=== PATIENT | female | born 1975 | race Caucasian/White ===

== ENCOUNTER 2017-12-31 12:17 | Inpatient (IN) | payer BC, OTHER ==
[~2017-12-31] VITALS: Ht 170.2 cm; Wt 71.7 kg
[2017-12-31] VITALS (29 sets, daily range): BP systolic 84–134; BP diastolic 50–88
[~2017-12-31 12:17] MED LIST: ALPR.5T PO; FRS325T PO; HYDR-1231 PO; HYDR1TAB PO; LEVO150T54 PO; LEVO175T2 PO; PREN1TAB39 PO; SERT50TA PO; [UNRECOGNIZED DRUG - OTHER]
--- OUTSIDE RECORDS SUMMARY | 2017-12-31 12:23 | XMS REPORT ---
Author Author RADHA BELL Organization e[employer] Address Unknown Phone Unavailable Care Team Providers Care Gallery Or Museum Attendant Name Role Phone RADHA BELL CP Unavailable Allergies, Adverse Reactions, Alerts Substance Reaction Event Type N.K.D.A. Info Not Available Non Drug Allergy Problems Problem Type Condition Code Onset Dates Condition Status Problem History of depression Z86.59 Active Problem History of gastric ulcer Z87.19 Active Problem History of anxiety Z86.59 Active Problem Substance abuse F19.10 Active Problem Depressive disorder F32.9 Active Problem Hypothyroidism E03.9 Active Problem Desire for Z31.9 Active Problem Tobacco use Z72.0 Active Problem Graves disease E05.00 Active Problem Diarrhea R19.7 Active Problem Stress incontinence N39.3 Active Problem History of irregular menstrual bleeding Z87.42 Active Problem Heat intolerance R68.89 Active Assessment Allergic rhinitis J30.9 Active Problem Cold intolerance R68.89 Active Medications Medication Code System Code Instructions Start Date End Date Status Dosage Levothyroxine Sodium [facility] [address]-87 50 MCG Orally Once a day Apr 07, 2015 1 tablet Alprazolam [facility] [address]-15 1 MG Orally Twice a day 1 tablet Omeprazole [facility] [address]-00 20 MG Orally Once a day 2 capsules Cetirizine HCl [facility] [address]-40 10 MG Orally Once a day July 14, 2015 1 tablet as needed Procedures Procedure Coding System Code Date DEPO MEDROL 40 MG/ML CPT-4 J1030 July 24, 2015 THER/PROPH/DIAG INJ, SC/IM CPT-4 13212 July 24, 2015 Office Visit, Est Pt., Level 3 CPT-4 83548 July 24, 2015 Vital Signs Date/Time: July 24, 2015 Temperature 97.1 F Weight 162.2 lbs Height 67 in BMI 25.40 Index Blood Pressure Diastolic 69 mmHg Blood Pressure Systolic 121 mmHg Results No Known Results Summary Purpose eClinicalWorks Submission
--- OUTSIDE RECORDS SUMMARY | 2017-12-31 12:23 | XMS REPORT ---
Author Author MISA PANCHAL Organization [facility] Address [address] [place] [address] Care Team Providers Care Goat Farmer Name Role Phone MISA PANCHAL Unavailable PROBLEMS Type Condition ICD9-CM Code [id number] Code Onset Dates Condition Status SNOMED Code Problem History of depression Z86.59 Active 907474735 Problem Desire for Z31.9 Active Problem Graves disease E05.00 Active 901490756 Problem Substance abuse F19.10 Active 18134109 Problem Hypothyroidism E03.9 Active 44422427 Problem Tobacco use Z72.0 Active 543873515 Problem History of irregular menstrual bleeding Z87.42 Active 211484636 Problem Diarrhea R19.7 Active 77680044 Problem Depressive disorder F32.9 Active 78500298 Problem History of anxiety Z86.59 Active 446263879 Problem Heat intolerance R68.89 Active 14857837 Problem Stress incontinence N39.3 Active 46854339 Problem History of gastric ulcer Z87.19 Active 935379540 Problem Cold intolerance R68.89 Active 96774152 ALLERGIES No Known Allergies SOCIAL HISTORY Never Assessed PLAN OF CARE Activity Details Follow Up prn Reason: VITAL SIGNS Height 67 in 2016-09-05 Weight 153.0 lbs 2016-09-05 Temperature 97.3 degrees Fahrenheit 2016-09-05 Heart Rate 82 bpm 2016-09-05 Respiratory Rate 18 2016-09-05 BMI 23.96 kg/m2 2016-09-05 Blood pressure systolic 122 mmHg 2016-09-05 Blood pressure diastolic 80 mmHg 2016-09-05 MEDICATIONS Medication Instructions Dosage Frequency Start Date End Date Duration Status Alprazolam 1 MG Orally Twice a day 1 tablet 12h Active Omeprazole 20 MG Orally Once a day 2 capsules 24h Active Levothyroxine Sodium 50 MCG Orally Once a day 1 tablet 24h Mar, Active Promethazine-Codeine 6.25-10 MG/5ML Orally every 6 hrs 5 ml as needed 6h August, Active Azithromycin 250 MG Orally Once a day 2 tablets on the first day, then 1 tablet daily for 4 days 24h August, August, 5 day(s) Active RESULTS No Results PROCEDURES No Known procedures IMMUNIZATIONS No Known Immunizations MEDICAL (GENERAL) HISTORY Type Description Date Medical History thyroid disorder -hypothyroid Medical History psychiatric disorder -depression Surgical History appendectomy
--- OUTSIDE RECORDS SUMMARY | 2017-12-31 12:23 | XMS REPORT ---
Author Author RADHA BELL Organization [employer] Address Unknown Phone Unavailable Care Team Providers Care Laborer Construction Or Leak Gang Name Role Phone RADHA BELL CP Unavailable [...] disease E05.00 Active Problem Diarrhea R19.7 Active Assessment Substance abuse F19.10 Active Assessment Hypothyroidism E03.9 Active Problem Stress incontinence N39.3 Active Problem History of irregular menstrual bleeding Z87.42 Active Assessment Tobacco use Z72.0 Active Problem Heat intolerance R68.89 Active Assessment Graves disease E05.00 Active Problem Cold intolerance R68.89 Active Medications Medication Code System Code Instructions Start Date End Date Status Dosage Alprazolam [facility] [address]-73 2 MG Orally 2 1 tablet Omeprazole [facility] [address]-63 20 MG Orally Once a day 2 capsules Levothyroxine Sodium [facility] [address]-51 25 MCG Orally Once a day Apr 07, 2015 1 tablet Procedures Procedure Coding System Code Date Office Visit, Est Pt., Level 3 CPT-4 36806 Apr 07, 2015 Vital Signs Date/Time: Apr 07, 2015 Temperature 98.0 F Weight 158.5 lbs Height 67 in BMI 24.82 Index Blood Pressure Diastolic 66 mmHg Blood Pressure Systolic 114 mmHg Cardiac Monitoring Heart Rate 84 bpm Results No Known Results Summary Purpose eClinicalWorks Submission
--- OUTSIDE RECORDS SUMMARY | 2017-12-31 12:23 | XMS REPORT ---
Author Author BRITTANY MORALES [facility] Address [address] [place] [address] Care Team Providers Care Tax Staff Accountant Name Role Phone BRITTANY MORALES Unavailable PROBLEMS Type Condition ICD9-CM Code EUL45-VI Code Onset Dates Condition Status SNOMED Code Problem History of depression Z86.59 Active 462600070 Problem Desire for Z31.9 Active Problem Graves disease E05.00 Active 370087386 Problem Substance abuse F19.10 Active 27838393 Problem Hypothyroidism E03.9 Active 53904821 Problem Tobacco use Z72.0 Active 445209528 Problem History of irregular menstrual bleeding Z87.42 Active 794926370 Problem Diarrhea R19.7 Active 12006189 Problem Depressive disorder F32.9 Active 51404918 Problem History of anxiety Z86.59 Active 790198821 Problem Heat intolerance R68.89 Active 91576236 Problem Stress incontinence N39.3 Active 11967712 Problem History of gastric ulcer Z87.19 Active 111670399 Problem Cold intolerance R68.89 Active 69455278 ALLERGIES No Known Allergies SOCIAL HISTORY Never Assessed PLAN OF CARE VITAL SIGNS Height 67 in 2016-08-25 Weight 155.4 lbs 2016-08-25 Temperature 98.0 degrees Fahrenheit 2016-08-25 Heart Rate 92 bpm 2016-08-25 Respiratory Rate 18 2016-08-25 BMI 24.34 kg/m2 2016-08-25 Blood pressure systolic 108 mmHg 2016-08-25 Blood pressure diastolic 84 mmHg 2016-08-25 MEDICATIONS Medication Instructions Dosage Frequency Start Date End Date Duration Status PredniSONE 20 mg Orally Once a day 2 tablets 24h August, August, 05 days Active Omeprazole 20 MG Orally Once a day 2 capsules 24h Active Promethazine-Codeine 6.25-10 MG/5ML Orally every 6 hrs 5 ml as needed 6h August, Active Doxycycline Hyclate 100 mg Orally every 12 hrs 1 capsule 12h August, August, 10 days Active Levothyroxine Sodium 50 MCG Orally Once a day 1 tablet 24h 22 Mar, 2015 Active Alprazolam 1 MG Orally Twice a day 1 tablet 12h Active RESULTS No Results PROCEDURES No Known procedures IMMUNIZATIONS No Known Immunizations MEDICAL (GENERAL) HISTORY Type Description Date Medical History thyroid disorder -hypothyroid Medical History psychiatric disorder -depression Surgical History appendectomy
--- OUTSIDE RECORDS SUMMARY | 2017-12-31 12:23 | XMS REPORT ---
Author Author JELANI SEYMOUR [employer] Address Unknown Phone Unavailable Care Team Providers Care Residential Installer Name Role Phone JELANI SEYMOUR Unavailable Allergies, Adverse Reactions, Alerts Substance Reaction Event Type N.K.D.A. Info Not Available Non Drug Allergy Problems Problem Type Condition Code Onset Dates Condition Status Assessment Stress incontinence N39.3 Active Assessment History of irregular menstrual bleeding Z87.42 Active Assessment Heat intolerance R68.89 Active Problem Stress incontinence N39.3 Active Assessment Cold intolerance R68.89 Active Problem History of irregular menstrual bleeding Z87.42 Active Assessment Tearfulness R45.89 Active Problem Heat intolerance R68.89 Active Problem History of depression Z86.59 Active Problem Cold intolerance R68.89 Active Problem Graves disease E05.00 Active Problem Diarrhea R19.7 Active Assessment History of gastric ulcer Z87.19 Active Assessment History of anxiety Z86.59 Active Problem Depressive disorder F32.9 Active Assessment History of depression Z86.59 Active Problem History of gastric ulcer Z87.19 Active Problem History of anxiety Z86.59 Active Problem Desire for Z31.9 Active Problem Tobacco use Z72.0 Active Assessment Abdominal pain R10.9 Active Assessment Diarrhea R19.7 Active Assessment Tobacco use Z72.0 Active Assessment Desire for Z31.9 Active Assessment Encounter for screening for malignant neoplasm of cervix Z12.4 Active Assessment Encounter for IUD removal Z30.432 Active Assessment Graves disease E05.00 Active Assessment Well woman exam Z01.419 Active Medications Medication Code System Code Instructions Start Date End Date Status Dosage Levothyroxine Sodium [facility] [address]-09 75 MCG Orally Once a day 1 tablet Alprazolam [facility] [address]-78 2 MG Orally 2 1 tablet Omeprazole [facility] [address]-61 20 MG Orally Once a day 2 capsules Procedures Procedure Coding System Code Date URINE TEST CPT-4 31831 Apr 02, 2015 SPECIMEN HANDLING CPT-4 41461 Apr 02, 2015 REMOVE INTRAUTERINE DEVICE CPT-4 46988 Apr 02, 2015 Preventive Care Est Pt. Age 18-39 CPT-4 18273 Apr 02, 2015 VENIPUNCT, ROUTINE* CPT-4 05956 Apr 02, 2015 Separate E/M CPT-4 25 Apr 02, 2015 COMPLETE CBC W/AUTO DIFF WBC CPT-4 57900 Apr 02, 2015 ASSAY THYROID STIM HORMONE CPT-4 91292 Apr 02, 2015 GLYCATED HEMOGLOBIN TEST CPT-4 49081 Apr 02, 2015 COMPREHEN METABOLIC PANEL CPT-4 72213 Apr 02, 2015 Vital Signs Date/Time: Apr 02, 2015 Temperature 97.0 F Weight 154.6 lbs Height 67 in BMI 24.21 Index Blood Pressure Diastolic 76 mmHg Blood Pressure Systolic 120 mmHg Results Name Result Date Reference Range Unit Abnormality Flag IUD REMOVAL ROUTINE VENIPUNCTURE TEST, URINE (IN HOUSE) ----Lot # [id number] ----Control [id number] ----RESULTS negative [id number] Summary Purpose eClinicalWorks Submission
--- OUTSIDE RECORDS SUMMARY | 2017-12-31 12:23 | XMS REPORT | Continuity of Care Document ---
Author Author [facility] Address Unknown Phone Unavailable Allergies Active Description Code Type Severity Reaction Onset Reported/Identified Relationship to Patient Clinical Status Yes No Known Drug Allergies [id number] Drug Allergy Mild N/A 06/30/2009 Medications There is no data. Problems Date Dx Coded Attending Type Code Diagnosis Diagnosed By 11/30/2007 UMM LONG DO 244.9 HYPOTHYROIDISM 11/30/2007 UMM LONG DO V72.31 RESOURCE MANAGER FORESTER EXAM, ROUTINE 11/30/2007 244.9 HYPOTHYROIDISM 11/30/2007 V72.31 RESOURCE MANAGER FORESTER EXAM, ROUTINE 11/30/2007 RAJIHSANE JEFF, RAKAN A 244.9 HYPOTHYROIDISM 11/30/2007 RAJIHSANE JEFF, RAKAN A V72.31 RESOURCE MANAGER FORESTER EXAM, ROUTINE 11/30/2007 PRATEEK DOG HANDLER, JAIME A 244.9 HYPOTHYROIDISM 11/30/2007 PRATEEK DOG HANDLER, JAIME A V72.31 RESOURCE MANAGER FORESTER EXAM, ROUTINE 04/15/2008 UMM LONG DO 461.9 SINUSITIS ACUTE 04/15/2008 UMM LONG DO 784.0 HEADACHE 04/15/2008 461.9 SINUSITIS ACUTE 04/15/2008 784.0 HEADACHE 04/15/2008 RAJIHSANE DOG HANDLER, RAKAN A 461.9 SINUSITIS ACUTE 04/15/2008 RAJOTTE DOG HANDLER, RAKAN A 784.0 HEADACHE 04/15/2008 PRATEEK DOG HANDLER, JAIME A 461.9 SINUSITIS ACUTE 04/15/2008 PRATEEK DOG HANDLER, JAIME A 784.0 HEADACHE 08/08/2008 UMM LONG DO 959.7 OTHER AND UNSPECIFIED INJURY TO KNEE LEG ANKLE AND FOOT 08/08/2008 UMM LONG DO V58.32 ENCOUNTER FOR REMOVAL OF SUTURES 08/08/2008 959.7 OTHER AND UNSPECIFIED INJURY TO KNEE LEG ANKLE AND FOOT 08/08/2008 V58.32 ENCOUNTER FOR REMOVAL OF SUTURES 08/08/2008 RAKAN CHARLTON APRN A 959.7 OTHER AND UNSPECIFIED INJURY TO KNEE LEG ANKLE AND FOOT 08/08/2008 RAKAN CHARLTON APRN A V58.32 ENCOUNTER FOR REMOVAL OF SUTURES 08/08/2008 JAIME CHANDRA APRN A 959.7 OTHER AND UNSPECIFIED INJURY TO KNEE LEG ANKLE AND FOOT 08/08/2008 JAIME CHANDRA APRN A V58.32 ENCOUNTER FOR REMOVAL OF SUTURES 09/12/2008 UMM LONG DO 599.0 URINARY TRACT INFECTION SITE NOT SPECIFIED 09/12/2008 599.0 URINARY TRACT INFECTION SITE NOT SPECIFIED 09/12/2008 RAKAN CHARLTON APRN A 599.0 URINARY TRACT INFECTION SITE NOT SPECIFIED 09/12/2008 JAIME CHANDRA APRN A 599.0 URINARY TRACT INFECTION SITE NOT SPECIFIED 01/29/2009 UMM LONG DO 626.4 irregular length of menstrual periods 01/29/2009 626.4 irregular length of menstrual periods 01/29/2009 RAKAN CHARLTON APRN A 626.4 irregular length of menstrual periods 01/29/2009 JAIME CHANDRA APRN A 626.4 irregular length of menstrual periods 02/23/2009 UMM LONG DO K 461.8 RHINOSINUSITIS 02/23/2009 UMM LONG DO K 466.0 ACUTE BRONCHITIS 02/23/2009 UMM LONG DO K V15.82 smoking cigarettes 02/23/2009 461.8 RHINOSINUSITIS 02/23/2009 466.0 ACUTE BRONCHITIS 02/23/2009 V15.82 smoking cigarettes 02/23/2009 RAKAN CHARLTON APRN A 461.8 RHINOSINUSITIS 02/23/2009 TRENTON CHARLTON APRNYL A 466.0 ACUTE BRONCHITIS 02/23/2009 TRENTON CHARLTON APRNYL A V15.82 smoking cigarettes 02/23/2009 JAIME CHANDRA APRN A 461.8 RHINOSINUSITIS 02/23/2009 JAIME CHANDRA APRN A 466.0 ACUTE BRONCHITIS 02/23/2009 POLLY CHANDRA APRNIDI A V15.82 smoking cigarettes 04/01/2009 UMM LONG DO K 465.9 UPPER RESPIRATORY INFECTION 04/01/2009 465.9 UPPER RESPIRATORY INFECTION 04/01/2009 ZOLTAN AGUILAR RAKAN A 465.9 UPPER RESPIRATORY INFECTION 04/01/2009 PRATEEK AGUILAR JAIME A 465.9 UPPER RESPIRATORY INFECTION 05/29/2009 UMM LONG DO 305.1 NONDEPENDENT ABUSE OF DRUGS, TOBACCO USE DISORDER 05/29/2009 UMM LONG DO 477.9 RHINITIS 05/29/2009 305.1 NONDEPENDENT ABUSE OF DRUGS, TOBACCO USE DISORDER 05/29/2009 477.9 RHINITIS 05/29/2009 ZOLTAN AGUILAR RAKAN A 305.1 NONDEPENDENT ABUSE OF DRUGS, TOBACCO USE DISORDER 05/29/2009 ZOLTAN AGUILAR, RAKAN A 477.9 RHINITIS 05/29/2009 PRATEEK GARCIAN JAIME A 305.1 NONDEPENDENT ABUSE OF DRUGS, TOBACCO USE DISORDER 05/29/2009 PRATEEK GARCIANPOLLYJAIME A 477.9 RHINITIS 06/08/2009 UMM LONG DO 616.10 Bacterial Vaginosis 06/08/2009 616.10 Bacterial Vaginosis 06/08/2009 ZOLTAN AGUILAR RAKAN A 616.10 Bacterial Vaginosis 06/08/2009 PRATEEK AGUILAR JAIME A 616.10 Bacterial Vaginosis 06/30/2009 Ot 623.8 06/30/2009 Ot 640.03 10/07/2009 UMM LONG DO 640.00 THREATENED 10/07/2009 UMM LONG DO 788.41 URINARY FREQUENCY 10/07/2009 640.00 THREATENED 10/07/2009 788.41 URINARY FREQUENCY 10/07/2009 ZOLTAN AGUILAR RAKAN A 640.00 THREATENED 10/07/2009 NINOE DOG HANDLER, RAKAN A 788.41 URINARY FREQUENCY 10/07/2009 PRATEEK AGUILAR, JAIME A 640.00 THREATENED 10/07/2009 PRATEEK GARCIAN, JAIME A 788.41 URINARY FREQUENCY 10/19/2009 Ot 646.83 10/19/2009 Ot 648.73 10/19/2009 Ot 724.2 10/19/2009 Ot 787.01 10/19/2009 Ot 788.41 10/19/2009 Ot 789.09 10/22/2009 UMM LONG DO V22.1 SUPERVISION OF OTHER NORMAL 10/22/2009 V22.1 SUPERVISION OF OTHER NORMAL 10/22/2009 RAKAN CHARLTON APRN A V22.1 SUPERVISION OF OTHER NORMAL 10/22/2009 JAIME CHANDRA APRN A V22.1 SUPERVISION OF OTHER NORMAL 11/05/2009 UMM LONG DO V74.5 STD SCREEN 11/05/2009 V74.5 STD SCREEN 11/05/2009 RAKAN CHARLTON APRN V74.5 STD SCREEN 11/05/2009 JAIME CHANDRA APRN A V74.5 STD SCREEN 02/06/2010 Ot 626.7 02/06/2010 Ot 646.83 02/15/2010 Ot 244.9 02/15/2010 Ot 311 02/15/2010 Ot 644.03 02/15/2010 Ot 648.13 02/15/2010 Ot 648.43 02/15/2010 Ot 649.03 02/15/2010 Ot 658.13 05/11/2010 UMM OLNG DO 788.1 DYSURIA 05/11/2010 UMM LONG DO V24.1 LACTATING MOTHER, CARE AND EXAM 05/11/2010 UMM LONG DO V25.49 SURVEILLANCE OF OTHER CONTRACEPTIVE METHOD 05/11/2010 788.1 DYSURIA 05/11/2010 V24.1 LACTATING MOTHER, CARE AND EXAM 05/11/2010 V25.49 SURVEILLANCE OF OTHER CONTRACEPTIVE METHOD 05/11/2010 RAKAN CHARLTON APRN A 788.1 DYSURIA 05/11/2010 TRENTON CHARLTON APRNYL A V24.1 LACTATING MOTHER, CARE AND EXAM 05/11/2010 TRENTON CHARLTON APRNYL A V25.49 SURVEILLANCE OF OTHER CONTRACEPTIVE METHOD 05/11/2010 POLLY CHANDRA APRNIDI A 788.1 DYSURIA 05/11/2010 JAIME CHANDRA APRN A V24.1 LACTATING MOTHER, CARE AND EXAM 05/11/2010 JAIME CHANDRA APRN A V25.49 SURVEILLANCE OF OTHER CONTRACEPTIVE METHOD 11/30/2010 UMM LONG DO 110.1 ONYCHOMYCOSIS 11/30/2010 UMM LONG DO 787.91 DIARRHEA 11/30/2010 UMM LONG DO 789.05 ABDOMINAL PAIN PERIUMBILIC 11/30/2010 UMM LONG DO V16.49 FAM HX CANCER (ANY SITE) 11/30/2010 110.1 ONYCHOMYCOSIS 11/30/2010 787.91 DIARRHEA 11/30/2010 789.05 ABDOMINAL PAIN PERIUMBILIC 11/30/2010 V16.49 FAM HX CANCER (ANY SITE) 11/30/2010 RAJOTTE DOG HANDLER, RAKAN A 110.1 ONYCHOMYCOSIS 11/30/2010 RAJOTTE DOG HANDLER, RAKAN A 787.91 DIARRHEA 11/30/2010 RAJOTTE DOG HANDLER, RAKAN A 789.05 ABDOMINAL PAIN PERIUMBILIC 11/30/2010 RAJOTTE DOG HANDLER, RAKAN A V16.49 FAM HX CANCER (ANY SITE) 11/30/2010 PRATEEK DOG HANDLER, JAIME A 110.1 ONYCHOMYCOSIS 11/30/2010 PRATEEK DOG HANDLER, JAIME A 787.91 DIARRHEA 11/30/2010 PRATEEK DOG HANDLER, JAIME A 789.05 ABDOMINAL PAIN PERIUMBILIC 11/30/2010 PRATEEK DOG HANDLER, JAIME A V16.49 FAM HX CANCER (ANY SITE) 12/09/2010 UMM LONG DO V76.41 SCREENING FOR MALIGNANT NEOPLASMS OF THE RECTUM 12/09/2010 V76.41 SCREENING FOR MALIGNANT NEOPLASMS OF THE RECTUM 12/09/2010 TRENTON CHARLTON APRNYL A V76.41 SCREENING FOR MALIGNANT NEOPLASMS OF THE RECTUM 12/09/2010 PRATEEK DOG HANDLER, JAIME A V76.41 SCREENING FOR MALIGNANT NEOPLASMS OF THE RECTUM 05/09/2012 UMM LONG DO 311 DEPRESSIVE DISORDER NOT ELSEWHERE CLASSIFIED 05/09/2012 UMM LONG DO V76.2 CERVICAL CANCER SCREENING (PAP SMEAR) 05/09/2012 311 DEPRESSIVE DISORDER NOT ELSEWHERE CLASSIFIED 05/09/2012 V76.2 CERVICAL CANCER SCREENING (PAP SMEAR) 05/09/2012 TRETNON CHARLTON APRNYL A 311 DEPRESSIVE DISORDER NOT ELSEWHERE CLASSIFIED 05/09/2012 NINOE DOG HANDLER, RAKAN A V76.2 CERVICAL CANCER SCREENING (PAP SMEAR) 05/09/2012 PRATEEK AGUILAR JAIME A 311 DEPRESSIVE DISORDER NOT ELSEWHERE CLASSIFIED 05/09/2012 PRATEEKFrances AGUILAR JAIME A V76.2 CERVICAL CANCER SCREENING (PAP SMEAR) 12/05/2012 623.5 LEUKORRHEA NOT SPECIFIED INFECTIVE 12/05/2012 V25.42 CONTRACEPTION SURVEILLANCE (IUD) 12/05/2012 RAKAN CHARLTON APRN 623.5 LEUKORRHEA NOT SPECIFIED INFECTIVE 12/05/2012 RAKAN CHARLTON APRN Ailyn V25.42 CONTRACEPTION SURVEILLANCE (IUD) 12/05/2012 JAIME CHANDRA APRN 623.5 LEUKORRHEA NOT SPECIFIED INFECTIVE 12/05/2012 JAIME CHANDRA APRN Ailyn V25.42 CONTRACEPTION SURVEILLANCE (IUD) 08/16/2014 ALEXANDRIA ATKINS, LIYA Robertson Ot 845.00 08/16/2014 ALEX[place]RI[place] ATKINS, LIYA Robertson Ot 959.7 08/16/2014 LIYA IBRAHIM MD Ot E000.8 08/16/2014 LIYA IBRAHIM MD A Ot E849.0 08/16/2014 LIYA IBRAHIM MD A Ot E880.9 08/16/2014 Ot 793.5 08/16/2014 Ot V22.1 Procedures Code [place] [address] ROUTINE VENIPUNCTURE 05/09/2012 44941 UA LONG DIP 05/09/2012 37651 CBC 05/09/2012 94210 TSH 05/10/2012 59107 CULTURE UROGENITAL 05/10/2012 44520 PAP SMEAR 05/10/2012 Q0091 PAP SMEAR OBTAIN SMEAR 05/10/2012 32506 URINE TEST (IN- HOUSE) 12/05/2012 84952 CULTURE UROGENITAL 12/08/2012 67783 INFLUENZA A & B (IN-HOUSE) 05/13/2013 78079 UA W/ CULTURE IF INDICATED 03/03/2014 10569 CULTURE URINE 03/04/2014 Results There is no data. Encounters ACCT No. Visit Date/Time Discharge Status Pt. Type Provider Facility Loc./Unit Complaint [id number] 03/03/2014 11:42:00 03/03/2014 23:59:59 CLS Outpatient JAIME CHANDRA APRN [id number] 05/13/2013 11:17:00 05/13/2013 23:59:59 CLS Outpatient TRENTON CHARLTON APRNTASHI Robertson [id number] 05/09/2012 14:55:00 05/09/2012 23:59:59 CLS Outpatient JEFFERY LONG DOA Jamie [id number] 12/05/2012 10:25:00 Document Registration [id number] 08/16/2014 08:53:00 08/16/2014 09:47:00 DIS Emergency ALEXANDRIA ATKINS, LIYA Robertson [facility] [id number] 08/16/2014 09:51:00 Document Registration [id number] 08/16/2014 09:51:00 Document Registration [id number] 08/16/2014 09:51:00 Document Registration [id number] 08/16/2014 09:51:00 Document Registration [id number] 02/15/2010 10:55:00 Document Registration [id number] 02/06/2010 01:53:00 Document Registration [id number] 08/16/2014 08:55:18 ACT Document Registration
--- OUTSIDE RECORDS SUMMARY | 2017-12-31 12:23 | XMS REPORT ---
Author Author RAKAN CHARLTON Organization [employer] Address Unknown Phone Unavailable Care Team Providers Care Assembler Flexible Leads Name Role Phone RAKAN CHARLTON CP Unavailable Allergies No Known Allergies Problems Problem Type Condition Code Onset Dates Condition Status Problem Heat intolerance R68.89 Active Problem History of depression Z86.59 Active Problem Cold intolerance R68.89 Active Problem Stress incontinence N39.3 Active Problem History of irregular menstrual bleeding Z87.42 Active Problem Graves disease E05.00 Active Problem Diarrhea R19.7 Active Problem Depressive disorder F32.9 Active Problem History of gastric ulcer Z87.19 Active Problem History of anxiety Z86.59 Active Problem Desire for Z31.9 Active Problem Tobacco use Z72.0 Active Medications No Known Medications Results No Known Results Summary Purpose eClinicalWorks Submission
[2017-12-31] MEDS ORDERED: NS IV 1000 ML 1,000 ML IV SCH (12:51)
[2017-12-31] MEDS ORDERED: LEVOTHYROXINE 100 MCG INJ (SYNTHROID) VIAL IV SCH (13:00)
[2017-12-31] MEDS ORDERED: HYDROCORTISONE 100 MG/2 ML (Solu-CORTEF) VIAL IV ONE (13:00)
[2017-12-31 13:15] LABS: BASOPHILS % (AUTO) 1 % (0-10); EOSINOPHILS # (AUTO) 0.1 10^3/uL (0.0-0.3); EOSINOPHILS % (AUTO) 1 % (0-10); HEMATOCRIT 40 % (35-52); HEMOGLOBIN 14.2 G/DL (11.5-16.0); LYMPHOCYTES # (AUTO) 2.3 X 10^3 (1.0-4.0); LYMPHOCYTES % (AUTO) 26 % (12-44); MEAN CORPUSCULAR HEMOGLOBIN 36 PG (25-34); MEAN CORPUSCULAR HGB CONC 36 G/DL (32-36); MEAN CORPUSCULAR VOLUME 101 FL (80-99); MEAN PLATELET VOLUME 9.3 FL (7.4-10.4); MONOCYTES # (AUTO) 0.3 X 10^3 (0.0-1.0); MONOCYTES % (AUTO) 4 % (0-12); NEUTROPHILS # (AUTO) 5.9 X 10^3 (1.8-7.8); NEUTROPHILS % (AUTO) 68 % (42-75); PLATELET COUNT 394 10^3/uL (130-400); RED BLOOD COUNT 3.95 10^6/uL (4.35-5.85); RED CELL DISTRIBUTION WIDTH 13.7 % (10.0-14.5); WHITE BLOOD COUNT 8.7 10^3/uL (4.3-11.0)
--- NOTE | 2017-12-31 13:20 | History & Physical-Hospitalist ---
History of Present Illness HPI/Chief Complaint CC: Acute and severe myxedema coma HPI: This is a 42-year-old white female clinic patient of Dr. Begum with a past medical history of Graves' disease at 19 years old status post ablation and thyroid replacement who presented to the ER with altered mental status by her . She reports that she's been doing well in her usual status until this morning when she could not be aroused from night time sleep and she was found to have a temperature of 85 at home per and he brought her to the ER. Patient is in florid myxedema coma and having hypotension prompting central line placement in aggressive IV fluid resuscitation and bear hugger for temperature of 88. She is not aware of when her last thyroid level was checked but unsure the reliability of those details because she does have altered mental status. I have contacted Dr. Negro who will be joining the case for consultation. She will be placed in the ICU placed on hydrocortisone stress dose steroids in addition to IV Synthroid and monitored very closely. Source: family, RN/MD Exam Limitations: no limitations Date Seen 12/31/17 Time Seen by Provider: 13:00 Attending Physician PCP Alex Begum MD Referring Physician Date of Admission Home Medications & Allergies Home Medications Reviewed patient Home Medication Reconciliation performed by pharmacy medication reconciliations customer service technician and/or nursing. Patients Allergies have been reviewed. 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 oz. 68.718585nq; BMI Method:Stated General Appearance: Anxious, Chronically ill, Moderate Distress, Other ( Confused, maravilla, pale, very acutely ill) HEENT: Pale Conjunctivae (L), Pale Conjunctivae (R), Other (Dry mucous membranes) Neck: Non Tender, Supple Respiratory: Chest Non Tender, Lungs Clear, Normal Breath Sounds, No Accessory Muscle Use, No Respiratory Distress Cardiovascular: No Edema, No Gallop, No JVD, No Murmur, Normal Peripheral Pulses, Bradycardia Gastrointestinal: Non Tender, Soft Back: Normal Inspection, No CVA Tenderness, No Vertebral Tenderness Extremity: Normal Capillary Refill, Normal Inspection, Normal Range of Motion, Non Tender, No Calf Tenderness, No Pedal Edema Neurologic/Psychiatric: Alert, Disoriented Skin: Normal Color, Warm/Dry Lymphatic: No Adenopathy Results Results/Procedures Labs Patient resulted labs reviewed. Assessment/Plan Admission Diagnosis Assessment: Acute and severe critical illness due to myxedema coma Bradycardia Hypothermia Severe dehydration Smoker Plan: IV fluid resuscitation Pressor therapy Central line placed by Dr. Magaly Negro in consultation IV hydrocortisone IV Synthroid Monitor closely patient is extremely critically ill Admission Status: Inpatient Order (span 2 midnights) Reason for Inpatient Admission: Severe critical illness due to myxedema coma will take at least 3 midnights to stabilize Critical Care Critically Ill Patient Critical Care Start Date: Dec 31, 2017 Critical Care Start Time: 13:00 Stop date: Dec 31, 2017 Stop Time: 14:00 Diagnosis/Problems Diagnosis/Problems (1) Myxedema coma Status: Acute Assessment & Plan: IV Hydrocortisone with IV Synthroid (2) Confused Status: Acute (3) Bradycardia Status: Acute (4) Hypotension Status: Acute Assessment & Plan: Aggressive fluids Qualifiers: Hypotension type: other hypotension type Qualified Codes: I95.89 - Other hypotension (5) Dehydration Status: Acute (6) Dry mucous membranes Status: Acute (7) Smoker Status: Chronic KHOI ATWOOD DO Dec 31, 2017 13:20
[2017-12-31 13:28] LABS: INR 1.1 (0.8-1.4); PROTHROMBIN TIME PATIENT 14.2 SEC (12.2-14.7)
[2017-12-31] MEDS ORDERED: MIDAZOLAM 5 MG/5 ML (VERSED) VIAL ONE (13:30)
[2017-12-31] MEDS ORDERED: SUCCINYLCHOLINE INJ 100 MG/5 ML SYR ONE (13:30)
[2017-12-31] MEDS ORDERED: fentaNYL INJECTION 100 MCG/2 ML AMP ONE (13:30)
[2017-12-31] MEDS ORDERED: ETOMIDATE IV SOLN 20 MG/10 ML VIAL ONE (13:30)
[2017-12-31] MEDS ORDERED: NS (IVPB) 250 ML ONE (13:34)
[2017-12-31] MEDS ORDERED: NOREPINEPHRINE 4 MG/4 ML (LEVOPHED) AMP IV ONE (13:34)
[2017-12-31 13:35] LABS: ALANINE AMINOTRANSFERASE 39 U/L (0-55); ALBUMIN 4.5 GM/DL (3.2-4.5); ALKALINE PHOSPHATASE 107 U/L (40-136); BILIRUBIN,TOTAL 0.8 MG/DL (0.1-1.0); BUN/CREATININE RATIO 14; CALCIUM 9.4 MG/DL (8.5-10.1); CARBON DIOXIDE 20 MMOL/L (21-32); CHLORIDE 102 MMOL/L (98-107); CREATININE SERUM 0.64 MG/DL (0.60-1.30); GFR ESTIMATED > 60; POTASSIUM 2.8 MMOL/L (3.6-5.0); SODIUM 139 MMOL/L (135-145); TOTAL PROTEIN 8.2 GM/DL (6.4-8.2)
[2017-12-31] MEDS ORDERED: DEXTROSE 50% 50 ML (IMS) SYR ONE ×2 (13:40→13:44)
[2017-12-31 13:42] LABS: GLUCOSE 25 MG/DL (70-105)
[2017-12-31] MEDS ORDERED: D5 1/2 NS 1000 ML IV SOLUTION 1,000 ML IV ONE (13:44)
[2017-12-31 13:47] LABS: ABG BASE EXCESS -5.7 MMOL/L (-2.5-2.5); ABG OXYGEN SATURATION 98 % (94-100); ABG PCO2 39 MMHG (35-45); ABG PO2 105 MMHG (79-93); ABG TCO2 21.9 MMOL/L (21.0-31.0)
[2017-12-31 13:48] LABS: ABG PH 7.31 (7.37-7.43)
[2017-12-31 13:49] LABS: ALLENS TEST YES-POS; INSPIRED O2 15 LITERS; PATIENT TEMP 32.1 C; VENTILATOR NO
[2017-12-31 13:57] LABS: FREE T4 (FREE THYROXINE) < 0.40 NG/DL (0.70-1.48)
[2017-12-31 14:04] LABS: MAGNESIUM 1.7 MG/DL (1.8-2.4); PHOSPHORUS 3.3 MG/DL (2.3-4.7)
[2017-12-31 14:07] LABS: BILIRUBIN,URINE NEGATIVE (NEGATIVE); CLARITY,URINE VERY CLOUDY; COLOR,URINE YELLOW; GLUCOSE, URINE (UA) NEGATIVE (NEGATIVE); KETONES,URINE 1+ (NEGATIVE); LEUKOCYTE ESTERASE ,URINE 1+ (NEGATIVE); NITRITE,URINE POSITIVE (NEGATIVE); PH,URINE 6 (5-9); PROTEIN,URINE 2+ (NEGATIVE); UROBILINOGEN,URINE NORMAL (NORMAL)
[2017-12-31] MEDS ORDERED: D5 1/2 NS 1000 ML IV SOLUTION 1,000 ML IV SCH ×2 (14:15→14:45)
[2017-12-31] MEDS ORDERED: DEXMEDETOMIDINE INJECTION 200 MCG in NS (IVPB) 50 ML IV SCH ×2 (14:15→14:45)
[2017-12-31] MEDS ORDERED: DEXTROSE 50% 50 ML (IMS) SYR IV ONE ×2 (14:15)
[2017-12-31] MEDS ORDERED: NOREPINEPHRINE 4 MG in NS (IVPB) 250 ML IV SCH ×2 (14:15→14:45)
--- OUTSIDE RECORDS SUMMARY | 2017-12-31 14:22 | XMS REPORT | Continuity of Care Document ---
Author Author [facility] Address Unknown Phone Unavailable Allergies Active Description Code Type Severity Reaction Onset Reported/Identified Relationship to Patient Clinical Status Yes No Known Drug Allergies [id number] Drug Allergy Mild N/A 06/30/2009 Medications There is no data. Problems Date Dx Coded Attending Type Code Diagnosis Diagnosed By 11/30/2007 UMM LONG DO 244.9 HYPOTHYROIDISM 11/30/2007 UMM LONG DO V72.31 MAINSPRING TORQUE TESTER EXAM, ROUTINE 11/30/2007 244.9 HYPOTHYROIDISM 11/30/2007 V72.31 MAINSPRING TORQUE TESTER EXAM, ROUTINE 11/30/2007 RAJIHSANE JEFF, RAKAN A 244.9 HYPOTHYROIDISM 11/30/2007 RAJIHSANE JEFF, RAKAN A V72.31 MAINSPRING TORQUE TESTER EXAM, ROUTINE 11/30/2007 PRATEEK WEATHER CLERK, JAIME A 244.9 HYPOTHYROIDISM 11/30/2007 PRATEEK WEATHER CLERK, JAIME A V72.31 MAINSPRING TORQUE TESTER EXAM, ROUTINE 04/15/2008 UMM LONG DO 461.9 SINUSITIS ACUTE 04/15/2008 UMM LONG DO 784.0 HEADACHE 04/15/2008 461.9 SINUSITIS ACUTE 04/15/2008 784.0 HEADACHE 04/15/2008 RAJIHSANE WEATHER CLERK, RAKAN A 461.9 SINUSITIS ACUTE 04/15/2008 RAJOTTE WEATHER CLERK, RAKAN A 784.0 HEADACHE 04/15/2008 PRATEEK WEATHER CLERK, JAIME A 461.9 SINUSITIS ACUTE 04/15/2008 PRATEEK WEATHER CLERK, JAIME A 784.0 HEADACHE 08/08/2008 UMM LONG [...] AGUILAR RAKAN A 640.00 THREATENED 10/07/2009 NINOE WEATHER CLERK, RAKAN A 788.41 URINARY FREQUENCY 10/07/2009 PRATEEK [...] Ot 649.03 02/15/2010 Ot 658.13 05/11/2010 UMM LONG DO 788.1 DYSURIA 05/11/2010 UMM LONG DO [...] FAM HX CANCER (ANY SITE) 11/30/2010 RAJOTTE WEATHER CLERK, RAKAN A 110.1 ONYCHOMYCOSIS 11/30/2010 RAJOTTE WEATHER CLERK, RAKAN A 787.91 DIARRHEA 11/30/2010 RAJOTTE WEATHER CLERK, RAKAN A 789.05 ABDOMINAL PAIN PERIUMBILIC 11/30/2010 RAJOTTE WEATHER CLERK, RAKAN A V16.49 FAM HX CANCER (ANY SITE) 11/30/2010 PRATEEK WEATHER CLERK, JAIME A 110.1 ONYCHOMYCOSIS 11/30/2010 PRATEEK WEATHER CLERK, JAIME A 787.91 DIARRHEA 11/30/2010 PRATEEK WEATHER CLERK, JAIME A 789.05 ABDOMINAL PAIN PERIUMBILIC 11/30/2010 PRATEEK WEATHER CLERK, JAIME A V16.49 FAM HX CANCER (ANY SITE) 12/09/2010 UMM LONG DO V76.41 SCREENING FOR MALIGNANT NEOPLASMS OF THE RECTUM 12/09/2010 V76.41 SCREENING FOR MALIGNANT NEOPLASMS OF THE RECTUM 12/09/2010 TRENTON CHARLTON APRNYL A V76.41 SCREENING FOR MALIGNANT NEOPLASMS OF THE RECTUM 12/09/2010 PRATEEK WEATHER CLERK, JAIME A V76.41 SCREENING FOR MALIGNANT NEOPLASMS OF THE RECTUM 05/09/2012 UMM LONG DO 311 DEPRESSIVE DISORDER NOT ELSEWHERE CLASSIFIED 05/09/2012 UMM LONG DO V76.2 CERVICAL CANCER SCREENING (PAP SMEAR) 05/09/2012 311 DEPRESSIVE DISORDER NOT ELSEWHERE CLASSIFIED 05/09/2012 V76.2 CERVICAL CANCER SCREENING (PAP SMEAR) 05/09/2012 TRENTON CHARLTON APRNYL A 311 DEPRESSIVE DISORDER NOT ELSEWHERE CLASSIFIED 05/09/2012 NINOE WEATHER CLERK, RAKAN A V76.2 CERVICAL CANCER SCREENING (PAP SMEAR) 05/09/2012 PRATEEK AGUILAR JAIME A 311 DEPRESSIVE DISORDER NOT ELSEWHERE CLASSIFIED 05/09/2012 PRATEEKFrances AGUILAR JAIME A V76.2 CERVICAL CANCER SCREENING (PAP SMEAR) 12/05/2012 623.5 LEUKORRHEA NOT SPECIFIED INFECTIVE 12/05/2012 V25.42 CONTRACEPTION SURVEILLANCE (IUD) 12/05/2012 RAKAN CHARLTON APRN 623.5 LEUKORRHEA NOT SPECIFIED INFECTIVE 12/05/2012 RAKAN CHARLTON APRN V25.42 CONTRACEPTION SURVEILLANCE (IUD) 12/05/2012 JAIME CHANDRA APRN 623.5 LEUKORRHEA NOT SPECIFIED INFECTIVE 12/05/2012 JAIME CHANDRA APRN V25.42 CONTRACEPTION SURVEILLANCE (IUD) 08/16/2014 ALEXANDRIA ATKINS, LIYA Robertson Ot 845.00 08/16/2014 ALEXANDRIA ATKINS, LIYA Robertson Ot 959.7 08/16/2014 LIYA IBRAHIM MD Ot E000.8 08/16/2014 LIYA IBRAHIM MD Ot E849.0 08/16/2014 LIYA IBRAHIM MD A Ot E880.9 08/16/2014 Ot 793.5 08/16/2014 Ot V22.1 Procedures Code Description [place] [address] ROUTINE VENIPUNCTURE 05/09/2012 09546 UA LONG DIP 05/09/2012 66242 CBC 05/09/2012 63749 TSH 05/10/2012 97369 CULTURE UROGENITAL 05/10/2012 96266 PAP SMEAR 05/10/2012 Q0091 PAP SMEAR OBTAIN SMEAR 05/10/2012 85679 URINE TEST (IN- HOUSE) 12/05/2012 21314 CULTURE UROGENITAL 12/08/2012 77693 INFLUENZA A & B (IN-HOUSE) 05/13/2013 09418 UA W/ CULTURE IF INDICATED 03/03/2014 10896 CULTURE URINE 03/04/2014 Results Test Result Range PT panel in platelet poor plasma by coagulation assay - 12/31/17 12:49 Prothrombin time (PT) in platelet poor plasma by coagulation assay 14.2 s 12.2-14.7 INR in platelet poor plasma or blood by coagulation assay 1.1 0.8-1.4 Activated partial thromboplastin time (aPTT) in platelet poor plasma bycoagulation assay - 12/31/17 12:49 Activated partial thromboplastin time (aPTT) in platelet poor plasma bycoagulation assay 38 s 24-35 Blood lactic acid measurement (moles/volume) - 12/31/17 12:49 Blood lactic acid measurement (moles/volume) 2.31 mmol/L 0.50-2.00 Complete blood count (CBC) with automated white blood cell (WBC) differential - 12/31/17 12:49 Blood leukocytes automated count (number/volume) 8.7 10*3/uL 4.3-11.0 Blood erythrocytes automated count (number/volume) 3.95 10*6/uL 4.35-5.85 Venous blood hemoglobin measurement (mass/volume) 14.2 g/dL 11.5-16.0 Blood hematocrit (volume fraction) 40 % 35-52 Automated erythrocyte mean corpuscular volume 101 [foz_us] 80-99 Automated erythrocyte mean corpuscular hemoglobin (mass per erythrocyte) 36 pg 25-34 Automated erythrocyte mean corpuscular hemoglobin concentration measurement ( mass/volume) 36 g/dL 32-36 Automated erythrocyte distribution width ratio 13.7 % 10.0-14.5 Automated blood platelet count (count/volume) 394 10*3/uL 130-400 Automated blood platelet mean volume measurement 9.3 [foz_us] 7.4-10.4 Automated blood neutrophils/100 leukocytes 68 % 42-75 Automated blood lymphocytes/100 leukocytes 26 % 12-44 Blood monocytes/100 leukocytes 4 % 0-12 Automated blood eosinophils/100 leukocytes 1 % 0-10 Automated blood basophils/100 leukocytes 1 % 0-10 Blood neutrophils automated count (number/volume) 5.9 10*3 1.8-7.8 Blood lymphocytes automated count (number/volume) 2.3 10*3 1.0-4.0 Blood monocytes automated count (number/volume) 0.3 10*3 0.0-1.0 Automated eosinophil count 0.1 10*3/uL 0.0-0.3 Automated blood basophil count (count/volume) 0.0 10*3/uL 0.0-0.1 Comprehensive metabolic panel - 12/31/17 12:49 Serum or plasma sodium measurement (moles/volume) 139 mmol/L 135-145 Serum or plasma potassium measurement (moles/volume) 2.8 mmol/L 3.6-5.0 Serum or plasma chloride measurement (moles/volume) 102 mmol/L 98-107 Carbon dioxide 20 mmol/L 21-32 Serum or plasma anion gap determination (moles/volume) 17 mmol/L 5-14 Serum or plasma urea nitrogen measurement (mass/volume) 9 mg/dL 7-18 Serum or plasma creatinine measurement (mass/volume) 0.64 mg/dL 0.60-1.30 Serum or plasma urea nitrogen/creatinine mass ratio 14 NRG Serum or plasma creatinine measurement with calculation of estimated glomerular filtration rate > NRG Serum or plasma glucose measurement (mass/volume) 25 mg/dL 70-105 Serum or plasma calcium measurement (mass/volume) 9.4 mg/dL 8.5-10.1 Serum or plasma total bilirubin measurement (mass/volume) 0.8 mg/dL 0.1-1.0 Serum or plasma alkaline phosphatase measurement (enzymatic activity/volume) 107 U/L 40-136 Serum or plasma aspartate aminotransferase measurement (enzymatic activity/ volume) 69 U/L 5-34 Serum or plasma alanine aminotransferase measurement (enzymatic activity/volume ) 39 U/L 0-55 Serum or plasma protein measurement (mass/volume) 8.2 g/dL 6.4-8.2 Serum or plasma albumin measurement (mass/volume) 4.5 g/dL 3.2-4.5 CALCIUM CORRECTED 9.0 mg/dL 8.5-10.1 THYROID STIMULATING HORMONE - 12/31/17 12:49 THYROID STIMULATING HORMONE 53.01 u[iU]/mL 0.35-4.94 Serum or plasma thyroxine (T4) free measurement (mass/volume) - 12/31/17 12:49 Serum or plasma thyroxine (T4) free measurement (mass/volume) < ng/ dL 0.70-1.48 Serum or plasma phosphate measurement (mass/volume) - 12/31/17 12:49 Serum or plasma phosphate measurement (mass/volume) 3.3 mg/dL 2.3-4.7 Magnesium - 12/31/17 12:49 Magnesium 1.7 mg/dL 1.8-2.4 Arterial blood gas measurement - 12/31/17 13:40 Blood pCO2 39 mm[Hg] 35-45 Blood pO2 105 mm[Hg] 79-93 Arterial blood bicarbonate measurement (moles/volume) 20 mmol/L 23-27 Arterial blood base excess by calculation -5.7 mmol/L - 2.5-2.5 Arterial blood oxygen saturation measurement 98 % 94-100 * Inhaled oxygen flow rate 15 LITERS NRG Arterial blood pH measurement with patient temperature correction 7.31 7.37-7.43 Arterial blood carbon dioxide, total measurement (moles/volume) 21.9 mmol/L 21.0-31.0 Body site R.RADIAL NRG Assessment of wrist artery patency prior to arterial puncture YES- POS NRG Setting of ventilation mode NO NRG Measurement of body temperature 32.1 C NRG Capillary blood glucose measurement by glucometer (mass/volume) - 12/31/17 13: 58 Capillary blood glucose measurement by glucometer (mass/volume) 373 mg/dL 70-110 Encounters ACCT No. Visit Date/Time Discharge Status Pt. Type Provider Facility Loc./Unit Complaint [id number] 03/03/2014 11:42:00 03/03/2014 23:59:59 CLS Outpatient JAIME CHANDRA APRN [id number] 05/13/2013 11:17:00 05/13/2013 23:59:59 CLS Outpatient RAKAN CHARLTON APRN [id number] 05/09/2012 14:55:00 05/09/2012 23:59:59 CLS Outpatient ETHAN MONTEZ UMM Jamie [id number] 12/05/2012 10:25:00 Document Registration [id number] 08/16/2014 08:53:00 08/16/2014 09:47:00 DIS Emergency ALEXANDRIA ATKINS, LIYA Robertson [facility] [id number] 12/31/2017 13:29:00 Document Registration [id number] 08/16/2014 09:51:00 Document Registration [id number] 08/16/2014 09:51:00 Document Registration [id number] 08/16/2014 09:51:00 Document Registration [id number] 08/16/2014 09:51:00 Document Registration [id number] 02/15/2010 10:55:00 Document Registration [id number] 02/06/2010 01:53:00 Document Registration [id number] 08/16/2014 08:55:18 ACT Document Registration
[2017-12-31 14:23] LABS: AMORPHOUS SEDIMENT,UR MOD AMOR URATES /LPF; BACTERIA,URINE LARGE /HPF; RBC,URINE 0-2 /HPF; SQUAMOUS EPITHELIAL CELL,UR 0-2 /HPF
--- NOTE | 2017-12-31 14:24 | ED General ---
General Stated Complaint: BODY TEMP 85 Source of Information: Patient, Family Exam Limitations: Physical Impairments History of Present Illness Date Seen by Provider: Dec 31, 2017 Time Seen by Provider: 12:40 Initial Comments Here with report of temp of 85 at home. Arrives lethargic and confused with temperature of 89F. Patient does report that she is on thyroid replacement after having Graves' disease as a teenager. Admits that she has not been taking her thyroid medicine well. Also on benzodiazepine for anxiety and drinks daily her nearly daily a few drinks. Denies recent infection but states that she gets urinary tract infections all the time. Denies nausea or vomiting. Patient is confused and a poor historian. Timing/Duration: 1-2 Days, Getting Worse Severity: Moderate, Severe Associated Systoms: Fever/Chills; No Nausea/Vomiting; Weakness Allergies and Home Medications Allergies Coded Allergies: No Known Drug Allergies (Verified , 06/30/09) Home Medications Alprazolam 0.5 Mg Tablet, 1 TAB PO BID, (Reported) Hydrocodone Bit/Acetaminophen 1 Tab Tablet, 1-2 TAB PO Q6H PRN for PAIN Prescribed by: LIYA IBRAHIM on 08/16/14 0922 Levothyroxine Sodium 175 Mcg Tablet, 1 EACH PO DAILY, (Reported) Vits W-Ca,Fe,Fa(<1MG) 1 Each Tablet, 1 EACH PO DAILY, (Reported) Patient Home Medication List Home Medication List Reviewed: Yes Review of Systems Review of Systems Constitutional: see HPI, chills; No fever; weakness EENTM: no symptoms reported Respiratory: short of breath; No wheezing Cardiovascular: No chest pain Gastrointestinal: No nausea, No vomiting Unable to complete review of systems due to altered mental status Past Qlrbcdk-Fybiyr-Gmwqaz Hx Past Med/Social Hx: Reviewed Nursing Past Med/Soc Hx, Reviewed and Corrections made Patient Social History Alcohol Use: Regular Use Smoking Status: Current Everyday Smoker Recent Foreign Travel: No Contact w/Someone Who Travel: No Past Medical History Surgeries: Yes Appendectomy Respiratory: No Neurological: No Reproductive Disorders: No Endocrine: Yes Hypothyroidsim Psychosocial: Yes Anxiety Family Medical History Reviewed Nursing Family Hx No Pertinent Family Hx Physical Exam-Suspected Sepsis Physical Exam Vital Signs Capillary Refill : Height, Weight, BMI Height: 5'7" Weight: 150lbs. oz. 68.003013yq; BMI Method:Stated General Appearance: WD/WN, Mild Distress HEENT: PERRL/EOMI, Pharynx Normal Neck: Non Tender, Supple Respiratory: Lungs Clear, Normal Breath Sounds Cardiovascular: No Murmur, Bradycardia Gastrointestinal: Non Tender, Soft Back: Normal Inspection, No CVA Tenderness, No Vertebral Tenderness Extremity: Normal Inspection, Normal Range of Motion, Non Tender Neurologic/Psychiatric: Alert, Disoriented, Motor Weakness (clinical) Skin: cool, pallor Focused Exam Lactate Level 12/31/17 12:49: Lactic Acid Level 2.31*H Lactic Acid Level Laboratory Tests Test 12/31/17 12:49 Lactic Acid Level 2.31 MMOL/L (0.50-2.00) *H Procedures/Interventions Lumen: triple Central Line Procedure: betadine prep, sterile drapes applied, sterile dressing applied Position: internal jugular (R) Anesthesia: Lidocaine Volume Anesthetic (ccs): 3 Complications: none Post Position: sutured, good blood return, position confirmed w/ CXR Date of ETT Placement: Dec 31, 2017 Time of ETT Placement: 13:58 Intubation Method: orotracheal Medications: Etomidate, Succinylcholine Positive End Tide CO2: Yes Breath Sounds after Intubation: bilateral-equal Intubation Complications: no complications Post Intubation Xray: Yes good position but advanced 2 cm Progress/Results/Core Measures Suspected Sepsis SIRS Temperature: Pulse: Respiratory Rate: Laboratory Tests 12/31/17 12:49: White Blood Count 8.7 Blood Pressure / Mean: 12/31/17 12:49: Lactic Acid Level 2.31*H Laboratory Tests 12/31/17 12:49: Creatinine 0.64, INR Comment 1.1, Platelet Count 394, Total Bilirubin 0.8 Results/Orders Lab Results Laboratory Tests Test 12/31/17 12:49 12/31/17 13:40 12/31/17 13:58 Range/Units White Blood Count 8.7 4.3-11.0 10^3/uL Red Blood Count 3.95 L 4.35-5.85 10^6/uL Hemoglobin 14.2 11.5-16.0 G/DL Hematocrit 40 35-52 % Mean Corpuscular Volume 101 H 80-99 FL Mean Corpuscular Hemoglobin 36 H 25-34 PG Mean Corpuscular Hemoglobin Concent 36 32-36 G/DL Red Cell Distribution Width 13.7 10.0-14.5 % Platelet Count 394 130-400 10^3/uL Mean Platelet Volume 9.3 7.4-10.4 FL Neutrophils (%) (Auto) 68 42-75 % Lymphocytes (%) (Auto) 26 12-44 % Monocytes (%) (Auto) 4 0-12 % Eosinophils (%) (Auto) 1 0-10 % Basophils (%) (Auto) 1 0-10 % Neutrophils # (Auto) 5.9 1.8-7.8 X 10^3 Lymphocytes # (Auto) 2.3 1.0-4.0 X 10^3 Monocytes # (Auto) 0.3 0.0-1.0 X 10^3 Eosinophils # (Auto) 0.1 0.0-0.3 10^3/uL Basophils # (Auto) 0.0 0.0-0.1 10^3/uL Prothrombin Time 14.2 12.2-14.7 SEC INR Comment 1.1 0.8-1.4 Activated Partial Thromboplast Time 38 H 24-35 SEC Sodium Level 139 135-145 MMOL/L Potassium Level 2.8 L 3.6-5.0 MMOL/L Chloride Level 102 98-107 MMOL/L Carbon Dioxide Level 20 L 21-32 MMOL/L Anion Gap 17 H 5-14 MMOL/L Blood Urea Nitrogen 9 7-18 MG/DL Creatinine 0.64 0.60-1.30 MG/DL Estimat Glomerular Filtration Rate > 60 BUN/Creatinine Ratio 14 Glucose Level 25 *L 70-105 MG/DL Lactic Acid Level 2.31 *H 0.50-2.00 MMOL/L Calcium Level 9.4 8.5-10.1 MG/DL Corrected Calcium 9.0 8.5-10.1 MG/DL Phosphorus Level 3.3 2.3-4.7 MG/DL Magnesium Level 1.7 L 1.8-2.4 MG/DL Total Bilirubin 0.8 0.1-1.0 MG/DL Aspartate Amino Transf (AST/SGOT) 69 H 5-34 U/L Alanine Aminotransferase (ALT/SGPT) 39 0-55 U/L Alkaline Phosphatase 107 40-136 U/L Total Protein 8.2 6.4-8.2 GM/DL Albumin 4.5 3.2-4.5 GM/DL Thyroid Stimulating Hormone (TSH) 53.01 H 0.35-4.94 UIU/ML Free Thyroxine < 0.40 L 0.70-1.48 NG/DL Blood Gas Puncture Site R.RADIAL Blood Gas Patient Temperature 32.1 C Arterial Blood pH 7.31 *L 7.37-7.43 Arterial Blood Partial Pressure CO2 39 35-45 MMHG Arterial Blood Partial Pressure O2 105 H 79-93 MMHG Arterial Blood HCO3 20 L 23-27 MMOL/L Arterial Blood Total CO2 21.9 21.0-31.0 MMOL/L Arterial Blood Oxygen Saturation 98 94-100 % Arterial Blood Base Excess -5.7 L -2.5-2.5 MMOL/L Mason Test YES-POS Blood Gas Ventilator Setting NO Blood Gas Inspired Oxygen 15 LITERS Glucometer 373 H 70-110 MG/DL My Orders Orders - DUGLAS MEDELLIN MD Cbc With Automated Diff (12/31/17 12:51) Comprehensive Metabolic Panel (12/31/17 12:51) Blood Culture (12/31/17 12:51) Sputum Culture (12/31/17 12:51) Urinalysis (12/31/17 12:51) Urine Culture (12/31/17 12:51) Protime With Inr (12/31/17 12:51) Partial Thromboplastin Time (12/31/17 12:51) Chest 1 View, Ap/Pa Only (12/31/17 12:51) Saline Lock/Iv-Start (12/31/17 12:51) Saline Lock/Iv-Start (12/31/17 12:51) Vital Signs Adult Sepsis Patie Q15M (12/31/17 12:51) O2 (12/31/17 12:51) Remove Rings In Anticipation O (12/31/17 12:51) Lactic Acid Analyzer (12/31/17 12:51) Ns Iv 1000 Ml (Sodium Chloride 0.9%) (12/31/17 12:51) Free T4 (Free Thyroxine) (12/31/17 12:51) Thyroid Stimulating Hormone (12/31/17 12:51) Arterial Blood Gas (12/31/17 12:52) Hydrocortisone Injection (Solu-Cortef In (12/31/17 13:00) Levothyroxine Injection (Synthroid Injec (12/31/17 13:00) Ns (Ivpb) (Sodium Chloride 0.9%) (12/31/17 13:34) Norepinephrine (Levophed) (12/31/17 13:34) D50w (Emergency) Syringe (Dextrose 50% 5 (12/31/17 13:40) Magnesium (12/31/17 13:46) Phosphorus (12/31/17 13:46) D5 1/2 Ns 1000 Ml Iv Solution (Dextrose (12/31/17 13:44) D50w (Emergency) Syringe (Dextrose 50% 5 (12/31/17 13:44) Norepinephrine (Levophed) (12/31/17 14:15) D50w (Emergency) Syringe (Dextrose 50% 5 (12/31/17 14:15) D50w (Emergency) Syringe (Dextrose 50% 5 (12/31/17 14:15) D5 1/2 Ns 1000 Ml (12/31/17 14:15) Precedex Drip 200mcg/50ml (12/31/17 14:15) Chest 1 View, Ap/Pa Only (12/31/17 14:07) Catheter(Urinary) Insert & Ass 03,15 (12/31/17 14:07) Ng Tube Insert & Assessment (12/31/17 14:07) Vital Signs/I&O Capillary Refill : Progress Note : Progress Note Seen and evaluated. Assessment completed with concerns about myxedema coma. IV 2 initiated and active warming measures initiated. Normal saline 2 L bolus ordered as patient is hypotensive. Septic workup initiated. I did discuss the case with Dr. Henao at 1257 and she'll see the patient in the ER. Hydrocortisone 100 mg IV ordered and levothyroxin ordered at 4 mcg/kg bolus 1 which is 250 g IV ordered. 1330 levothyroxin infusion initiated and central line placed due to persistent hypotension and the need for pressors and frequent access. Patient and family member informed of risk and benefits and consent signed and on chart with signature. 1346: Levophed has been initiated due to persistent hypotension. I did discuss the case with Dr. Negro at 1342. Patient has periods of apnea and increasing intermittent bradycardia. We will go ahead and secure airway due to increasing altered mental status. This was discussed with the who agrees. 1358: Patient intubated with 7.5 ET tube at 21 cm at the teeth. Good bilateral breath sounds and color change noted. Post chest x-ray after placement of OG tube done. This does show both tubes could be placed a little deeper and ET tube was ordered to be advanced 2 cm and OG tube advanced 10 cm. All questions, findings and concerns discussed with the patient's who verbalize understanding. Admit to the ICU in critical condition. Levophed has been titrated up to 15 g per but decreased to 10 after response in blood pressure. Patient did get 5 mg of Versed and 75 g of fentanyl post intubation for sedation and Precedex was started. I did discuss the case with Dr. Henao and Dr. Negro as well as the patient's family at length. ECG Initial ECG Impression Date: Dec 31, 2017 Initial ECG Impression Time: 12:43 Initial ECG Rate: 63 Initial ECG Rhythm: Normal Sinus Comment Sinus rhythm with normal axis. Flat T waves throughout. QTc interval prolonged. No evidence of ST elevation DC. Interpreted by me. Critical Care Note Critical Care Start Time: 12:40 Stop Time: 14:15 Total Time (minutes) 60 Departure Communication (Admissions) Time/Spoke to Admitting Phy: 12:57 Time/Spoke to Consulting Phy: 13:42 Impression Primary Impression: Myxedema coma Additional Impressions: Hypoglycemia Respiratory failure Qualified Codes: J96.01 - Acute respiratory failure with hypoxia Hypokalemia Disposition: ADMITTED INPATIENT Condition: Critical Admissions Decision to Admit Reason: Admit from ER (General) Decision to Admit/Date: Dec 31, 2017 Time/Decision to Admit Time: 13:42 Departure-Patient Inst. Referrals: GABRIELLA NUÑEZ MD (PCP) Primary Care Physician DUGLAS MEDELLIN MD Dec 31, 2017 14:24
--- NOTE | 2017-12-31 14:25 | Diagnostic Imaging Report ---
INDICATION: Intubation. COMPARISON: Earlier same day at 1:39 p.m. FINDINGS: The ET tube has tip 5.6 cm above the jazzmine. Enteric tube has tip at the level of GE junction. The side hole is in the distal esophagus. Right IJ central venous catheter is in stable position. Stable nodule in the right lung base. Left basilar heterogeneous consolidations are stable. IMPRESSION: 1. ET tube has tip 5.6 cm above the jazzmine. 2. Enteric tube has tip in the distal esophagus. Recommend approximately 10 cm of advancement, so the side hole would be within the stomach. Dictated by: Dictated on workstation # [id number]
--- NOTE | 2017-12-31 14:33 | Diagnostic Imaging Report ---
INDICATION: Central line placement. COMPARISON: None available. FINDINGS: Right IJ central venous catheter has tip in the lower SVC. No pneumothorax or pleural effusion. There is a right mid lung dense nodule which may be calcified. Heterogeneous consolidations are present in the left lower lobe. Heart is borderline enlarged. IMPRESSION: 1. Well-positioned right IJ central venous catheter. No pneumothorax. 2. Left lower lobe heterogeneous consolidations may represent pneumonia. 3. Dense pulmonary nodule in the right mid lung zone could be calcified but is indeterminate in nature. Dictated by: Dictated on workstation # [id number]
[2017-12-31] MEDS ORDERED: NS IV 1000 ML 1,000 ML ONE ×2 (14:43→15:11)
[2017-12-31] MEDS ORDERED: cefTRIAXone 1 GM/10 ML for IV (ROCEPHIN) ONE (14:44)
[2017-12-31] MEDS ORDERED: cefTRIAXone FOR IV USE 1,000 MG in NS (IVPB) 50 ML IV ONE (14:45)
[2017-12-31] MEDS ORDERED: POTASSIUM CL 10 MEQ/50 ML IVPB (PRE-MIX) IV SCH (14:45)
[2017-12-31] MEDS ORDERED: NS (IVPB) 50 ML ONE (14:46)
[2017-12-31] MEDS: cefTRIAXone FOR IV USE 1,000 MG in NS (IVPB) 50 ML IV SCH (15:00)
[2017-12-31 15:33] LABS: BASOPHILS % (AUTO) 0 % (0-10); EOSINOPHILS % (AUTO) 0 % (0-10); HEMATOCRIT 32 % (35-52); HEMOGLOBIN 11.4 G/DL (11.5-16.0); LYMPHOCYTES # (AUTO) 0.8 X 10^3 (1.0-4.0); LYMPHOCYTES % (AUTO) 8 % (12-44); MEAN CORPUSCULAR HEMOGLOBIN 36 PG (25-34); MEAN CORPUSCULAR HGB CONC 35 G/DL (32-36); MEAN CORPUSCULAR VOLUME 102 FL (80-99); MONOCYTES # (AUTO) 0.2 X 10^3 (0.0-1.0); MONOCYTES % (AUTO) 2 % (0-12); NEUTROPHILS # (AUTO) 8.7 X 10^3 (1.8-7.8); NEUTROPHILS % (AUTO) 89 % (42-75); PLATELET COUNT 342 10^3/uL (130-400); RED BLOOD COUNT 3.17 10^6/uL (4.35-5.85); RED CELL DISTRIBUTION WIDTH 13.6 % (10.0-14.5); WHITE BLOOD COUNT 9.7 10^3/uL (4.3-11.0)
[2017-12-31 15:46] LABS: BUN/CREATININE RATIO 12; CALCIUM 7.5 MG/DL (8.5-10.1); CARBON DIOXIDE 16 MMOL/L (21-32); CHLORIDE 106 MMOL/L (98-107); CREATININE SERUM 0.65 MG/DL (0.60-1.30); GFR ESTIMATED > 60; GLUCOSE 300 MG/DL (70-105); POTASSIUM 2.7 MMOL/L (3.6-5.0); SODIUM 137 MMOL/L (135-145)
--- NOTE | 2017-12-31 15:53 | Anesthesia-Procedure Note ---
Procedures/Interventions Procedure Start/Stop/Diagnosis Date of Procedure: Dec 31, 2017 Start Time: 15:30 Referring Physician: Earlene Preprocedural Diagnosis: Myxedema Coma, Resp Failure Brief History Called by warehouse and receiving supervisor to start A Line on new ICU admission to 12 for Myxedema Coma and Resp Failure. Pt was lightly sedated on vent on assessment. During prep of wrist pt became agitated and would not hold still for procedure. RN bolused with propofol. 20g Rt Radial A Line started x1 attempt. Good wave form and blood return. Sterile technique maintained. Catheter secured with op site and tape. ASA 4 Stop Time: 15:40 Postprocedural Diagnosis: Myxedema Coma, Resp Failure Arterial Line Arterial Line Catheter: 20G Type: Radial Location: Right Procedure: prepped, draped in sterile fashion, good wave-form was obtained, patient tolerated procedure well, no immediate complications, post procedure area cleaned, post procedure dressing applied DINO SANCHEZ CRNA Dec 31, 2017 15:53
[2017-12-31 16:10] LABS: ABG BASE EXCESS -8.3 MMOL/L (-2.5-2.5); ABG OXYGEN SATURATION 98 % (94-100); ABG PCO2 33 MMHG (35-45); ABG PO2 97 MMHG (79-93); ABG TCO2 18.5 MMOL/L (21.0-31.0)
[2017-12-31] MEDS ORDERED: PROPOFOL DRIP (ICU) 100 ML IV ONE (16:11)
[2017-12-31 16:13] LABS: ABG PH 7.32 (7.37-7.43); ALLENS TEST YES-POS
[2017-12-31 16:14] LABS: INSPIRED O2 75%; PATIENT TEMP 91.9; VENTILATOR YES
[2017-12-31] MEDS ORDERED: SODIUM BICARB 8.4% 50 MEQ/50 ML (ABBOTT) SYR ONE (16:15)
[2017-12-31] MEDS ORDERED: D5 1/2 NS W/KCL 20 MEQ/L 1,000 ML IV ONE (16:21)
[2017-12-31] MEDS ORDERED: LACTATED RINGERS 1,000 ML IV ONE (16:22)
[2017-12-31] MEDS ORDERED: MAGNESIUM 1 GM/100 ML IVPB 200 ML IV ONE (16:22)
[2017-12-31] MEDS ORDERED: D5 1/2 NS W/KCL 20 MEQ/L 1,000 ML IV SCH (16:30)
[2017-12-31] MEDS ORDERED: SODIUM BICARB 8.4% 50 MEQ/50 ML (ABBOTT) SYR IV NR (16:30)
[2017-12-31] MEDS ORDERED: LACTATED RINGERS 1,000 ML IV SCH (16:30)
[2017-12-31] MEDS: POTASSIUM CL 10MEQ/50ML IVPB 50 ML IV SCH ×6 (16:31→18:04)
[2017-12-31] MEDS: MAGNESIUM 1 GM/100 ML IVPB 100 ML IV SCH ×2 (16:32→17:13)
[2017-12-31] MEDS ORDERED: DEXMEDETOMIDINE INJECTION 1,000 MCG in NS (IVPB) 250 ML IV SCH (16:45)
[2017-12-31] MEDS ORDERED: PROPOFOL DRIP (ICU) 100 ML IV SCH (16:45)
[2017-12-31] MEDS: PROPOFOL DRIP (ICU) 100 ML IV SCH ×2 (17:17→20:15)
[2017-12-31] MEDS ORDERED: fentaNYL (OMNICELL DRIP KIT ONLY) 250 MCG/5 ML AMP ONE (18:42)
[2017-12-31] MEDS ORDERED: NS (IVPB) 100 ML ONE (18:42)
[2017-12-31 19:19] LABS: AMPHETAMINE SCREEN, URINE NEGATIVE (NEGATIVE); BARBITURATE SCREEN URINE NEGATIVE (NEGATIVE); BENZODIAZEPINES SCREEN URINE POSITIVE (NEGATIVE); CANNABINOID SCREEN, URINE POSITIVE (NEGATIVE); COCAINE SCREEN URINE NEGATIVE (NEGATIVE); METHADONE STAT NEGATIVE (NEGATIVE); METHAMPHETAMINE SCREEN URINE S NEGATIVE (NEGATIVE); OPIATE SCREEN URINE NEGATIVE (NEGATIVE); OXYCODONE STAT NEGATIVE (NEGATIVE); PROPOXYPHENE STAT NEGATIVE (NEGATIVE); TRICYCLIC ANTIDEPRESSANTS SCRE NEGATIVE (NEGATIVE)
[2017-12-31] MEDS: fentaNYL 1,250 MCG/NS 250 ML DRIP IV SCH ×2 (20:32)
[2017-12-31 21:04] LABS: BASOPHILS % (AUTO) 0 % (0-10); EOSINOPHILS % (AUTO) 0 % (0-10); HEMATOCRIT 31 % (35-52); HEMOGLOBIN 11.4 G/DL (11.5-16.0); LYMPHOCYTES # (AUTO) 0.6 X 10^3 (1.0-4.0); LYMPHOCYTES % (AUTO) 5 % (12-44); MEAN CORPUSCULAR HEMOGLOBIN 36 PG (25-34); MEAN CORPUSCULAR HGB CONC 37 G/DL (32-36); MEAN CORPUSCULAR VOLUME 98 FL (80-99); MONOCYTES # (AUTO) 0.3 X 10^3 (0.0-1.0); MONOCYTES % (AUTO) 2 % (0-12); NEUTROPHILS # (AUTO) 12.6 X 10^3 (1.8-7.8); NEUTROPHILS % (AUTO) 93 % (42-75); PLATELET COUNT 281 10^3/uL (130-400); RED BLOOD COUNT 3.17 10^6/uL (4.35-5.85); RED CELL DISTRIBUTION WIDTH 13.5 % (10.0-14.5); WHITE BLOOD COUNT 13.5 10^3/uL (4.3-11.0)
[2017-12-31] MEDS: HYDROCORTISONE 100 MG/2 ML (Solu-CORTEF) VIAL IV SCH (21:16)
[2017-12-31 21:22] LABS: BUN/CREATININE RATIO 11; CALCIUM 7.9 MG/DL (8.5-10.1); CARBON DIOXIDE 21 MMOL/L (21-32); CHLORIDE 105 MMOL/L (98-107); CREATININE SERUM 0.66 MG/DL (0.60-1.30); GFR ESTIMATED > 60; GLUCOSE 261 MG/DL (70-105); MAGNESIUM 1.9 MG/DL (1.8-2.4); PHOSPHORUS 2.2 MG/DL (2.3-4.7); SODIUM 136 MMOL/L (135-145)
[2017-12-31 21:30] LABS: BAND NEUTROPHILS 9 %; BASOPHILS % (MANUAL) 0 %; EOSINOPHILS % (MANUAL) 0 %; LYMPHOCYTES % (MANUAL) 6 %; MONOCYTES % (MANUAL) 2 %; NEUTROPHILS % (MANUAL) 83 %; RBC MORPH NORMAL
[2017-12-31] MEDS ORDERED: 1/2 NS W/KCL 20 MEQ/L 1,000 ML IV ONE (22:02)
[2017-12-31] MEDS ORDERED: 1/2 NS W/KCL 20 MEQ/L 1,000 ML IV SCH (22:15)
[2018-01-01] VITALS (29 sets, daily range): BP systolic 105–138; BP diastolic 69–86
[2018-01-01] MEDS: PROPOFOL DRIP (ICU) 100 ML IV SCH ×2 (01:48→06:47)
[2018-01-01 03:49] LABS: ABG BASE EXCESS -1.1 MMOL/L (-2.5-2.5); ABG OXYGEN SATURATION 99 % (94-100); ABG PCO2 35 MMHG (35-45); ABG PH 7.43 (7.37-7.43); ABG PO2 135 MMHG (79-93); ABG TCO2 23.6 MMOL/L (21.0-31.0)
[2018-01-01 03:50] LABS: ALLENS TEST YES-POS; INSPIRED O2 75%; PATIENT TEMP 99; VENTILATOR YES
[2018-01-01 03:52] LABS: BASOPHILS % (AUTO) 0 % (0-10); EOSINOPHILS % (AUTO) 0 % (0-10); HEMATOCRIT 35 % (35-52); HEMOGLOBIN 12.1 G/DL (11.5-16.0); LYMPHOCYTES # (AUTO) 0.7 X 10^3 (1.0-4.0); LYMPHOCYTES % (AUTO) 5 % (12-44); MEAN CORPUSCULAR HEMOGLOBIN 35 PG (25-34); MEAN CORPUSCULAR HGB CONC 35 G/DL (32-36); MEAN CORPUSCULAR VOLUME 101 FL (80-99); MEAN PLATELET VOLUME 9.1 FL (7.4-10.4); MONOCYTES # (AUTO) 0.3 X 10^3 (0.0-1.0); MONOCYTES % (AUTO) 2 % (0-12); NEUTROPHILS % (AUTO) 93 % (42-75); PLATELET COUNT 315 10^3/uL (130-400); RED BLOOD COUNT 3.44 10^6/uL (4.35-5.85); RED CELL DISTRIBUTION WIDTH 13.7 % (10.0-14.5)
[2018-01-01 04:19] LABS: ALANINE AMINOTRANSFERASE 25 U/L (0-55); ALBUMIN 3.5 GM/DL (3.2-4.5); ALKALINE PHOSPHATASE 88 U/L (40-136); BILIRUBIN,TOTAL 0.8 MG/DL (0.1-1.0); BUN/CREATININE RATIO 10; CARBON DIOXIDE 21 MMOL/L (21-32); CHLORIDE 105 MMOL/L (98-107); CREATININE SERUM 0.63 MG/DL (0.60-1.30); GFR ESTIMATED > 60; GLUCOSE 121 MG/DL (70-105); MAGNESIUM 1.7 MG/DL (1.8-2.4); PHOSPHORUS 2.4 MG/DL (2.3-4.7); POTASSIUM 4.1 MMOL/L (3.6-5.0); SODIUM 136 MMOL/L (135-145); TOTAL PROTEIN 6.1 GM/DL (6.4-8.2)
[2018-01-01] MEDS: POTASSIUM CL 10MEQ/50ML IVPB 50 ML IV SCH (04:22)
[2018-01-01] MEDS: KCL 20 MEQ TAB (K-DUR) PO SCH (04:22)
[2018-01-01] MEDS ORDERED: NS IV 1000 ML 1,000 ML ONE (05:12)
[2018-01-01] MEDS: NS IV 1000 ML 1,000 ML IV SCH ×3 (05:22→21:49)
[2018-01-01] MEDS: MAGNESIUM 1 GM/100 ML IVPB 100 ML IV SCH ×3 (05:25→07:12)
--- NOTE | 2018-01-01 05:26 | Pulmonary Consultation ---
History of Present Illness History of Present Illness Date of Consultation 01/01/18 05:21 Time Seen by Provider: 05:21 Date of Admission History of Present Illness 42yo with hx of hypothyroid presented to ED and found to be lethargic, confuesed , and hypothermic( temp 89). While in the ED patient became hypotensive and bradycardic. She was also found to have a UTI, and severe electrolyte disturbance. Elective intubation was done secondary to patients severe declining condition. Currently patient is sedated on vent. Unable to obtain ROS. Allergies and Home Medications Allergies Coded Allergies: No Known Drug Allergies (Verified , 06/30/09) Home Medications Alprazolam 0.5 Mg Tablet, 1 TAB PO BID, (Reported) Hydrocodone Bit/Acetaminophen 1 Tab Tablet, 1-2 TAB PO Q6H PRN for PAIN Prescribed by: LIYA IBRAHIM on 08/16/14 0922 Levothyroxine Sodium 175 Mcg Tablet, 1 EACH PO DAILY, (Reported) Vits W-Ca,Fe,Fa(<1MG) 1 Each Tablet, 1 EACH PO DAILY, (Reported) Past Oyngqmp-Zqrrxh-Oosiua Hx Past Med/Social Hx: Reviewed Nursing Past Med/Soc Hx, Reviewed and Corrections made Patient Social History Alcohol Use: Regular Use Number of Drinks Today: 0 Alcohol Beverage of Choice: Vodka Recreational Drug Use: No Drug of Choice: POT Smoking Status: Current Everyday Smoker Type Used: Cigarettes Recent Foreign Travel: No Contact w/Someone Who Travel: No Recent Infectious Disease Expo: No Recent Hopitalizations: No Physical Abuse: No Sexual Abuse: No Seasonal Allergies Seasonal Allergies: Yes Past Medical History Surgeries: Yes Appendectomy Respiratory: No Chronic Bronchitis Currently Using CPAP: No Currently Using BIPAP: No Cardiac: No Neurological: No Reproductive Disorders: No Sexually Transmitted Disease: No HIV/AIDS: No UTI-Chronic Gastrointestinal: No Liver Disease/Jaundice Musculoskeletal: No Endocrine: Yes Hypothyroidsim Are Your Blood Sugars Over 250: No HEENT: No Cancer: No Psychosocial: Yes Anxiety Integumentary: No Blood Disorders: No Adverse Reaction/Blood Tranf: No Family Medical History Reviewed Nursing Family Hx No Pertinent Family Hx Review of Systems Time Seen by Provider: 05:50 Sepsis Event Evaluation Height, Weight, BMI Height: 5'7.00" Weight: 151lbs. 4.0oz. 68.544922po; 22.7 BMI Method:Stated Exam Exam Vital Signs Date Time Temp Pulse Resp B/P (MAP) Pulse Ox O2 Delivery O2 Flow Rate FiO2 01/01/18 04:00 96.4 50 11 116/72 (87) 99 Mechanical Ventilator 50.00 01/01/18 04:00 97 Mechanical Ventilator 50 01/01/18 03:59 52 12 99 75 01/01/18 03:00 97.0 59 14 119/75 (90) 95 Mechanical Ventilator 75.00 01/01/18 02:09 56 14 98 75 01/01/18 02:00 96.6 56 12 117/73 (88) 99 Mechanical Ventilator 75.00 01/01/18 01:48 116/72 01/01/18 01:35 96.8 01/01/18 01:00 62 01/01/18 01:00 96.6 62 13 115/71 (86) 93 Mechanical Ventilator 75.00 01/01/18 00:41 96.6 01/01/18 00:14 58 12 113/74 (87) 96 Mechanical Ventilator 75.00 01/01/18 00:00 99 Mechanical Ventilator 75 12/31/17 23:54 56 12 98 75 12/31/17 23:29 53 12 108/65 (79) 99 Mechanical Ventilator 75.00 12/31/17 22:10 58 12 99 75 12/31/17 22:00 69 34 84/50 (61) 99 Mechanical Ventilator 75.00 12/31/17 21:41 96.6 12/31/17 21:00 59 12 106/63 (77) 96 Mechanical Ventilator 75.00 12/31/17 20:15 107/63 12/31/17 20:05 63 12 100 75 12/31/17 20:00 99 Mechanical Ventilator 75 12/31/17 20:00 96.4 12/31/17 20:00 64 12 108/63 (78) 99 Mechanical Ventilator 75.00 12/31/17 19:57 64 12/31/17 19:00 66 12 108/63 (78) 97 Mechanical Ventilator 75.00 12/31/17 18:45 68 12 100/58 (72) 96 Mechanical Ventilator 75.00 12/31/17 18:33 70 13 96 75 12/31/17 18:30 80 14 98/61 (73) 97 Mechanical Ventilator 75.00 9/16/18 18:15 66 13 113/64 (80) 99 Mechanical Ventilator 75.00 12/31/17 18:00 65 11 113/65 (81) 99 Mechanical Ventilator 75.00 12/31/17 17:45 67 12 112/65 (81) 98 Mechanical Ventilator 75.00 12/31/17 17:30 66 12 111/64 (80) 98 Mechanical Ventilator 75.00 12/31/17 17:17 94.8 66 12 115/66 98 18 17:15 66 12 114/67 (83) 98 Mechanical Ventilator 75.00 12/31/17 17:00 66 11 107/62 (77) 97 Mechanical Ventilator 75.00 12/31/17 16:45 65 12 99/55 (70) 96 Mechanical Ventilator 75.00 12/31/17 16:30 65 11 99/55 (70) 97 Mechanical Ventilator 75.00 12/31/17 16:30 66 12 96 75 12/31/17 16:15 61 12 116/72 (87) 98 Mechanical Ventilator 75.00 12/31/17 16:10 92.3 48 11 119/73 (88) 98 Mechanical Ventilator 75.00 12/31/17 16:00 91.7 52 15 98 Mechanical Ventilator 75.00 12/31/17 15:50 91.9 52 12 134/82 (99) 98 Mechanical Ventilator 75.00 12/31/17 15:45 11 131/82 (98) 97 Mechanical Ventilator 75.00 12/31/17 15:30 52 12 109/88 (95) 97 Mechanical Ventilator 75.00 12/31/17 15:15 50 11 114/87 (96) 95 Mechanical Ventilator 75.00 12/31/17 15:00 51 12 96/71 (79) 98 Mechanical Ventilator 75.00 12/31/17 14:50 50 12/31/17 14:45 48 11 98/71 (80) 95 Mechanical Ventilator 75.00 12/31/17 14:40 48 12 94 100 12/31/17 14:30 49 13 120/87 (98) 95 Mechanical Ventilator 75.00 12/31/17 14:11 90.1 54 12 125/87 (57) 97 Mechanical Ventilator 4.00 12/31/17 14:00 98 Mechanical Ventilator 100 12/31/17 13:08 92 Nasal Cannula 4.00 88 12/31/17 12:40 89.9 65 12 83/44 (57) 96 Room Air I & O 01/01/18 07:00 Intake Total 1449 ml Output Total 535 ml Balance 914 ml Height & Weight Height: 5'7.00" Weight: 151lbs. 4.0oz. 68.542699ra; 22.7 BMI Method:Stated General Appearance: WD/WN, Mild Distress HEENT: PERRL/EOMI, Pharynx Normal Neck: Non Tender, Supple Respiratory: Lungs Clear, Normal Breath Sounds Cardiovascular: No Murmur, Bradycardia Capillary Refill: Less Than 3 Seconds Extremity: Normal Inspection, Normal Range of Motion, Non Tender Neurologic/Psychiatric: Alert, Disoriented, Motor Weakness (clinical) Skin: Normal Color, Warm/Dry Lymphatic: No Adenopathy Results Lab Laboratory Tests 12/31/17 12:49 12/31/17 15:24 12/31/17 20:55 01/01/18 03:35 Assessment/Plan Assessment/Plan Myxedema coma -Synthroid 100mcg IV Daily -Solucortef 100mg IV Q8 -Will recheck free T4, T3 tomorrow to ensure its improving -Will change IVF to NS Acute respiratory failure -Continue ventilator support -Currently on propofol, Precedex, and fentanyl gtt -Start TF Hypoglycemia -Continue accu checks -Start TF Dehydration -IVF UTI -[facility] culture pending Bradycardia, hypotension, hypothermia- secondary to hypothyroid -Levophed gtt Tobacco, Marijuana use -Education ETOH use -No hx of withdrawal -Monitor GI/DVT ppx JOSE R KULKARNI DO Jan 01, 2018 05:26
[2018-01-01] MEDS ORDERED: MAGNESIUM 1 GM/100 ML IVPB 200 ML IV ONE (05:29)
[2018-01-01] MEDS ORDERED: CALCIUM GLUCONATE 10% INJ 4.65 MEQ in NS (IVPB) 50 ML IV ONE (05:30)
[2018-01-01] MEDS ORDERED: CALCIUM GLUC. 10% 4.65 MEQ/10 ML VIAL ONE (05:36)
[2018-01-01] MEDS ORDERED: NS (IVPB) 50 ML ONE (05:39)
[2018-01-01] MEDS: HYDROCORTISONE 100 MG/2 ML (Solu-CORTEF) VIAL IV SCH ×3 (05:51→21:47)
[2018-01-01] MEDS: ENOXAPARIN 40 MG/0.4 ML (LOVENOX) SYR SC SCH (06:00)
[2018-01-01] MEDS: PANTOPRAZOLE 40 MG (PROTONIX) VIAL IV SCH (07:56)
[2018-01-01] MEDS ORDERED: LEVOTHYROXINE 100 MCG INJ (SYNTHROID) VIAL IV SCH (09:00)
[2018-01-01] MEDS ORDERED: ALPR2TAB6 PO (09:02)
[2018-01-01] MEDS ORDERED: OMEP20CA12 PO (09:02)
[2018-01-01] MEDS ORDERED: LEVO175T5 PO (09:02)
--- NOTE | 2018-01-01 09:04 | Diagnostic Imaging Report ---
INDICATION Ventilator support. TIME OF EXAM: 3:26 a.m. Correlation is made with prior study one day earlier. FINDINGS: The various support lines and catheters remain in place. NG tube has been advanced as the tip in the gastric body. Infiltrate/subsegmental atelectasis in both lung bases are noted. There is an external pacer overlying the right hemithorax. No effusion or pneumothorax is seen. IMPRESSION: Mild bibasilar subsegmental atelectasis or infiltrate. Dictated by: Dictated on workstation # [id number]
--- NOTE | 2018-01-01 09:24 | Physical Therapy Progress Note ---
Therapy Progress Note No treatment per RN. Patient is currently on mechanical ventilator and not appropriate for skilled PT at this time. Will continue to monitor status. BEREKET RODRIGUEZ PT Jan 01, 2018 09:24
--- NOTE | 2018-01-01 10:02 | Occ Therapy Progress Note ---
Therapy Progress Note OT order received. Chart reviewed. Pt. currently on ventilator. Will continue to monitor and evaluate pt. when off ventilator support. 1000 HUNTER LEBLANC OT Jan 01, 2018 10:02
[2018-01-01] MEDS: RT-ALBUTEROL/IPRATROPIUM 3 ML (DUONEB) VIAL INH SCH ×4 (10:30→21:55)
--- NOTE | 2018-01-01 11:55 | Progress Note-Hospitalist ---
TOÑA DORSEY MED STUDENT 01/01/18 1155: Subjective HPI/CC On Admission Date Seen by Provider: Jan 01, 2018 Time Seen by Provider: 09:00 CC: Acute and severe myxedema coma HPI: This is a 42-year-old white female clinic patient of Dr. Begum with a past medical history of Graves' disease at 19 years old status post ablation and thyroid replacement who presented to the ER with altered mental status by her . She reports that she's been doing well in her usual status until this morning when she could not be aroused from night time sleep and she was found to have a temperature of 85 at home per and he brought her to the ER. Patient is in florid myxedema coma and having hypotension prompting central line placement in aggressive IV fluid resuscitation and bear hugger for temperature of 88. She is not aware of when her last thyroid level was checked but unsure the reliability of those details because she does have altered mental status. I have contacted Dr. Negro who will be joining the case for consultation. She will be placed in the ICU placed on hydrocortisone stress dose steroids in addition to IV Synthroid and monitored very closely. Subjective/Events-last exam patient is intubated and seems to be resting comfortably this am at the bedside, he reports that patient arouses and gets agitated when nurses reposition her in bed some facial dry skin noted hypothermia has resolved, temperature increased up to 99.8 since arriving in the ICU lung sounds are clear bilaterally pulse still bradycardic plan for extubation tomorrow Focused Exam Lactate Level 12/31/17 12:49: Lactic Acid Level 2.31*H 12/31/17 15:09: Lactic Acid Level 2.32*H 12/31/17 20:55: Lactic Acid Level 0.73 Objective Exam Vital Signs Vital Signs Date Time Temp Pulse Resp B/P (MAP) Pulse Ox O2 Delivery O2 Flow Rate FiO2 01/01/18 10:32 61 12 96 40 01/01/18 10:00 98.2 138/76 (96) Mechanical Ventilator 40.00 Capillary Refill : Less Than 3 Seconds General Appearance: No Apparent Distress, Other (intubated) Respiratory: Lungs Clear, Normal Breath Sounds, No Accessory Muscle Use, No Respiratory Distress Cardiovascular: No Gallop, No Murmur, Bradycardia Skin: Normal Color Results/Procedures Lab Laboratory Tests 12/31/17 12:49 12/31/17 15:24 12/31/17 20:55 01/01/18 03:35 Patient resulted labs reviewed. Assessment/Plan Assessment and Plan Assess & Plan/Chief Complaint cc AMS, hypothyroid Assessment: patient is intubated vital signs are trending toward normal her color seems improved since yesterday Plan: continue T3 and T4 replacement continue to monitor closely extubate tomorrow Critical Care Critical Care: Critically Ill Patient Clinical Quality Measures DVT/VTE Risk/Contraindication: Risk Factor Score Per Nursin RFS Level Per Nursing on Admit: 2=Moderate KHOI ATWOOD DO 01/01/18 1206: Subjective HPI/CC On Admission Time Seen by Provider: 10:00 Subjective/Events-last exam Patient will likely be extubated today if ok with Dr Negro. Checked meds and labs Patient much improved from critical illness Updated Supervisory Addendum Participated in pt care: history Personally performed: exam E&M service: agree Results interpretation: agree Diagnosis/Problems Diagnosis/Problems (1) Myxedema coma Status: Acute Assessment & Plan: IV Hydrocortisone with IV Synthroid (2) Respiratory failure Status: Acute Qualifiers: Chronicity: acute Respiratory failure complication: hypoxia Qualified Codes: J96.01 - Acute respiratory failure with hypoxia (3) Hypoglycemia Status: Acute (4) Hypokalemia Status: Acute (5) Dry mucous membranes Status: Acute (6) Confused Status: Acute (7) Hypotension Status: Acute Assessment & Plan: Aggressive fluids Qualifiers: Hypotension type: other hypotension type Qualified Codes: I95.89 - Other hypotension (8) Bradycardia Status: Acute (9) Dehydration Status: Acute TOÑA DORSEY MED STUDENT Jan 01, 2018 11:55 KHOI ATWOOD DO Jan 01, 2018 12:06
[2018-01-01] MEDS: cefTRIAXone FOR IV USE 1,000 MG in NS (IVPB) 50 ML IV SCH (15:00)
[2018-01-01 16:54] LABS: BASOPHILS % (AUTO) 0 % (0-10); EOSINOPHILS % (AUTO) 0 % (0-10); HEMATOCRIT 35 % (35-52); HEMOGLOBIN 12.4 G/DL (11.5-16.0); LYMPHOCYTES # (AUTO) 0.6 X 10^3 (1.0-4.0); LYMPHOCYTES % (AUTO) 3 % (12-44); MEAN CORPUSCULAR HEMOGLOBIN 36 PG (25-34); MEAN CORPUSCULAR HGB CONC 35 G/DL (32-36); MEAN CORPUSCULAR VOLUME 101 FL (80-99); MEAN PLATELET VOLUME 9.9 FL (7.4-10.4); MONOCYTES # (AUTO) 0.7 X 10^3 (0.0-1.0); MONOCYTES % (AUTO) 4 % (0-12); NEUTROPHILS # (AUTO) 17.1 X 10^3 (1.8-7.8); NEUTROPHILS % (AUTO) 93 % (42-75); PLATELET COUNT 295 10^3/uL (130-400); RED BLOOD COUNT 3.49 10^6/uL (4.35-5.85); RED CELL DISTRIBUTION WIDTH 13.6 % (10.0-14.5); WHITE BLOOD COUNT 18.5 10^3/uL (4.3-11.0)
[2018-01-01 17:17] LABS: BUN/CREATININE RATIO 8; CALCIUM 8.2 MG/DL (8.5-10.1); CARBON DIOXIDE 22 MMOL/L (21-32); CHLORIDE 103 MMOL/L (98-107); CREATININE SERUM 0.66 MG/DL (0.60-1.30); GFR ESTIMATED > 60; GLUCOSE 158 MG/DL (70-105); POTASSIUM 3.2 MMOL/L (3.6-5.0); SODIUM 135 MMOL/L (135-145)
[2018-01-01] MEDS: fentaNYL 1,250 MCG/NS 250 ML DRIP IV SCH ×2 (20:37)
[2018-01-01] MEDS: ALPRAZolam 1 MG (XANAX) TAB PO PRN ×2 (21:47→23:19)
[2018-01-02] VITALS (13 sets, daily range): BP systolic 98–134; BP diastolic 63–113
[2018-01-02] MEDS: RT-ALBUTEROL/IPRATROPIUM 3 ML (DUONEB) VIAL INH SCH ×6 (01:18→21:53)
[2018-01-02] MEDS ORDERED: IBUPROFEN 600 MG (MOTRIN) TAB PO ONE ×2 (02:52→03:00)
[2018-01-02] MEDS: NS IV 1000 ML 1,000 ML IV SCH ×3 (03:00→21:30)
[2018-01-02 03:42] LABS: BASOPHILS % (AUTO) 0 % (0-10); EOSINOPHILS % (AUTO) 0 % (0-10); HEMATOCRIT 32 % (35-52); HEMOGLOBIN 11.7 G/DL (11.5-16.0); LYMPHOCYTES # (AUTO) 0.4 X 10^3 (1.0-4.0); LYMPHOCYTES % (AUTO) 2 % (12-44); MEAN CORPUSCULAR HEMOGLOBIN 36 PG (25-34); MEAN CORPUSCULAR HGB CONC 36 G/DL (32-36); MEAN CORPUSCULAR VOLUME 99 FL (80-99); MEAN PLATELET VOLUME 9.2 FL (7.4-10.4); MONOCYTES # (AUTO) 0.3 X 10^3 (0.0-1.0); MONOCYTES % (AUTO) 2 % (0-12); NEUTROPHILS # (AUTO) 15.7 X 10^3 (1.8-7.8); NEUTROPHILS % (AUTO) 96 % (42-75); PLATELET COUNT 258 10^3/uL (130-400); RED BLOOD COUNT 3.26 10^6/uL (4.35-5.85); RED CELL DISTRIBUTION WIDTH 13.4 % (10.0-14.5); WHITE BLOOD COUNT 16.4 10^3/uL (4.3-11.0)
[2018-01-02 03:57] LABS: BUN/CREATININE RATIO 6; CALCIUM 8.4 MG/DL (8.5-10.1); CARBON DIOXIDE 22 MMOL/L (21-32); CHLORIDE 103 MMOL/L (98-107); CREATININE SERUM 0.63 MG/DL (0.60-1.30); GFR ESTIMATED > 60; GLUCOSE 182 MG/DL (70-105); MAGNESIUM 1.8 MG/DL (1.8-2.4); PHOSPHORUS 1.7 MG/DL (2.3-4.7); SODIUM 136 MMOL/L (135-145)
[2018-01-02] MEDS: MAGNESIUM 1 GM/100 ML IVPB 100 ML IV SCH (05:51)
[2018-01-02] MEDS: KCL 20 MEQ TAB (K-DUR) PO SCH (05:51)
[2018-01-02] MEDS: POTASSIUM CL 10MEQ/50ML IVPB 50 ML IV SCH (05:52)
[2018-01-02] MEDS ORDERED: POTASSIUM PHOSPHATE INJ 30 MM in NS (IVPB) 250 ML IV ONE (06:15)
[2018-01-02] MEDS ORDERED: KCL 20 MEQ TAB (K-DUR) PO ONE (06:15)
--- NOTE | 2018-01-02 06:19 | Pulmonary Progress Note ---
Subjective Time Seen by Provider: 06:18 Subjective/Events-last exam PT appears to be doing better. No complications noted. Sepsis Event Evaluation Height, Weight, BMI Height: 5'7.00" Weight: 151lbs. 4.0oz. 68.103521km; 22.7 BMI Method:Stated Focused Exam Lactate Level 12/31/17 12:49: Lactic Acid Level 2.31*H 12/31/17 15:09: Lactic Acid Level 2.32*H 12/31/17 20:55: Lactic Acid Level 0.73 Exam Exam Vital Signs Date Time Temp Pulse Resp B/P (MAP) Pulse Ox O2 Delivery O2 Flow Rate FiO2 01/02/18 04:00 96 15 120/113 (115) 98 Room Air 01/02/18 04:00 99 Room Air 01/02/18 03:00 102 12 98/81 (87) 100 Room Air 01/02/18 02:00 111 13 106/81 (89) 100 Room Air 01/02/18 01:18 100 Room Air 01/02/18 01:00 94 01/02/18 01:00 94 17 98/69 (79) 100 Room Air 01/02/18 00:00 99 Room Air 01/02/18 00:00 98 12 98/63 (75) 100 Room Air 01/02/18 00:00 98.7 01/01/18 23:00 105 9 114/78 (90) 99 Room Air 01/01/18 22:00 99 8 112/79 (90) 100 Room Air 01/01/18 21:55 100 Room Air 01/01/18 21:00 98 21 121/81 (94) 100 Room Air 01/01/18 20:00 98 11 118/77 (91) 99 Room Air 01/01/18 20:00 99 Room Air 01/01/18 20:00 98.9 01/01/18 19:07 100 Room Air 01/01/18 19:00 80 15 115/82 (93) 100 Room Air 01/01/18 19:00 80 01/01/18 18:00 80 9 126/80 (95) 100 Room Air 01/01/18 17:00 78 10 107/77 (87) 100 Room Air 01/01/18 16:00 86 15 114/85 (95) 100 Room Air 01/01/18 16:00 96 Room Air 01/01/18 15:00 81 16 105/69 (81) 100 Room Air 01/01/18 14:23 100 Room Air 01/01/18 14:00 65 15 116/83 (94) 100 Room Air 01/01/18 13:00 74 01/01/18 13:00 71 19 129/79 (96) 100 Room Air 01/01/18 12:00 96 Mechanical Ventilator 3.00 01/01/18 12:00 72 8 121/71 (88) 94 OxyMask 3.00 01/01/18 11:00 75 12 129/83 (98) 90 Mechanical Ventilator 40.00 01/01/18 10:32 61 12 96 40 01/01/18 10:00 98.2 69 22 138/76 (96) 94 Mechanical Ventilator 40.00 01/01/18 09:00 98.8 49 11 120/75 (90) 94 Mechanical Ventilator 40.00 01/01/18 08:31 48 12 94 40 01/01/18 08:00 98.9 50 11 127/82 (97) 94 Mechanical Ventilator 40.00 01/01/18 08:00 94 Mechanical Ventilator 40 01/01/18 07:00 44 01/01/18 07:00 99.4 47 12 124/78 (93) 95 Mechanical Ventilator 40.00 01/01/18 06:47 Mechanical Ventilator 40.00 01/01/18 06:47 125/81 01/01/18 06:40 43 12 97 50 I & O 01/02/18 07:00 Intake Total 620 ml Output Total 1450 ml Balance -830 ml Height & Weight Height: 5'7.00" Weight: 151lbs. 4.0oz. 68.193444al; 22.7 BMI Method:Stated General Appearance: No Apparent Distress, Other (intubated) HEENT: PERRL/EOMI, Pharynx Normal Neck: Non Tender, Supple Respiratory: Lungs Clear, Normal Breath Sounds, No Accessory Muscle Use, No Respiratory Distress Cardiovascular: No Gallop, No Murmur, Bradycardia Capillary Refill: Less Than 3 Seconds Extremity: Normal Inspection, Normal Range of Motion, Non Tender Neurologic/Psychiatric: Alert, Disoriented, Motor Weakness (clinical) Skin: Normal Color Lymphatic: No Adenopathy Results Lab Laboratory Tests 12/31/17 12:49 12/31/17 15:24 12/31/17 20:55 01/01/18 03:35 01/01/18 16:05 01/02/18 03:34 Assessment/Plan Assessment/Plan Myxedema coma -Synthroid 100mcg IV Daily -- change to PO after today's dose -Solucortef 100mg IV Q8 will d/c tomorrow -Will recheck free T4, T3 today Acute respiratory failure - pt doing well off ventilator Dehydration- improved -IVF - decrease to 50cc/hr UTI -Rocephin -[place]ell culture pending -D/C ocasio Bradycardia, hypotension, hypothermia- secondary to hypothyroid -resolved Tobacco, Marijuana use -Education ETOH use -No hx of withdrawal -Monitor GI/DVT ppx JOSE R KULKARNI DO Jan 02, 2018 06:19
[2018-01-02] MEDS: ENOXAPARIN 40 MG/0.4 ML (LOVENOX) SYR SC SCH (06:36)
[2018-01-02] MEDS: HYDROCORTISONE 100 MG/2 ML (Solu-CORTEF) VIAL IV SCH ×3 (06:36→21:29)
[2018-01-02] MEDS ORDERED: LEVOTHYROXINE 100 MCG INJ (SYNTHROID) VIAL IV SCH (06:45)
[2018-01-02 06:54] LABS: OCCULT BLOOD,GASTRIC FLUID Positive
--- NOTE | 2018-01-02 08:10 | Diagnostic Imaging Report ---
PATIENT HISTORY: Followup, post extubation, myxedema, respiratory failure. TECHNIQUE: Single frontal view of the chest COMPARISON: 01/01/2018 FINDINGS: The endotracheal tube and enteric tube have been removed. The tip of the right jugular line projects over the mid SVC and appear in stable position. There is mild cardiomegaly which appears stable. There is left basilar airspace opacity which appears unchanged. There is a nodular density in the right lung base, which is well-defined and dense, thought to represent a calcified granuloma. IMPRESSION: 1. Interval extubation. No pneumothorax. 2. Left basilar airspace opacities appear unchanged, may represent atelectasis or infiltrate. 3. Mild cardiomegaly. 4. Dense nodule in the right lung base, likely a calcified granuloma, however consider nonemergent followup CT. Dictated by: Dictated on workstation # [id number]
[2018-01-02] MEDS: PANTOPRAZOLE 40 MG (PROTONIX) VIAL IV SCH (08:14)
--- NOTE | 2018-01-02 08:48 | Progress Note-Hospitalist ---
TOÑA DORSEY MED STUDENT 01/02/18 0848: Subjective HPI/CC On Admission Date Seen by Provider: Jan 02, 2018 Time Seen by Provider: 08:20 CC: Acute and severe myxedema coma HPI: This is a 42-year-old white female clinic patient of Dr. Begum with a past medical history of Graves' disease at 19 years old status post ablation and thyroid replacement who presented to the ER with altered mental status by her . She reports that she's been doing well in her usual status until this morning when she could not be aroused from night time sleep and she was found to have a temperature of 85 at home per and he brought her to the ER. Patient is in florid myxedema coma and having hypotension prompting central line placement in aggressive IV fluid resuscitation and bear hugger for temperature of 88. She is not aware of when her last thyroid level was checked but unsure the reliability of those details because she does have altered mental status. I have contacted Dr. Negro who will be joining the case for consultation. She will be placed in the ICU placed on hydrocortisone stress dose steroids in addition to IV Synthroid and monitored very closely. Subjective/Events-last exam Patient was awake and alert this morning she is somewhat confused, saying she keeps forgetting things and pointing to her list but not relaying any information from the list says she didn't sleep well overnight currently in pain: head and back both hurt patient reports catheter has been removed GI occult blood test positive plan: consider adding pain medication address positive occult blood test Focused Exam Lactate Level 12/31/17 12:49: Lactic Acid Level 2.31*H 12/31/17 15:09: Lactic Acid Level 2.32*H 12/31/17 20:55: Lactic Acid Level 0.73 Respiratory: Chest Non Tender, No Accessory Muscle Use Cardiovascular: Regular Rate, Rhythm Skin: normal color, warm/dry Objective Exam Vital Signs Vital Signs Date Time Temp Pulse Resp B/P (MAP) Pulse Ox O2 Delivery O2 Flow Rate FiO2 01/02/18 08:20 99 Room Air 01/02/18 08:00 99.1 101 14 120/85 (97) 01/01/18 12:00 3.00 01/01/18 10:32 40 Capillary Refill : Less Than 3 Seconds General Appearance: WD/WN, Anxious HEENT: Other (periorbital edema bilaterally) Neck: Normal Inspection Respiratory: Chest Non Tender, No Accessory Muscle Use Cardiovascular: Regular Rate, Rhythm Neurologic/Psychiatric: Alert, Oriented x3; No Normal Mood/Affect (anxious) Skin: Normal Color, Warm/Dry Results/Procedures Lab Laboratory Tests 01/01/18 16:05 01/02/18 03:34 Patient resulted labs reviewed. Assessment/Plan Assessment and Plan Assess & Plan/Chief Complaint cc AMS, hypothyroid Assessment: patient is intubated vital signs are trending toward normal her color seems improved since yesterday Plan: continue T3 and T4 replacement continue to monitor closely extubate tomorrow Critical Care Critical Care: Critically Ill Patient Clinical Quality Measures DVT/VTE Risk/Contraindication: Risk Factor Score Per Nursin RFS Level Per Nursing on Admit: 2=Moderate KHOI ATWOOD DO 01/02/18 1047: Subjective HPI/CC On Admission Time Seen by Provider: 10:00 Review of Systems General: Fatigue Neurological: Confusion Objective Exam General Appearance: No Apparent Distress, WD/WN, Chronically ill Respiratory: Chest Non Tender, Lungs Clear, Normal Breath Sounds, No Accessory Muscle Use, No Respiratory Distress Cardiovascular: Regular Rate, Rhythm, No Edema, No Gallop, No JVD, No Murmur, Normal Peripheral Pulses Neurologic/Psychiatric: Alert, No Motor/Sensory Deficits, Normal Mood/Affect, Disoriented (subtle but clearing rapidly) Skin: Normal Color, Warm/Dry Lymphatic: No Adenopathy Assessment/Plan Assessment and Plan Assess & Plan/Chief Complaint Patient doing well overall Ambulate Thyroid supplement Had not filled Rx for many months per pharmacy Supervisory Addendum Participated in pt care: history Personally performed: exam E&M service: agree Results interpretation: agree Notes: I personally have seen and evaluated the patient and performed the physical exam. I agree with the documented assessment and plan. Diagnosis/Problems Diagnosis/Problems (1) Myxedema coma Status: Resolved Assessment & Plan: IV Hydrocortisone with IV Synthroid (2) Hypokalemia Status: Acute (3) Confused Status: Acute TOÑA DORSEY MED STUDENT Jan 02, 2018 08:48 KHOI ATWOOD DO Jan 02, 2018 10:47
[2018-01-02] MEDS: ALPRAZolam 1 MG (XANAX) TAB PO PRN ×2 (08:58→18:29)
[2018-01-02] MEDS ORDERED: NON-FORMULARY MEDICATION 1 EA EA (Levothyroxine Sodium 175 MCG) PO SCH (09:00)
--- NOTE | 2018-01-02 10:03 | Physical Therapy Evaluation ---
PT Evaluation-General Medical Diagnosis Admission Date Dec 31, 2017 at 14:18 Medical Diagnosis: Myxedema Coma/resp. failure Onset Date: Dec 31, 2017 Therapy Diagnosis Therapy Diagnosis: debility Height/Weight Height (Feet): 5 Height (Inches): 7.00 Weight (Pounds): 164 Weight (Ounces): 0.0 Precautions Precautions/Isolations: Fall Prevention Weight Bear Status Right Lower Extremity: Right Weight Bearing/Tolerated Left Lower Extremity: Left Weight Bearing/Tolerated Referral Physician: Sruthi Reason for Referral: Evaluation/Treatment Medical History Pertinent Medical History: Hypothroidism, Smoking Additional Medical History Grave's, ETOH use, Cannabis use Current History ED with hypotension and hypothermia Reviewed History: Yes Social History Home: Single Level Current Living Status: Spouse Prior/Core FIM Prior Level of Function Functional [place] Measure 0=Not Assessed/NA 4=Minimal Assistance 1=Total Assistance 5=Supervision or Setup 2=Maximal Assistance 6=Modified [place] 3=Moderate Assistance 7=Complete [place] Bed Mobility: 7 Transfers (B,C,W/C) (FIM): 7 Gait: 7 Locomotion: 7 PT Evaluation-Current Subjective Patient agrees to PT. Pain Numeric Pain Scale: 0-No Pain Location: No Pain Reported Objective Patient Orientation: Normal For Age Problem Solving: Fair Attachments: IV ROM/Strength ROM Lower Extremities bilateral LE WNL Strength Lower Extremities 5/5 grossly bilaterally Integumentary/Posture Integumentary refer to nursing notes Bowel Incontinence: No Bladder Incontinence: No Posture WFL Neuromuscular (Tone, Coordination, Reflexes) grossly intact Sensory Vision: Functional Hearing: Functional Sensation Right Lower Extremit: Intact Sensation Left Lower Extremity: Intact Transfers Functional [place] Measure 0=Not Assessed/NA 4=Minimal Assistance 1=Total Assistance 5=Supervision or Setup 2=Maximal Assistance 6=Modified [place] 3=Moderate Assistance 7=Complete [place] Transfers (B, C, W/C) (FIM): 7 Scootin Rollin Supine to/from Sit: 7 Sit to/from Stand: 7 Gait Mode of Locomotion: Walk Anticipated Mode of Locomotion: Walk Gait (FIM): 7 Distance (FIM): 3=150 ft Distance: 300' Gait Level of Assist: 7 Gait Assistive Device: None Comments/Gait Description slow, steady, functional Balance Sitting Static: Normal Sitting Dynamic: Normal Standing Static: Normal Standing Dynamic: Normal Assessment/Needs 42 y.o. female, is currently at [facility] with all gross motor skills and does not require skilled therapy intervention. Rehab Potential: Fair PT Plan Treatment/Plan Treatment Plan: Discontinue PT, goals met Treatment Plan: Other Treatment Duration: Jan 02, 2018 Frequency: 1 time per week Estimated Hrs Per Day: .25 hour per day Patient and/or Family Agrees t: Yes Discharge Recommendations Therapy D/C Recommendations: Home w/ Family Support, Home Independently Time/GCodes Time In: 830 Time Out: 850 Total Billed Treatment Time: 20 Total Billed Treatment 1 visit EVModC 20 min G Codes Necessary: BEREKET Marquez PT Jan 02, 2018 10:03
--- NOTE | 2018-01-02 13:35 | Occupational Therapy Eval ---
OT Evaluation-General/PLF Medical Diagnosis Admission Date Dec 31, 2017 at 14:18 Medical Diagnosis: Myxedema Coma/resp. failure Onset Date: Dec 31, 2017 Therapy Diagnosis Therapy Diagnosis: Weakness, Decreased ADL skills Height/Weight Height (Feet): 5 Height (Inches): 7.00 Weight (Pounds): 164 Weight (Ounces): 0.0 Precautions Precautions/Isolations: Fall Prevention Safety Interventions: None Weight Bear Status Weight Bearing Restriction: Weight Bearing/Tolerated Referral Physician: Sruthi Referral Reason: Activity Tolerance, Self Care, Evaluation/Treatment, Strengthening/ROM Medical History Pertinent Medical History: Hypothroidism, Smoking Additional Medical History Bradycardia, dehydration, Graves disease, appendectomy Current History Pt. states that she went to sleep and then was unable to sufficiently wake up. Pt. states that she was very cold, and her took her temperature. Spouse brought her to ER. Pt's temperature in ER was 85. Reviewed History: Yes Social History Home: Single Level Current Living Status: Spouse (and 3 kids) Entry Into Home: Stairs With Railing Steps Into Home: 3 Steps Inside Home: 12 ADL-Prior Level of Function ADL PLOF Comments Pt. was independent with all tasks previous to this hospitalization. 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 Drive Self: Yes OT Current Status Subjective No pain reported. Appearance Pt. is sitting up in chair. Agrees to work with OT. Mental Status/Objective Patient Orientation: Person, Place Attachments: IV Current Upper Extremity ROM WFL ADL-Treatment Functional [place] Measure 0=Not Assessed/NA 4=Minimal Assistance 1=Total Assistance 5=Supervision or Setup 2=Maximal Assistance 6=Modified [place] 3=Moderate Assistance 7=Complete IndependenceIRFPAI Quality Coding Scale 6 Independent with activity with or without an assistive device 5 Patient requires set up or clean up by helper. Patient completes activity by themselves 4 Supervision or touching assist (CGA). [place] provide cues , steadying assist 3 The helper provides less than half the effort to complete the activity 2 The helper provides more than half the effort to complete the activity 1 Dependent. The helper does all the effort to complete an activity 7 Patient refused to complete or attempt activity 9 The patient did not perform the activity before the current illness or injury 88 Not attempted due to Medical conditions or safety concerns Eating (FIM): 7 (Pt. has eaten breakfast. States that her throat is a "a little sore," but that she was able to swallow fine.) Lower Body Dressing (FIM): 5 (Pt. able to doff/don socks with SBA.) Transfers (B, C, W/C) (FIM): 5 (Pt. able to stand out of chair with SBA.) Other Treatments Pt. verbalizes that she does not remember very much from what happened. States that she has short term memory loss anyways. Pt. verbalizes understanding of safety. Pt. is getting ready to move to fourth floor. Pt. has multiple lines. States that she is eager to have less tubing and lines when moving to fourth floor. OT educates pt. on OT goals. Verbalizes understanding of need for independence. Pt. does verbalize that her spouse will be with her at discharge , and will assist with anything that she is unable to do. Will continue to work toward increased independence for safe and functional return home. Education OT Patient Education: Correct positioning, Modified ADL techniques, Progress toward Goal/Update tx plan, Purpose of tx/functional activities, Reviewed precautions, Rehab process, Transfer techniques Teaching Recipient: Patient Teaching Methods: Demonstration, Discussion Response to Teaching: Verbalize Understanding, Return Demonstration OT Short Term Goals Short Term Goals 1=Demonstrate adherence to instructed precautions during ADL tasks. 2=Patient will verbalize/demonstrate understanding of assistive devices/ modifications for ADL. 3=Patient will improve strength/tolerance for activity to enable patient to perform ADL's. OT Stabilizing Machine Operator Goals Snf Goals Time Frame: Jan 09, 2018 Eating (FIM): 7 Grooming(FIM): 6 Bathing(FIM): 5 Upper Body Dressing(FIM): 6 Lower Body Dressing(FIM): 6 Toileting(FIM): 6 Transfers (B,C,W/C) (FIM): 6 Toilet/Commode Transfer(FIM): 6 Shower Transfer(FIM): 5 Additional Goals: 1-Demonstrate ADL Tasks, 2-Verbalize Understanding, 3- ImproveStrength/Gabriela 1=Demonstrate adherence to instructed precautions during ADL tasks. 2=Patient will verbalize/demonstrate understanding of assistive devices/ modifications for ADL. 3=Patient will improve strength/tolerance for activity to enable patient to perform ADL's. OT Education/Plan Problem List/Assessment Assessment: Decreased Activ Tolerance, Impaired I ADL's, Impaired Self-Care Skills Discharge Recommendations Plan/Recommendations: Continue POC Therapy D/C Recommendations: Home w/ Family Support, Occupational Therapy Home Care Target Placement Home with spouse and children. Recommend OT. Treatment Plan/Plan of Care Treatment,Training & Education: Yes Patient would benefit from OT for education, treatment and training to promote independence in ADL's, mobility, safety and/or upper extremity function for ADL' s. Plan of Care: ADL Retraining, Functional Mobility, UE Funct Exercise/Act Treatment Duration: Jan 09, 2018 Frequency: 5 times per week Estimated Hrs Per Day: .25 hour per day Agreement: Yes Rehab Potential: Fair Time/GCodes Start Time: 09:30 Stop Time: 10:00 Total Time Billed (hr/min): 30 Billed Treatment Time 1, EVM x 15minutes, ADL x 15minutes HUNTER LEBLANC OT Jan 02, 2018 13:35
[2018-01-02] MEDS: cefTRIAXone FOR IV USE 1,000 MG in NS (IVPB) 50 ML IV SCH (14:48)
[2018-01-03 00:10] VITALS: BP 104/70
[2018-01-03] MEDS: RT-ALBUTEROL/IPRATROPIUM 3 ML (DUONEB) VIAL INH SCH ×6 (02:41→22:47)
[2018-01-03] MEDS: ALPRAZolam 1 MG (XANAX) TAB PO PRN ×3 (02:51→21:13)
[2018-01-03 04:00] VITALS: BP 114/75
[2018-01-03 04:15] LABS: BASOPHILS % (AUTO) 0 % (0-10); EOSINOPHILS % (AUTO) 0 % (0-10); HEMATOCRIT 32 % (35-52); HEMOGLOBIN 11.2 G/DL (11.5-16.0); LYMPHOCYTES # (AUTO) 0.7 X 10^3 (1.0-4.0); LYMPHOCYTES % (AUTO) 4 % (12-44); MEAN CORPUSCULAR HEMOGLOBIN 35 PG (25-34); MEAN CORPUSCULAR HGB CONC 35 G/DL (32-36); MEAN CORPUSCULAR VOLUME 101 FL (80-99); MEAN PLATELET VOLUME 9.1 FL (7.4-10.4); MONOCYTES # (AUTO) 0.6 X 10^3 (0.0-1.0); MONOCYTES % (AUTO) 3 % (0-12); NEUTROPHILS # (AUTO) 16.5 X 10^3 (1.8-7.8); NEUTROPHILS % (AUTO) 93 % (42-75); PLATELET COUNT 242 10^3/uL (130-400); RED BLOOD COUNT 3.16 10^6/uL (4.35-5.85); RED CELL DISTRIBUTION WIDTH 13.8 % (10.0-14.5); WHITE BLOOD COUNT 17.7 10^3/uL (4.3-11.0)
[2018-01-03 04:35] LABS: BUN/CREATININE RATIO 7; CALCIUM 8.5 MG/DL (8.5-10.1); CARBON DIOXIDE 26 MMOL/L (21-32); CHLORIDE 104 MMOL/L (98-107); CREATININE SERUM 0.59 MG/DL (0.60-1.30); GFR ESTIMATED > 60; GLUCOSE 128 MG/DL (70-105); MAGNESIUM 1.5 MG/DL (1.8-2.4); PHOSPHORUS 2.9 MG/DL (2.3-4.7); POTASSIUM 2.9 MMOL/L (3.6-5.0); SODIUM 139 MMOL/L (135-145)
--- NOTE | 2018-01-03 06:20 | Pulmonary Progress Note ---
Sepsis Event Evaluation Height, Weight, BMI Height: 5'7.00" Weight: 156lbs. 0.0oz. 70.701558eh; 22.7 BMI Method:Stated Focused Exam Lactate Level 12/31/17 12:49: Lactic Acid Level 2.31*H 12/31/17 15:09: Lactic Acid Level 2.32*H 12/31/17 20:55: Lactic Acid Level 0.73 Exam Exam Vital Signs Date Time Temp Pulse Resp B/P (MAP) Pulse Ox O2 Delivery O2 Flow Rate FiO2 01/03/18 04:00 98.0 95 20 114/75 (88) 93 Room Air 01/03/18 02:42 Room Air 01/03/18 00:10 98.5 100 20 104/70 (81) 92 Room Air 01/03/18 00:00 Room Air 01/02/18 21:54 91 Room Air 01/02/18 20:00 Room Air 01/02/18 20:00 97.6 92 18 119/68 (85) 92 Room Air 01/02/18 16:37 97.8 106 16 122/78 (93) 93 Room Air 01/02/18 16:01 Room Air 01/02/18 13:57 97 Room Air 01/02/18 12:00 97.8 110 16 128/88 (101) 97 Room Air 01/02/18 10:19 99 Room Air 01/02/18 10:10 Room Air 01/02/18 09:00 104 14 134/92 (106) 100 Room Air 01/02/18 08:20 99 Room Air 01/02/18 08:00 99.1 101 14 120/85 (97) 99 Room Air 01/02/18 07:00 105 23 106/84 (91) 99 Room Air 01/02/18 07:00 104 I & O 01/03/18 07:00 Intake Total 1700 ml Balance 1700 ml Height & Weight Height: 5'7.00" Weight: 156lbs. 0.0oz. 70.505628ep; 22.7 BMI Method:Stated General Appearance: No Apparent Distress, WD/WN, Chronically ill HEENT: Other (periorbital edema bilaterally) Neck: Normal Inspection Respiratory: Chest Non Tender, Lungs Clear, Normal Breath Sounds, No Accessory Muscle Use, No Respiratory Distress Cardiovascular: Regular Rate, Rhythm, No Edema, No Gallop, No JVD, No Murmur, Normal Peripheral Pulses Capillary Refill: Less Than 3 Seconds Extremity: Normal Inspection, Normal Range of Motion, Non Tender Neurologic/Psychiatric: Alert, No Motor/Sensory Deficits, Normal Mood/Affect, Disoriented (subtle but clearing rapidly) Skin: Normal Color, Warm/Dry Lymphatic: No Adenopathy Results Lab Laboratory Tests 01/01/18 16:05 01/02/18 03:34 01/03/18 04:04 Assessment/Plan Assessment/Plan Myxedema coma -Synthroid -D/C solucortef Acute respiratory failure - pt doing well off ventilator Lung nodule per CXR -Will check CT of chest Dehydration- improved UTI -Rocephin Bradycardia, hypotension, hypothermia- secondary to hypothyroid -resolved Tobacco, Marijuana use -Education ETOH use -No hx of withdrawal -Monitor GI/DVT ppx JOSE R KULKARNI DO Jan 03, 2018 06:20
[2018-01-03] MEDS ORDERED: KCL 10 MEQ TAB (MICRO K) PO ONE (06:30)
[2018-01-03] MEDS: MAGNESIUM 1 GM/100 ML IVPB 100 ML IV SCH ×5 (06:51→11:24)
[2018-01-03] MEDS: POTASSIUM CL 10MEQ/50ML IVPB 50 ML IV SCH ×5 (06:51→11:24)
[2018-01-03] MEDS: KCL 20 MEQ TAB (K-DUR) PO SCH (06:51)
[2018-01-03] MEDS: LEVOTHYROXINE 50 MCG (LEVOTHROID) TAB PO SCH (06:53)
[2018-01-03] MEDS: LEVOTHYROXINE 125 MCG (LEVOTHROID) TABLET PO SCH (06:53)
[2018-01-03] MEDS: ENOXAPARIN 40 MG/0.4 ML (LOVENOX) SYR SC SCH (06:53)
[2018-01-03] MEDS: PANTOPRAZOLE 40 MG (PROTONIX) VIAL IV SCH (08:21)
[2018-01-03 08:27] VITALS: BP 125/80
--- NOTE | 2018-01-03 08:49 | Progress Note-Hospitalist ---
TOÑA DORSEY MED STUDENT 01/03/18 0849: Subjective HPI/CC On Admission Date Seen by Provider: Jan 03, 2018 Time Seen by Provider: 07:40 CC: Acute and severe myxedema coma HPI: This is a 42-year-old white female clinic patient of Dr. Begum with a past medical history of Graves' disease at 19 years old status post ablation and thyroid replacement who presented to the ER with altered mental status by her . She reports that she's been doing well in her usual status until this morning when she could not be aroused from night time sleep and she was found to have a temperature of 85 at home per and he brought her to the ER. Patient is in florid myxedema coma and having hypotension prompting central line placement in aggressive IV fluid resuscitation and bear hugger for temperature of 88. She is not aware of when her last thyroid level was checked but unsure the reliability of those details because she does have altered mental status. I have contacted Dr. Negro who will be joining the case for consultation. She will be placed in the ICU placed on hydrocortisone stress dose steroids in addition to IV Synthroid and monitored very closely. Subjective/Events-last exam patient reports that she slept comfortably last night having some mild back pain / soreness urinating frequently and without difficulty she reports no BM since being extubated patient was sitting up in bed with nasal canula today as O2 saturation has been 91-93 since moving to 4th floor yesterday afternoon will require home o2 evaluation prior to discharge K+ dropped to 2.[address] Negro administered K+ and hopes to recheck the lab value CTA ordered by Dr. Negro because of new onset SOB Focused Exam Lactate Level 12/31/17 12:49: Lactic Acid Level 2.31*H 12/31/17 15:09: Lactic Acid Level 2.32*H 12/31/17 20:55: Lactic Acid Level 0.73 Objective Exam Vital Signs Vital Signs Date Time Temp Pulse Resp B/P (MAP) Pulse Ox O2 Delivery O2 Flow Rate FiO2 01/03/18 08:27 99.2 103 20 125/80 (95) 96 Nasal Cannula 3.00 01/01/18 10:32 40 Capillary Refill : Less Than 3 Seconds General Appearance: No Apparent Distress, WD/WN HEENT: Other (mild periorbital edema, improved since yesterday) Neck: Full Range of Motion, Normal Inspection, Supple Respiratory: Chest Non Tender, Lungs Clear, Normal Breath Sounds, No Accessory Muscle Use, No Respiratory Distress, Other (now on nasal canula) Cardiovascular: Regular Rate, Rhythm, No Gallop, No JVD, No Murmur Extremity: Normal Inspection, Normal Range of Motion Neurologic/Psychiatric: Alert, Oriented x3, Normal Mood/Affect Skin: Normal Color, Warm/Dry Lymphatic: No Adenopathy Results/Procedures Lab Laboratory Tests 01/03/18 04:04 Patient resulted labs reviewed. Assessment/Plan Assessment and Plan Assess & Plan/Chief Complaint cc hypothyroid, requires oxygen via nasal canula Assessment: patient is awake, sitting up in bed o2 saturation decreased after moving to 4th floor Plan: continue to monitor closely home o2 eval prior to discharge Critical Care Critical Care: Critically Ill Patient Clinical Quality Measures DVT/VTE Risk/Contraindication: Risk Factor Score Per Nursin RFS Level Per Nursing on Admit: 2=Moderate KHOI ATWOOD DO 01/03/18 1014: Subjective Subjective/Events-last exam CT angiogram negative for PE Maintained on Lovenox for DVT Px Rocephin on board Nebs + Smokes May need home O2 Ambulating well Objective Exam General Appearance: No Apparent Distress, WD/WN Respiratory: Chest Non Tender, Lungs Clear, Normal Breath Sounds, No Accessory Muscle Use, No Respiratory Distress Cardiovascular: Regular Rate, Rhythm, No Edema, No Gallop, No JVD, No Murmur, Normal Peripheral Pulses Neurologic/Psychiatric: Alert, Oriented x3, No Motor/Sensory Deficits, Normal Mood/Affect Assessment/Plan Assessment and Plan Assess & Plan/Chief Complaint CT negative Monitor lungs Home O2 evaluation DC planned soon Ambulate Supervisory Addendum Participated in pt care: history E&M service: agree Results interpretation: agree Notes: I personally have seen and evaluated the patient and performed the physical exam. I agree with the documented assessment and plan. Diagnosis/Problems Diagnosis/Problems (1) Hypoxia Status: Acute (2) Myxedema coma Status: Resolved Assessment & Plan: IV Hydrocortisone with IV Synthroid (3) Hypokalemia Status: Acute (4) Respiratory failure Status: Acute Qualifiers: Chronicity: acute Respiratory failure complication: hypoxia Qualified Codes: J96.01 - Acute respiratory failure with hypoxia (5) Hypoglycemia Status: Acute (6) Hypokalemia Status: Acute (7) Dry mucous membranes Status: Acute (8) Confused Status: Acute (9) Hypotension Status: Acute Assessment & Plan: Aggressive fluids Qualifiers: Hypotension type: other hypotension type Qualified Codes: I95.89 - Other hypotension (10) Bradycardia Status: Acute (11) Dehydration Status: Acute TOÑA DORSEY MED STUDENT Jan 03, 2018 08:49 KHOI ATWOOD DO Jan 03, 2018 10:14
[2018-01-03] MEDS ORDERED: RECEIVED CONTRAST (Hold Metformin) IV SCH (09:15)
[2018-01-03] MEDS ORDERED: IOHEXOL 350 MG/ML 150 ML (OMNIPAQUE 350) VIAL IV ONE (09:15)
[2018-01-03] MEDS ORDERED: NS 250 ML (IVPB) BAG IV ONE (09:15)
--- NOTE | 2018-01-03 09:49 | Diagnostic Imaging Report ---
PROCEDURE: CT angiography of the chest with contrast. TECHNIQUE: Multiple contiguous axial images were obtained through the chest after uneventful bolus administration of intravenous contrast. 2D reconstructed CTA MIP acquisitions were also performed. INDICATION: Abnormal chest x-ray and questionable lung mass. COMPARISON: Correlation is made with chest radiograph from one day earlier. FINDINGS: Evaluation of the pulmonary arterial system is without evidence of thromboembolism. No filling defects are seen within the central, lobar or segmental branches. The thoracic aorta is normal caliber. No dissection is seen. Trace pericardial fluid is seen. There is also trace bilateral pleural fluid. No axillary lymphadenopathy is detected. No hilar or mediastinal lymphadenopathy is detected. Parenchymal evaluation does show some minimal patchy groundglass infiltrate in the right upper lobe. There is a densely calcified nodule in the superior segment right lower lobe consistent with a granuloma measuring 15 mm. This accounts for the density noted on recent chest x-ray. There is an area of parenchymal consolidation in the left lower lobe with some air bronchograms present most suggestive of pneumonia. There is some lesser patchy infiltrate in the lingula as well as the posterior right lower lobe. The upper abdomen is unremarkable. IMPRESSION: 1. No evidence of pulmonary embolism or thoracic aortic dissection. 2. Calcified granuloma right lower lobe accounting for the chest radiographic abnormality. 3. Trace pericardial and bilateral pleural effusions. 4. Lingular and bilateral lower lobe pulmonary infiltrates suggestive of pneumonia. Dictated by: Dictated on workstation # [id number]
[2018-01-03] MEDS: SENNA W/DOCUSATE (SENOKOT S) TABLET PO ONE ×2 (11:24→11:29)
[2018-01-03] MEDS: LACTULOSE SYRUP 10GM/15ML (ENULOSE) 30ML UDC PO ONE ×2 (11:24→11:28)
[2018-01-03] MEDS: POLYETHYLENE GLYCOL 17 GM (MIRALAX) PACK PO ONE ×2 (11:25→11:28)
[2018-01-03] MEDS: SENNA W/DOCUSATE (SENOKOT S) TABLET PO SCH ×2 (11:25→21:00)
[2018-01-03] MEDS: POLYETHYLENE GLYCOL 17 GM (MIRALAX) PACK PO SCH ×2 (11:26→21:00)
[2018-01-03] MEDS: LACTULOSE SYRUP 10GM/15ML (ENULOSE) 30ML UDC PO SCH ×2 (11:26→21:00)
[2018-01-03 12:00] VITALS: BP 132/82
--- NOTE | 2018-01-03 12:36 | Occupational Ther Daily Note ---
OT Current Status-Daily Note Subjective No pain reported. Appearance Pt. up on side of bed. Agrees to shower. Mental Status/Objective Patient Orientation: Person, Place Functional Shannon Measure 0=Not Assessed/NA 4=Minimal Assistance 1=Total Assistance 5=Supervision or Setup 2=Maximal Assistance 6=Modified Shannon 3=Moderate Assistance 7=Complete Shannon Attachments: IV, Oxygen ADL-Treatment Bathing (FIM): 6 (While sitting on shower chair.) Lower Body Dressing (FIM): 7 Toileting (FIM): 7 Transfers (B, C, W/C) (FIM): 7 Toilet/Commode Transfer (FIM): 7 Shower Transfer(FIM): 6 Other Treatment Pt. able to doff underwear, socks, and gown with independence. Completed bathing task with Mod I. Pt. able to ambulate without assistive device. Pt. requested to sit in shower to relax. States that shower feels good. Spouse in room and will assist pt. as needed. OT also let nurse tech know that pt. in shower and spouse to assist. Pt. does not have any other OT needs at this time. Education OT Patient Education: Correct positioning, Modified ADL techniques, Progress toward Goal/Update tx plan, Purpose of tx/functional activities, Reviewed precautions, Rehab process, Transfer techniques Teaching Recipient: Patient, Family Teaching Methods: Demonstration, Discussion Response to Teaching: Verbalize Understanding, Return Demonstration OT Short Term Goals Short Term Goals 1=Demonstrate adherence to instructed precautions during ADL tasks. 2=Patient will verbalize/demonstrate understanding of assistive devices/ modifications for ADL. 3=Patient will improve strength/tolerance for activity to enable patient to perform ADL's. OT Military Personnel Specialist Goals Longterm Goals Time Frame: Jan 09, 2018 Eating (FIM): 7 Grooming(FIM): 6 Bathing(FIM): 5 Upper Body Dressing(FIM): 6 Lower Body Dressing(FIM): 6 Toileting(FIM): 6 Transfers (B,C,W/C) (FIM): 6 Toilet/Commode Transfer(FIM): 6 Shower Transfer(FIM): 5 Additional Goals: 1-Demonstrate ADL Tasks, 2-Verbalize Understanding, 3- ImproveStrength/Gabriela 1=Demonstrate adherence to instructed precautions during ADL tasks. 2=Patient will verbalize/demonstrate understanding of assistive devices/ modifications for ADL. 3=Patient will improve strength/tolerance for activity to enable patient to perform ADL's. OT Education/Plan Problem List/Assessment Assessment: No Skilled OT Needs ID'd Discharge Recommendations Plan/Recommendations: Discharge/Goals Met Therapy D/C Recommendations: Home w/ Family Support Treatment Plan/Plan of Care Treatment,Training & Education: Yes Treatment Duration: Jan 03, 2018 Frequency: 5 times per week Estimated Hrs Per Day: .25 hour per day Agreement: Yes Rehab Potential: Good Time/GCodes Start Time: 11:35 Stop Time: 12:00 Total Time Billed (hr/min): 25 Billed Treatment Time 1, ADL x 25minutes HUNTER LEBLANC OT Jan 03, 2018 12:36
[2018-01-03] MEDS: cefTRIAXone FOR IV USE 1,000 MG in NS (IVPB) 50 ML IV SCH (14:43)
[2018-01-03 15:10] LABS: BUN/CREATININE RATIO 6; CALCIUM 8.6 MG/DL (8.5-10.1); CARBON DIOXIDE 28 MMOL/L (21-32); CHLORIDE 101 MMOL/L (98-107); CREATININE SERUM 0.65 MG/DL (0.60-1.30); GFR ESTIMATED > 60; GLUCOSE 67 MG/DL (70-105); POTASSIUM 3.3 MMOL/L (3.6-5.0); SODIUM 135 MMOL/L (135-145)
[2018-01-03 15:44] VITALS: BP 119/82
[2018-01-03] MEDS: NS IV 1000 ML 1,000 ML IV SCH (18:49)
[2018-01-03 20:25] VITALS: BP 131/97
[2018-01-04] VITALS: BP 115/78
[2018-01-04] MEDS: RT-ALBUTEROL/IPRATROPIUM 3 ML (DUONEB) VIAL INH SCH ×2 (03:06→07:18)
[2018-01-04 04:00] VITALS: BP 107/64
[2018-01-04 05:23] LABS: BASOPHILS % (AUTO) 0 % (0-10); EOSINOPHILS # (AUTO) 0.1 10^3/uL (0.0-0.3); EOSINOPHILS % (AUTO) 1 % (0-10); HEMATOCRIT 33 % (35-52); HEMOGLOBIN 11.7 G/DL (11.5-16.0); LYMPHOCYTES # (AUTO) 3.1 X 10^3 (1.0-4.0); LYMPHOCYTES % (AUTO) 27 % (12-44); MEAN CORPUSCULAR HEMOGLOBIN 36 PG (25-34); MEAN CORPUSCULAR HGB CONC 36 G/DL (32-36); MEAN CORPUSCULAR VOLUME 101 FL (80-99); MEAN PLATELET VOLUME 9.5 FL (7.4-10.4); MONOCYTES # (AUTO) 0.6 X 10^3 (0.0-1.0); MONOCYTES % (AUTO) 5 % (0-12); NEUTROPHILS # (AUTO) 7.7 X 10^3 (1.8-7.8); NEUTROPHILS % (AUTO) 66 % (42-75); PLATELET COUNT 211 10^3/uL (130-400); RED BLOOD COUNT 3.25 10^6/uL (4.35-5.85); RED CELL DISTRIBUTION WIDTH 13.8 % (10.0-14.5); WHITE BLOOD COUNT 11.6 10^3/uL (4.3-11.0)
[2018-01-04 06:04] LABS: BUN/CREATININE RATIO 5; CALCIUM 8.6 MG/DL (8.5-10.1); CARBON DIOXIDE 28 MMOL/L (21-32); CHLORIDE 102 MMOL/L (98-107); CREATININE SERUM 0.62 MG/DL (0.60-1.30); GFR ESTIMATED > 60; GLUCOSE 74 MG/DL (70-105); MAGNESIUM 1.8 MG/DL (1.8-2.4); PHOSPHORUS 1.5 MG/DL (2.3-4.7); SODIUM 138 MMOL/L (135-145)
[2018-01-04] MEDS: ALPRAZolam 1 MG (XANAX) TAB PO PRN (06:40)
[2018-01-04] MEDS: LEVOTHYROXINE 50 MCG (LEVOTHROID) TAB PO SCH (06:41)
[2018-01-04] MEDS: ENOXAPARIN 40 MG/0.4 ML (LOVENOX) SYR SC SCH (06:41)
[2018-01-04] MEDS: LEVOTHYROXINE 125 MCG (LEVOTHROID) TABLET PO SCH (06:41)
[2018-01-04] MEDS ORDERED: PANTOPRAZOLE 40 MG (PROTONIX) TAB PO SCH (07:00)
--- NOTE | 2018-01-04 07:22 | Pulmonary Progress Note ---
Subjective Time Seen by a Provider: 07:22 Sepsis Event Evaluation Height, Weight, BMI Height: 5'7.00" Weight: 158lbs. 0.0oz. 71.623763fn; 22.7 BMI Method:Stated Exam Exam Vital Signs Date Time Temp Pulse Resp B/P (MAP) Pulse Ox O2 Delivery O2 Flow Rate FiO2 01/04/18 04:00 98.0 92 20 107/64 (78) 93 Nasal Cannula 3.00 01/04/18 03:06 93 Room Air 01/04/18 00:00 97.3 92 20 115/78 (90) 91 Nasal Cannula 3.00 01/03/18 22:45 93 Room Air 01/03/18 20:25 98.4 80 20 131/97 (108) 95 Nasal Cannula 3.00 01/03/18 20:00 Room Air 01/03/18 15:44 98.3 88 20 119/82 (94) 94 Nasal Cannula 3.00 01/03/18 14:17 94 Nasal Cannula 3.00 01/03/18 12:00 98.9 90 20 132/82 (99) 94 Room Air 01/03/18 09:34 94 Nasal Cannula 3.00 01/03/18 08:27 99.2 103 20 125/80 (95) 96 Nasal Cannula 3.00 01/03/18 08:00 Nasal Cannula 3.00 01/03/18 07:56 0.00 I & O 01/04/18 07:00 Intake Total 4190 ml Output Total 3750 ml Balance 440 ml Height & Weight Height: 5'7.00" Weight: 158lbs. 0.0oz. 71.936635yz; 22.7 BMI Method:Stated General Appearance: No Apparent Distress, WD/WN HEENT: Other (mild periorbital edema, improved since yesterday) Neck: Full Range of Motion, Normal Inspection, Supple Respiratory: Chest Non Tender, Lungs Clear, Normal Breath Sounds, No Accessory Muscle Use, No Respiratory Distress Cardiovascular: Regular Rate, Rhythm, No Edema, No Gallop, No JVD, No Murmur, Normal Peripheral Pulses Capillary Refill: Less Than 3 Seconds Extremity: Normal Inspection, Normal Range of Motion Neurologic/Psychiatric: Alert, Oriented x3, No Motor/Sensory Deficits, Normal Mood/Affect Skin: Normal Color, Warm/Dry Lymphatic: No Adenopathy Results Lab Laboratory Tests 01/03/18 04:04 01/03/18 14:45 01/04/18 05:00 Assessment/Plan Assessment/Plan Myxedema coma - improved -Synthroid Lung nodule per CXR - CT of chest - reviewed and shows infiltration/pna and right calcified nodule -Pt will need repeat CT scan 8wks after discharge to ensure resolution of infiltration Pneumonia with Hypoxia- most likely present on admission -Pt appears to be improving on Rocephin -Pt needs home oxygen qualification testing -Repeat CT as out patient 8wks after discharge. Hypophos, hypokal -IV kPhos 30mmol Dehydration- improved UTI -Rocephin Tobacco, Marijuana use -Education ETOH use -No hx of withdrawal -Monitor GI/DVT ppx Will f/u with patient after discharge. JOSE R KULKARNI DO Jan 04, 2018 07:22
[2018-01-04] MEDS ORDERED: POTASSIUM PHOSPHATE INJ 30 MM in NS (IVPB) 250 ML IV NR (07:36)
[2018-01-04 08:42] VITALS: BP 130/85
[2018-01-04] MEDS: LACTULOSE SYRUP 10GM/15ML (ENULOSE) 30ML UDC PO SCH (08:49)
[2018-01-04] MEDS: SENNA W/DOCUSATE (SENOKOT S) TABLET PO SCH (08:49)
[2018-01-04] MEDS: POLYETHYLENE GLYCOL 17 GM (MIRALAX) PACK PO SCH (08:49)
[2018-01-04] MEDS ORDERED: CEPHALEXIN 250 MG (KEFLEX) CAP PO SCH (09:00)
--- NOTE | 2018-01-04 09:13 | Discharge Summary-Hospitalist ---
TOÑA DORSEY MED STUDENT 01/04/18 0912: Diagnosis/Chief Complaint Date of Admission Dec 31, 2017 at 14:18 Date of Discharge Admission Diagnosis Assessment: Acute and severe critical illness due to myxedema coma Bradycardia Hypothermia Severe dehydration Smoker Plan: IV fluid resuscitation Pressor therapy Central line placed by Dr. Magaly Negro in consultation IV hydrocortisone IV Synthroid Monitor closely patient is extremely critically ill Discharge Diagnosis (1) Hypoxia Status: Acute (2) Myxedema coma Status: Resolved Assessment & Plan: IV Hydrocortisone with IV Synthroid (3) Hypokalemia Status: Resolved (4) Respiratory failure Status: Acute (5) Hypoglycemia Status: Acute (6) Hypokalemia Status: Acute (7) Dry mucous membranes Status: Resolved (8) Confused Status: Resolved (9) Hypotension Status: Resolved Assessment & Plan: Aggressive fluids (10) Bradycardia Status: Resolved (11) Dehydration Status: Resolved Discharge Summary Discharge Physical Exam Allergies: Coded Allergies: No Known Drug Allergies (Verified , 06/30/09) Vitals & I&Os Vital Signs Date Time Temp Pulse Resp B/P (MAP) Pulse Ox O2 Delivery O2 Flow Rate FiO2 01/04/18 08:42 97.2 95 18 130/85 (100) 96 Room Air 01/04/18 04:00 3.00 01/01/18 10:32 40 General Appearance: No Apparent Distress, WD/WN HEENT: Normal ENT Inspection Respiratory: Chest Non Tender, Lungs Clear, Normal Breath Sounds, No Accessory Muscle Use, No Respiratory Distress Cardiovascular: Regular Rate, Rhythm, No Edema, No Gallop, No JVD, No Murmur, Normal Peripheral Pulses Gastrointestinal: Normal Bowel Sounds, Non Tender, Soft Extremity: Normal Capillary Refill, Normal Inspection, Normal Range of Motion, Non Tender, No Pedal Edema Skin: Normal Color, Warm/Dry Neurologic/Psychiatric: Alert, Oriented x3, No Motor/Sensory Deficits, Normal Mood/Affect Hospital Course This 42 year old female patient presented to ER on 12/31 with altered mental status, hypothermia, hypotension, and glucose of 25. A brief history was reviewed with patient and her . History was positive for thyroid ablation after Grave's disease diagnosis in her teenage years. She was subsequently diagnosed with myxedema coma and admitted to the ICU. Central line was placed and vasopressers were given along with fluids and dextrose and thyroid hormone. Patient was sedated and intubated. In the ICU her BP, temperature, and blood glucose were normalized and she was subsequently extubated. We monitored her closely and aside from some hypoxia and chest xray evident of bilateral lower lobe pneumonia, she has recovered well. We are sending her home on oxygen with antibiotic, thyroid hormone, and instructions for close follow up with PCP and Dr. Negro who will repeat chest imaging in approx 8 weeks to ensure resolution of the acute process. Labs (last 24 hrs) Laboratory Tests 01/03/18 14:45: Sodium Level 135, Potassium Level 3.3L, Chloride Level 101, Carbon Dioxide Level 28, Anion Gap 6, Blood Urea Nitrogen 4L, Creatinine 0.65, Estimat Glomerular Filtration Rate > 60, BUN/Creatinine Ratio 6, Glucose Level 67L, Calcium Level 8.6 01/03/18 15:50: Glucometer 88 01/04/18 05:00: Sodium Level 138, Potassium Level 3.0L, Chloride Level 102, Carbon Dioxide Level 28, Anion Gap 8, Blood Urea Nitrogen 3L, Creatinine 0.62, Estimat Glomerular Filtration Rate > 60, BUN/Creatinine Ratio 5, Glucose Level 74, Calcium Level 8.6, White Blood Count 11.6H, Red Blood Count 3.25L, Hemoglobin 11.7, Hematocrit 33L, Mean Corpuscular Volume 101H, Mean Corpuscular Hemoglobin 36H, Mean Corpuscular Hemoglobin Concent 36, Red Cell Distribution Width 13.8, Platelet Count 211, Mean Platelet Volume 9.5, Neutrophils (%) (Auto) 66, Lymphocytes (%) (Auto) 27, Monocytes (%) (Auto) 5, Eosinophils (%) (Auto) 1, Basophils (%) (Auto) 0, Neutrophils # (Auto) 7.7, Lymphocytes # (Auto) 3.1, Monocytes # (Auto) 0.6, Eosinophils # (Auto) 0.1, Basophils # (Auto) 0.0, Phosphorus Level 1.5L, Magnesium Level 1.8 01/04/18 05:34: Glucometer 80 Microbiology 12/31/17 Blood Culture - Preliminary, Resulted No growth 12/31/17 MRSA Screen - Final, Complete MRSA not isolated 12/31/17 Urine Culture - Final, Complete Escherichia coli Patient resulted labs reviewed. Pending Labs Laboratory Tests 01/04/18 05:00: White Blood Count 11.6, Red Blood Count 3.25, Hemoglobin 11.7, Hematocrit 33, Mean Corpuscular Volume 101, Mean Corpuscular Hemoglobin 36, Mean Corpuscular Hemoglobin Concent 36, Red Cell Distribution Width 13.8, Platelet Count 211, Mean Platelet Volume 9.5, Neutrophils (%) (Auto) 66, Lymphocytes (%) (Auto) 27, Monocytes (%) (Auto) 5, Eosinophils (%) (Auto) 1, Basophils (%) (Auto) 0, Neutrophils # (Auto) 7.7, Lymphocytes # (Auto) 3.1, Monocytes # (Auto) 0.6, Eosinophils # (Auto) 0.1, Basophils # (Auto) 0.0, Sodium Level 138, Potassium Level 3.0, Chloride Level 102, Carbon Dioxide Level 28, Anion Gap 8, Blood Urea Nitrogen 3, Creatinine 0.62, Estimat Glomerular Filtration Rate > 60, BUN/ Creatinine Ratio 5, Glucose Level 74, Calcium Level 8.6, Phosphorus Level 1.5, Magnesium Level 1.8 01/04/18 05:34: Glucometer 80 Discussion & Recommendations Discharge Planning: <30 minutes discharge planning Discharge Home Medications: Active Scripts Active Reported Alprazolam 2 Mg Tablet 2 Mg PO DAILY Omeprazole 20 Mg Capsule.dr 20 Mg PO DAILY Levothyroxine Sodium 175 Mcg Tablet 175 Mcg PO DAILY LAST FILLED #90 04-04-17 Instructions to patient/family Please see electronic discharge instructions given to patient. Clinical Quality Measures DVT/VTE Risk/Contraindication: Risk Factor Score Per Nursin RFS Level Per Nursing on Admit: 2=Moderate KHOI ATWOOD DO 01/05/18 1123: Diagnosis/Chief Complaint Discharge Diagnosis (1) Myxedema coma Status: Resolved Assessment & Plan: IV Hydrocortisone with IV Synthroid (2) RESPIRATORY FAILURE, UNSP, UNSP W HYPOXIA OR HYPERCAPNIA Status: Resolved (3) Smoker Status: Chronic (4) Requires continuous at home supplemental oxygen Status: Acute (5) Alcohol abuse Status: Chronic (6) Benzodiazepine misuse Status: Chronic (7) Hypoxia Status: Acute (8) Hypokalemia Status: Resolved (9) Dry mucous membranes Status: Resolved (10) Confused Status: Resolved (11) Hypotension Status: Resolved Assessment & Plan: Aggressive fluids (12) Bradycardia Status: Resolved (13) Dehydration Status: Resolved Discharge Summary Discharge Physical Exam Allergies: Coded Allergies: No Known Drug Allergies (Verified , 06/30/09) General Appearance: No Apparent Distress, WD/WN Respiratory: Chest Non Tender, Lungs Clear, Normal Breath Sounds, No Accessory Muscle Use, No Respiratory Distress Cardiovascular: Regular Rate, Rhythm, No Edema, No Gallop, No JVD, No Murmur, Normal Peripheral Pulses Neurologic/Psychiatric: Alert, Oriented x3, No Motor/Sensory Deficits, Normal Mood/Affect Hospital Course Patient had a very complex but successful hospital course after presenting in critical status requiring intubation and aggressive IVF for myxedema coma. Pt had not taken thyroid medicine for several months for still unknown reason. ETOH use along with tobacco abuse and benzo overuse played roles in critical illness along with non-compliance with medical treatment plan set forth by PCP Dr Begum. Pt recovered well and was able to be DC on O2 temporarily and was given rx for synthroid and counseled compliance. Discussion & Recommendations Discharge Planning: <30 minutes discharge planning Problem Qualifiers (1) Respiratory failure: Chronicity: acute Respiratory failure complication: hypoxia Qualified Codes : J96.01 - Acute respiratory failure with hypoxia (2) Hypotension: Hypotension type: other hypotension type Qualified Codes: I95.89 - Other hypotension TOÑA DORSEY MED STUDENT Jan 04, 2018 09:12 KHOI ATWOOD DO Jan 05, 2018 11:23
[2018-01-04] MEDS ORDERED: PHOS-NAK PACKET (NON-FORMULARY) PO NR (09:49)
[2018-01-04] MEDS ORDERED: LEVO175T5 PO (10:09)
[2018-01-04] MEDS ORDERED: CEPH250C PO (10:09)
[2018-01-04] MEDS ORDERED: POT PHOS/NA PHOS (K-PHOS NEUTRAL) PO NR (10:11)
[2018-01-04] MEDS ORDERED: NS IV 1000 ML 1,000 ML IV SCH ×2 (17:30)
== END 2018-01-04 11:25 | disposition home or self-care (01) | DRG 80 ==
LOC: EDUNIT# 12:17 → ER 12:18 → ICU 14:18 → 4TH 01-02 10:20
PROVIDERS: ADMIT Internal Medicine; ATTEND Internal Medicine
PROC: 5A1935Z Respiratory Ventilation, Less than 24 Consecutive Hours (ICD-10-PCS; principal; 2017-12-31)
DX: E03.5 Myxedema coma (principal); J96.01 Acute respiratory failure with hypoxia; N39.0 Urinary tract infection, site not specified; J18.9 Pneumonia, unspecified organism; E86.0 Dehydration; R00.1 Bradycardia, unspecified; E16.2 Hypoglycemia, unspecified; E87.6 Hypokalemia; I95.89 Other hypotension; R68.0 Hypothermia, not associated with low environmental temperature; F17.200 Nicotine dependence, unspecified, uncomplicated; F12.90 Cannabis use, unspecified, uncomplicated; R19.5 Other fecal abnormalities; E83.39 Other disorders of phosphorus metabolism
CPT/HCPCS: 36415; 71045; 71275; 80048; 80053; 80306; 80320; 81000; 82271; 82805; 82962; 83605; 83735; 84100; 84439; 84443; 84478; 85007; 85025; 85027; 85610; 85730; 87040; 87070; 87077; 87081; 87088; 87186; 87205; 93005; 94002; 94003; 94640; 94760; 94761; 94799; 99291

== ENCOUNTER → 2018-02-07 | Outpatient (CLI) | payer BC ==
[~2018-02-07] MED LIST changes: +ALPR2TAB6 PO; +CEPH250C PO; +LEVO175T5 PO; +OMEP20CA12 PO
--- NOTE | 2018-02-07 13:12 | Diagnostic Imaging Report ---
PROCEDURE: CT chest without contrast. TECHNIQUE: Multiple contiguous axial images were obtained through the chest without the use of intravenous contrast. INDICATION: Dyspnea. Comparison is made with prior CT chest from 01/02/2018. No axillary lymphadenopathy is seen. Mediastinum and emily are unremarkable. Calcified lymph nodes in the right hilum as well as calcified granuloma right lower lobe are again seen consistent with prior granulomatous exposure. Previously noted infiltrates in bilateral lower lobes have resolved. No new parenchymal opacity is seen. The central airways are patent. No pericardial or pleural fluid is identified. Upper abdomen shows probable tiny stone within the gallbladder. IMPRESSION: 1. Resolution of bilateral lower lobe pulmonary infiltrates when compared with prior study from one month earlier. 2. Cholelithiasis. Dictated by: Dictated on workstation # [id number]
== END ==
LOC: RAD 11:58
PROVIDERS: ATTEND Nurse Practitioner Family
DX: J18.9 Pneumonia, unspecified organism (principal); F17.200 Nicotine dependence, unspecified, uncomplicated; K80.20 Calculus of gallbladder without cholecystitis without obstruction
CPT/HCPCS: 71250

== ENCOUNTER 2019-09-14 05:20 | Inpatient (IN) | payer BC, OTHER ==
[~2019-09-14] VITALS: Ht 170.2 cm; Wt 74.1 kg
[~2019-09-14 05:20] MED LIST changes: -OMEP20CA12 PO; +OMEP20CA18 PO
[2019-09-14] MEDS ORDERED: NS IV 1000 ML 1,000 ML IV SCH (05:58)
[2019-09-14] MEDS ORDERED: PANTOPRAZOLE 40 MG (PROTONIX) VIAL IV ONE (06:00)
[2019-09-14 06:01] LABS: CLARITY,URINE CLEAR; GLUCOSE, URINE (UA) NEGATIVE (NEGATIVE); KETONES,URINE 1+ (NEGATIVE); LEUKOCYTE ESTERASE ,URINE NEGATIVE (NEGATIVE); NITRITE,URINE NEGATIVE (NEGATIVE); PROTEIN,URINE TRACE (NEGATIVE)
[2019-09-14 06:05] LABS: BASOPHILS % (AUTO) 0 % (0-10); EOSINOPHILS % (AUTO) 0 % (0-10); HEMATOCRIT 38 % (35-52); HEMOGLOBIN 12.9 G/DL (11.5-16.0); LYMPHOCYTES % (AUTO) 6 % (12-44); MEAN CORPUSCULAR HEMOGLOBIN 32 PG (25-34); MEAN CORPUSCULAR HGB CONC 34 G/DL (32-36); MEAN CORPUSCULAR VOLUME 95 FL (80-99); MEAN PLATELET VOLUME 9.2 FL (7.4-10.4); MONOCYTES % (AUTO) 7 % (0-12); NEUTROPHILS # (AUTO) 12.8 X 10^3 (1.8-7.8); NEUTROPHILS % (AUTO) 87 % (42-75); PLATELET COUNT 341 10^3/uL (130-400); RED CELL DISTRIBUTION WIDTH 14.2 % (10.0-14.5); WHITE BLOOD COUNT 14.8 10^3/uL (4.3-11.0)
[2019-09-14 06:12] LABS: BACTERIA,URINE TRACE /HPF; BILIRUBIN,URINE 1+ (NEGATIVE); COLOR,URINE AMBER; RBC,URINE RARE /HPF
[2019-09-14 06:15] LABS: ALBUMIN 3.9 GM/DL (3.2-4.5); CHLORIDE 97 MMOL/L (98-107); POTASSIUM 3.3 MMOL/L (3.6-5.0); SODIUM 134 MMOL/L (135-145)
[2019-09-14 06:18] LABS: GLUCOSE 136 MG/DL (70-105); TOTAL PROTEIN 7.4 GM/DL (6.4-8.2)
[2019-09-14 06:19] LABS: CARBON DIOXIDE 26 MMOL/L (21-32)
[2019-09-14 06:20] LABS: BILIRUBIN,TOTAL 1.1 MG/DL (0.1-1.0)
[2019-09-14 06:21] LABS: ALKALINE PHOSPHATASE 121 U/L (40-136)
[2019-09-14 06:22] LABS: CREATININE SERUM 0.62 MG/DL (0.60-1.30); GFR ESTIMATED > 60
[2019-09-14 06:23] LABS: BUN/CREATININE RATIO 11
[2019-09-14] MEDS ORDERED: fentaNYL INJECTION 100 MCG/2 ML AMP IVP STA (06:23)
[2019-09-14 06:24] LABS: ALANINE AMINOTRANSFERASE 56 U/L (0-55)
[2019-09-14 06:25] LABS: LIPASE < 4 U/L (8-78)
[2019-09-14 06:30] LABS: BAND NEUTROPHILS 4 %; LYMPHOCYTES % (MANUAL) 7 %; MONOCYTES % (MANUAL) 4 %; NEUTROPHILS % (MANUAL) 85 %
[2019-09-14 06:31] LABS: RBC MORPH NORMAL
--- NOTE | 2019-09-14 06:31 | ED Abdominal Pain ---
General Chief Complaint: Abdominal/GI Problems Stated Complaint: ABD PAIN Source of Information: Patient Exam Limitations: No Limitations History of Present Illness Date Seen by Provider: September 14, 2019 Time Seen by Provider: 06:00 Initial Comments Here with report of epigastric and right upper quadrant abdominal pain that has been going on for a few hours. She did have one episode of vomiting but states it was only a little saliva. Onset after drinking a few beers last night and eating nachos. Does have history of ulcerative disease. Has had previous appendectomy. 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 Reports that she takes her thyroid medicine mostly as she is supposed to but does miss a few doses and has missed a few doses recently. Does have slowed speech. Does have history of anxiety disorder but has not taken her Xanax for 2 days. Denies fevers but states that she feels cold. She is not hypothermic. Denies blood in her vomit or stool. Denies dysuria. Timing/Duration: 4-6 Hours Severity/Quality: Moderate, Severe, Aching, Burning Location: Epigastric Radiation: RUQ, Back Activities at Onset: None Modifying Factors: Worsens With Eating; Improves With Resting Associated Symptoms: Back Pain; No Chest Pain, No Fever/Chills; Heartburn, Nausea/Vomiting; No Shortness of Air, No Swelling/Mass in Abdomen, No Weakness Allergies and Home Medications Allergies Coded Allergies: No Known Drug Allergies (Verified , 06/30/09) Home Medications Alprazolam 2 Mg Tablet, 2 MG PO DAILY, (Reported) Levothyroxine Sodium 175 Mcg Tablet, 175 MCG PO DAILY LAST FILLED #90 04-04-17 Prescribed by: KHOI ATWOOD on 01/04/18 1009 Omeprazole 20 Mg Capsule.dr, 20 MG PO DAILY, (Reported) Patient Home Medication List Home Medication List Reviewed: Yes Review of Systems Review of Systems Constitutional: see HPI, chills; No fever EENTM: No Symptoms Reported Respiratory: No Symptoms Reported Cardiovascular: No Symptoms Reported Gastrointestinal: See HPI; Denies Constipated, Denies Diarrhea Genitourinary: No Symptoms Reported Musculoskeletal: see HPI, back pain; No muscle pain Skin: no symptoms reported Psychiatric/Neurological: No Symptoms Reported All Other Systems Reviewed Negative Unless Noted: Yes Past Gtyeixr-Zvthzk-Zkmleh Hx Past Med/Social Hx: Reviewed Nursing Past Med/Soc Hx Patient Social History Alcohol Use: Occasionally Uses Alcohol Beverage of Choice: Vodka Recreational Drug Use: Yes Drug of Choice: POT Smoking Status: Current Everyday Smoker Type Used: Cigarettes Recent Foreign Travel: No Contact w/Someone Who Travel: No Recent Hopitalizations: No Seasonal Allergies Seasonal Allergies: Yes Past Medical History Surgeries: Yes Appendectomy Respiratory: No Chronic Bronchitis Currently Using CPAP: No Currently Using BIPAP: No Cardiac: No Neurological: No Reproductive Disorders: No Sexually Transmitted Disease: No HIV/AIDS: No UTI-Chronic Gastrointestinal: No Liver Disease/Jaundice Musculoskeletal: No Endocrine: Yes Hypothyroidsim HEENT: No Cancer: No Psychosocial: Yes Anxiety Integumentary: No Blood Disorders: No Adverse Reaction/Blood Tranf: No Family Medical History Reviewed Nursing Family Hx No Pertinent Family Hx Physical Exam Vital Signs Vital Signs - First Documented 09/14/19 05:34 Temp 36.5 Pulse 77 Resp 16 B/P (MAP) 136/74 (94) O2 Delivery Room Air Capillary Refill : Height/Weight/BMI Height: 5'7.00" Weight: 158lbs. 0.0oz. 71.676358ns; 22.7 BMI Method:Stated General Appearance: WD/WN, no apparent distress Neck: full range of motion, supple Respiratory: lungs clear, normal breath sounds Cardiovascular: regular rate, rhythm, no murmur Peripheral Pulses: 2+ Dorsalis Pedis (R), 2+ Left Dors-Pedis (L), 2+ Radial Pulses (R), 2+ Radial Pulses (L) Gastrointestinal: soft; No guarding, No rebound; tenderness (right upper quadrant) Extremities: non-tender, normal inspection Back: normal inspection, no CVA tenderness, no vertebral tenderness Neurologic/Psychiatric: alert, oriented x 3 Skin: normal color, warm/dry Procedures/Interventions Date of ETT Placement: Dec 31, 2017 Time of ETT Placement: 1358 Progress/Results/Core Measures Results/Orders Lab Results Laboratory Tests Test 09/14/19 05:44 09/14/19 05:55 Range/Units Urine Color JULIANE H Urine Clarity CLEAR Urine pH 6.0 5-9 Urine Specific [place] 1.020 1.016-1.022 Urine Protein TRACE H NEGATIVE Urine Glucose (UA) NEGATIVE NEGATIVE Urine Ketones 1+ H NEGATIVE Urine Nitrite NEGATIVE NEGATIVE Urine Bilirubin 1+ H NEGATIVE Urine Urobilinogen 0.2 < = 1.0 MG/DL Urine Leukocyte Esterase NEGATIVE NEGATIVE Urine RBC (Auto) TRACE-I NEGATIVE Urine RBC RARE /HPF Urine WBC NONE /HPF Urine Squamous Epithelial Cells 2-5 /HPF Urine Crystals NONE /LPF Urine Bacteria TRACE /HPF Urine Casts NONE /LPF Urine Mucus SMALL H /LPF Urine Culture Indicated NO Urine Opiates Screen NEGATIVE NEGATIVE Urine Oxycodone Screen NEGATIVE NEGATIVE Urine Methadone Screen NEGATIVE NEGATIVE Urine Propoxyphene Screen NEGATIVE NEGATIVE Urine Barbiturates Screen NEGATIVE NEGATIVE Ur Tricyclic Antidepressants Screen POSITIVE H NEGATIVE Urine Phencyclidine Screen NEGATIVE NEGATIVE Urine Amphetamines Screen NEGATIVE NEGATIVE Urine Methamphetamines Screen NEGATIVE NEGATIVE Urine Benzodiazepines Screen POSITIVE H NEGATIVE Urine Cocaine Screen NEGATIVE NEGATIVE Urine Cannabinoids Screen POSITIVE H NEGATIVE White Blood Count 14.8 H 4.3-11.0 10^3/uL Red Blood Count 4.01 L 4.35-5.85 10^6/uL Hemoglobin 12.9 11.5-16.0 G/DL Hematocrit 38 35-52 % Mean Corpuscular Volume 95 80-99 FL Mean Corpuscular Hemoglobin 32 25-34 PG Mean Corpuscular Hemoglobin Concent 34 32-36 G/DL Red Cell Distribution Width 14.2 10.0-14.5 % Platelet Count 341 130-400 10^3/uL Mean Platelet Volume 9.2 7.4-10.4 FL Neutrophils (%) (Auto) 87 H 42-75 % Lymphocytes (%) (Auto) 6 L 12-44 % Monocytes (%) (Auto) 7 0-12 % Eosinophils (%) (Auto) 0 0-10 % Basophils (%) (Auto) 0 0-10 % Neutrophils # (Auto) 12.8 H 1.8-7.8 X 10^3 Lymphocytes # (Auto) 1.0 1.0-4.0 X 10^3 Monocytes # (Auto) 1.0 0.0-1.0 X 10^3 Eosinophils # (Auto) 0.0 0.0-0.3 10^3/uL Basophils # (Auto) 0.0 0.0-0.1 10^3/uL Neutrophils % (Manual) 85 % Lymphocytes % (Manual) 7 % Monocytes % (Manual) 4 % Band Neutrophils 4 % Blood Morphology Comment NORMAL Sodium Level 134 L 135-145 MMOL/L Potassium Level 3.3 L 3.6-5.0 MMOL/L Chloride Level 97 L 98-107 MMOL/L Carbon Dioxide Level 26 21-32 MMOL/L Anion Gap 11 5-14 MMOL/L Blood Urea Nitrogen 7 7-18 MG/DL Creatinine 0.62 0.60-1.30 MG/DL Estimat Glomerular Filtration Rate > 60 BUN/Creatinine Ratio 11 Glucose Level 136 H 70-105 MG/DL Calcium Level 9.0 8.5-10.1 MG/DL Corrected Calcium 9.1 8.5-10.1 MG/DL Total Bilirubin 1.1 H 0.1-1.0 MG/DL Aspartate Amino Transf (AST/SGOT) 49 H 5-34 U/L Alanine Aminotransferase (ALT/SGPT) 56 H 0-55 U/L Alkaline Phosphatase 121 40-136 U/L C-Reactive Protein High Sensitivity 2.44 H 0.00-0.50 MG/DL Total Protein 7.4 6.4-8.2 GM/DL Albumin 3.9 3.2-4.5 GM/DL Lipase < 4 L 8-78 U/L TSH [place] Testing 1.18 0.35-4.94 UIU/ML My Orders Orders - DUGLAS MEDELLIN MD Thyroid Analyzer (09/14/19 06:15) Fentanyl Injection (Sublimaze Injection (09/14/19 06:23) Ct Abdomen/Pelvis W (09/14/19 06:23) Drug Screen Stat (Urine) (09/14/19 06:50) Iohexol Injection (Omnipaque 350 Mg/Ml 1 (09/14/19 07:45) Ns (Ivpb) (Sodium Chloride 0.9% Ivpb Bag (09/14/19 07:45) Medications Given in ED Current Medications Medications Dose Ordered Sig/[place] Route Start Time Stop Time Status Last Admin Dose Admin Iohexol 100 ml ONCE ONCE IV 09/14/19 07:45 09/14/19 07:53 DC 09/14/19 07:34 100 ML Pantoprazole 40 mg ONCE ONCE IV 09/14/19 06:00 09/14/19 06:01 DC 09/14/19 06:06 40 MG Sodium Chloride 80 ml ONCE ONCE IV 09/14/19 07:45 09/14/19 07:53 DC 09/14/19 07:34 80 ML Vital Signs/I&O 09/14/19 05:34 Temp 36.5 Pulse 77 Resp 16 B/P (MAP) 136/74 (94) O2 Delivery Room Air Progress Progress Note : Progress Note Seen and evaluated. IV, labs, UA, dizziness, thyroid studies ordered. Protonix 40 mg IV. Fentanyl 50 mg IV. IV fluids ordered. CT abdomen and pelvis with contrast ordered. Monitor patient. 0815: I did discuss the case with Dr. Martin after CT findings and labs concerning for acute cholecystitis. We have added blood cultures and lactic acid and we'll initiate Rocephin 1 g IV and Flagyl 500 mg IV. Patient to be admitted and clear liquid diet and IV antibiotics with likely a lot of this weekend. Findings and concerns discussed with patient who agreed with plan. Admit, inpatient status. Pain is improved after fentanyl. Diagnostic Imaging Diagonstic Imaging: CT Plain Films/CT/US/NM/MRI: abdomen, pelvis Comments [facility] [place], [place] NAME: SUNSHINE CRUZ [facility] REC#: [id number] PT STATUS: REG ER : 1975 PHYSICIAN: DUGLAS MEDELLIN MD ADMIT DATE: 09/14/19/ER Draft Date of Exam:09/14/19 CT ABDOMEN/PELVIS W PROCEDURE: CT abdomen and pelvis with contrast. TECHNIQUE: Multiple contiguous axial images were obtained through the abdomen and pelvis after administration of intravenous contrast. Auto Exposure Controls were utilized during the CT exam to meet ALARA standards for radiation dose reduction. INDICATION: Abdominal pain COMPARISON: CT of the chest dated 02/07/2018 FINDINGS: Calcified granulomas within the right lung base. Mild bibasilar atelectasis. The gallbladder is abnormally distended measuring over 11 cm. Layering sludge and/or stones within the gallbladder. Gallbladder wall thickening is present with suggestion of minimal fat stranding about the gallbladder. No intra or extrahepatic biliary dilatation. The liver is unremarkable. The spleen is unremarkable. The adrenal glands are unremarkable. The pancreas is unremarkable. The kidneys are unremarkable. No aneurysmal dilatation of the abdominal aorta. The urinary bladder is unremarkable. The uterus and adnexal structures are unremarkable. Diffuse mural thickening of the distal transverse colon, descending colon, and sigmoid colon is noted, though these regions of colon are not well distended. No adjacent fat stranding about these regions of colon. No bowel obstruction or pneumatosis. No significant adenopathy, free air, or free fluid within the abdomen or pelvis. Chronic mild superior endplate deformities of L4 and L1 are identified. Scattered osseous degenerative changes without acute osseous abnormality. IMPRESSION: Abnormally dilated gallbladder with associated gallbladder wall thickening, minimal sludge and/or stones, and questionable pericholecystic fat stranding. Findings may relate to underlying acute cholecystitis. Recommend clinical correlation. If further evaluation is desired, then a right upper quadrant ultrasound would be recommended. Mural thickening of the mid to distal colon, related to poor distention versus colitis. No evidence of bowel obstruction. Evidence of chronic granulomatous disease. Dictated on workstation # [id number] Dict: 09/14/19 0745 Trans: 09/14/19 0754 [facility] [id number] Interpreted by: RAFA RAMOS MD Electronically signed by: Departure Communication (Admissions) Time/Spoke to Admitting Phy: 08:15 Impression Primary Impression: Acute cholecystitis Disposition: ADMITTED INPATIENT Condition: Stable Admissions Decision to Admit Reason: Admit from ER (General) Decision to Admit/Date: September 14, 2019 Time/Decision to Admit Time: 08:15 Departure-Patient Inst. Referrals: DIAZ HERZOG MD (PCP/Family) Primary Care Physician DUGLAS MEDELLIN MD September 14, 2019 06:31
[2019-09-14 07:21] LABS: AMPHETAMINE SCREEN, URINE NEGATIVE (NEGATIVE); BENZODIAZEPINES SCREEN URINE POSITIVE (NEGATIVE); CANNABINOID SCREEN, URINE POSITIVE (NEGATIVE); COCAINE SCREEN URINE NEGATIVE (NEGATIVE); METHAMPHETAMINE SCREEN URINE S NEGATIVE (NEGATIVE)
[2019-09-14 07:22] LABS: BARBITURATE SCREEN URINE NEGATIVE (NEGATIVE); METHADONE STAT NEGATIVE (NEGATIVE); OPIATE SCREEN URINE NEGATIVE (NEGATIVE); OXYCODONE STAT NEGATIVE (NEGATIVE); PROPOXYPHENE STAT NEGATIVE (NEGATIVE); TRICYCLIC ANTIDEPRESSANTS SCRE POSITIVE (NEGATIVE)
[2019-09-14] MEDS ORDERED: IOHEXOL 350 MG/ML 100 ML (OMNIPAQUE 350) VIAL IV ONE (07:45)
[2019-09-14] MEDS ORDERED: NS 100 ML (IVPB) BAG IV ONE (07:45)
--- NOTE | 2019-09-14 07:56 | Diagnostic Imaging Report ---
PROCEDURE: CT abdomen and pelvis with contrast. TECHNIQUE: Multiple contiguous axial images were obtained through the abdomen and pelvis after administration of intravenous contrast. Auto Exposure Controls were utilized during the CT exam to meet ALARA standards for radiation dose reduction. INDICATION: Abdominal pain COMPARISON: CT of the chest dated 02/07/2018 FINDINGS: Calcified granulomas within the right lung base. Mild bibasilar atelectasis. The gallbladder is abnormally distended measuring over 11 cm. Layering sludge and/or stones within the gallbladder. Gallbladder wall thickening is present with suggestion of minimal fat stranding about the gallbladder. No intra or extrahepatic biliary dilatation. The liver is unremarkable. The spleen is unremarkable. The adrenal glands are unremarkable. The pancreas is unremarkable. The kidneys are unremarkable. No aneurysmal dilatation of the abdominal aorta. The urinary bladder is unremarkable. The uterus and adnexal structures are unremarkable. Diffuse mural thickening of the distal transverse colon, descending colon, and sigmoid colon is noted, though these regions of colon are not well distended. No adjacent fat stranding about these regions of colon. No bowel obstruction or pneumatosis. No significant adenopathy, free air, or free fluid within the abdomen or pelvis. Chronic mild superior endplate deformities of L4 and L1 are identified. Scattered osseous degenerative changes without acute osseous abnormality. IMPRESSION: Abnormally dilated gallbladder with associated gallbladder wall thickening, minimal sludge and/or stones, and questionable pericholecystic fat stranding. Findings may relate to underlying acute cholecystitis. Recommend clinical correlation. If further evaluation is desired, then a right upper quadrant ultrasound would be recommended. Mural thickening of the mid to distal colon, related to poor distention versus colitis. No evidence of bowel obstruction. Evidence of chronic granulomatous disease. Dictated by: Dictated on workstation # [id number]
[2019-09-14] MEDS ORDERED: cefTRIAXone FOR IV USE 1,000 MG in WATER (STERILE) FOR INJECTION 10 ML IV STA (08:18)
[2019-09-14] MEDS ORDERED: metroNIDAZOLE 500MG/100ML IVPB 100 ML IV ONE (08:30)
--- OUTSIDE RECORDS SUMMARY | 2019-09-14 09:41 | XMS REPORT ---
Author Author Kyleigh Leyva Organization [facility] Address [address] [place] [address] Care Team Providers Care Temperature Control Inspector Name Role Phone JAIME Leyva Unavailable PROBLEMS Type Condition ICD9-CM Code THW26-NO Code Onset Dates Condition S tatus SNOMED Code Problem History of gastric ulcer Z87.19 Activ e 908013997 Problem Heat intolerance R68.89 Active 692 13241 Problem History of anxiety Z86.59 Active 1 05509297 Problem History of depression Z86.59 Active 711529001 Problem Graves disease E05.00 Active 89658 5004 Problem Desire for Z31.9 Active Problem Hypothyroidism E03.9 Active 65028 008 Problem Cold intolerance R68.89 Active 805 02358 Problem Substance abuse F19.10 Active 6621 4007 Problem Stress incontinence N39.3 Active 73719911 Problem History of irregular menstrual bleeding Z87.42 Active 144306468 Problem Tobacco use Z72.0 Active 42359669 0 Problem Depressive disorder F32.9 Active 84325906 Problem Diarrhea R19.7 Active 11370762 ALLERGIES No Information ENCOUNTERS Encounter Location Date Diagnosis [facility] [address] [place] [id number] Jul, [facility] [address] [place] [place] [id number] [address] [place] [phone] Apr, Contusion of trunk, initial encounter S20.20XA [facility] [address] [id number] [address] [place] [phone] Mar, 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 a nd Nasopharyngitis acute J00 [facility] [address] [place] [address] [id number] [address] [place] [phone] Mar, 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 a nd Viral upper respiratory tract infection J06.9 [facility] [address] [address] August, Acute upper respiratory infe ction, unspecified J06.9 [facility] [address] [address] August, Pharyngitis due to other org anism J02.8 [facility] [address] [address] 12 Jul, 2015 Dental examination Z01.[address] [address] 08 Jul, 2015 Allergic rhinitis J30.9 [facility] [address] [address] 04 Jul, 2015 Hypothyroidism E03.9 [facility] [address] [address] Jun, Dysuria R30.0 ; Hypothyroidi sm E03.9 ; Acute sinusitis J01.90 and Allergic rhinitis J30.9 [facility] [address] [address] Mar, Graves disease E05.00 ; Toba charge account clerk use Z72.0 ; Hypothyroidism E03.9 and Substance abuse F19.10 [facility] [address] [address] Mar, [place] [address] [address] 17 Mar, 2015 Encounter for IUD removal Z3 0.432 ; Encounter for screening for malignant neoplasm of cervix Z12.4 ; Well woman exam Z01.419 ; Graves disease E05.00 ; Diarrhea R19.7 ; Abdominal pain R10.9 ; Desire for Z31.9 ; Tobacco use Z72.0 ; History of gastric ulcer Z87.19 ; History of anxiety Z86.59 ; History of depression Z86.59 ; Tearfulness R45.89 ; Cold intolerance R68.89 ; Heat intolerance R68.89 ; History of irregular menstrual bleeding Z87.42 and Stress incontinence N39.3 [facility] [address] [id number] [address] [place] [id number] 14 Jul, 2014 [facility] [address] [id number] [address] [place] [address] Jul, [facility] [address] [id number] [address] [place] [phone] Feb, [facility] [address] [id number] [address] [place] [phone] Feb, [facility] [address] [id number] [address] [place] [phone] Feb, [facility] [address] [id number] [address] [place] [id number] Feb, [facility] [address] [id number] [address] [place] [id number] Feb, [facility] [address] [id number] [address] [place] [phone] Feb, [facility] [address] [id number] [address] [place] [phone] Feb, [facility] [address] [id number] [address] [place] [id number] Apr, [facility] [address] [id number] [address] [place] [phone] Apr, [facility] [address] [id number] [address] [place] [phone] Dec, [facility] [address] [id number] [address] [place] [phone] Nov, [facility] [address] [id number] [address] [place] [phone] Nov, [facility] [address] [id number] [address] [place] [phone] Nov, [facility] [address] [id number] [address] [place] [address], [place] [address] Nov, [facility] [address] [id number] [address] [place] [address], [place] [address] Apr, [facility] [address] [id number] [address] [place] [address], [place] [address] Apr, [facility] [address] [id number] [address] [place] [address], [place] [address] Apr, [facility] [address] [id number] [address] [place] [address], [place] [address] Apr, [facility] [address] [id number] [address] [place] [address], [place] [address] Apr, [facility] [address] [id number] [address] [place] [address], [place] [address] Mar, [facility] [address] [id number] [address] [place] [address], [place] [address] Nov, [facility] [address] [id number] [address] [place] [address], [place] [address] Mar, [facility] [address] [id number] [address] [place] [address], [place] [address] Mar, [facility] [address] [id number] [address] [place] [address], [place] [address] Mar, [facility] [address] [id number] [address] [place] [address], [place] [address] Mar, [facility] [address] [id number] [address] [place] [address], [place] [address] May, [facility] [address] [id number] [address] [place] [address], [place] [address] 16 Mar, 2009 [facility] [address] [id number] [address] [place] [address], [place] [address] 16 Mar, 2009 [facility] [address] [id number] [address] [place] [phone] Mar, [facility] [address] [facility] [id number] [address] [place] [phone] Feb, [facility] [address] [facility] [id number] [address] [place] [phone] Feb, [facility] [address] [facility] [id number] [address] [place] [phone] Jan, [facility] [address] [facility] [id number] [address] [place] [phone] Jan, [facility] [address] [facility] [id number] [address] [place] [phone] Jan, IMMUNIZATIONS No Known Immunizations SOCIAL HISTORY Never Assessed REASON FOR VISIT PLAN OF CARE VITAL SIGNS Height 67 in 2012-12-05 Weight 150 lbs 2012-12-05 Temperature 97 degrees Fahrenheit 2012-12-05 Heart Rate 72 bpm 2012-12-05 Respiratory Rate 16 2012-12-05 Blood pressure systolic 118 mmHg 2012-12-05 Blood pressure diastolic 68 mmHg 2012-12-05 MEDICATIONS Unknown Medications RESULTS No Results PROCEDURES Procedure Date Ordered Result Body Site CULTURE, BACTERIA, OTHER Dec 05, 2012 URINE TEST Dec 05, 2012 INSTRUCTIONS MEDICATIONS ADMINISTERED No Known Medications MEDICAL (GENERAL) HISTORY Type Description Date Medical History thyroid disorder -hypothyroid Medical History psychiatric disorder -depression Surgical History appendectomy
--- OUTSIDE RECORDS SUMMARY | 2019-09-14 09:41 | XMS REPORT ---
Author Author [facility] Alt[employer] [facility] Address [address] [address] Care Team Providers Care Taper Machine Name Role Phone RADHA BELL Unavailable Unavailable TRENTON CHARLTONYL Unavailable Unavailable JELANI SEYMOUR Unavailable Unavailable Jamie [facility] Unavailable BRITTANY MORALES Unavailable MISA PANCHAL Unavailable GABRIELLA NUÑEZ Unavailable Migration, Doctor Unavailable Unavailable Luke ATKINS, James Gonzalez Unavailable Unavailable Eugenio Glover DO Unavailable Unavailable Migration, Doctor Unavailable Unavailable JERRYMIRIAN MCLAUGHLIN Unavailable zzHEIMAN, JAIME Unavailable zzHEIMAN, JAIME Unavailable PCP, NONE Unavailable Unavailable zzZOLTAN RAKAN Unavailable zzHEIMAN, JAIME Unavailable MALINI ROMAN APRN Unavailable Unavailable TORI ATKINS, JOSEFA Flores Unavailable Unavailable Unavailable Unavailable Unavailable Unavailable Unavailable Unavailable Unavailable Unavailable Allergies Normalized Allergy Reported Date of Reaction(s) Care Provider Facility Allergy Type classification allergen Allergy Onset DA (4 Unclassified No Known 08-22-2018 - no information Moe Mirza sources.) Allergies Rovenstine , [facility] DO [facility] ([id number]) Medications Medication Ingredient Drug Dose Dates Status Sig Sig Care Class(es) (Normalized) (Original) Provid er no Acetaminoph no 07-01-19 Complete take 5-500 Acetaminop harjinder You information en/Hydrocod information 10 - d tablets by n/H ydrocodon W (1 source.) one Bitart 08-17-19 mouth every e Bitart Eppler (Vicodin 15 four hours (Vicodin (no 5-500 as needed, 5-500 phone) Tablet) 1 then take 1 Tablet) 1 Each tablet by Each Tablet, Tablet, 1 mouth as 1 Each Oral Each Oral needed Q4hr Prn 06/30/09 Discontinued cephalexin cephalexin Cephalospor 500 mg 01-05-20 Complete take 2 Cephalexin Khoi 250 mg oral in 18 d capsules by 250 Mg Ga rner capsule (1 Antibacteri mouth three Capsule 500 (no source.) al times daily Mg ORAL phone) Three Times A Day 15 Cap 01/04/18 no Lavoxyl , no 08-17-19 Complete no Lavoxyl , (no information Not information 15 d information Not phone) (1 source.) Applicable Applicable Discontinued no no 01-02-20 Complete no (no information Vits information 18 d information Vits phone) (1 source.) W-Ca,Fe,Fa( W-Ca,Fe,Fa( <1MG) Daily () Discontinued 1 Each Tablet, 1 Each Oral Problems Active Problems Problem Normalized Date Last Normalized Normalized Provider Fa cility Classification Problem(s) Recorded Problem Problem Sta tus Duration Respiratory Acute Episodic Active GABRIELLA SEGLIE Via Chri sti failure; respiratory [id number] [place] [address] insufficiency; failure with [place] arrest (16 hypoxia (77849) sources.) Alcohol-relate Alcohol abuse Chronic Active Eugenio Atc hiscoy d disorders (4 with Rovenstine , Hospital sources.) intoxication, DO Association uncomplicated (46818) Cardiac Bradycardia, Chronic Active GABRIELLA SEGLIE Via risti dysrhythmias unspecified [facility] Hospital (18 sources.) [place] ([address]) Biliary tract Calculus of 09-14-2019 - Episodic Active ALIZA NE [facility] Via disease (3 gallbladder ABEL , SUSTAINABILITY EXECUTIVE DIRECTOR [place] sources.) without Hospital - cholecystitis [place] without (47687) obstruction Unclassified Confusional Chronic Active GABRIELLA SEGLIE Via Aliza (2 sources.) state [address] [place] [address] ([address]) Superficial Contusion of Episodic Active RAKAN Communi ty injury; thorax, [facility] contusion (2 unspecified, [address] of [facility] sources.) initial [place] ([address]) encounter Translations: [ - Contusion of trunk, initial encounter S20.20XA] Fluid and Dehydration Episodic Active GABRIELLA SEGLIE Via Chr isti electrolyte Translations: [facility] Hospital disorders (20 [ HYPOKALEMIA, [place] sources.) DEHYDRATION] (20938) Viral Herpesviral Episodic Active RAKAN Community infection (4 vesicular [facility] sources.) dermatitis [address] [facility] Translations: [place] ([address]) [ - 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] Other Hypoglycemia Chronic Active GABRIELLA SEGLIE Via Ch risti endocrine [address] Hospital disorders (1 [place] source.) (00714) NEGATED Hypoglycemia, Chronic Active no name Not Avai lable no unspecified (71542) information (15 sources.) Other lower Hypoxia Episodic Active GABRIELLA SEGLIE Via Chri sti respiratory [address] Hospital disease (2 [place] sources.) (76245) Other injuries Knee, leg, Episodic Active no name no inf ormation and conditions ankle, and due to foot injury external causes (2 sources.) Other Low blood Episodic Active GABRIELLA SEGLIE Via Horacio ti circulatory pressure 78165 Hospital disease (2 [place] sources.) (61702) Other skin Mucous Episodic Active GABRIELLA SEGLIE Via Horacio ti disorders (1 membrane 93996 Hospital source.) dryness [place] (83695) NEGATED Myxedema coma Episodic Active no name Not Avai lable no (17574) information (15 sources.) Other Other Chronic Active no name no informatio n nutritional; disorders of endocrine; and phosphorus metabolic metabolism disorders (6 sources.) Other Other fecal Episodic Active no name no informa tion gastrointestin abnormalities al disorders (6 sources.) NEGATED Other Episodic Active no name Not Available no hypotension (54905) information (15 sources.) Pneumonia Pneumonia, 09-14-2019 - Episodic Active MALINI V [facility] Via (except that unspecified JEFF ROMAN caused by organism Hospital - tuberculosis [place] or sexually (76764) transmitted disease) (9 sources.) Respiratory Respiratory no information Active GABRIELLA SEGLIE Via Aliza failure; failure; [facility] Hospital insufficiency; insufficiency; [place] arrest (1 arrest (62200) source.) Residual Tobacco user Episodic Active RAKAN Community codes; Translations: [facility] unclassified [ Tobacco use] [address] [facility] (2 sources.) [place] ([address]9954) NEGATED Urinary tract Episodic Active no name Not Avai lable no infection, (19589) information site not (15 sources.) specified Past or Other Problems Problem Normalized Date Last Normalized Normalized Provider Fa cility Classification Problem(s) Recorded Problem Problem Sta tus Duration External Accidental no information no information no name n o information Injury - Fall fall on or (2 sources.) from other stairs or steps External Home accidents no information no information no name no information Injury - Place of occurrence (2 sources.) External Other external no information no information no name no information Injury - cause status Unspecified (2 sources.) Procedures Procedure Normalized Procedure Procedure Result Performer Facility Date 01-03-2018 CT angiography of no information JOSE R KULKARNI Vi a [facility] chest with contrast [place] ([address]) 12-05-2012 Cul bact xcpt urine no information no name [facility] blood/stool aerobic [facility] ([address]7932) 12-31-2017 Electrocardiographic no information KHOI RAI V ia [facility] procedure [place] (38545) 05-13-2013 Iaadiadoo influenza no information no name [facility] ([address]00) 01-02-2018 Plain chest X-ray no information JOSE R KULKARNI Vi a [facility] (42897) 01-01-2018 Plain chest X-ray no information JOSE R KULKARNI Vi a [facility] (36208) 12-31-2017 Plain chest X-ray no information DUGLAS MEDELLIN Via [facility] (73276) NEGATED RESPIRATORY no information no name Not Availab le (81558) VENTILATION, LESS THAN 24 CO 12-05-2012 Urine test no information no name [facility] visual color cmprsn [facility] ([address]704) Immunizations Normalized Immunization Date Notes Care Provider Facili ty Immunization vaccine no information GABRIELLA NUÑEZ [address] Via [facility] Translations: [ [place] ([address]) vaccine] Results Test Name Value Interpretation Reference Range Date Time Fa cility (Normalized) (Normalized) (Medline Reference) other on null Patient Lives (ADM.PRIVDT) (no code) Yuki With Date User:: Hospital 08/22/18 Association MSTEPHENSO~(ADM. (63991) PRTINS) Patient Portal API Instructions Offered?: N~(ADMPRIVSTMT) Has the Patient Received the Privacy Statement?: Y~(APS.SEPSCREEN ) Sepsis Screen: No Definite Risk~(GEN.AD) Advance Directives: N~(GEN.SMKST) Smoking Status: 1~(MS.EDM) Methods: 1~(MS.EDM) Methods: 3~(MS.EDM) Methods: 4~(MS.EDR) Recipient: 5~(MS.EDT) Education Topics: 1~(MS.EDT) Education Topics: 7~(MS.EDT) Education Topics: 18~(MS.OPINA) Is patient receiving Hospice/Comfort Care: N~(MS.OPIRISK) IV Opioid Risk Factors: 4~(MS.OPTOTAL) Opiod Risk Total: 1~(MS.RTT) Response to Teachin~(MS.TAB) Barriers: 1~(MS.TAP) Teaching Preference: 1~(MS.TAR) Readiness: 1~(SOC.LIVES) Patient Lives With: 2 Sepsis Recent ~(.EX.CANRA) (no code) [place] Fever Within 48 regular rate: Hospital Hours Y~(.EX.CARRH) Association regular rhythm: (60850) Y~(.EX.NILS) S1 normal: Y~(.EX.CASTN) S2 normal: Y~(.EX.COABH) average body habitus: Y~(.EX.COINA) intoxicated appearing: Y~(.EX.GINBS) normal bowel sounds: Y~(.EX.GINTI) normal to inspection: Y~(.EX.GISOF) soft: Y~(.EX.NUME) moves all extremities: Y~(.EX.NUNG) normal gait: Y~(.EX.NUPAW) patient awake: Y~(.EX.PUCAB) clear to auscultation bilaterally: Y~(.EX.PUINL) normal respiratory effort: Y~(.EX.PUSCS) able to speak in complete sentences: Y~(APS.FSMSC) Balderrama Fall Scale Score: 15~(APS.FSMSD) Balderrama Fall Scale Secondary Diagnosis: 1~(APS.SEPINF) Sepsis Infection Criteria Present: 3~(APS.SEPSCREEN ) Sepsis Screen: No Definite Risk~(DISCH.DISP ) Discharge Disposition: 12~(ED.HPI.EXL) Limitations: 7~(ED.HPI.MOA) Mode of arrival: 5~(ED.HPI.RAYMOND) Source: 1~(GEN.ERTC) Ebola Risk: Travel/Contact With Anyone From Affected Area/s: N~(GEN.SMKST) Smoking Status: 1~(GEN.SMKYS) Years smoked: 20~(IV.DLI) Date of IV Line Insertion: [id number]~(IV.SHERRI ETYP) IV Catheter Type: 1~(MS.EDM) Methods: 1~(MS.EDM) Methods: 3~(MS.EDM) Methods: 4~(MS.EDR) Recipient: 5~(MS.EDT) Education Topics: 1~(MS.EDT) Education Topics: 7~(MS.EDT) Education Topics: 18~(MS.OPINA) Is patient receiving Hospice/Comfort Care: N~(MS.OPIRISK) IV Opioid Risk Factors: 4~(MS.OPTOTAL) Opiod Risk Total: 1~(MS.RTT) Response to Teachin~(MS.TAB) Barriers: 1~(MS.TAP) Teaching Preference: 1~(MS.TAR) Readiness: 1~(NEURO.B) Patient Behavior: 2~(NEURO.LOC) Level of Consciousness: 1~(NEURO.LOC) Level of Consciousness: 2~(PSY.AWANX1) CIWA-Ar Alcohol Withdrawal - Anxiety: 2~(PSY.AWAUD) CIWA-Ar Alcohol Withdrawal - Auditory Disturbances: 1~(PSY.AWBEH) CIWA-Ar Alcohol Withdrawal - Agitation: 1~(PSY.AWGI) CIWA-Ar Alcohol Withdrawal - Nausea/Vomitin~(PSY.AWHEAD) CIWA-Ar Alcohol Withdrawal - Headache: 1~(PSY.AWMT) CIWA-Ar Alcohol Withdrawal - Muscle Tremor: 1~(PSY.AWORI) CIWA-Ar Alcohol Withdrawal - Orientation: 1~(PSY.AWPS) CIWA-Ar Alcohol Withdrawal - Paroxysmal Sweats: 1~(PSY.AWSCOR) CIWA-Ar Alcohol Withdrawal - Total Score: 0~(PSY.AWTAC) CIWA-Ar Alcohol Withdrawal - Tactile Disturbances: 1~(PSY.AWVIS) CIWA-Ar Alcohol Withdrawal - Visual Disturbances: 1~(RESP.OXDMT) Oxygen Delivery Method: 1~(RESP.POSAT) Pulse Oximetry: 93~(SOC.LIVES) Patient Lives With: 2~(MASON.INF) Influenza Vaccination: N~(VS.BP) Blood Pressure: 119/76~(VS.BPM) Blood Pressure Mean: 90~(VS.BPP) Blood Pressure Position: 1~(VS.PULSE) Pulse Rate: 114~(VS.SEPSIS.C MS) Sepsis New/Unexplained Change in Mental Status: 2~(VS.SEPSIS.RF) Sepsis Recent Fever Within 48 Hours: 2 Sepsis Recent ~(.EX.CANRA) (no code) [place] Fever Within 48 regular rate: Hospital Hours Y~(.EX.CARRH) Association regular rhythm: (83661) Y~(.EX.NILS) S1 normal: Y~(.EX.CASTN) S2 normal: Y~(.EX.COABH) average body habitus: Y~(.EX.COINA) intoxicated appearing: Y~(.EX.GINBS) normal bowel sounds: Y~(.EX.GINTI) normal to inspection: Y~(.EX.GISOF) soft: Y~(.EX.NUME) moves all extremities: Y~(.EX.NUNG) normal gait: Y~(.EX.NUPAW) patient awake: Y~(.EX.PUCAB) clear to auscultation bilaterally: Y~(.EX.PUINL) normal respiratory effort: Y~(.EX.PUSCS) able to speak in complete sentences: Y~(ADM.PRIVDT) Date User:: 08/22/18 MSTEPHENSO~(ADM. PRTINS) Patient Portal API Instructions Offered?: N~(ADMPRIVSTMT) Has the Patient Received the Privacy Statement?: Y~(APS.FSMSC) Balderrama Fall Scale Score: 15~(APS.FSMSD) Balderrama Fall Scale Secondary Diagnosis: 1~(APS.SEPINF) Sepsis Infection Criteria Present: 3~(APS.SEPSCREEN ) Sepsis Screen: No Definite Risk~(DISCH.DISP ) Discharge Disposition: 12~(ED.HPI.EXL) Limitations: 7~(ED.HPI.MOA) Mode of arrival: 5~(ED.HPI.RAYMOND) Source: 1~(GEN.AD) Advance Directives: N~(GEN.ERTC) Ebola Risk: Travel/Contact With Anyone From Affected Area/s: N~(GEN.SMKST) Smoking Status: 1~(GEN.SMKYS) Years smoked: 20~(IV.DLI) Date of IV Line Insertion: [id number]~(IV.SHERRI ETYP) IV Catheter Type: 1~(MS.EDM) Methods: 1~(MS.EDM) Methods: 3~(MS.EDM) Methods: 4~(MS.EDR) Recipient: 5~(MS.EDT) Education Topics: 1~(MS.EDT) Education Topics: 7~(MS.EDT) Education Topics: 18~(MS.OPINA) Is patient receiving Hospice/Comfort Care: N~(MS.OPIRISK) IV Opioid Risk Factors: 4~(MS.OPTOTAL) Opiod Risk Total: 1~(MS.RTT) Response to Teachin~(MS.TAB) Barriers: 1~(MS.TAP) Teaching Preference: 1~(MS.TAR) Readiness: 1~(NEURO.B) Patient Behavior: 2~(NEURO.LOC) Level of Consciousness: 1~(NEURO.LOC) Level of Consciousness: 2~(PSY.AWANX1) CIWA-Ar Alcohol Withdrawal - Anxiety: 2~(PSY.AWAUD) CIWA-Ar Alcohol Withdrawal - Auditory Disturbances: 1~(PSY.AWBEH) CIWA-Ar Alcohol Withdrawal - Agitation: 1~(PSY.AWGI) CIWA-Ar Alcohol Withdrawal - Nausea/Vomitin~(PSY.AWHEAD) CIWA-Ar Alcohol Withdrawal - Headache: 1~(PSY.AWMT) CIWA-Ar Alcohol Withdrawal - Muscle Tremor: 1~(PSY.AWORI) CIWA-Ar Alcohol Withdrawal - Orientation: 1~(PSY.AWPS) CIWA-Ar Alcohol Withdrawal - Paroxysmal Sweats: 1~(PSY.AWSCOR) CIWA-Ar Alcohol Withdrawal - Total Score: 0~(PSY.AWTAC) CIWA-Ar Alcohol Withdrawal - Tactile Disturbances: 1~(PSY.AWVIS) CIWA-Ar Alcohol Withdrawal - Visual Disturbances: 1~(RESP.OXDMT) Oxygen Delivery Method: 1~(RESP.POSAT) Pulse Oximetry: 93~(SOC.LIVES) Patient Lives With: 2~(MASON.INF) Influenza Vaccination: N~(VS.BP) Blood Pressure: 119/76~(VS.BPM) Blood Pressure Mean: 90~(VS.BPP) Blood Pressure Position: 1~(VS.PULSE) Pulse Rate: 114~(VS.SEPSIS.C MS) Sepsis New/Unexplained Change in Mental Status: 2~(VS.SEPSIS.RF) Sepsis Recent Fever Within 48 Hours: 2 not yet categorized on null Sepsis Recent ~(.EX.CANRA) (no code) [place] Fever Within 48 regular rate: Hospital Hours Y~(.EX.CARRH) Association regular rhythm: (65632) Y~(.EX.NILS) S1 normal: Y~(.EX.CASTN) S2 normal: Y~(.EX.COABH) average body habitus: Y~(.EX.COINA) intoxicated appearing: Y~(.EX.GINBS) normal bowel sounds: Y~(.EX.GINTI) normal to inspection: Y~(.EX.GISOF) soft: Y~(.EX.NUME) moves all extremities: Y~(.EX.NUNG) normal gait: Y~(.EX.NUPAW) patient awake: Y~(.EX.PUCAB) clear to auscultation bilaterally: Y~(.EX.PUINL) normal respiratory effort: Y~(.EX.PUSCS) able to speak in complete sentences: Y~(ADM.PRIVDT) Date User:: 08/22/18 MSTDEANNASO~(ADM. PRTINS) Patient Portal API Instructions Offered?: N~(ADMPRIVSTMT) Has the Patient Received the Privacy Statement?: Y~(APS.FSMSC) Balderrama Fall Scale Score: 15~(APS.FSMSD) Balderrama Fall Scale Secondary Diagnosis: 1~(APS.SEPINF) Sepsis Infection Criteria Present: 3~(APS.SEPSCREEN ) Sepsis Screen: No Definite Risk~(BAR.TBSPVE R) [employer] Selfpay Balance Verified: Y~(DISCH.DISP) Discharge Disposition: 12~(ED.HPI.EXL) Limitations: 7~(ED.HPI.MOA) Mode of arrival: 5~(ED.HPI.RAYMOND) Source: 1~(GEN.AD) Advance Directives: N~(GEN.ERTC) Ebola Risk: Travel/Contact With Anyone From Affected Area/s: N~(GEN.SMKST) Smoking Status: 1~(GEN.SMKYS) Years smoked: 20~(IV.DLI) Date of IV Line Insertion: [id number]~(IV.SHERRI ETYP) IV Catheter Type: 1~(MS.EDM) Methods: 1~(MS.EDM) Methods: 3~(MS.EDM) Methods: 4~(MS.EDR) Recipient: 5~(MS.EDT) Education Topics: 1~(MS.EDT) Education Topics: 7~(MS.EDT) Education Topics: 18~(MS.OPINA) Is patient receiving Hospice/Comfort Care: N~(MS.OPIRISK) IV Opioid Risk Factors: 4~(MS.OPTOTAL) Opiod Risk Total: 1~(MS.RTT) Response to Teachin~(MS.TAB) Barriers: 1~(MS.TAP) Teaching Preference: 1~(MS.TAR) Readiness: 1~(NEURO.B) Patient Behavior: 2~(NEURO.LOC) Level of Consciousness: 1~(NEURO.LOC) Level of Consciousness: 2~(PSY.AWANX1) CIWA-Ar Alcohol Withdrawal - Anxiety: 2~(PSY.AWAUD) CIWA-Ar Alcohol Withdrawal - Auditory Disturbances: 1~(PSY.AWBEH) CIWA-Ar Alcohol Withdrawal - Agitation: 1~(PSY.AWGI) CIWA-Ar Alcohol Withdrawal - Nausea/Vomitin~(PSY.AWHEAD) CIWA-Ar Alcohol Withdrawal - Headache: 1~(PSY.AWMT) CIWA-Ar Alcohol Withdrawal - Muscle Tremor: 1~(PSY.AWORI) CIWA-Ar Alcohol Withdrawal - Orientation: 1~(PSY.AWPS) CIWA-Ar Alcohol Withdrawal - Paroxysmal Sweats: 1~(PSY.AWSCOR) CIWA-Ar Alcohol Withdrawal - Total Score: 0~(PSY.AWTAC) CIWA-Ar Alcohol Withdrawal - Tactile Disturbances: 1~(PSY.AWVIS) CIWA-Ar Alcohol Withdrawal - Visual Disturbances: 1~(RESP.OXDMT) Oxygen Delivery Method: 1~(RESP.POSAT) Pulse Oximetry: 93~(SOC.LIVES) Patient Lives With: 2~(MASON.INF) Influenza Vaccination: N~(VS.BP) Blood Pressure: 119/76~(VS.BPM) Blood Pressure Mean: 90~(VS.BPP) Blood Pressure Position: 1~(VS.PULSE) Pulse Rate: 114~(VS.SEPSIS.C MS) Sepsis New/Unexplained Change in Mental Status: 2~(VS.SEPSIS.RF) Sepsis Recent Fever Within 48 Hours: 2 laboratory on 2019-09-14 Albumin 3.9 g/dL (NEG) 3.4 - 5.4 g/dL 09-14-2019 PENDING LOCATION [Mass/Vol] 01:55-0400 [facility] (60439) ALP [Catalytic 121 U/L (NEG) 44 - 147 U/L 09-14-2019 PEND ING LOCATION activity/Vol] 01:55-0400 [facility] ([id number]) ALT [Catalytic 56 U/L (H) 4 - 40 U/L 09-14-2019 PENDIN G LOCATION activity/Vol] 01:55-0400 [facility] ([id number]) Amphetamines Negative (no code) 09-14-2019 PENDING LOCAT ION Screen Ql (U) 01:44-0400 [facility] (13977) Anion gap 11 mmol/L (NEG) 3 - 11 mmol/L 09-14-2019 PENDING LOCATION [Moles/Vol] 01:55-0400 [facility] ([id number]) AST [Catalytic 49 U/L (H) 10 - 34 U/L 09-14-2019 PENDI NG LOCATION activity/Vol] 01:55-0400 [facility] ([id number]) Bacteria LM Ql TRACE (no code) 09-14-2019 PENDING LOC ATION (Urine sed) 01:44-0400 [facility] ([id number]) Band form 4 % (no code) 0 - 3 % 09-14-2019 PENDING LOCA TION neutrophils/100 01:55-0400 [facility] (15213) WBC (Bld) Barbiturates Ql Negative (no code) 09-14-2019 PENDING LO CATION (U) 01:44-0400 [facility] ([id number]) Basophils (Bld) 0.0 10*3/uL (NEG) 0 - 0.3 10*3/uL 09-14-2019 PENDING LOCATION [#/Vol] 01:55-0400 [facility] (65963) Basophils/100 0 % (NEG) 0.5 - 1 % 09-14-2019 PENDING LOCATION WBC (Bld) 01:55-0400 [facility] (89503) Benzodiazepines Positive (A) 09-14-2019 PENDING LO CATION Ql (U) 01:44-0400 [facility] (31633) Bilirubin 1.1 mg/dL (H) 0.1 - 1.2 mg/dL 09-14-2019 PENDIN G LOCATION [Mass/Vol] 01:55-0400 [facility] (13868) Bilirubin Ql (U) 1+ (A) 09-14-2019 PENDING L OCATION 01:44-0400 [facility] (47870) Calcium 9.0 mg/dL (NEG) 8.5 - 10.2 mg/dL 09-14-2019 PENDI NG LOCATION [Mass/Vol] 01:55-0400 [facility] (57889) Calcium 9.1 mg/dL (NEG) 8.5 - 10.2 mg/dL 09-14-2019 PENDI NG LOCATION [Mass/Vol] 01:55-0400 [facility] (79139) Cannabinoids Positive (A) 09-14-2019 PENDING LOCAT ION Screen Ql (U) 01:44-0400 [facility] (30260) Casts LM Ql NONE (no code) 09-14-2019 PENDING LOCATI ON (Urine sed) 01:44-0400 [facility] ([id number]) Chloride 97 mmol/L (L) 95 - 106 mmol/L 09-14-2019 PENDIN G LOCATION [Moles/Vol] 01:55-0400 [facility] (27824) Clarity (U) CLEAR (no code) 09-14-2019 PENDING LOCATI ON 01:44-0400 [facility] (53573) CO2 [Moles/Vol] 26 mmol/L (NEG) 23 - 29 mmol/L 09-14-2019 P ENDING LOCATION 01:55-0400 [facility] (60490) Cocaine Ql (U) Negative (no code) 09-14-2019 PENDING LOC ATION 01:44-0400 [facility] (65829) Color (U) JULIANE (A) 09-14-2019 PENDING LOCATI ON 01:44-0400 [facility] ([id number]) Creatinine 0.62 mg/dL (NEG) 09-14-2019 PENDING LOCATI ON [Mass/Vol] 01:55-0400 [facility] (52078) Creatinine and > (no code) 09-14-2019 PENDING LOC ATION Glomerular 01:55-0400 [facility] (04401) filtration rate.predicted panel - Serum, Plasma or Blood CRP [Mass/Vol] 2.44 (H) 09-14-2019 PENDING LOC ATION 01:55-0400 [facility] ([id number]) Crystals LM Ql NONE (no code) 09-14-2019 PENDING LOC ATION (Urine sed) 01:44-0400 [facility] (45829) Eosinophils 0.0 10*3/uL (NEG) 0.05 - 0.5 09-14-2019 PENDING LOCATION (Bld) [#/Vol] 10*3/uL 01:55-0400 [facility] (13291) Eosinophils/100 0 % (NEG) 1 - 4 % 09-14-2019 PENDIN G LOCATION WBC (Bld) 01:550400 [facility] (25651) Epithelial 2-5 (no code) 09-14-2019 PENDING LOCATI ON cells.squamous 01:44-0400 [facility] (33436) LM Ql (Urine sed) Erythrocyte 14.2 % (NEG) 11.6 - 14.6 % 09-14-2019 PENDIN G LOCATION distribution 01:55-0400 [facility] (66428) width (RBC) [Ratio] Glucose 136 mg/dL (H) 60 - 125 mg/dL 09-14-2019 PENDING LOCATION [Mass/Vol] 01:55-0400 [facility] ([id number]) Glucose Auto Negative (no code) 09-14-2019 PENDING LOCAT ION test strip Ql 01:440400 [facility] (96851) (U) Hematocrit (Bld) 38 % (NEG) 36.1 - 50.3 % 09-14-2019 P ENDING LOCATION [Volume 01:55-0400 [facility] (22619) fraction] Hemoglobin (Bld) 12.9 g/dL (NEG) 12.1 - 17.2 g/dL 09-14-2019 PENDING LOCATION [Mass/Vol] 01:55-0400 [facility] (26390) Ketones Auto 1+ (A) 09-14-2019 PENDING LOCAT ION test strip Ql 01:44-0400 [facility] (83941) (U) Leukocyte Negative (no code) 09-14-2019 PENDING LOCATI ON esterase Test 01:44-0400 [facility] (13654) strip Ql (U) Lipase U/L (L) 10 - 73 U/L 09-14-2019 PENDING LO CATION [Catalytic 01:55-0400 [facility] (51060) activity/Vol] Lymphocytes 1.0 10*3/uL (NEG) 0.9 - 2.9 09-14-2019 PENDING LOCATION (Bld) [#/Vol] 10*3/uL 01:55-0400 [facility] (34551) Lymphocytes/100 6 % (L) 20 - 40 % 09-14-2019 PENDIN G LOCATION WBC (Bld) 01:55-0400 [facility] (50035) Lymphocytes/100 7 % (no code) 20 - 40 % 09-14-2019 PENDIN G LOCATION WBC (Bld) 01:55-0400 [facility] (99157) MCH (RBC) 32 pg (NEG) 27 - 31 pg 09-14-2019 PENDING LOC ATION [Entitic mass] 01:55-0400 [facility] ([id number]) MCHC (RBC) 34 g/dL (NEG) 32 - 36 g/dL 09-14-2019 PENDING LOCATION [Mass/Vol] 01:55-0400 [facility] (78123) MCV (RBC) 95 (NEG) 09-14-2019 PENDING LOCATI ON [Entitic vol] 01:55-0400 [facility] ([id number]) Methadone Screen Negative (no code) 09-14-2019 PENDING L OCATION Ql (U) 01:44-0400 [facility] (25810) Methamphetamine Negative (no code) 09-14-2019 PENDING LO CATION (U) [Mass/Vol] 01:44-0400 [facility] (08385) Monocytes (Bld) 1.0 10*3/uL (NEG) 0.3 - 0.9 09-14-2019 PEND ING LOCATION [#/Vol] 10*3/uL 01:55-0400 [facility] ([id number]) Monocytes/100 7 % (NEG) 2 - 8 % 09-14-2019 PENDING LOCATION WBC (Bld) 01:55-0400 [facility] (10754) Monocytes/100 4 % (no code) 2 - 8 % 09-14-2019 PENDING LOCATION WBC (Bld) 01:55-0400 [facility] (32418) Mucus Ql (Urine SMALL (A) 09-14-2019 PENDING LO CATION sed) 01:44-0400 [facility] (22533) Neutrophils 12.8 10*3/uL (H) 1.7 - 7 10*3/uL 09-14-2019 P ENDING LOCATION (Bld) [#/Vol] 01:55-0400 [facility] ([id number]) Neutrophils/100 87 % (H) 40 - 60 % 09-14-2019 PENDIN G LOCATION WBC (Bld) 01:55-0400 [facility] (51393) Nitrite Ql (U) Negative (no code) 09-14-2019 PENDING LOC ATION 01:44-0400 [facility] (90440) Opiates Screen Negative (no code) 09-14-2019 PENDING LOC ATION Ql (U) 01:44-0400 [facility] (02393) Oxycodone Ql (U) Negative (no code) 09-14-2019 PENDING L OCATION 01:44-0400 [facility] (39936) pH (U) 6.0 [pH] (no code) 4.6 - 8 [pH] 09-14-2019 PENDING L OCATION 01:44-0400 [facility] (04288) Phencyclidine Ql Negative (no code) 09-14-2019 PENDING L OCATION (U) 01:44-0400 [facility] (90543) Platelet mean 9.2 (NEG) 09-14-2019 PENDING LOCA TION volume (Bld) 01:55-0400 [facility] (45129) [Entitic vol] Platelets (Bld) 341 10*3/uL (NEG) 150 - 450 09-14-2019 PEND ING LOCATION [#/Vol] 10*3/uL 01:55-0400 [facility] (31873) Potassium 3.3 mmol/L (L) 3.7 - 5.2 mmol/L 09-14-2019 PEND ING LOCATION [Moles/Vol] 01:55-0400 [facility] ([id number]) Propoxyphene Ql Negative (no code) 09-14-2019 PENDING LO CATION (U) 01:44-0400 [facility] ([id number]) Protein 7.4 g/dL (NEG) 6.4 - 8.3 g/dL 09-14-2019 PENDING LOCATION [Mass/Vol] 01:55-0400 [facility] ([id number]) Protein Ql (U) TRACE (A) 09-14-2019 PENDING LOC ATION 01:44-0400 [facility] ([id number]) RBC (Bld) 4.01 10*6/uL (L) 4.2 - 6.1 09-14-2019 PENDING L OCATION [#/Vol] 10*6/uL 01:55-0400 [facility] ([id number]) RBC LM.HPF RARE (no code) 09-14-2019 PENDING LOCATI ON (Urine sed) 01:44-0400 [facility] ([id number]) [#/Area] RBC morphology NORMAL (no code) 09-14-2019 PENDING LOC ATION finding Nom 01:55-0400 [facility] ([id number]) (Bld) RBC Ql (U) TRACE-I (no code) 09-14-2019 PENDING LOCATI ON 01:44-0400 [facility] ([id number]) Segmented 85 % (no code) 35 - 80 % 09-14-2019 PENDING LOCA TION neutrophils/100 01:55-0400 [facility] (81358) WBC (Bld) Sodium 134 mmol/L (L) 135 - 145 mmol/L 09-14-2019 PEND ING LOCATION [Moles/Vol] 01:55-0400 [facility] (30250) Specific gravity 1.020 (no code) 09-14-2019 PENDING L OCATION (U) [Rel 01:44-0400 [facility] ([id number]) density] Tricyclic Positive (A) 09-14-2019 PENDING LOCATI ON antidepressants 01:44-0400 [facility] ([id number]) Screen Ql (U) TSH Qn 1.18 m[IU]/L (NEG) 0.4 - 4 m[IU]/L 09-14-2019 PEN DING LOCATION 01:55-0400 [facility] ([id number]) Urea nitrogen 7 mg/dL (NEG) 7 - 20 mg/dL 09-14-2019 PENDI NG LOCATION [Mass/Vol] 01:55-0400 [facility] ([id number]) Urea 11 mg/mg (no code) 6 - 22 mg/mg 09-14-2019 PENDING L OCATION nitrogen/Creatin 01:55-0400 [facility] (08072) ine [Mass ratio] Urinalysis NO (no code) 09-14-2019 PENDING LOCATI ON complete W 01:44-0400 [facility] (06666) Reflex Culture panel - Urine Urobilinogen (U) 0.2 mg/dL (no code) 09-14-2019 PENDING L OCATION [Mass/Vol] 01:44-0400 [facility] (41743) WBC (Bld) 14.8 10*3/uL (H) 3.5 - 10.5 09-14-2019 PENDING LOCATION [#/Vol] 10*3/uL 01:55-0400 [facility] (66660) WBC LM.HPF NONE (no code) 09-14-2019 PENDING LOCATI ON (Urine sed) 01:44 [facility] (67323) [#/Area] urinalysis on 2018-09-05 Clarity (U) Clear (no code) 09-05-2018 [place] 12:33-0400 [facility] (71630) Color (U) Yellow (no code) 09-05-2018 [place] 12:33-0400 [facility] (98822) Glucose Ql (U) Negative (no code) 09-05-2018 [place] 12:[id number] [facility] (43819) Ketones Ql (U) Negative (no code) 09-05-2018 [place] 12:33-0400 [facility] (14969) Leukocyte Negative (no code) 09-05-2018 [place] esterase Test 12:33-040 Hospital strip Ql (U) [facility] (75131) Protein (U) Negative (no code) 0 - 20 mg/dL 09-05-2018 [place] [Mass/Vol] 12:330400 [facility] (74634) Specific gravity 1.025 (N) 09-05-2018 [place] (U) [Rel 12:33-0400 Hospital density] [facility] (50248) other on 2018-09-05 Add Urine No (no code) 09-05-2018 [place] [facility] 12:36-0400 [facility] (56837) Bilirubin Ql (U) Negative (no code) 09-05-2018 [place] 12:[id number] [facility] (01746) Blood Urine Negative (no code) 09-05-2018 [place] 12:33040 [facility] (81602) Nitrate Urine Negative (no code) 09-05-2018 [place] 12:33040 [facility] (37473) pH (U) 6.5 [pH] (N) 4.6 - 8 [pH] 09-05-2018 [place] 12:33040 [facility] (16458) Urobilinogen 0.2 (no code) 09-05-2018 [place] Urine 12:33040 [facility] ([id number]) urinalysis on 2018-08-23 Clarity (U) Clear (no code) 08-23-2018 [place] 10:590400 [facility] (59525) Color (U) Yellow (no code) 08-23-2018 [place] 10:590400 [facility] (43069) Glucose Ql (U) Negative (no code) 08-23-2018 [place] 10:590400 [facility] (94685) Ketones Ql (U) Negative (no code) 08-23-2018 [place] 10:590400 [facility] (76039) Leukocyte Negative (no code) 08-23-2018 [place] esterase Test 10:590400 Hospital strip Ql (U) [facility] (32929) Protein (U) Negative (no code) 0 - 20 mg/dL 08-23-2018 [place] [Mass/Vol] 10:590400 [facility] (78592) Specific gravity <= 1.005 (N) 08-23-2018 [place] (U) [Rel 10:59-0400 Hospital density] [facility] (04922) other on 2018-08-23 Add Urine No (no code) 08-23-2018 [place] [facility] 11:150400 [facility] (56306) Bilirubin Ql (U) Negative (no code) 08-23-2018 [place] 10:590400 [facility] (43299) Blood Urine Negative (no code) 08-23-2018 [place] 10:590400 [facility] (76317) Nitrate Urine Negative (no code) 08-23-2018 [place] 10:590400 [facility] (50040) pH (U) 7.0 [pH] (N) 4.6 - 8 [pH] 08-23-2018 [place] 10: [facility] (34045) Urobilinogen 0.2 (no code) 08-23-2018 [place] Urine 10: [facility] (98799) other on 2018-08-22 Acetaminophen < 0.6 (L) 08-22-2018 [place] [Mass/Vol] 16: [facility] (44825) Albumin Globulin 1.1 (N) 08-22-2018 [place] Ratio 16: [facility] (29552) Erythrocyte 12.9 % (N) 11.6 - 14.6 % 08-22-2018 [place] distribution 16: Hospital width (RBC) [facility] [Ratio] (70773) Estimated 111.2 (no code) 08-22-2018 [place] Creatinine 16: [facility] (03626) Globulin (S) 3.8 g/dL (N) 2 - 3.5 g/dL 08-22-2018 [place] [Mass/Vol] 16: [facility] (88921) Lipase 20 U/L (N) 10 - 73 U/L 08-22-2018 [place] [Catalytic 16: Hospital activity/Vol] [facility] (48137) MCHC (RBC) 32.2 g/dL (L) 32 - 36 g/dL 08-22-2018 [place] [Mass/Vol] 16: [facility] (58647) Salicylate < 5.0 (L) 08-22-2018 [place] 16: [facility] (81560) no information [facility] (no code) [place] [facility] ~ [address] [facility] ~ [place], [place] ([address]) [address] ~ ~ Emergency Department Note ~ Signed ~ ~Patient: Bertin Tsang MR#: [id number] ~: 1975 Acct:[id number] 1 ~ ~Age/Sex: 43 / F ADM Date: 08/22/18 ~ ~Loc: ED ~Attending Dr: ~ ~cc: ~ ~ ~HPI - Alcohol ~General ~Chief Complaint: Alcohol ~Stated Complaint: intoxication ~Time Seen by Provider: 08/22/18 14:05 ~Source: patient ~Mode of arrival: other (Police) ~Limitations: other (intoxication) ~History of Present Illness ~HPI narrative: The police brought the pt to the ER for alcohol intoxication and medical clearance ~for [facility] detox facility. Pt denies pain or nausea at this time. Pt is a poor historian and ~unable to provide history at this time. ~MD complaint: alcohol intoxication, desires rehab and medical clearance for detox facility ~Related Data ~ Home Medications ~ ~ ~ ~ Medication Instructions Recorded Confirmed ~ ~levothyroxine [Levoxyl] 75 mcg PO DAILY 08/22/18 08/22/18 ~ ~omeprazole 40 mg PO DAILY 08/22/18 08/22/18 ~ ~ ~ Previous Rx's ~ ~ ~ ~ Medication Instructions Recorded ~ ~potassium chloride 20 meq PO DAILY #7 tab 08/22/18 ~ ~ ~ ~ Allergies ~ ~ ~ ~Allergy/AdvReac Type Severity Reaction Status Date / Time ~ ~No Known Allergies Allergy Verified 08/22/18 14:15 ~ ~ ~ ~ ~ED Review of Systems ~Review of Systems ~ROS unobtainable: other (intoxication) ~ ~PMFSH ~Past Medical History ~Medical History ~ ~Graves disease (Acute) ~Peptic ulcer disease (Acute) ~ ~ ~Past Surgical History ~ ~ ~Graves disease (Acute) ~Peptic ulcer disease (Acute) ~ ~ ~Smoking Status: Current every day smoker ~ ~ ~Social History ~Social History ~Smoking Status: Current every day smoker ~ ~ ~ ~Exam ~ ~ ~Narrative: Exam Narrative: Vital Signs ~ ~Temp 98.9 F 08/22/18 14:09 ~Pulse 114 H 08/22/18 14:09 ~Resp 16 08/22/18 14:09 ~BP 119/76 08/22/18 14:09 ~Pulse Ox 93 08/22/18 14:09 ~ ~ ~ Intake Output ~ ~08/21/18 08/22/18 08/22/18 ~17:59 05:59 17:59 ~Weight 58.06 kg ~ ~ ~ ~ ~Const: General: intoxicated appearing Nutritional Appearance: average body habitus ~ ~Resp: Effort Inspection: normal respiratory effort and able to speak in complete sentences Au~scultation: clear to auscultation bilaterally ~ ~Cardio: Rate: regular rate Rhythm: regular rhythm Heart Sounds: S1 normal and S2 normal ~ ~GI: Inspection: normal to inspection Palpation: soft Auscultation: normal bowel sounds ~ ~Neuro: General: awake and moves all extremities Gait: normal gait ~ ~ ~Course ~Hospital Course: ~Pt has refused IV fluids. Pt has drank two small bottles of water while in the ER. Pt has ambulated ~twice down the smith to the restroom without difficulty and has steady gait without assistance. ~Reevaluation(s) ~Time: 15:53 ~Reevaluation #1: Pt states feeling fine and denies N-V at this time. Pt has drank two small 8oz ~bottles of water while in the ER. Pt has ambulated twice to the restroom down the hallway with ~steady gait. ~ Vital Signs ~ ~ ~ ~Temperature 98.9 F 08/22/18 14:09 ~ ~Pulse Rate 114 H 08/22/18 14:09 ~ ~Respiratory Rate 16 08/22/18 14:09 ~ ~Blood Pressure 119/76 08/22/18 14:09 ~ ~Pulse Oximetry 93 08/22/18 14:09 ~ ~ ~ ~ ~ ~ ~Temperature 98.9 F 08/22/18 14:09 ~ ~Pulse Rate 114 H 08/22/18 14:09 ~ ~Respiratory Rate 16 08/22/18 14:09 ~ ~Blood Pressure 119/76 08/22/18 14:09 ~ ~Pulse Oximetry 93 08/22/18 14:09 ~ ~ ~ ~ ~MDM - Alcohol ~Lab Data ~ ~Result diagrams: ~ 08/22/18 14:35 ~ ~ 08/22/18 14:35 ~ ~Labs: Lab Results ~ ~ ~ ~ 08/22/18 08/22/18 08/22/18 Range/Units ~ ~ 14:35 14:35 14:35 ~ ~WBC 6.7 (4.8-10.8) x10-3/uL ~ ~RBC 4.21 (4.20-5.40) x10-6/uL ~ ~Hgb 13.5 (12.0-16.0) g/dL ~ ~Hct 41.9 (37.0-47.0) % ~ ~MCV 99.6 H (80.0-99.0) fL ~ ~MCH 32.1 H (27.0-31.0) pG ~ ~MCHC 32.2 L (33.0-37.0) g/dL ~ ~RDW 12.9 (11.5-14.5) % ~ ~Plt Count 237 (130-400) x10-3/uL ~ ~Neut % (Auto) 56.0 (40.0-75.0) % ~ ~Lymph % (Auto) 33.7 (18.0-47.0) % ~ ~[place] % (Auto) 7.5 (0.0-10.0) % ~ ~Eos % (Auto) 1.8 (0.0-6.0) % ~ ~Baso % (Auto) 1.0 (0.0-2.0) % ~ ~Neut # (Auto) 3.8 (1.9-8.1) x10-3/uL ~ ~Lymph # (Auto) 2.3 (0.9-5.1) x10-3/uL ~ ~[place] # (Auto) 0.5 (0.1-0.9) x10-3/uL ~ ~Eos # (Auto) 0.1 (0.0-0.6) x10-3/uL ~ ~Baso # (Auto) 0.1 (0.0-0.2) x10-3/uL ~ ~Sodium 140 (136-145) mmol/L ~ ~Potassium 2.8 L (3.5-5.1) mmol/L ~ ~Chloride 99 (98-107) mmol/L ~ ~Carbon Dioxide 25.0 (22-29) mmol/L ~ ~Anion Gap 19 H (0-14) MEQ/L ~ ~BUN 6.0 L (7.0-18.7) mg/dL ~ ~Creatinine 0.61 (0.57-1.11) mg/dL ~ ~Estimated Creat Clear 111.2 ~ ~Estimated GFR 114.9 (>59) * ~ ~BUN/Creatinine Ratio 10 (10-20) ~ ~Glucose 99 (70-105) mg/dL ~ ~Calcium 9.9 (8.4-10.2) mg/dL ~ ~Total Bilirubin 0.60 (0.0-1.0) mg/dL ~ ~AST 358 H (5-34) U/L ~ ~ALT 122 H (0-55) U/L ~ ~Alkaline Phosphatase 98 (40-150) U/L ~ ~Total Protein 8.1 (6.4-8.3) g/dL ~ ~Albumin 4.3 (3.5-5.0) g/dL ~ ~Globulin 3.8 (1.9-3.8) g/dL ~ ~Albumin/Globuli n Ratio 1.1 (1.0-2.0) ~ ~Lipase (8-78) U/L ~ ~Salicylates < 5.0 L (15.0-30.0) mg/dL ~ ~Acetaminophen < 0.6 L (10.0-30.0) ug/mL ~ ~Serum Alcohol 366 H* (<10) mg/dL ~ ~ ~ ~ ~ // Range/Units ~ ~ 14:35 ~ ~WBC (4.8-10.8) x10-3/uL ~ ~RBC (4.20-5.40) x10-6/uL ~ ~Hgb (12.0-16.0) g/dL ~ ~Hct (37.0-47.0) % ~ ~MCV (80.0-99.0) fL ~ ~MCH (27.0-31.0) pG ~ ~MCHC (33.0-37.0) g/dL ~ ~RDW (11.5-14.5) % ~ ~Plt Count (130-400) x10-3/uL ~ ~Neut % (Auto) (40.0-75.0) % ~ ~Lymph % (Auto) (18.0-47.0) % ~ ~[place] % (Auto) (0.0-10.0) % ~ ~Eos % (Auto) (0.0-6.0) % ~ ~Baso % (Auto) (0.0-2.0) % ~ ~Neut # (Auto) (1.9-8.1) x10-3/uL ~ ~Lymph # (Auto) (0.9-5.1) x10-3/uL ~ ~[place] # (Auto) (0.1-0.9) x10-3/uL ~ ~Eos # (Auto) (0.0-0.6) x10-3/uL ~ ~Baso # (Auto) (0.0-0.2) x10-3/uL ~ ~Sodium (136-145) mmol/L ~ ~Potassium (3.5-5.1) mmol/L ~ ~Chloride (98-107) mmol/L ~ ~Carbon Dioxide (22-29) mmol/L ~ ~Anion Gap (0-14) MEQ/L ~ ~BUN (7.0-18.7) mg/dL ~ ~Creatinine (0.57-1.11) mg/dL ~ ~Estimated Creat Clear ~ ~Estimated GFR (>59) * ~ ~BUN/Creatinine Ratio (10-20) ~ ~Glucose (70-105) mg/dL ~ ~Calcium (8.4-10.2) mg/dL ~ ~Total Bilirubin (0.0-1.0) mg/dL ~ ~AST (5-34) U/L ~ ~ALT (0-55) U/L ~ ~Alkaline Phosphatase (40-150) U/L ~ ~Total Protein (6.4-8.3) g/dL ~ ~Albumin (3.5-5.0) g/dL ~ ~Globulin (1.9-3.8) g/dL ~ ~Albumin/Globuli n Ratio (1.0-2.0) ~ ~Lipase 20 (8-78) U/L ~ ~Salicylates (15.0-30.0) mg/dL ~ ~Acetaminophen (10.0-30.0) ug/mL ~ ~Serum Alcohol (<10) mg/dL ~ ~ ~ ~ ~Discharge Plan ~Discharge ~Clinical Impression: ~ Acute hypokalemia ~ ~Alcoholic intoxication ~Qualifiers: ~ Complication of substance-induce d condition: uncomplicated Qualified Code(s): F10.920 - Alcohol ~use, unspecified with intoxication, uncomplicated ~ ~ ~Discharge Disposition: Transfer - Other ~ ~ ~Discharge to Location:: to [facility] detox facility ~ ~ ~Condition: Good ~ ~Prescriptions: ~New ~ potassium chloride 20 mEq tablet,ER particles/brooks ls ~ 20 meq PO DAILY Qty: 7 RF: 0 ~ ~No Action ~ omeprazole 40 mg Capsule,Delayed Release(Dr/Ec) ~ 40 mg PO DAILY RF: 0 ~ levothyroxine [Levoxyl] 75 mcg Tablet ~ 75 mcg PO DAILY RF: 0 ~ ~Instructions: Hypokalemia Dc, ED Etoh Intoxication ~ ~Additional Instructions: ~Discharge to [facility] ~Take K-dur as prescribed daily and finish the prescription ~Avoid consuming alcohol ~ ~ ~ ~Documented By: GO LEWIS PA-C 08/22/18 1440 ~Signed By: <Electronically signed by GO LEWIS> ~ 08/22/18 1611 ~ <Electronically signed by Eugenio Glover DO> ~ 08/23/18 1034 ~ ~ metabolic panel on 2018-08-22 Albumin 4.3 g/dL (N) 3.4 - 5.4 g/dL 08-22-2018 [place] [Mass/Vol] 16: [facility] ([id number]) ALP [Catalytic 98 U/L (N) 44 - 147 U/L 08-22-2018 [place] activity/Vol] 16: [facility] (75188) ALT [Catalytic 122 U/L (H) 4 - 40 U/L 08-22-2018 [place] activity/Vol] 16: [facility] (74285) Anion gap 19 mmol/L (H) 3 - 11 mmol/L 08-22-2018 [place] [Moles/Vol] 16: [facility] (44946) AST [Catalytic 358 U/L (H) 10 - 34 U/L 08-22-2018 [place] activity/Vol] 16: [facility] (05881) Bilirubin 0.60 mg/dL (N) 0.1 - 1.2 mg/dL 08-22-2018 [place] [Mass/Vol] 16: [facility] (84619) Calcium 9.9 mg/dL (N) 8.5 - 10.2 mg/dL 08-22-2018 [place] [Mass/Vol] 16: [facility] (62103) Chloride 99 mmol/L (N) 95 - 106 mmol/L 08-22-2018 [place] [Moles/Vol] 16: [facility] (69172) CO2 [Moles/Vol] 25.0 mmol/L (N) 23 - 29 mmol/L 08-22-2018 [place] 16: [facility] (12664) Creatinine 0.61 mg/dL (N) 08-22-2018 [place] [Mass/Vol] 16: [facility] (18084) GFR/1.73 sq M 114.9 (no code) 08-22-2018 [place] predicted among : [facility] non-blacks MDRD [facility] (S/P/Bld) [Vol (13165) rate/Area] Glucose 99 mg/dL (N) 60 - 125 mg/dL 08-22-2018 [place] [Mass/Vol] 16: [facility] (93330) Potassium 2.8 mmol/L (L) 3.7 - 5.2 mmol/L 08-22-2018 [place] [Moles/Vol] 16: [facility] (65600) Protein 8.1 g/dL (N) 6.4 - 8.3 g/dL 08-22-2018 [place] [Mass/Vol] 16: [facility] (14899) Sodium 140 mmol/L (N) 135 - 145 mmol/L 08-22-2018 [place] [Moles/Vol] 16: [facility] (43882) Urea nitrogen 6.0 mg/dL (L) 7 - 20 mg/dL 08-22-2018 [place] [Mass/Vol] 16: [facility] (22110) Urea 10 mg/mg (N) 6 - 22 mg/mg 08-22-2018 [place] nitrogen/Creatin 16: [facility] ine [Mass ratio] [facility] (58963) hematology on 2018-08-22 Basophils (Bld) 0.1 10*3/uL (N) 0 - 0.3 10*3/uL 08-22-2018 [place] [#/Vol] 16: [facility] (73282) Basophils/100 1.0 % (N) 0.5 - 1 % 08-22-2018 [place] WBC (Bld) 16: [facility] (99060) Eosinophils 0.1 10*3/uL (N) 0.05 - 0.5 08-22-2018 [place] (Bld) [#/Vol] 10*3/uL 16: [facility] (21423) Eosinophils/100 1.8 % (N) 1 - 4 % 08-22-2018 [place] WBC (Bld) 16: [facility] () Hematocrit (Bld) 41.9 % (N) 36.1 - 50.3 % 08-22-2018 [place] [Volume 16: Hospital fraction] [facility] () Hemoglobin (Bld) 13.5 g/dL (N) 12.1 - 17.2 g/dL 08-22-2018 [place] [Mass/Vol] 16: [facility] () Lymphocytes 2.3 10*3/uL (N) 0.9 - 2.9 08-22-2018 [place] (Bld) [#/Vol] 10*3/uL 16: [facility] () Lymphocytes/100 33.7 % (N) 20 - 40 % 08-22-2018 [place] WBC (Bld) 16: [facility] () MCH (RBC) 32.1 (H) 08-22-2018 [place] [Entitic mass] 16: [facility] (47439) MCV (RBC) 99.6 fL (H) 80 - 100 fL 08-22-2018 [place] [Entitic vol] 16: [facility] (03784) Monocytes (Bld) 0.5 10*3/uL (N) 0.3 - 0.9 08-22-2018 [place] [#/Vol] 10*3/uL 16: [facility] (24745) Monocytes/100 7.5 % (N) 2 - 8 % 08-22-2018 [place] WBC (Bld) 16: [facility] (84292) Neutrophils 3.8 10*3/uL (N) 1.7 - 7 10*3/uL 08-22-2018 [place] (Bld) [#/Vol] 16: [facility] (61607) Neutrophils/100 56.0 % (N) 40 - 60 % 08-22-2018 [place] WBC (Bld) 16: [facility] (98700) Platelets (Bld) 237 10*3/uL (N) 150 - 450 08-22-2018 [place] [#/Vol] 10*3/uL 16: [facility] (69353) RBC (Bld) 4.21 10*6/uL (N) 4.2 - 6.1 08-22-2018 [place] [#/Vol] 10*6/uL 16: [facility] (35659) WBC (Bld) 6.7 10*3/uL (N) 3.5 - 10.5 08-22-2018 [place] [#/Vol] 10*3/uL 16: [facility] (50978) drug on 2018-08-22 Ethanol 366 mg/dL (HH) 0 - 80 mg/dL 08-22-2018 [place] [Mass/Vol] 16: [facility] (47127) venous blood hemoglobin measurement (mass/volume) on 2018-01-04 Hemoglobin mass 11.7 g/dL (no code) 12.1 - 17.2 g/dL Via [facility] (d) [facility] (68621) serum or plasma urea nitrogen/creatin ine mass ratio on 2018-01-04 Urea 5 mg/mg (no code) 6 - 22 mg/mg Via [facility] nitrogen/Creatin Hospital ine mass ratio [place] () serum or plasma urea nitrogen measurement (mass/volume) on 2018-01-04 Urea nitrogen 3 mg/dL (L) 7 - 20 mg/dL Via [facility] (30524) serum or plasma sodium measurement (moles/volume) on 2018-01-04 Sodium molar 138 mmol/L (no code) 135 - 145 mmol/L Via [facility] (52784) serum or plasma potassium measurement (moles/volume) on 2018-01-04 Potassium molar 3.0 mmol/L (L) 3.7 - 5.2 mmol/L Via [facility] () serum or plasma phosphate measurement (mass/volume) on 2018-01-04 Phosphate mass 1.5 mg/dL (L) 2.4 - 4.1 mg/dL Via [facility] (57017) serum or plasma glucose measurement (mass/volume) on 2018-01-04 Glucose mass 74 mg/dL (no code) 60 - 125 mg/dL Via [facility] () serum or plasma creatinine measurement with calculation of estimated glomerular filtration rate on 2018-01-04 GFR/1.73 sq M no information (no code) Via [facility] vol rate/area () (S/P/Bld) serum or plasma creatinine measurement (mass/volume) on 2018-01-04 Creatinine mass 0.62 mg/dL (no code) Via [facility] () serum or plasma chloride measurement (moles/volume) on 2018-01-04 Chloride molar 102 mmol/L (no code) 95 - 106 mmol/L Via [facility] () serum or plasma calcium measurement (mass/volume) on 2018-01-04 Calcium mass 8.6 mg/dL (no code) 8.5 - 10.2 mg/dL Via [facility] () serum or plasma anion gap determination (moles/volume) on 2018-01-04 Anion gap 3 8 mmol/L (no code) 3 - 11 mmol/L Via [facility] () magnesium on 2018-01-04 Magnesium mass 1.8 mg/dL (no code) 1.7 - 2.2 mg/dL Via [facility] () carbon dioxide on 2018-01-04 CO2 molar conc 28 mmol/L (no code) 23 - 29 mmol/L Via [facility] () capillary blood glucose measurement by glucometer (mass/volume) on 2018-01-04 Glucose mass 80 mg/dL (no code) 60 - 125 mg/dL Via [facility] () blood neutrophils automated count (number/volume) on 2018-01-04 Neutrophils Auto 7.7 10*3/uL (no code) 1.7 - 7 10*3/uL Via [facility] #/vol (Bld) [facility] () blood monocytes/100 leukocytes on 2018-01-04 Monocytes/100 5 % (no code) 2 - 8 % Via [place] WBC Auto (Bld) [facility] () blood monocytes automated count (number/volume) on 2018-01-04 Monocytes Auto 0.6 10*3/uL (no code) 0.3 - 0.9 Via [place] #/vol (Bld) 10*3/uL [facility] (17567) blood lymphocytes automated count (number/volume) on 2018-01-04 Lymphocytes Auto 3.1 10*3/uL (no code) 0.9 - 2.9 Via [place] [facility] #/vol (Bld) 10*3/uL [facility] (64162) blood leukocytes automated count (number/volume) on 2018-01-04 WBC Auto #/vol 11.6 10*3/uL (H) 3.5 - 10.5 Via [facility] i (Bld) 10*3/uL [facility] (95456) blood hematocrit (volume fraction) on 2018-01-04 Hematocrit Auto 33 % (L) 36.1 - 50.3 % Via [facility] Volume Fraction [facility] (Bld) [place] () blood erythrocytes automated count (number/volume) on 2018-01-04 RBC Auto #/vol 3.25 10*6/uL (L) 4.2 - 6.1 Via [facility] i (Bld) 10*6/uL [facility] (12348) automated erythrocyte mean corpuscular volume on 2018-01-04 MCV Auto Entitic 101 fL (H) 80 - 100 fL Via [facility] sti volume (RBC) [facility] () automated erythrocyte mean corpuscular hemoglobin concentration measurement (mass/volume) on 2018-01-04 MCHC Auto mass 36 g/dL (no code) 32 - 36 g/dL Via [facility] conc (RBC) [facility] () automated erythrocyte mean corpuscular hemoglobin (mass per erythrocyte) on 2018-01-04 MCH Auto Entitic 36 pg (H) 27 - 31 pg Via [facility] ti mass (RBC) [facility] () automated erythrocyte distribution width ratio on 2018-01-04 Erythrocyte 13.8 % (no code) 11.6 - 14.6 % Via [facility] distribution Hospital width Auto Ratio [place] (RBC) () automated eosinophil count on 2018-01-04 Eosinophils Auto 0.1 10*3/uL (no code) 0.05 - 0.5 Via [facility] #/vol (Bld) 10*3/uL [facility] (95561) automated blood platelet mean volume measurement on 2018-01-04 Platelet mean 9.5 fL (no code) 7.2 - 11.7 fL Via [facility] ti volume Auto [facility] Entitic volume [place] ([facility]) (26553) automated blood platelet count (count/volume) on 2018-01-04 Platelets Auto 211 10*3/uL (no code) 150 - 450 Via [place] #/vol (d) 10*3/uL [facility] (94236) automated blood neutrophils/100 leukocytes on 2018-01-04 Neutrophils/100 66 % (no code) 40 - 60 % Via [facility] i WBC Auto (d) [facility] (99490) automated blood lymphocytes/100 leukocytes on 2018-01-04 Lymphocytes/100 27 % (no code) 20 - 40 % Via [facility] i WBC Auto (d) [facility] (90990) automated blood eosinophils/100 leukocytes on 2018-01-04 Eosinophils/100 1 % (no code) 1 - 4 % Via [facility] WBC Auto (d) [facility] (22041) automated blood basophils/100 leukocytes on 2018-01-04 Basophils/100 0 % (no code) 0.5 - 1 % Via [facility] WBC Auto (Bld) [facility] (94316) automated blood basophil count (count/volume) on 2018-01-04 Basophils Auto 0.0 10*3/uL (no code) 0 - 0.3 10*3/uL [facility] #/vol (d) [facility] (42886) serum or plasma triglyceride measurement (mass/volume) on 2018-01-02 Triglyceride 59 mg/dL (no code) 0 - 150 mg/dL Via [facility] (66872) setting of ventilation mode on 2018-01-01 Ventilation mode YES (no code) Via [facility] Ventilator [facility] (41246) serum or plasma total bilirubin measurement (mass/volume) on 2018-01-01 Bilirubin mass 0.8 mg/dL (no code) 0.1 - 1.2 mg/dL Via [facility] ([id number]) serum or plasma protein measurement (mass/volume) on 2018-01-01 Protein mass 6.1 g/dL (L) 6.4 - 8.3 g/dL Via [facility] ([id number]) serum or plasma aspartate aminotransferase measurement (enzymatic activity/volume) on 2018-01-01 AST enzyme 42 U/L (H) 10 - 34 U/L Via [facility] ([id number]) serum or plasma alkaline phosphatase measurement (enzymatic activity/volume) on 2018-01-01 ALP enzyme 88 U/L (no code) 44 - 147 U/L Via [facility] ([id number]) serum or plasma albumin measurement (mass/volume) on 2018-01-01 Albumin mass 3.5 g/dL (no code) 3.4 - 5.4 g/dL Via [facility] ([id number]) serum or plasma alanine aminotransferase measurement (enzymatic activity/volume) on 2018-01-01 ALT enzyme 25 U/L (no code) 4 - 40 U/L Via [facility] ([id number]) measurement of body temperature on 2018-01-01 Body temperature 99 (no code) Via [facility] ([id number]) gastric fluid gastrointestinal hemoglobin detection on 2018-01-01 Hemoglobin.gastr Positive (*) Via [facility] [place] ([id number]) determination of fraction of inspired oxygen on 2018-01-01 Determination of 75% (no code) Via [facility] fraction [place] [facility] inspired oxygen [place] ([id number]) check arterial puncture site on 2018-01-01 Check arterial RT RAD (no code) [facility] puncture site [facility] (78189) calcium measurement corrected for albumin on 2018-01-01 Calcium mass 8.4 mg/dL (L) 8.5 - 10.2 mg/dL Via [facility] (58975) blood po2 on 2018-01-01 Oxygen ppres 135 mm[Hg] (H) 75 - 100 mm[Hg] Via [facility] (Bld) [facility] (54353) blood pco2 on 2018-01-01 CO2 molar conc 35 mmol/L (no code) 23 - 29 mmol/L Via [facility] (57639) assessment of wrist artery patency prior to arterial puncture on 2018-01-01 Arterial patency no information (no code) [facility] Wrist [facility] --pre arterial [place] puncture (60037) arterial blood ph measurement with patient temperature correction on 2018-01-01 pH adjusted to 7.43 (no code) [facility] patient's actual Hospital temperature [place] (BldA) (65618) arterial blood oxygen saturation measurement on 2018-01-01 SaO2% mass 99 (no code) Via [place] fraction (BldA) [facility] () arterial blood carbon dioxide, total measurement (moles/volume) on 2018-01-01 CO2 molar conc 23.6 mmol/L (no code) 23 - 29 mmol/L [facility]32288[facility] arterial blood bicarbonate measurement (moles/volume) on 2018-01-01 HCO3 molar conc 23 mmol/L (no code) 22 - 28 mmol/L Via ris (Bld) [facility] (19134) arterial blood base excess by calculation on 2018-01-01 Base excess -1.1 mmol/L (no code) -2 - 2 mmol/L [facility] urobilinogen measurement by automated test strip (mass/volume) on 2017-12-31 Urobilinogen NORMAL (no code) [facility] Test strip [facility] ([facility] (22834) urine total bilirubin detection by test strip on 2017-12-31 Bilirubin Ql (U) Negative (no code) Via [facility] (47959) urine protein assay by test strip, semi-quantitativ e on 2017-12-31 Protein Test 2+ (*) [facility] strip ([facility] (45064) urine ph measurement by test strip on 2017-12-31 pH Test strip 6 [pH] (no code) 4.6 - 8 [pH] Via [facility] ([facility] () urine nitrite detection by test strip on 2017-12-31 Nitrite Test Positive (*) [facility] strip () [facility] (40549) urine ketones detection by automated test strip on 2017-12-31 Ketones 1+ (*) [facility] Automated test Hospital strip Ql () [place] () urine glucose detection by automated test strip on 2017-12-31 Glucose Negative (no code) [facility] Automated test Hospital strip Ql () [place] (71689) urine color determination on 2017-12-31 Color Nom (U) YELLOW (no code) Via [facility] (88098) urine clarity determination on 2017-12-31 Clarity Nom (U) VERY CLOUDY (*) [facility] (90733) thyroid stimulating hormone on 2017-12-31 Thyrotropin Qn 53.01 m[IU]/L (H) 0.4 - 4 m[IU]/L Via [facility] (70509) squamous epithelial cells detection in urine sediment by light microscopy on 2017-12-31 Epithelial no information (no code) Via [facility] LM Ql (Urine [place] sed) (02758) specific gravity of urine by test strip on 2017-12-31 Specific gravity 1.025 (*) [facility] Relative Density [facility] (U) [place] (07618) serum or plasma thyroxine (t4) free measurement (mass/volume) on 2017-12-31 T4 free mass no information (L) Via [facility] (64010) serum or plasma lactate measurement (moles/volume) on 2017-12-31 Lactate molar 2.32 mmol/L (CH) 0.5 - 2.2 mmol/L [facility]91888[facility] prothrombin time (pt) in platelet poor plasma by coagulation assay on 2017-12-31 Prothrombin time 14.2 s (no code) 9.4 - 12.5 s Via [facility] is (PT) Coag time [facility] (PPP) [place] (18189) mucus detection in urine sediment by light microscopy on 2017-12-31 Mucus LM Ql Negative (no code) [facility] (Urine sed) [facility] (73621) methicillin resistant staphylococcus aureus (mrsa) screening culture on 2017-12-31 MRSA DNA MRSA not (no code) [facility] LOS+probe Ql isolated Hospital (Unsp spec) [place] (44964) manual eosinophils/100 leukocytes in nose on 2017-12-31 Eosinophils/100 0 (no code) [facility] WBC Manual [facility] (Nose) [place] (10314) manual blood segmented neutrophils/100 leukocytes on 2017-12-31 Segmented 83 % (no code) 35 - 80 % [facility] neutrophils/100 Hospital WBC Manual [facility] (Bld) (26574) manual blood lymphocytes/100 leukocytes on 2017-12-31 Lymphocytes/100 6 % (no code) 20 - 40 % Via [facility] WBC Auto (Bld) [facility] (22139) manual blood basophils/100 leukocytes on 2017-12-31 Basophils/100 0 % (no code) 0.5 - 1 % [facility] WBC Auto (Bld) [facility] (06951) leukocyte esterase on 2017-12-31 Leukocyte 1+ (*) [facility] esterase Test Hospital strip Ql (U) [place] (29059) inr in platelet poor plasma or blood by coagulation assay on 2017-12-31 INR Coag RelTime 1.1 (no code) [facility] (Platelet poor Hospital plasma or blood) [place] (95395) erythrocytes detection in urine sediment by light microscopy on 2017-12-31 RBC LM Ql (Urine 1+ (*) [facility] sed) [facility] (89997) crystals detection in urine sediment by light microscopy on 2017-12-31 Crystals LM Ql PRESENT (*) [facility] (Urine sed) [facility] (87985) complete urinalysis with reflex to culture on 2017-12-31 Complete NO (no code) [facility] urinalysis with Hospital reflex to [place] culture (06502) casts detection in urine sediment by light microscopy on 2017-12-31 Casts LM Ql NONE (no code) [facility] (Urine sed) [facility] (54395) blood monocytes/100 leukocytes on 2017-12-31 Monocytes/100 2 % (no code) 2 - 8 % [facility] WBC Auto (Bld) [facility] (65638) blood lactic acid measurement (moles/volume) on 2017-12-31 Lactate molar 0.73 mmol/L (no code) 0.5 - 2.2 mmol/L Via risti conc [facility] (59312) blood erythrocyte morphology finding identification on 2017-12-31 RBC morphology NORMAL (no code) Via [facility] finding [facility] (d) [place] (75423) blood band neutrophils/100 leukocytes on 2017-12-31 Band form 9 % (no code) 0 - 3 % [facility] neutrophils/100 Hospital WBC Manual cnt [place] (d) (20636) bacterial urine culture on 2017-12-31 Bacteria Organism: (no code) Via [facility] identified Cx Escherichia coli Hospital Nom (U) [place] (87380) bacterial sputum culture on 2017-12-31 Bacteria Organism: Usual (no code) Via [facility] identified Cx upper Hospital Nom (Sput) respiratory [place] the[facility]ora (09813) bacterial blood culture on 2017-12-31 Bacteria No growth (no code) Via [facility] identified Cx Hospital Nom (Bld) [place] (20469) bacteria detection in urine sediment by light microscopy on 2017-12-31 Bacteria LM Ql LARGE (*) [facility] (Urine sed) [facility] (68448) automated urine sediment leukocyte count by microscopy (number/high power field) on 2017-12-31 WBC LM.HPF no information (*) Via [facility] #/area (Urine Hospital sed) [place] (17042) automated urine sediment erythrocyte count by microscopy (number/high power field) on 2017-12-31 RBC LM.HPF no information (no code) [facility] #/area (Urine Hospital sed) [place] (36146) amorphous sediment detection in urine sediment by light microscopy on 2017-12-31 Amorphous MOD KOLBY URATES (*) Via [facility] sediment LM [facility] (Urine sed) [place] (01917) activated partial thromboplastin time (aptt) in platelet poor plasma bycoagulation assay on 2017-12-31 aPTT Coag time 38 s (H) 25 - 35 s [facility] (d) [facility] (39204) Vital Signs Vital Sign Value Interpretation Reference Date Time Care Prov ider Facility (Normalized) (Normalized) Range Body height 170.18 cm (no code) cm 08-22-2018 [facility] (14256) Body height 170.18 cm (no code) cm 08-22-2018 Eugenio Lockhart [facility] 10:09-0400 [facility] (46432) Body height 170.18 cm (no code) cm 05-13-2013 RAKAN [facility] 11:54-0500 [facility] [address] of [facility] (42896) Body height 170.18 cm (no code) cm [facility] 11:25-040 66025 (Other Health Center Phone: [facility] ) [place] (17052) Body height 170.18 (no code) Eugenio Mirza [facility] (54507) Body mass 20 kg/m2 (no code) 15 - 25 kg/m2 Eugenio Mirza index (BMI) [facility] [Ratio] [facility] (02517) Body 98.4 [degF] (no code) 97.8 - 99.0 05-13-2013 RAKAN [facility] temperature [degF] 11:540500 [facility] [address] of [facility] (90072) Body 97 [degF] (no code) 97.8 - 99.0 12-05-2012 [facility] temperature [degF] 11: 23240 (Other Health [facility] er Phone: of [facility] ) [place] (03693) Body 99 [degF] (no code) 97.8 - 99.0 Eugenio Mirza temperature [degF] [facility] (68325) Body weight 58.06 kg (no code) kg 08-22-2018 Eugenio arreola 15:09-0400 [facility] (96208) Body weight 58.06 kg (no code) kg 08-22-2018 Eugenio arreola 10:09-0400 [facility] (50243) Body weight 71.22 kg (no code) kg 05-13-2013 RAKAN [employer] 11:540500 [facility] [address] of [facility] (31799) Body weight 68.04 kg (no code) kg 12-05-2012 JAIME Aiden [facility] 11: 01638 (Other Health Center Phone: of [facility] ) [place] (82030) Body weight 13832.823 (no code) Eugenio Mirza [facility] (32305) Pulse Rhythm 1 (no code) Eugenio Mirza [facility] (84372) Respiratory 1 (no code) Eugenio Mirza Depth [facility] (76297) Respiratory 16 /min (no code) 12 - 20 /min Eugenio Hunter n rate [facility] (93322) Interventions No Information Plan of Treatment The data below is from unstructured sources Activity Details Follow Up prn Reason: Discharge Date 01/04/18 11:25am Disposition 01 HOME, SELF-CARE Instructions/Education Provided Hypo thyroidism (Underactive Thyroid) (DC) Prescriptions See Medication Section Referrals (Unspecified) Entered Date: 01/03/2018 9:21am Note: APPOINTMENT DR. KULKARNI Monday01/24/18 @ 2:40 (Unspecified) Order Date: Today Entered Date: 01/04/2018 9:14am Reason(s) for Referral: RESPIRATORY FAILURE, UNSP, UNSP W HYPOXIA OR HYPERCAPNIA Goals No Information Social History No Information Functional Status The data below is from unstructured sources Query Response Date Patrice rded Patient Orientation Person Place January 03, 2018 12:37pm Comprehension Ability Understands Co ncepts January 04, 2018 8:00am Mental Status No Information Encounters Encounter Normalized Encounter Encounter Diagnosis Care Provi prince Organization Date Type 05-08-2019 [facility] Contusion of thorax, CRYSTAL ME RRIMAN (no [facility] CARE unspecified, initial phone) CARE (no phone) encounter 04-15-2019 [facility] Herpesviral vesicular CRYSTAL M ERRIMAN (no [facility] dermatitis phone) CARE (no phone) 03-29-2019 [facility] Herpesviral vesicular DESIRE ORE LLANA (no [facility] dermatitis phone) CARE (no phone) 09-14-2019 Emergency department no information JOSEFA VALLE MD (no [facility] patient visit phone) [facility] (no phone) 08-22-2018 Emergency department no information no name no organization name - patient visit 08-22-2018 08-22-2018 Emergency department no information no name no organization name - patient visit 08-22-2018 12-31-2017 Emergency department no information no name no organization name - patient visit 12-31-2017 07-24-2019 Encounter by computer no information BRITTANY MORALES ( no [facility] link phone) (no phone) 12-31-2017 Evaluation and Myxedema coma KHOI ATWOOD Work no organization name - management of Phone: 01-04-2018 inpatient NEGATED Patient encounter no information no name no or ganization name 02-07-2018 12-31-2017 Patient encounter no information no name no or ganization name - 01-04-2018 05-08-2019 Patient encounter no information no name no or ganization name procedure 03-29-2019 Patient encounter no information no name no or ganization name procedure 09-05-2018 Patient encounter no information no name no or ganization name - procedure 09-05-2018 08-23-2018 Patient encounter no information no name no or ganization name - procedure 08-23-2018 02-07-2018 Patient encounter no information MALINI ROMAN [facility] procedure SUSTAINABILITY EXECUTIVE DIRECTOR (no phone) Hospital - [facility] g (no phone) Medical Equipment No Information Payers Normalized Payer Value [facility] [id number] History general Narrative - Reported Note Type Note Facility History general Narrative - Reported Type Medical thyroid disorder -hypothyro id History Medical psychiatric disorder -depre ssion History Surgical appendectomy History [facility] ([id number]) Summary Purpose eClinicalWorks SubmissioneClinicalWorks SubmissioneClinicalWorks SubmissioneClinicalWorks Submission Advance Directives Directive Response Recor ded Date/Time Advance Directives No 9:00am Resuscitation Status Full Code 08/16/14 9:00am Directive Response Recor ded Date/Time Advance Directives No 2:00pm Organ Donor Yes 12/31/17 12:40pm Resuscitation Status Full Code 12/31/17 2:00pm Discharge Instructions No hospital discharge instructions.No hospital discharge instruction information available. Chief Complaint and Reason for Visit Chief Complaint MYXEDEMA COMA, RESP FAILURE, HYPOGLYCEMIA Reason for Visit Myxedema coma Bradycardia Hypotension Dehydration Dry mucous membranes Confused Bradycardia Dehydration Confused Hypokalemia Hypoxia Additional Source Comments This clinical document has been generated using Watchfinder software that has been certified by the Office of the National Coordinator for Health Information Technology (ONC 15.99.04.3023.Diam.31.00.0.390921) and the National Committee for Tack Cutter (NCQA, as an eMeasure certified technology). FOR RECORDS PERTAINING TO PATIENTS WHO ARE OR HAVE BEEN ENROLLED IN A CHEMICAL D EPENDENCY/SUBSTANCE ABUSE PROGRAM, SOME INFORMATION MAY BE OMITTED. This clinica l summary was aggregated from multiple sources. Caution should be exercised in using it in the provision of clinical care. This summary normalizes information from multiple sources, and as a consequence, information in this document may ma terially change the coding, format and clinical context of patient data. In sis tion, data may be omitted in some cases. CLINICAL DECISIONS SHOULD BE BASED ON T HE PRIMARY CLINICAL RECORDS. [employer] provides no warranty or guara ntee of the accuracy or completeness of information in this document.The followi ng information is based on time limited clinical information UNRECOGNIZED CONTENT PROVIDED BELOW FOR UNRECOGNIZED SECTION MEDICAL (GENERAL) HISTORY Type Description Date Medical History thyroid disorder -hy pothyroid Medical History psychiatric disorder -depression Surgical History appendectomy UNRECOGNIZED CONTENT PROVIDED BELOW FOR UNRECOGNIZED SECTION REASON FOR VISIT [facility]
--- OUTSIDE RECORDS SUMMARY | 2019-09-14 09:42 | XMS REPORT ---
Author Author Kyleigh Leyva Organization [facility] Address [address] [place] [address] Care Team Providers Care Operations Scheduler Name Role Phone JAIME Leyva Unavailable PROBLEMS Type Condition ICD9-CM Code [id number] Code Onset Dates Condition S tatus SNOMED Code Problem History of gastric ulcer Z87.19 Activ e 810248923 Problem Heat intolerance R68.89 Active 692 71871 Problem History of anxiety Z86.59 Active 1 22963122 Problem History of depression Z86.59 Active 535144860 Problem Graves disease E05.00 Active 06412 5004 Problem Desire for Z31.9 Active Problem Hypothyroidism E03.9 Active 38232 008 Problem Cold intolerance R68.89 Active 805 60844 Problem Substance abuse F19.10 Active 6621 4007 Problem Stress incontinence N39.3 Active 73406656 Problem History of irregular menstrual bleeding Z87.42 Active 695385998 Problem Tobacco use Z72.0 Active 99409087 0 Problem Depressive disorder F32.9 Active 25130875 Problem Diarrhea R19.7 Active 39442123 ALLERGIES No Information ENCOUNTERS Encounter Location Date Diagnosis [facility] [address] [facility] [id number] [address] [place] [id number] August, Acute upper respiratory infe ction, unspecified J06.9 [facility] [address] [facility] [id number] [address] [place] [id number] August, Pharyngitis due to other org anism J02.8 [facility] [address] [facility] [id number] [address] [place] [phone] Jul, Dental examination Z01.20 [facility] [address] [facility] [id number] [address] [place] [id number] 08 Jul, 2015 Allergic rhinitis J30.9 [place] [address] [address] [place] [id number] [address] [place] [phone] 04 Jul, 2015 Hypothyroidism E03.9 [place] [address] [address] Jun, Dysuria R30.0 ; Hypothyroidi sm E03.9 ; Acute sinusitis J01.90 and Allergic rhinitis J30.9 [place] [address] [address] Mar, Graves disease E05.00 ; 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 tobacco 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 use Z72.0 ; Hypothyroidism E03.9 and Substance abuse F19.10 [place] [address] [address] Mar, [address] [address] Mar, Encounter for IUD removal Z3 0.432 ; [...] menstrual bleeding Z87.42 and Stress incontinence N39.3 [place] [address] [address] [place] [id number] [address] [place] [phone] Jul, [place] [address] [place] [id number] [address] [place] [address] Jul, [place] [address] [address] Feb, [place] [address] [address] [place] [id number] [address] [place] [phone] Feb, [place] [address] [address] Feb, [facility] [address] [id number] [address] [place] [address], [place] [address] Feb, [facility] [address] [id number] [address] [place] [address], [place] [address] Feb, [facility] [address] [id number] [address] [place] [address], [place] [address] Feb, [facility] [address] [id number] [address] [place] [address], [place] [address] Feb, [facility] [address] [id number] [address] [place] [address], [place] [address] Apr, [facility] [address] [id number] [address] [place] [address], [place] [address] Apr, [facility] [address] [id number] [address] [place] [address], [place] [address] Dec, [facility] [address] [id number] [address] [place] [address], [place] [address] Nov, [facility] [address] [id number] [address] [place] [address], [place] [address] Nov, [facility] [address] [id number] [address] [place] [address], [place] [address] Nov, [facility] [address] [id number] [address] [place] [address], [place] [address] Nov, [facility] [address] [id number] [address] [place] [address], [place] [address] Apr, [facility] [address] [id number] [address] [place] [address], [place] [address] Apr, [facility] [address] [id number] [address] [place] [address], [place] [address] Apr, [facility] [address] [id number] [address] [place] [address], [place] [address] Apr, [facility] [address] [id number] [address] [place] [address], [place] [address] Apr, [facility] [address] [id number] [address] [place] [address], [place] [address] 24 Mar, 2011 [facility] [address] [id number] [address] [place] [address], [place] [address] Nov, [facility] [address] [id number] [address] [place] [address], [place] [address] Mar, [facility] [address] [id number] [address] [place] [address], [place] [address] Mar, [facility] [address] [id number] [address] [place] [address], [place] [address] Mar, [facility] [address] [id number] [address] [place] [address], [place] [address] Mar, [facility] [address] [id number] [address] [place] [address], [place] [address] May, [facility] [address] [id number] [address] [place] [address], [place] [address] 16 Mar, 2009 [facility] [address] [id number] [address] [place] [address], [place] [address] 16 Mar, 2009 [facility] [address] [id number] [address] [place] [address], [place] [address] Mar, [facility] [address] [id number] [address] [place] [address], [place] [address] Feb, [facility] [address] [id number] [address] [place] [address], [place] [address] 03 Feb, 2009 [facility] [address] [id number] [address] [place] [address], [place] [address] 15 Jan, 2009 [facility] [address] [id number] [address] [place] [id number] 15 Jan, 2009 [facility] [address] [id number] [address] [place] [phone] Jan, IMMUNIZATIONS No Known Immunizations SOCIAL HISTORY Never Assessed REASON FOR VISIT PLAN OF CARE VITAL SIGNS MEDICATIONS No Known Medications RESULTS No Results PROCEDURES No Known procedures INSTRUCTIONS MEDICATIONS ADMINISTERED No Known Medications MEDICAL (GENERAL) HISTORY Type Description Date Medical History thyroid disorder -hypothyroid Medical History psychiatric disorder -depression Surgical History appendectomy
--- OUTSIDE RECORDS SUMMARY | 2019-09-14 09:42 | XMS REPORT ---
Author Author Kyleigh Leyva Organization [facility] Address [address] [place] [address] Care Team Providers Care Allergist Immunologist Name Role Phone JAIME Leyva Unavailable PROBLEMS Type Condition ICD9-CM Code [id number] Code Onset Dates Condition S tatus SNOMED Code Problem History of gastric ulcer Z87.19 Activ e 052436012 Problem Heat intolerance R68.89 Active 692 28043 Problem History of anxiety Z86.59 Active 1 27258251 Problem History of depression Z86.59 Active 593738714 Problem Graves disease E05.00 Active 67177 5004 Problem Desire for Z31.9 Active Problem Hypothyroidism E03.9 Active 80181 008 Problem Cold intolerance R68.89 Active 805 46813 Problem Substance abuse F19.10 Active 6621 4007 Problem Stress incontinence N39.3 Active 46225740 Problem History of irregular menstrual bleeding Z87.42 Active 143717255 Problem Tobacco use Z72.0 Active 83058339 0 Problem Depressive disorder F32.9 Active 06995177 Problem Diarrhea R19.7 Active [id number] ALLERGIES No Information ENCOUNTERS Encounter Location Date Diagnosis [facility] [address] [facility] [id number] [address] [place] [address] August, Acute upper respiratory infe ction, unspecified J06.9 [facility] [address] [facility] [id number] [address] [place] [address] August, Pharyngitis due to other org anism J02.8 [facility] [address] [facility] [id number] [address] [place] [address] Jul, Dental examination Z01.20 [facility] [address] 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 use Z72.0 ; Hypothyroidism E03.9 and Substance abuse F19.10 [place] [address] [address] Mar, [address] [address] Mar, Encounter for IUD removal Z3 0.432 [...] menstrual bleeding Z87.42 and Stress incontinence N39.3 [place] [address] [address] [place] [id number] [address] [place] [address] Jul, [place] [address] [place] [id number] [address] [place] [address] Jul, [place] [address] [address] Feb, [place] [address] [address] [place] [id number] [address] [place] [address] Feb, [place] [address] [address] Feb, [facility] [address] [id number] [address] [place] [address], [place] [address] Feb, [facility] [address] [id number] [address] [place] [address], [place] [address] Feb, [facility] [address] [id number] [address] [place] [address], [place] [address] Feb, [facility] [address] [id number] [address] [place] [address], [place] [address] Feb, [facility] [address] [id number] [address] [place] [address], [place] [address] Apr, [facility] [address] [id number] [address] [place] [address], [place] [address] Apr, [facility] [address] [id number] [address] [place] [address], [place] [address] Dec, [facility] [address] [id number] [address] [place] [address], [place] [address] Nov, [facility] [address] [id number] [address] [place] [address], [place] [address] Nov, [facility] [address] [id number] [address] [place] [address], [place] [address] Nov, [facility] [address] [id number] [address] [place] [address], [place] [address] Nov, [facility] [address] [id number] [address] [place] [address], [place] [address] Apr, [facility] [address] [id number] [address] [place] [address], [place] [address] Apr, [facility] [address] [id number] [address] [place] [address], [place] [address] Apr, [facility] [address] [id number] [address] [place] [address], [place] [address] Apr, [facility] [address] [id number] [address] [place] [address], [place] [address] Apr, [facility] [address] [id number] [address] [place] [address], [place] [address] 24 Mar, 2011 [facility] [address] [id number] [address] [place] [address], [place] [address] Nov, [facility] [address] [id number] [address] [place] [address], [place] [address] Mar, [facility] [address] [id number] [address] [place] [address], [place] [address] Mar, [facility] [address] [id number] [address] [place] [address], [place] [address] Mar, [facility] [address] [id number] [address] [place] [address], [place] [address] Mar, [facility] [address] [id number] [address] [place] [address], [place] [address] May, [facility] [address] [id number] [address] [place] [address], [place] [address] 16 Mar, 2009 [facility] [address] [id number] [address] [place] [address], [place] [address] 16 Mar, 2009 [facility] [address] [id number] [address] [place] [address], [place] [address] Mar, [facility] [address] [id number] [address] [place] [address], [place] [address] Feb, [facility] [address] [id number] [address] [place] [address], [place] [address] 03 Feb, 2009 [facility] [address] [id number] [address] [place] [address], [place] [address] 15 Jan, 2009 [facility] [address] [id number] [address] [place] [address] 15 Jan, 2009 [facility] [address] [id number] [address] [place] [address] Jan, IMMUNIZATIONS No Known Immunizations SOCIAL HISTORY Never Assessed REASON FOR VISIT PLAN OF CARE VITAL SIGNS Height 67 in 2014-03-03 Weight 150.9 lbs 2014-03-03 Temperature 99 degrees Fahrenheit 2014-03-03 Blood pressure systolic 118 mmHg 2014-03-03 Blood pressure diastolic 76 mmHg 2014-03-03 MEDICATIONS No Known Medications RESULTS No Results PROCEDURES Procedure Date Ordered Result Body Site URINE CULTURE/COLONY COUNT Mar 03, 2014 URINALYSIS, AUTO, W/O SCOPE Mar 03, 2014 INSTRUCTIONS MEDICATIONS ADMINISTERED No Known Medications MEDICAL (GENERAL) HISTORY Type Description Date Medical History thyroid disorder -hypothyroid Medical History psychiatric disorder -depression Surgical History appendectomy
--- OUTSIDE RECORDS SUMMARY | 2019-09-14 09:42 | XMS REPORT ---
Author Author Kyleigh Bangura Organization [facility] Address [address] [place] [address] Care Team Providers Care Fitness And Wellness Coordinator Name Role Phone RAKAN Bangura Unavailable PROBLEMS Type Condition ICD9-CM Code XVD20-FC Code Onset Dates Condition S tatus SNOMED Code Problem History of gastric ulcer Z87.19 Activ e 736410041 Problem Heat intolerance R68.89 Active 692 33478 Problem History of anxiety Z86.59 Active 1 71235723 Problem History of depression Z86.59 Active 898458398 Problem Graves disease E05.00 Active 45004 5004 Problem Desire for Z31.9 Active Problem Hypothyroidism E03.9 Active 70753 008 Problem Cold intolerance R68.89 Active 805 49498 Problem Substance abuse F19.10 Active 6621 4007 Problem Stress incontinence N39.3 Active 69139171 Problem History of irregular menstrual bleeding Z87.42 Active 418605246 Problem Tobacco use Z72.0 Active 05201681 0 Problem Depressive disorder F32.9 Active 76556595 Problem Diarrhea R19.7 Active 68930202 ALLERGIES No Information ENCOUNTERS Encounter Location Date Diagnosis [facility] [address] [place] [id number] [address] [place] [address] Apr, Contusion of trunk, initial encounter S20.20XA [facility] [address] [facility] [id number] [address] [place] [address] Mar, 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 a nd Nasopharyngitis acute J00 [facility] [address] [place] [id number] [address] [place] [address] Mar, 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 a nd Viral upper respiratory tract infection J06.9 [facility] [address] [address] August, Acute upper respiratory infe ction, unspecified J06.9 [place] [address] August, Pharyngitis due to other org anism J02.[address] [address] 12 Jul, 2015 Dental examination Z01.20 [place] [address] [address] 08 Jul, 2015 Allergic rhinitis J30.[address] [address] 04 Jul, 2015 Hypothyroidism E03.[address] [address] Jun, Dysuria R30.0 ; Hypothyroidi sm E03.9 ; Acute sinusitis J01.90 and Allergic rhinitis J30.[address] [address] Mar, Graves disease E05.00 ; 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 [address] [id number] [address] [place] [address], [place] [address] 14 Jul, 2014 [facility] [address] [id number] [address] [place] [address], [place] [address] Jul, [facility] [address] [id number] [address] [place] [address], [place] [address] Feb, [facility] [address] [id number] [address] [place] [address], [place] [address] Feb, [facility] [address] [id number] [address] [place] [address], [place] [address] Feb, [facility] [address] [id number] [address] [place] [address], [place] [address] Feb, [facility] [address] [id number] [address] [place] [address], [place] [address] Feb, [facility] [address] [id number] [address] [place] [address], [place] [address] Feb, [facility] [address] [id number] [address] [place] [address], [place] [address] Feb, [facility] [address] [id number] [address] [place] [address], [place] [address] Apr, [facility] [address] [id number] [address] [place] [address], [place] [address] Apr, [facility] [address] [id number] [address] [place] [address] Dec, [facility] [address] [id number] [address] [place] [address], [place] [address] Nov, [facility] [address] [id number] [address] [place] [address], [place] [address] Nov, [facility] [address] [id number] [address] [place] [address], [place] [address] Nov, [facility] [address] [id number] [address] [place] [address], [place] [address] Nov, [facility] [address] [id number] [address] [place] [address], [place] [address] 31 Apr, 2012 [facility] [address] [id number] [address] [place] [address], [place] [address] Apr, [facility] [address] [id number] [address] [place] [address], [place] [address] Apr, [facility] [address] [id number] [address] [place] [address], [place] [address] Apr, [facility] [address] [id number] [address] [place] [address], [place] [address] Apr, [facility] [address] [id number] [address] [place] [address], [place] [address] Mar, [facility] [address] [id number] [address] [place] [address], [place] [address] 16 Nov, 2010 [facility] [address] [id number] [address] [place] [address], [place] [address] Mar, [facility] [address] [id number] [address] [place] [address], [place] [address] Mar, [facility] [address] [id number] [address] [place] [address], [place] [address] 30 Mar, 2010 [facility] [address] [id number] [address] [place] [address], [place] [address] Mar, [facility] [address] [id number] [address] [place] [address], [place] [address] May, [facility] [address] [id number] [address] [place] [address], [place] [address] Mar, [facility] [address] [id number] [address] [place] [address], [place] [address] 16 Mar, 2009 [facility] [address] [id number] [address] [place] [address], [place] [address] Mar, [facility] [address] [facility] [id number] [address] [place] [address] Feb, [facility] [address] [facility] [id number] [address] [place] [address] Feb, [facility] [address] [facility] [id number] [address] [place] [address] Jan, [facility] [address] [facility] [id number] [address] [place] [address] Jan, [facility] [place] [address] [facility] [id number] [address] [place] [address] Jan, IMMUNIZATIONS No Known Immunizations SOCIAL HISTORY Never Assessed REASON FOR VISIT PLAN OF CARE VITAL SIGNS Height 67 in 2013-05-13 Weight 157 lbs 2013-05-13 Temperature 98.4 degrees Fahrenheit 2013-05-13 Heart Rate 72 bpm 2013-05-13 Respiratory Rate 14 2013-05-13 Blood pressure systolic 122 mmHg 2013-05-13 Blood pressure diastolic 78 mmHg 2013-05-13 MEDICATIONS No Known Medications RESULTS No Results PROCEDURES Procedure Date Ordered Result Body Site INFLUENZA ASSAY W/OPTIC May 13, 2013 INSTRUCTIONS MEDICATIONS ADMINISTERED No Known Medications MEDICAL (GENERAL) HISTORY Type Description Date Medical History thyroid disorder -hypothyroid Medical History psychiatric disorder -depression Surgical History appendectomy
--- OUTSIDE RECORDS SUMMARY | 2019-09-14 09:42 | XMS REPORT ---
Author Author Kyleigh EDWARDS Organization [facility] Address [address] [place] [address] Care Team Providers Care Chair And Couch Maker Name Role Phone MIRIAN EDWARDS Unavailable PROBLEMS Type Condition ICD9-CM Code YCJ86-QW Code Onset Dates Condition S tatus SNOMED Code Problem History of gastric ulcer Z87.19 Activ e [id number] Problem Heat intolerance R68.89 Active 692 62102 Problem History of anxiety Z86.59 Active 1 53586499 Problem History of depression Z86.59 Active 071676124 Problem Graves disease E05.00 Active 28497 5004 Problem Desire for Z31.9 Active Problem Hypothyroidism E03.9 Active 18509 008 Problem Cold intolerance R68.89 Active 805 36299 Problem Substance abuse F19.10 Active 6621 4007 Problem Stress incontinence N39.3 Active 24696218 Problem History of irregular menstrual bleeding Z87.42 Active 896093554 Problem Tobacco use Z72.0 Active 15051290 0 Problem Depressive disorder F32.9 Active 32757341 Problem Diarrhea R19.7 Active 16657182 ALLERGIES No Information ENCOUNTERS Encounter Location Date Diagnosis [facility] [address] [facility] [id number] [address] [place] [address] August, Acute upper respiratory infe ction, unspecified J06.9 [facility] [address] [facility] [id number] [address] [place] [address] August, Pharyngitis due to other org anism J02.8 [facility] [address] [facility] [id number] [address] [place] [address] Jul, Dental examination Z01.20 [facility] [address] [facility] [id number] [address] [place] [address] 08 Jul, 2015 Allergic rhinitis J30.9 [place] [address] [address] [place] [id number] [address] [place] [address] 04 Jul, 2015 Hypothyroidism E03.9 [place] [address] [address] Jun, Dysuria R30.0 ; Hypothyroidi sm E03.9 ; Acute sinusitis J01.90 and Allergic rhinitis J30.9 [place] [address] [address] Mar, Graves disease E05.00 ; 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 strategic 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 Z72.0 ; Hypothyroidism E03.9 and Substance abuse F19.10 [place] [address] [address] Mar, [place] [address] [address] Mar, Encounter for IUD removal Z3 0.432 [...] menstrual bleeding Z87.42 and Stress incontinence N39.3 [place] [address] [address] Jul, [place] [address] [address] Jul, [place] [address] [address] Feb, [place] [address] [address] Feb, [place] [address] [address] Feb, [facility] [address] [id number] [address] [place] [address], [place] [address] Feb, [facility] [address] [id number] [address] [place] [address], [place] [address] Feb, [facility] [address] [id number] [address] [place] [address], [place] [address] Feb, [facility] [address] [id number] [address] [place] [address], [place] [address] Feb, [facility] [address] [id number] [address] [place] [address], [place] [address] Apr, [facility] [address] [id number] [address] [place] [address], [place] [address] Apr, [facility] [address] [id number] [address] [place] [address], [place] [address] Dec, [facility] [address] [id number] [address] [place] [address], [place] [address] Nov, [facility] [address] [id number] [address] [place] [address], [place] [address] Nov, [facility] [address] [id number] [address] [place] [address], [place] [address] Nov, [facility] [address] [id number] [address] [place] [address], [place] [address] Nov, [facility] [address] [id number] [address] [place] [address], [place] [address] Apr, [facility] [address] [id number] [address] [place] [address], [place] [address] Apr, [facility] [address] [id number] [address] [place] [address], [place] [address] Apr, [facility] [address] [id number] [address] [place] [address], [place] [address] Apr, [facility] [address] [id number] [address] [place] [address], [place] [address] Apr, [facility] [address] [id number] [address] [place] [address], [place] [address] 24 Mar, 2011 [facility] [address] [id number] [address] [place] [address], [place] [address] Nov, [facility] [address] [id number] [address] [place] [address], [place] [address] Mar, [facility] [address] [id number] [address] [place] [address], [place] [address] Mar, [facility] [address] [id number] [address] [place] [address], [place] [address] Mar, [facility] [address] [id number] [address] [place] [address], [place] [address] Mar, [facility] [address] [id number] [address] [place] [address], [place] [address] May, [facility] [address] [id number] [address] [place] [address], [place] [address] Mar, [facility] [address] [id number] [address] [place] [address], [place] [address] Mar, [facility] [address] [id number] [address] [place] [address], [place] [address] Mar, [facility] [address] [id number] [address] [place] [address], [place] [address] Feb, [facility] [address] [id number] [address] [place] [address], [place] [address] Feb, [facility] [address] [id number] [address] [place] [address], [place] [address] 15 Jan, 2009 [facility] [address] [id number] [address] [place] [address], [place] [address] 15 Jan, 2009 [facility] [address] [id number] [address] [place] [address], [place] [address] Jan, IMMUNIZATIONS No Known Immunizations SOCIAL HISTORY Never Assessed REASON FOR VISIT PLAN OF CARE VITAL SIGNS MEDICATIONS No Known Medications RESULTS No Results PROCEDURES No Known procedures INSTRUCTIONS MEDICATIONS ADMINISTERED No Known Medications MEDICAL (GENERAL) HISTORY Type Description Date Medical History thyroid disorder -hypothyroid Medical History psychiatric disorder -depression Surgical History appendectomy
--- OUTSIDE RECORDS SUMMARY | 2019-09-14 09:42 | XMS REPORT ---
Author Author Kyleigh Whipple Doctor Organization [facility] Address Unknown Phone Unavailable Care Team Providers Care Cost Manager Name Role Phone Migration, Doctor Unavailable Unavailable PROBLEMS Type Condition ICD9-CM Code RFA97-[id number] Code Onset Dates Condition S tatus SNOMED Code Problem History of gastric ulcer Z87.19 Activ e 899506244 Problem Heat intolerance R68.89 Active 692 91720 Problem History of anxiety Z86.59 Active 1 40158146 Problem History of depression Z86.59 Active 666817015 Problem Graves disease E05.00 Active 95582 5004 Problem Desire for Z31.9 Active Problem Hypothyroidism E03.9 Active 10492 008 Problem Cold intolerance R68.89 Active 805 96113 Problem Substance abuse F19.10 Active 6621 4007 Problem Stress incontinence N39.3 Active 11253503 Problem History of irregular menstrual bleeding Z87.42 Active 930202669 Problem Tobacco use Z72.0 Active 82269018 0 Problem Depressive disorder F32.9 Active 44062324 Problem Diarrhea R19.7 Active 27034398 ALLERGIES No Information ENCOUNTERS Encounter Location Date Diagnosis [facility] [address] [id number] [address] [place] [id number] 22 Aug, 2016 Acute upper respiratory infe ction, unspecified J06.9 [facility] [address] [place] [address] August, Pharyngitis due to other org anism J02.8 [facility] [address] [facility] [id number] [address] [place] [phone] 12 Jul, 2015 Dental examination Z01.20 [facility] [address] [id number] [address] [place] [phone] 08 Jul, 2015 Allergic rhinitis J30.9 [facility] [address] [id number] [address] [place] [address] Jul, Hypothyroidism E03.9 [facility] [address] [id number] [address] [place] [address] Jun, Dysuria R30.0 ; Hypothyroidi sm E03.9 ; Acute sinusitis J01.90 and Allergic rhinitis J30.9 [place] [id number] [place] [address] Mar, Graves disease E05.00 ; Toba staffing account manager use Z72.0 ; Hypothyroidism E03.9 and Substance abuse F19.10 [place] [address] [address] Mar, [place] [address] [address] Mar, Encounter for IUD removal Z3 0.432 [...] menstrual bleeding Z87.42 and Stress incontinence N39.3 [place] [address] [id number] [place] [phone] Jul, [place] [address] [id number] [place] [address] Jul, [place] [address] [id number] [place] [address] Feb, [place] [address] [address] Feb, [place] [address] [id number] [place] [address] Feb, [place] [address] [place] [address] Feb, [facility] [address] [id number] [address] [place] [address], [place] [address] Feb, [facility] [address] [id number] [address] [place] [address], [place] [address] Feb, [facility] [address] [id number] [address] [place] [address], [place] [address] Feb, [facility] [address] [id number] [address] [place] [address], [place] [address] Apr, [facility] [address] [id number] [address] [place] [address], [place] [address] Apr, [facility] [address] [id number] [address] [place] [address], [place] [address] Dec, [facility] [address] [id number] [address] [place] [address], [place] [address] Nov, [facility] [address] [id number] [address] [place] [address], [place] [address] Nov, [facility] [address] [id number] [address] [place] [address], [place] [address] Nov, [facility] [address] [id number] [address] [place] [address], [place] [address] Nov, [facility] [address] [id number] [address] [place] [address], [place] [address] Apr, [facility] [address] [id number] [address] [place] [address], [place] [address] Apr, [facility] [address] [id number] [address] [place] [address], [place] [address] Apr, [facility] [address] [id number] [address] [place] [address], [place] [address] Apr, [facility] [address] [id number] [address] [place] [address], [place] [address] Apr, [facility] [address] [id number] [address] [place] [phone] 24 Mar, 2011 [facility] [address] [id number] [address] [place] [address] Nov, [facility] [address] [id number] [address] [place] [address] Mar, [facility] [address] [id number] [address] [place] [address] Mar, [facility] [address] [id number] [address] [place] [address] Mar, [facility] [address] [id number] [address] [place] [address] Mar, [facility] [address] [id number] [address] [place] [address] May, [facility] [address] [id number] [address] [place] [address] Mar, [facility] [address] [id number] [address] [place] [address] Mar, [facility] [address] [id number] [address] [place] [address] Mar, [facility] [address] [id number] [address] [place] [address] Feb, [facility] [address] [id number] [address] [place] [address] Feb, [facility] [address] [id number] [address] [place] [address] 15 Jan, 2009 [facility] [address] [id number] [address] [place] [address] Jan, [facility] [address] [id number] [address] [place] [address] 13 Jan, 2009 IMMUNIZATIONS No Known Immunizations SOCIAL HISTORY Never Assessed REASON FOR VISIT EMR-Will PLAN OF CARE VITAL SIGNS MEDICATIONS Medication Instructions Dosage Frequency Start Date End Date Duration S tatus Cipro 500 mg 1 tablet by Oral rou te every 12 hours for 7 day(s) Stop the Bactrim Feb, Active Flagyl 500 mg 1 tablet by Oral route 2 times per day f or 7 days Apr, Active Zithromax Z-Magdi 250 mg 2 tablet by Oral route 1 time per day for 1 days then take 1 tab daily on days 2-5 Apr, Active RESULTS No Results PROCEDURES No Known procedures INSTRUCTIONS MEDICATIONS ADMINISTERED No Known Medications MEDICAL (GENERAL) HISTORY Type Description Date Medical History thyroid disorder -hypothyroid Medical History psychiatric disorder -depression Surgical History appendectomy
--- OUTSIDE RECORDS SUMMARY | 2019-09-14 09:42 | XMS REPORT ---
Author Author Kyleigh Whipple Doctor Organization [facility] Address Unknown Phone Unavailable Care Team Providers Care Residential Green Building Designer Name Role Phone Migration, Doctor Unavailable Unavailable PROBLEMS Type Condition ICD9-CM Code UIT72-LJ Code Onset Dates Condition S tatus SNOMED Code Problem History of gastric ulcer Z87.19 Activ e 826343970 Problem Heat intolerance R68.89 Active 692 60115 Problem History of anxiety Z86.59 Active 1 07620214 Problem History of depression Z86.59 Active 824045489 Problem Graves disease E05.00 Active 49654 5004 Problem Desire for Z31.9 Active Problem Hypothyroidism E03.9 Active 17979 008 Problem Cold intolerance R68.89 Active 805 26001 Problem Substance abuse F19.10 Active 6621 4007 Problem Stress incontinence N39.3 Active 01171271 Problem History of irregular menstrual bleeding Z87.42 Active 739154641 Problem Tobacco use Z72.0 Active 93890053 0 Problem Depressive disorder F32.9 Active 00759059 Problem Diarrhea R19.7 Active 58469626 ALLERGIES No Information ENCOUNTERS Encounter Location Date Diagnosis [facility] [address] [facility] [id number] [address] [place] [phone] 22 Aug, 2016 Acute upper respiratory infe ction, unspecified J06.9 [facility] [address] [place] [address] August, Pharyngitis due to other org anism J02.8 [facility] [address] [facility] [id number] [address] [place] [address] 12 Jul, 2015 Dental examination Z01.20 [facility] [address] [facility] [id number] [address] [place] [id number] 08 Jul, 2015 Allergic rhinitis J30.9 [facility] [address] [id number] [address] [place] [address] Jul, Hypothyroidism E03.9 [facility] [address] [id number] [address] [place] [address] Jun, Dysuria R30.0 ; Hypothyroidi sm E03.9 ; Acute sinusitis J01.90 and Allergic rhinitis J30.9 [place] [address] [id number] [address] [place] [address] Mar, Graves disease E05.00 ; 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 ; Hypothyroidism E03.9 and Substance abuse F19.10 [place] [address] [address] Mar, [place] [address] [address] Mar, Encounter for IUD removal Z3 0.432 [...] menstrual bleeding Z87.42 and Stress incontinence N39.3 [place] [address] [id number] [place] [address] Jul, [place] [address] [id number] [place] [phone] Jul, [place] [address] [id number] [address] [place] [address] Feb, [place] [address] [address] Feb, [place] [address] [id number] [place] [phone] Feb, [place] [address] [place] [address] Feb, [facility] [address] [id number] [address] [place] [address], [place] [address] Feb, [facility] [address] [id number] [address] [place] [address], [place] [address] Feb, [facility] [address] [id number] [address] [place] [address], [place] [address] Feb, [facility] [address] [id number] [address] [place] [address], [place] [address] Apr, [facility] [address] [id number] [address] [place] [address], [place] [address] Apr, [facility] [address] [id number] [address] [place] [address], [place] [address] Dec, [facility] [address] [id number] [address] [place] [address], [place] [address] Nov, [facility] [address] [id number] [address] [place] [address], [place] [address] Nov, [facility] [address] [id number] [address] [place] [address], [place] [address] Nov, [facility] [address] [id number] [address] [place] [address], [place] [address] Nov, [facility] [address] [id number] [address] [place] [address], [place] [address] Apr, [facility] [address] [id number] [address] [place] [address], [place] [address] Apr, [facility] [address] [id number] [address] [place] [address], [place] [address] Apr, [facility] [address] [id number] [address] [place] [address], [place] [address] Apr, [facility] [address] [id number] [address] [place] [address], [place] [address] Apr, [facility] [address] [id number] [address] [place] [phone] 24 Mar, 2011 [facility] [address] [id number] [address] [place] [address] Nov, [facility] [address] [id number] [address] [place] [id number] Mar, [facility] [address] [id number] [address] [place] [phone] Mar, [facility] [address] [id number] [address] [place] [phone] Mar, [facility] [address] [id number] [address] [place] [address] Mar, [facility] [address] [id number] [address] [place] [address] May, [facility] [address] [id number] [address] [place] [address] Mar, [facility] [address] [id number] [address] [place] [address] Mar, [facility] [address] [id number] [address] [place] [address] Mar, [facility] [address] [id number] [address] [place] [phone] Feb, [facility] [address] [id number] [address] [place] [address] Feb, [facility] [address] [id number] [address] [place] [phone] 15 Jan, 2009 [facility] [address] [id number] [address] [place] [phone] Jan, [facility] [address] [id number] [address] [place] [address] 13 Jan, 2009 IMMUNIZATIONS No Known Immunizations SOCIAL HISTORY Never Assessed REASON FOR VISIT EMR-[facility] PLAN OF CARE VITAL SIGNS MEDICATIONS No Known Medications RESULTS No Results PROCEDURES No Known procedures INSTRUCTIONS MEDICATIONS ADMINISTERED No Known Medications MEDICAL (GENERAL) HISTORY Type Description Date Medical History thyroid disorder -hypothyroid Medical History psychiatric disorder -depression Surgical History appendectomy
--- OUTSIDE RECORDS SUMMARY | 2019-09-14 09:43 | XMS REPORT | Continuity of Care Document ---
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 - 12/31/17 14:4 5 FREE TEXT EXTERNAL RML FINAL REPORT 01/02/18 12:05 NRG QUANTITY OF GROWTH . NRG Bacterial sputum culture USUAL RESP NRG Serum or plasma lactate measurement (mol es/volume) - 12/31/17 15:09 Serum or plasma lactate measurement (moles/volume) 2.32 mmol/L 0.50-2.00 Methicillin resistant Staphylococcus aur eus (MRSA) screening culture - 12/31/17 15:19 Methicillin resistant Staphylococcus aureus (MRSA) scr eening culture NEG NRG Complete blood count (CBC) with automate d white blood cell (WBC) differential - 12/31/17 15:24 Blood leukocytes automated count (number/volume) 9.7 10*3/uL 4.3-11.0 Blood erythrocytes automated count (number/volume) 3.17 10*6/uL 4.35-5.85 Venous blood hemoglobin measurement (mass/volume) 11.4 g/dL 11.5-16.0 Blood hematocrit (volume fraction) 32 % 35-52 Automated erythrocyte mean corpuscular volume 102 [foz_us] 80-99 Automated erythrocyte mean corpuscular h emoglobin (mass per erythrocyte) 36 pg 25-34 Automated erythrocyte mean corpuscular h emoglobin concentration measurement (mass/volume) 35 g/dL 32-36 Automated erythrocyte distribution width ratio 13. 6 % 10.0- 14.5 Automated blood platelet count (count/volume) 342 10*3/uL 130-400 Automated blood platelet mean volume measurement 9.0 [foz_us] 7.4-10.4 Automated blood neutrophils/100 leukocytes 89 % 42-75 Automated blood lymphocytes/100 leukocytes 8 % 12-44 Blood monocytes/100 leukocytes 2 % 0-12 Automated blood eosinophils/100 leukocytes 0 % 0-10 Automated blood basophils/100 leukocytes 0 % 0-10 Blood neutrophils automated count (number/volume) 8.7 10*3 1.8-7.8 Blood lymphocytes automated count (number/volume) 0.8 10*3 1.0-4.0 Blood monocytes automated count (number/volume) 0. 2 10*3 0.0-1.0 Automated eosinophil count 0.0 10*3/uL 0 .0-0.3 Automated blood basophil count (count/volume) 0.0 10*3/uL 0.0-0.1 Whole blood basic metabolic panel - 12/16 10/02 15:24 Serum or plasma sodium measurement (moles/volume) 137 mmol/L 135-145 Serum or plasma potassium measurement (moles/volume) 2.7 mmol/L 3.6-5.0 Serum or plasma chloride measurement (moles/volume) 106 mmol/L 98-107 Carbon dioxide 16 mmol/L 21-32 Serum or plasma anion gap determination (moles/volume) 15 mmol/L 5-14 Serum or plasma urea nitrogen measurement (mass/volume ) 8 mg/dL 7-18 Serum or plasma creatinine measurement (mass/volume) 0.65 mg/dL 0.60-1.30 Serum or plasma urea nitrogen/creatinine mass ratio 12 NRG Serum or plasma creatinine measurement w ith calculation of estimated glomerular filtration rate > NRG Serum or plasma glucose measurement (mass/volume) 300 mg/dL 70-105 Serum or plasma calcium measurement (mass/volume) 7.5 mg/dL 8.5-10.1 Serum or plasma triglyceride measurement (mass/volume) - 12/31/17 15:24 Serum or plasma triglyceride measurement (mass/volume) 110 mg/dL <150 Serum or plasma ethanol measurement (mas s/volume) - 12/31/17 15:24 Serum or plasma ethanol measurement (mass/volume) 67 mg/dL <10 Urine drug screening test - 12/31/17 15: 24 Urine phencyclidine detection by screening method NEGATIVE NEGATIVE Urine benzodiazepines detection by screening method POSITIVE NEGATIVE Urine cocaine detection NEGATIVE NEGATI VE Urine amphetamines detection by screening method N EGATIVE NEGATIVE Urine methamphetamine detection by screening method NEGATIVE NEGATIVE Urine cannabinoids detection by screening method P OSITIVE NEGATIVE Urine opiates detection by screening method NEGATI VE NEGATIVE Urine barbiturates detection NEGATIVE N EGATIVE Screening urine tricyclic antidepressants detection NEGATIVE NEGATIVE Urine methadone detection by screening method NEGA TIVE NEGATIVE Urine oxycodone detection NEGATIVE NEGA TIVE Urine propoxyphene detection NEGATIVE N EGATIVE Capillary blood glucose measurement by g lucometer (mass/volume) - 12/31/17 16:06 Capillary blood glucose measurement by glucometer (mas s/volume) 262 mg/dL 70-110 Blood lactic acid measurement (moles/vol ume) - 12/31/17 20:55 Blood lactic acid measurement (moles/volume) 0.73 mmol/L 0.50-2.00 Whole blood basic metabolic panel - 12/16 10/02 20:55 Serum or plasma sodium measurement (moles/volume) 136 mmol/L 135-145 Serum or plasma potassium measurement (moles/volume) 4.0 mmol/L 3.6-5.0 Serum or plasma chloride measurement (moles/volume) 105 mmol/L 98-107 Carbon dioxide 21 mmol/L 21-32 Serum or plasma anion gap determination (moles/volume) 10 mmol/L 5-14 Serum or plasma urea nitrogen measurement (mass/volume ) 7 mg/dL 7-18 Serum or plasma creatinine measurement (mass/volume) 0.66 mg/dL 0.60-1.30 Serum or plasma urea nitrogen/creatinine mass ratio 11 NRG Serum or plasma creatinine measurement w ith calculation of estimated glomerular filtration rate > NRG Serum or plasma glucose measurement (mass/volume) 261 mg/dL 70-105 Serum or plasma calcium measurement (mass/volume) 7.9 mg/dL 8.5-10.1 Serum or plasma phosphate measurement (m ass/volume) - 12/31/17 20:55 Serum or plasma phosphate measurement (mass/volume) 2.2 mg/dL 2.3-4.7 Magnesium - 12/31/17 20:55 Magnesium 1.9 mg/dL 1.8-2.4 Complete blood count (CBC) with automate d white blood cell (WBC) differential - 12/31/17 20:55 Blood leukocytes automated count (number/volume) 13.5 10*3/uL 4.3-11.0 Blood erythrocytes automated count (number/volume) 3.17 10*6/uL 4.35-5.85 Venous blood hemoglobin measurement (mass/volume) 11.4 g/dL 11.5-16.0 Blood hematocrit (volume fraction) 31 % 35-52 Automated erythrocyte mean corpuscular volume 98 [ foz_us] 80-99 Automated erythrocyte mean corpuscular h emoglobin (mass per erythrocyte) 36 pg 25-34 Automated erythrocyte mean corpuscular h emoglobin concentration measurement (mass/volume) 37 g/dL 32-36 Automated erythrocyte distribution width ratio 13. 5 % 10.0- 14.5 Automated blood platelet count (count/volume) 281 10*3/uL 130-400 Automated blood platelet mean volume measurement 9.0 [foz_us] 7.4-10.4 Automated blood neutrophils/100 leukocytes 93 % 42-75 Automated blood lymphocytes/100 leukocytes 5 % 12-44 Blood monocytes/100 leukocytes 2 % 0-12 Automated blood eosinophils/100 leukocytes 0 % 0-10 Automated blood basophils/100 leukocytes 0 % 0-10 Blood neutrophils automated count (number/volume) 12.6 10*3 1.8-7.8 Blood lymphocytes automated count (number/volume) 0.6 10*3 1.0-4.0 Blood monocytes automated count (number/volume) 0. 3 10*3 0.0-1.0 Automated eosinophil count 0.0 10*3/uL 0 .0-0.3 Automated blood basophil count (count/volume) 0.0 10*3/uL 0.0-0.1 Blood manual differential performed dete ction - 12/31/17 20:55 Blood monocytes/100 leukocytes 2 % NRG Manual blood segmented neutrophils/100 leukocytes 83 % NRG Blood band neutrophils/100 leukocytes 9 % NRG Manual blood lymphocytes/100 leukocytes 6 % NRG Manual eosinophils/100 leukocytes in nose 0 % NRG Manual blood basophils/100 leukocytes 0 % NRG Blood erythrocyte morphology finding identification NORMAL NRG Capillary blood glucose measurement by g lucometer (mass/volume) - 12/31/17 23:58 Capillary blood glucose measurement by glucometer (mas s/volume) 169 mg/dL 70-110 Arterial blood gas measurement - 8 03:35 Blood pCO2 35 mm[Hg] 35-45 Blood pO2 135 mm[Hg] 79-93 Arterial blood bicarbonate measurement (moles/volume) 23 mmol/L 23-27 Arterial blood base excess by calculation -1.1 mmo l/L -2.5-2.5 Arterial blood oxygen saturation measurement 99 % 94-100 * Inhaled oxygen flow rate 75% NRG Arterial blood pH measurement with patient temperature correction 7.43 7.37-7.43 Arterial blood carbon dioxide, total measurement (mole s/volume) 23.6 mmol/L 21.0-31.0 Body site RT RAD NRG Assessment of wrist artery patency prior to arterial p uncture YES-POS NRG Setting of ventilation mode YES NR G Measurement of body temperature 99 NRG Complete blood count (CBC) with automate d white blood cell (WBC) differential - 01/01/18 03:35 Blood leukocytes automated count (number/volume) 14.0 10*3/uL 4.3-11.0 Blood erythrocytes automated count (number/volume) 3.44 10*6/uL 4.35-5.85 Venous blood hemoglobin measurement (mass/volume) 12.1 g/dL 11.5-16.0 Blood hematocrit (volume fraction) 35 % 35-52 Automated erythrocyte mean corpuscular volume 101 [foz_us] 80-99 Automated erythrocyte mean corpuscular h emoglobin (mass per erythrocyte) 35 pg 25-34 Automated erythrocyte mean corpuscular h emoglobin concentration measurement (mass/volume) 35 g/dL 32-36 Automated erythrocyte distribution width ratio 13. 7 % 10.0- 14.5 Automated blood platelet count (count/volume) 315 10*3/uL 130-400 Automated blood platelet mean volume measurement 9.1 [foz_us] 7.4-10.4 Automated blood neutrophils/100 leukocytes 93 % 42-75 Automated blood lymphocytes/100 leukocytes 5 % 12-44 Blood monocytes/100 leukocytes 2 % 0-12 Automated blood eosinophils/100 leukocytes 0 % 0-10 Automated blood basophils/100 leukocytes 0 % 0-10 Blood neutrophils automated count (number/volume) 13.0 10*3 1.8-7.8 Blood lymphocytes automated count (number/volume) 0.7 10*3 1.0-4.0 Blood monocytes automated count (number/volume) 0. 3 10*3 0.0-1.0 Automated eosinophil count 0.0 10*3/uL 0 .0-0.3 Automated blood basophil count (count/volume) 0.0 10*3/uL 0.0-0.1 Comprehensive metabolic panel - 01/01/18 03:35 Serum or plasma sodium measurement (moles/volume) 136 mmol/L 135-145 Serum or plasma potassium measurement (moles/volume) 4.1 mmol/L 3.6-5.0 Serum or plasma chloride measurement (moles/volume) 105 mmol/L 98-107 Carbon dioxide 21 mmol/L 21-32 Serum or plasma anion gap determination (moles/volume) 10 mmol/L 5-14 Serum or plasma urea nitrogen measurement (mass/volume ) 6 mg/dL 7-18 Serum or plasma creatinine measurement (mass/volume) 0.63 mg/dL 0.60-1.30 Serum or plasma urea nitrogen/creatinine mass ratio 10 NRG Serum or plasma creatinine measurement w ith calculation of estimated glomerular filtration rate > NRG Serum or plasma glucose measurement (mass/volume) 121 mg/dL 70-105 Serum or plasma calcium measurement (mass/volume) 8.0 mg/dL 8.5-10.1 Serum or plasma total bilirubin measurement (mass/volu me) 0.8 mg/dL 0.1-1.0 Serum or plasma alkaline phosphatase linnea surement (enzymatic activity/volume) 88 U/L 40-136 Serum or plasma aspartate aminotransfera se measurement (enzymatic activity/volume) 42 U/L 5-34 Serum or plasma alanine aminotransferase measurement (enzymatic activity/volume) 25 U/L 0-55 Serum or plasma protein measurement (mass/volume) 6.1 g/dL 6.4-8.2 Serum or plasma albumin measurement (mass/volume) 3.5 g/dL 3.2-4.5 CALCIUM CORRECTED 8.4 mg/dL 8.5-10.1 Serum or plasma phosphate measurement (m ass/volume) - 01/01/18 03:35 Serum or plasma phosphate measurement (mass/volume) 2.4 mg/dL 2.3-4.7 Magnesium - 01/01/18 03:35 Magnesium 1.7 mg/dL 1.8-2.4 Occult blood panel - gastric fluid - 06:00 Gastric fluid gastrointestinal hemoglobin detection Positive NRG Capillary blood glucose measurement by g lucometer (mass/volume) - 01/01/18 08:13 Capillary blood glucose measurement by glucometer (mas s/volume) 169 mg/dL 70-110 Complete blood count (CBC) with automate d white blood cell (WBC) differential - 01/01/18 16:05 Blood leukocytes automated count (number/volume) 18.5 10*3/uL 4.3-11.0 Blood erythrocytes automated count (number/volume) 3.49 10*6/uL 4.35-5.85 Venous blood hemoglobin measurement (mass/volume) 12.4 g/dL 11.5-16.0 Blood hematocrit (volume fraction) 35 % 35-52 Automated erythrocyte mean corpuscular volume 101 [foz_us] 80-99 Automated erythrocyte mean corpuscular h emoglobin (mass per erythrocyte) 36 pg 25-34 Automated erythrocyte mean corpuscular h emoglobin concentration measurement (mass/volume) 35 g/dL 32-36 Automated erythrocyte distribution width ratio 13. 6 % 10.0- 14.5 Automated blood platelet count (count/volume) 295 10*3/uL 130-400 Automated blood platelet mean volume measurement 9.9 [foz_us] 7.4-10.4 Automated blood neutrophils/100 leukocytes 93 % 42-75 Automated blood lymphocytes/100 leukocytes 3 % 12-44 Blood monocytes/100 leukocytes 4 % 0-12 Automated blood eosinophils/100 leukocytes 0 % 0-10 Automated blood basophils/100 leukocytes 0 % 0-10 Blood neutrophils automated count (number/volume) 17.1 10*3 1.8-7.8 Blood lymphocytes automated count (number/volume) 0.6 10*3 1.0-4.0 Blood monocytes automated count (number/volume) 0. 7 10*3 0.0-1.0 Automated eosinophil count 0.0 10*3/uL 0 .0-0.3 Automated blood basophil count (count/volume) 0.0 10*3/uL 0.0-0.1 Whole blood basic metabolic panel - 12/16 11/01 16:05 Serum or plasma sodium measurement (moles/volume) 135 mmol/L 135-145 Serum or plasma potassium measurement (moles/volume) 3.2 mmol/L 3.6-5.0 Serum or plasma chloride measurement (moles/volume) 103 mmol/L 98-107 Carbon dioxide 22 mmol/L 21-32 Serum or plasma anion gap determination (moles/volume) 10 mmol/L 5-14 Serum or plasma urea nitrogen measurement (mass/volume ) 5 mg/dL 7-18 Serum or plasma creatinine measurement (mass/volume) 0.66 mg/dL 0.60-1.30 Serum or plasma urea nitrogen/creatinine mass ratio 8 NRG Serum or plasma creatinine measurement w ith calculation of estimated glomerular filtration rate > NRG Serum or plasma glucose measurement (mass/volume) 158 mg/dL 70-105 Serum or plasma calcium measurement (mass/volume) 8.2 mg/dL 8.5-10.1 Capillary blood glucose measurement by g lucometer (mass/volume) - 01/01/18 23:21 Capillary blood glucose measurement by glucometer (mas s/volume) 183 mg/dL 70-110 Complete blood count (CBC) with automate d white blood cell (WBC) differential - 01/02/18 03:34 Blood leukocytes automated count (number/volume) 16.4 10*3/uL 4.3-11.0 Blood erythrocytes automated count (number/volume) 3.26 10*6/uL 4.35-5.85 Venous blood hemoglobin measurement (mass/volume) 11.7 g/dL 11.5-16.0 Blood hematocrit (volume fraction) 32 % 35-52 Automated erythrocyte mean corpuscular volume 99 [ foz_us] 80-99 Automated erythrocyte mean corpuscular h emoglobin (mass per erythrocyte) 36 pg 25-34 Automated erythrocyte mean corpuscular h emoglobin concentration measurement (mass/volume) 36 g/dL 32-36 Automated erythrocyte distribution width ratio 13. 4 % 10.0- 14.5 Automated blood platelet count (count/volume) 258 10*3/uL 130-400 Automated blood platelet mean volume measurement 9.2 [foz_us] 7.4-10.4 Automated blood neutrophils/100 leukocytes 96 % 42-75 Automated blood lymphocytes/100 leukocytes 2 % 12-44 Blood monocytes/100 leukocytes 2 % 0-12 Automated blood eosinophils/100 leukocytes 0 % 0-10 Automated blood basophils/100 leukocytes 0 % 0-10 Blood neutrophils automated count (number/volume) 15.7 10*3 1.8-7.8 Blood lymphocytes automated count (number/volume) 0.4 10*3 1.0-4.0 Blood monocytes automated count (number/volume) 0. 3 10*3 0.0-1.0 Automated eosinophil count 0.0 10*3/uL 0 .0-0.3 Automated blood basophil count (count/volume) 0.0 10*3/uL 0.0-0.1 Whole blood basic metabolic panel - 12/16 12/02 03:34 Serum or plasma sodium measurement (moles/volume) 136 mmol/L 135-145 Serum or plasma potassium measurement (moles/volume) 3.0 mmol/L 3.6-5.0 Serum or plasma chloride measurement (moles/volume) 103 mmol/L 98-107 Carbon dioxide 22 mmol/L 21-32 Serum or plasma anion gap determination (moles/volume) 11 mmol/L 5-14 Serum or plasma urea nitrogen measurement (mass/volume ) 4 mg/dL 7-18 Serum or plasma creatinine measurement (mass/volume) 0.63 mg/dL 0.60-1.30 Serum or plasma urea nitrogen/creatinine mass ratio 6 NRG Serum or plasma creatinine measurement w ith calculation of estimated glomerular filtration rate > NRG Serum or plasma glucose measurement (mass/volume) 182 mg/dL 70-105 Serum or plasma calcium measurement (mass/volume) 8.4 mg/dL 8.5-10.1 Serum or plasma phosphate measurement (m ass/volume) - 01/02/18 03:34 Serum or plasma phosphate measurement (mass/volume) 1.7 mg/dL 2.3-4.7 Magnesium - 01/02/18 03:34 Magnesium 1.8 mg/dL 1.8-2.4 Serum or plasma triglyceride measurement (mass/volume) - 01/02/18 03:34 Serum or plasma triglyceride measurement (mass/volume) 59 mg/dL <150 Capillary blood glucose measurement by g lucometer (mass/volume) - 01/02/18 15:27 Capillary blood glucose measurement by glucometer (mas s/volume) 119 mg/dL 70-110 Complete blood count (CBC) with automate d white blood cell (WBC) differential - 01/03/18 04:04 Blood leukocytes automated count (number/volume) 17.7 10*3/uL 4.3-11.0 Blood erythrocytes automated count (number/volume) 3.16 10*6/uL 4.35-5.85 Venous blood hemoglobin measurement (mass/volume) 11.2 g/dL 11.5-16.0 Blood hematocrit (volume fraction) 32 % 35-52 Automated erythrocyte mean corpuscular volume 101 [foz_us] 80-99 Automated erythrocyte mean corpuscular h emoglobin (mass per erythrocyte) 35 pg 25-34 Automated erythrocyte mean corpuscular h emoglobin concentration measurement (mass/volume) 35 g/dL 32-36 Automated erythrocyte distribution width ratio 13. 8 % 10.0- 14.5 Automated blood platelet count (count/volume) 242 10*3/uL 130-400 Automated blood platelet mean volume measurement 9.1 [foz_us] 7.4-10.4 Automated blood neutrophils/100 leukocytes 93 % 42-75 Automated blood lymphocytes/100 leukocytes 4 % 12-44 Blood monocytes/100 leukocytes 3 % 0-12 Automated blood eosinophils/100 leukocytes 0 % 0-10 Automated blood basophils/100 leukocytes 0 % 0-10 Blood neutrophils automated count (number/volume) 16.5 10*3 1.8-7.8 Blood lymphocytes automated count (number/volume) 0.7 10*3 1.0-4.0 Blood monocytes automated count (number/volume) 0. 6 10*3 0.0-1.0 Automated eosinophil count 0.0 10*3/uL 0 .0-0.3 Automated blood basophil count (count/volume) 0.0 10*3/uL 0.0-0.1 Whole blood basic metabolic panel - 12/16 01/02 04:04 Serum or plasma sodium measurement (moles/volume) 139 mmol/L 135-145 Serum or plasma potassium measurement (moles/volume) 2.9 mmol/L 3.6-5.0 Serum or plasma chloride measurement (moles/volume) 104 mmol/L 98-107 Carbon dioxide 26 mmol/L 21-32 Serum or plasma anion gap determination (moles/volume) 9 mmol/L 5-14 Serum or plasma urea nitrogen measurement (mass/volume ) 4 mg/dL 18 Serum or plasma creatinine measurement (mass/volume) 0.59 mg/dL 0.60-1.30 Serum or plasma urea nitrogen/creatinine mass ratio 7 NRG Serum or plasma creatinine measurement w ith calculation of estimated glomerular filtration rate > NRG Serum or plasma glucose measurement (mass/volume) 128 mg/dL 70-105 Serum or plasma calcium measurement (mass/volume) 8.5 mg/dL 8.5-10.1 Serum or plasma phosphate measurement (m ass/volume) - 01/03/18 04:04 Serum or plasma phosphate measurement (mass/volume) 2.9 mg/dL 2.3-4.7 Magnesium - 01/03/18 04:04 Magnesium 1.5 mg/dL 1.8-2.4 Capillary blood glucose measurement by g lucometer (mass/volume) - 01/03/18 05:02 Capillary blood glucose measurement by glucometer (mas s/volume) 117 mg/dL 70-110 Whole blood basic metabolic panel - 12/16 01/02 14:45 Serum or plasma sodium measurement (moles/volume) 135 mmol/L 135-145 Serum or plasma potassium measurement (moles/volume) 3.3 mmol/L 3.6-5.0 Serum or plasma chloride measurement (moles/volume) 101 mmol/L 98-107 Carbon dioxide 28 mmol/L -32 Serum or plasma anion gap determination (moles/volume) 6 mmol/L 5-14 Serum or plasma urea nitrogen measurement (mass/volume ) 4 mg/dL -18 Serum or plasma creatinine measurement (mass/volume) 0.65 mg/dL 0.60-1.30 Serum or plasma urea nitrogen/creatinine mass ratio 6 NRG Serum or plasma creatinine measurement w ith calculation of estimated glomerular filtration rate > NRG Serum or plasma glucose measurement (mass/volume) 67 mg/dL 70-105 Serum or plasma calcium measurement (mass/volume) 8.6 mg/dL 8.5-10.1 Capillary blood glucose measurement by g lucometer (mass/volume) - 01/03/18 15:50 Capillary blood glucose measurement by glucometer (mas s/volume) 88 mg/dL 70-110 Complete blood count (CBC) with automate d white blood cell (WBC) differential - 01/04/18 05:00 Blood leukocytes automated count (number/volume) 11.6 10*3/uL 4.3-11.0 Blood erythrocytes automated count (number/volume) 3.25 10*6/uL 4.35-5.85 Venous blood hemoglobin measurement (mass/volume) 11.7 g/dL 11.5-16.0 Blood hematocrit (volume fraction) 33 % 35-52 Automated erythrocyte mean corpuscular volume 101 [foz_us] 80-99 Automated erythrocyte mean corpuscular h emoglobin (mass per erythrocyte) 36 pg 25-34 Automated erythrocyte mean corpuscular h emoglobin concentration measurement (mass/volume) 36 g/dL 32-36 Automated erythrocyte distribution width ratio 13. 8 % 10.0- 14.5 Automated blood platelet count (count/volume) 211 10*3/uL 130-400 Automated blood platelet mean volume measurement 9.5 [foz_us] 7.4-10.4 Automated blood neutrophils/100 leukocytes 66 % 42-75 Automated blood lymphocytes/100 leukocytes 27 % 12-44 Blood monocytes/100 leukocytes 5 % 0-12 Automated blood eosinophils/100 leukocytes 1 % 0-10 Automated blood basophils/100 leukocytes 0 % 0-10 Blood neutrophils automated count (number/volume) 7.7 10*3 1.8-7.8 Blood lymphocytes automated count (number/volume) 3.1 10*3 1.0-4.0 Blood monocytes automated count (number/volume) 0. 6 10*3 0.0-1.0 Automated eosinophil count 0.1 10*3/uL 0 .0-0.3 Automated blood basophil count (count/volume) 0.0 10*3/uL 0.0-0.1 Whole blood basic metabolic panel - 12/17 05:00 Serum or plasma sodium measurement (moles/volume) 138 mmol/L 135-145 Serum or plasma potassium measurement (moles/volume) 3.0 mmol/L 3.6-5.0 Serum or plasma chloride measurement (moles/volume) 102 mmol/L 98-107 Carbon dioxide 28 mmol/L 21-32 Serum or plasma anion gap determination (moles/volume) 8 mmol/L 5-14 Serum or plasma urea nitrogen measurement (mass/volume ) 3 mg/dL 7-18 Serum or plasma creatinine measurement (mass/volume) 0.62 mg/dL 0.60-1.30 Serum or plasma urea nitrogen/creatinine mass ratio 5 NRG Serum or plasma creatinine measurement w ith calculation of estimated glomerular filtration rate > NRG Serum or plasma glucose measurement (mass/volume) 74 mg/dL 70-105 Serum or plasma calcium measurement (mass/volume) 8.6 mg/dL 8.5-10.1 Serum or plasma phosphate measurement (m ass/volume) - 01/04/18 05:00 Serum or plasma phosphate measurement (mass/volume) 1.5 mg/dL 2.3-4.7 Magnesium - 01/04/18 05:00 Magnesium 1.8 mg/dL 1.8-2.4 Capillary blood glucose measurement by g lucometer (mass/volume) - 01/04/18 05:34 Capillary blood glucose measurement by glucometer (mas s/volume) 80 mg/dL 70-110 COMPLETE BLOOD COUNT W/DIFF - 08/22/18 1 4:35 HEMATOCRIT 41.9 % 37.0-47.0 HEMOGLOBIN 13.5 g/dL 12.0-16.0 MCH 32.1 pG 27.0-31.0 MCHC 32.2 g/dL 33.0-37.0 MCV 99.6 fL 80.0-99.0 PLATELET COUNT 237 x10-3/uL 130-400 RED BLOOD COUNT 4.21 x10-6/uL 4.20-5.40 RED CELL DISTRIBUTION WIDTH 12.9 % 11 .5-14.5 WHITE BLOOD COUNT 6.7 x10-3/uL 4.8-10.8 Neutrophils Percent Auto 56.0 % 40.0- 75.0 Lymphocytes Percent Auto 33.7 % 18.0- 47.0 Monocytes Percent Auto 7.5 % 0.0-10. 0 Eosinophils Percent Auto 1.8 % 0.0-6 .0 Basophils Percent Auto 1.0 % 0.0-2.0 Neutrophils Absolute Auto 3.8 x10-3/uL 1 .9-8.1 Lymphocytes Absolute Auto 2.3 x10-3/uL 0.9-5.1 Monocytes Absolute Auto 0.5 x10-3/uL 0.1 -0.9 Eosinophils Absolute Auto 0.1 x10-3/uL 0 .0-0.6 Basophils Absolute Auto 0.1 x10-3/uL 0.0 -0.2 COMPREHENSIVE METABOLIC PANEL - 08/22/18 14:35 ALBUMIN/GLOBULIN RATIO 1.1 1.0-2.0 ALBUMIN 4.3 g/dL 3.5-5.0 ALKALINE PHOSPHATASE 98 U/L 40-150 ALANINE AMINOTRANSFERASE 122 U/L 0-55 ASPARTATE AMINO TRANSFERASE 358 U/L 5- 34 BUN/CREATININE RATIO 10 10-20 BLOOD UREA NITROGEN 6.0 mg/dL 7.0-18.7 CALCIUM 9.9 mg/dL 8.4-10.2 CHLORIDE 99 mmol/L 98-107 CARBON DIOXIDE 25.0 mmol/L 22-29 EST GLOMERULAR FILTRATION RATE 114.9 * >59 ANION GAP 19 MEQ/L 0-14 GLOBULIN 3.8 g/dL 1.9-3.8 GLUCOSE 99 mg/dL 70-105 POTASSIUM 2.8 mmol/L 3.5-5.1 SODIUM 140 mmol/L 136-145 TOTAL PROTEIN 8.1 g/dL 6.4-8.3 ESTIMATED CREATININE CLEARANCE 111.2 NRG Creatinine 0.61 mg/dL 0.57-1.11 Bilirubin Total 0.60 mg/dL 0.0-1.0 Salicylate - 08/22/18 14:35 SALICYLATE < 5.0 mg/dL 15.0-30.0 Acetaminophen - 08/22/18 14:35 Acetaminophen < 0.6 ug/mL 10.0-30.0 Alcohol - 08/22/18 14:35 ALCOHOL 366 mg/dL <10 Lipase - 08/22/18 14:35 LIPASE 20 U/L 8-78 UA DIPSTICK W/REFLEX TO MICRO - 08/22/18 16:45 BILIRUBIN,URINE Negative Negative BLOOD,URINE Negative Negative CLARITY,URINE Clear Clear COLOR,URINE Yellow Yellow GLUCOSE,URINE Negative Negative KETONES,URINE Negative Negative LEUKOCYTE ESTERASE ,URINE Negative Nega tive NITRATE,URINE Negative Negative PH,URINE 7.0 4.5-7.5 PROTEIN,URINE Negative Negative SPECIFIC GRAVITY,URINE <= 1.005 1.002-1 .030 UROBILINOGEN,URINE 0.2 eu/dL 0.2 Add Urine Microscopic No NRG UA DIPSTICK W/REFLEX TO MICRO - 09/05/18 08:34 BILIRUBIN,URINE Negative Negative BLOOD,URINE Negative Negative CLARITY,URINE Clear Clear COLOR,URINE Yellow Yellow GLUCOSE,URINE Negative Negative KETONES,URINE Negative Negative LEUKOCYTE ESTERASE ,URINE Negative Nega tive NITRATE,URINE Negative Negative PH,URINE 6.5 4.5-7.5 PROTEIN,URINE Negative Negative SPECIFIC GRAVITY,URINE 1.025 1.002-1 .030 UROBILINOGEN,URINE 0.2 eu/dL 0.2 Add Urine Microscopic No NRG Complete urinalysis with reflex to cultu re - 09/14/19 05:44 Urine color determination JULIANE NRG Urine clarity determination CLEAR NR G Urine pH measurement by test strip 6.0 5-9 Specific gravity of urine by test strip 1.020 1.016-1.022 Urine protein assay by test strip, semi-quantitative TRACE NEGATIVE Urine glucose detection by automated test strip NE GATIVE NEGATIVE Erythrocytes detection in urine sediment by light micr oscopy TRACE-I NEGATIVE Urine ketones detection by automated test strip 1+ NEGATIVE Urine nitrite detection by test strip NEGATIVE NEGATIVE Urine total bilirubin detection by test strip 1+ NEGATIVE Urine urobilinogen measurement by automated test strip (mass/volume) 0.2 mg/dL < = 1.0 Urine leukocyte esterase detection by dipstick NEG ATIVE NEGATIVE Automated urine sediment erythrocyte cou nt by microscopy (number/high power field) RARE NRG Automated urine sediment leukocyte count by microscopy (number/high power field) NONE NRG Bacteria detection in urine sediment by light microsco py TRACE NRG Squamous epithelial cells detection in u rine sediment by light microscopy 2-5 NRG Crystals detection in urine sediment by light microsco py NONE NRG Casts detection in urine sediment by light microscopy NONE NRG Mucus detection in urine sediment by light microscopy SMALL NRG Complete urinalysis with reflex to culture NO NRG Urine drug screening test - 09/14/19 05: 44 Urine phencyclidine detection by screening method NEGATIVE NEGATIVE Urine benzodiazepines detection by screening method POSITIVE NEGATIVE Urine cocaine detection NEGATIVE NEGATI VE Urine amphetamines detection by screening method N EGATIVE NEGATIVE Urine methamphetamine detection by screening method NEGATIVE NEGATIVE Urine cannabinoids detection by screening method P OSITIVE NEGATIVE Urine opiates detection by screening method NEGATI VE NEGATIVE Urine barbiturates detection NEGATIVE N EGATIVE Screening urine tricyclic antidepressants detection POSITIVE NEGATIVE Urine methadone detection by screening method NEGA TIVE NEGATIVE Urine oxycodone detection NEGATIVE NEGA TIVE Urine propoxyphene detection NEGATIVE N EGATIVE Complete blood count (CBC) with automate d white blood cell (WBC) differential - 09/14/19 05:55 Blood leukocytes automated count (number/volume) 14.8 10*3/uL 4.3-11.0 Blood erythrocytes automated count (number/volume) 4.01 10*6/uL 4.35-5.85 Venous blood hemoglobin measurement (mass/volume) 12.9 g/dL 11.5-16.0 Blood hematocrit (volume fraction) 38 % 35-52 Automated erythrocyte mean corpuscular volume 95 [ foz_us] 80-99 Automated erythrocyte mean corpuscular h emoglobin (mass per erythrocyte) 32 pg 25-34 Automated erythrocyte mean corpuscular h emoglobin concentration measurement (mass/volume) 34 g/dL 32-36 Automated erythrocyte distribution width ratio 14. 2 % 10.0- 14.5 Automated blood platelet count (count/volume) 341 10*3/uL 130-400 Automated blood platelet mean volume measurement 9.2 [foz_us] 7.4-10.4 Automated blood neutrophils/100 leukocytes 87 % 42-75 Automated blood lymphocytes/100 leukocytes 6 % 12-44 Blood monocytes/100 leukocytes 7 % 0-12 Automated blood eosinophils/100 leukocytes 0 % 0-10 Automated blood basophils/100 leukocytes 0 % 0-10 Blood neutrophils automated count (number/volume) 12.8 10*3 1.8-7.8 Blood lymphocytes automated count (number/volume) 1.0 10*3 1.0-4.0 Blood monocytes automated count (number/volume) 1. 0 10*3 0.0-1.0 Automated eosinophil count 0.0 10*3/uL 0 .0-0.3 Automated blood basophil count (count/volume) 0.0 10*3/uL 0.0-0.1 Comprehensive metabolic panel - 09/14/19 05:55 Serum or plasma sodium measurement (moles/volume) 134 mmol/L 135-145 Serum or plasma potassium measurement (moles/volume) 3.3 mmol/L 3.6-5.0 Serum or plasma chloride measurement (moles/volume) 97 mmol/L 98-107 Carbon dioxide 26 mmol/L 21-32 Serum or plasma anion gap determination (moles/volume) 11 mmol/L 5-14 Serum or plasma urea nitrogen measurement (mass/volume ) 7 mg/dL 7-18 Serum or plasma creatinine measurement (mass/volume) 0.62 mg/dL 0.60-1.30 Serum or plasma urea nitrogen/creatinine mass ratio 11 NRG Serum or plasma creatinine measurement w ith calculation of estimated glomerular filtration rate > NRG Serum or plasma glucose measurement (mass/volume) 136 mg/dL 70-105 Serum or plasma calcium measurement (mass/volume) 9.0 mg/dL 8.5-10.1 Serum or plasma total bilirubin measurement (mass/volu me) 1.1 mg/dL 0.1-1.0 Serum or plasma alkaline phosphatase linnea surement (enzymatic activity/volume) 121 U/L 40-136 Serum or plasma aspartate aminotransfera se measurement (enzymatic activity/volume) 49 U/L 5-34 Serum or plasma alanine aminotransferase measurement (enzymatic activity/volume) 56 U/L 0-55 Serum or plasma protein measurement (mass/volume) 7.4 g/dL 6.4-8.2 Serum or plasma albumin measurement (mass/volume) 3.9 g/dL 3.2-4.5 CALCIUM CORRECTED 9.1 mg/dL 8.5-10.1 Serum or plasma C reactive protein measu rement (mass/volume) - 09/14/19 05:55 Serum or plasma C reactive protein measurement (mass/v olume) 2.44 mg/dL 0.00-0.50 Lipase - 09/14/19 05:55 Lipase < U/L 8-78 Serum or plasma C reactive protein measu rement (mass/volume) - 09/14/19 05:55 Serum or plasma C reactive protein measurement (mass/v olume) 2.44 mg/dL 0.00-0.50 Manual absolute plasma cell count - 08/17 05:55 Blood monocytes/100 leukocytes 4 % NRG Manual blood segmented neutrophils/100 leukocytes 85 % NRG Blood band neutrophils/100 leukocytes 4 % NRG Manual blood lymphocytes/100 leukocytes 7 % NRG Blood erythrocyte morphology finding identification NORMAL NRG Serum or plasma thyrotropin measurement by detection limit <=0.05 miu/l (units/volume) - 09/14/19 05:55 Serum or plasma thyrotropin measurement by detection limit <=0.05 miu/l (units/volume) 1.18 u[iU]/mL 0.35-4.94 Encounters ACCT No. Visit Date/Time Discharge Status Pt. Type Provider Facility Loc./Unit Complaint [id number] 05/08/2019 18:30:00 05/08/2019 23:59:5 9 CLS Outpatient ASHOK LORA [facility] [id number] 02/07/2018 11:58:00 23:59:59 CLS Outpatient MALINI ROMAN APRN [facility] RAD DYSPNEA [id number] 12/31/2017 14:18:00 018 11:25:00 DIS Inpatient ATWOOD DO, KHOI [facility] 4TH MYXEDEMA COMA, RESP JUAREZ LURE, HYPOGLYCEMIA [id number] 08/16/2014 08:53:00 015 09:47:00 DIS Emergency LIYA IBRAHIM MD [facility] ER L FOOT PAIN [id number] 09/14/2019 05:23:[address] Emergency DUGLAS MEDELLIN MD [facility] ER ABD PAIN [id number] 08/16/2014 09:51:00 Document Registration [id number] 08/16/2014 09:51:00 Document Registration [id number] 08/16/2014 09:51:00 Document Registration [id number] 08/16/2014 09:51:00 Document Registration [id number] 02/15/2010 10:55:00 Document Registration [id number] 02/06/2010 01:53:00 Document Registration [id number] 03/03/2014 11:42:00 03/03/2014 23:59: 59 CLS Outpatient JAIME CHANDRA APRN [id number] 05/13/2013 11:17:00 05/13/2013 23:59: 59 CLS Outpatient RAKAN CHARLTON APRN Ailyn [id number] 05/09/2012 14:55:00 05/09/2012 23:59: 59 CLS Outpatient ETHAN MONTEZ [facility] Jamie [id number] 12/05/2012 10:25:00 Document Registration [id number] 09/05/2018 09:35:00 09:36:00 DIS Outpatient BARRON TORRES At [facility] alcohol [id number] 08/23/2018 09:37:00 09:38:00 DIS Outpatient BARRON TORRES At [facility] Drugs [id number] 08/22/2018 14:03:00 16:34:00 DIS Emergency Samanthavenstpaula [facility]AMANTHAM[facility] ED intoxication
[2019-09-14 09:58] VITALS: BP 126/76
[2019-09-14] MEDS ORDERED: LEVOTHYROXINE 150 MCG (LEVOTHROID) TAB PO SCH (10:30)
[2019-09-14] MEDS ORDERED: ONDANSETRON 4 MG/2 ML (SDV) Z0FRAN IVP PRN (10:30)
[2019-09-14] MEDS ORDERED: HYDROcodone/APAP 5 MG/325 MG (LORTAB) TAB PO PRN (10:30)
[2019-09-14] MEDS: LEVOTHYROXINE 150 MCG (LEVOTHROID) TAB PO SCH (11:00)
[2019-09-14] MEDS: LEVOTHYROXINE 25 MCG (LEVOTHROID) TAB PO SCH (11:00)
[2019-09-14] MEDS: NS IV 1000 ML 1,000 ML IV SCH ×2 (11:01→19:51)
[2019-09-14] MEDS: fentaNYL INJECTION 100 MCG/2 ML AMP IVP PRN ×3 (11:01→19:57)
--- NOTE | 2019-09-14 11:27 | HISTORY AND PHYSICAL ---
DATE OF SERVICE: HISTORY OF PRESENT ILLNESS: The patient is a 44-year-old female who was seen in consultation with Dr. Martin. The patient reports that last night around 10 p.m., she was awoken with epigastric pain, which she initially thought was heartburn. She reports that this did continue through the night and did eventually presented to [facility] Emergency Department with epigastric and right upper quadrant abdominal pain. She reports that this was sharp in nature and did radiate towards her back. She did report an episode of vomiting during the night, but reports that was only saliva. She reports that she did have some beers as well as nachos during the evening before her symptoms started. She denied any diarrhea or constipation as well as no fever or chills. She did undergo a CT scan in the emergency room, which did show abnormally dilated gallbladder with associated gallbladder wall thickening with minimal sludge and stones that was consistent with acute cholecystitis. She was also found to have an elevated white count of 14.8. She denied any issues of right upper quadrant pain in the past. PAST MEDICAL HISTORY: 1. Graves' disease. 2. Anxiety. 3. Gastroesophageal reflux disease. PAST SURGICAL HISTORY: Laparoscopic appendectomy. ALLERGIES: No known drug allergies. MEDICATIONS: Alprazolam 2 mg daily, levothyroxine 175 mcg daily, omeprazole 20 mg daily. SOCIAL HISTORY: Positive for smoke half pack per day for 25 years. Social for alcohol. FAMILY HISTORY: Father, some form of cancer. Paternal grandfather, diabetes, coronary artery disease. REVIEW OF SYSTEMS: A well-nourished female in no acute distress. She is not experiencing any shortness of breath or difficulty breathing. No chest pain, palpitations or diaphoresis. She did report an episode of nausea as well as vomiting. She does report sharp epigastric to right upper quadrant abdominal pain that does radiate towards her back. No diarrhea or constipation. No red blood per rectum. No dark tarry stools. No fever or chills. No recent inadvertent weight loss. All other review of systems negative. PHYSICAL EXAMINATION: CHEST: Clear. Good breath sounds bilaterally. HEART: Regular, no murmurs. EXTREMITIES: No lower extremity edema. Negative Homans sign. HEENT: No scleral icterus. NECK: No cervical lymphadenopathy. ABDOMEN: Soft, nondistended. There is pain and tenderness with moderate palpation in the right upper abdominal quadrant. No palpable masses. No organomegaly. SKIN: Warm, dry and pink. NEUROLOGIC: Awake, alert, oriented x3. VITAL SIGNS: Temperature 37.1 degrees Celsius, pulse 83, respirations 16, blood pressure 126/76, pulse ox 98% on room air. ASSESSMENT AND PLAN: A 44-year-old female with episode of acute cholecystitis. She does also appear to have gallstones as well as sludge. We will proceed with admitting the patient with IV fluids, antibiotics as well as pain, nausea medication as well as a clear liquid diet. We will proceed with scheduling her for a laparoscopic cholecystectomy on this admission. Job ID: [id number] DocumentID: [id number] Dictated Date: 09/14/2019 10:53:08 Metal Turner Date: 09/14/2019 11:27:11 Dictated By: JEFF MCLAUGHLIN
--- NOTE | 2019-09-14 11:48 | NUR ---
SUNSHINE CRUZ admitted to room 424-1, with an admitting diagnosis of cholecystitis, on 09/14/19 from [facility] ED via wheelchair, accompanied by staff. SUNSHINE CRUZ introduced to surroundings, call light, bed controls, phone, TV, temperature control, lights, meal times, smoking policy, visitor policy, side rail policy, bathrooms and showers. Patient Rights given to patient in the handbook. SUNSHINE CRUZ verbalizes understanding that [facility] is not responsible for the loss or damage to any personal effects or valuables that are kept in the patients possession during their hospitalization. The following Patient Care Plans were discussed with the patient: Discharge Planning, pain management, dehydration, and medications. SUNSHINE CRUZ verbalizes understanding of Interdisciplinary Patient Education. Patient and/or family were informed about the Rapid Response Team and its purpose.
[2019-09-14 11:54] VITALS: BP 127/85
[2019-09-14] MEDS: metroNIDAZOLE 500MG/100ML IVPB 100 ML IV SCH ×2 (13:43→21:54)
[2019-09-14 15:36] VITALS: BP 132/91
--- NOTE | 2019-09-14 19:03 | Progress Note-Pre Operative ---
Pre-Operative Progress Note H&P Reviewed The H&P was reviewed, patient examined and no changes noted. Date Seen by Provider: September 14, 2019 Time Seen by Provider: 18:00 Date H&P Reviewed: September 14, 2019 Time H&P Reviewed: 18:00 Pre-Operative Diagnosis: acute calculous cholecystitis TRICIA MON MD September 14, 2019 19:03
[2019-09-14 19:19] VITALS: BP 128/86
[2019-09-14] MEDS: ALPRAZolam 0.5 MG (XANAX) TAB PO SCH (20:01)
[2019-09-15] VITALS (12 sets, daily range): BP systolic 91–131; BP diastolic 53–95
[2019-09-15] MEDS: fentaNYL INJECTION 100 MCG/2 ML AMP IVP PRN ×2 (02:45→07:28)
[2019-09-15] MEDS: NS IV 1000 ML 1,000 ML IV SCH (02:47)
[2019-09-15] MEDS: metroNIDAZOLE 500MG/100ML IVPB 100 ML IV SCH ×2 (05:43→15:13)
[2019-09-15] MEDS: LEVOTHYROXINE 150 MCG (LEVOTHROID) TAB PO SCH (05:44)
[2019-09-15] MEDS: LEVOTHYROXINE 25 MCG (LEVOTHROID) TAB PO SCH (05:44)
[2019-09-15 05:45] LABS: BASOPHILS % (AUTO) 0 % (0-10); EOSINOPHILS # (AUTO) 0.1 10^3/uL (0.0-0.3); EOSINOPHILS % (AUTO) 1 % (0-10); HEMATOCRIT 34 % (35-52); HEMOGLOBIN 11.4 G/DL (11.5-16.0); LYMPHOCYTES # (AUTO) 1.8 X 10^3 (1.0-4.0); LYMPHOCYTES % (AUTO) 24 % (12-44); MEAN CORPUSCULAR HEMOGLOBIN 32 PG (25-34); MEAN CORPUSCULAR HGB CONC 34 G/DL (32-36); MEAN CORPUSCULAR VOLUME 96 FL (80-99); MEAN PLATELET VOLUME 9.5 FL (7.4-10.4); MONOCYTES % (AUTO) 14 % (0-12); NEUTROPHILS # (AUTO) 4.5 X 10^3 (1.8-7.8); NEUTROPHILS % (AUTO) 60 % (42-75); PLATELET COUNT 272 10^3/uL (130-400); RED CELL DISTRIBUTION WIDTH 14.2 % (10.0-14.5); WHITE BLOOD COUNT 7.4 10^3/uL (4.3-11.0)
[2019-09-15 06:00] LABS: ALBUMIN 3.3 GM/DL (3.2-4.5); CHLORIDE 107 MMOL/L (98-107); SODIUM 138 MMOL/L (135-145)
[2019-09-15 06:02] LABS: CALCIUM 7.7 MG/DL (8.5-10.1)
[2019-09-15 06:03] LABS: GLUCOSE 90 MG/DL (70-105); TOTAL PROTEIN 6.3 GM/DL (6.4-8.2)
[2019-09-15 06:04] LABS: CARBON DIOXIDE 21 MMOL/L (21-32)
[2019-09-15 06:05] LABS: BILIRUBIN,TOTAL 1.2 MG/DL (0.1-1.0)
[2019-09-15 06:06] LABS: ALKALINE PHOSPHATASE 85 U/L (40-136); CREATININE SERUM 0.55 MG/DL (0.60-1.30); GFR ESTIMATED > 60
[2019-09-15 06:07] LABS: BUN/CREATININE RATIO 5
[2019-09-15 06:09] LABS: ALANINE AMINOTRANSFERASE 35 U/L (0-55)
[2019-09-15] MEDS ORDERED: cefTRIAXone FOR IV USE 1,000 MG in WATER (STERILE) FOR INJECTION 10 ML IV SCH (07:00)
[2019-09-15] MEDS: ALPRAZolam 0.5 MG (XANAX) TAB PO SCH (07:28)
[2019-09-15] MEDS ORDERED: PANTOPRAZOLE 40 MG (PROTONIX) VIAL IV SCH (09:00)
[2019-09-15] MEDS ORDERED: HYDROmorphone 2 MG/ML VIAL (DILAUDID) IV ONE (09:30)
[2019-09-15] MEDS ORDERED: MIDAZOLAM 2 MG/2 ML (VERSED) VIAL ONE (09:39)
[2019-09-15] MEDS ORDERED: fentaNYL INJECTION 100 MCG/2 ML AMP ONE (09:39)
--- NOTE | 2019-09-15 09:50 | NUR ---
Patient off floor to surgery at this time.
[2019-09-15] MEDS: LACTATED RINGERS 1,000 ML IV PRN ×2 (10:00→11:15)
--- NOTE | 2019-09-15 10:22 | Progress Note ---
Standard Progress Note Progress Notes/Assess & Plan Date Seen by a Provider: September 15, 2019 Time Seen by a Provider: 09:30 Progress/Assessment & Plan Patient seen was doubled over in pain. Reports that it started 2 hours prior and did have a dose of Fentanyl but reports that it did not help much. Does report some nausea but no vomiting. Patient reports that she would just like to get her gallbladder out. Will proceed with 0.5 mg of Dilaudid IV x1 now and proceed with laparoscopic cholecystectomy. Focused Exam Lactate Level 09/14/19 08:25: Lactic Acid Level 1.02 DEANDRE NEWSOME GLOBAL DIRECTOR [employer]IM[employer] CHANGE September 15, 2019 10:22
[2019-09-15] MEDS ORDERED: ceFAZolin INJECTION 2,000 MG ONE (10:47)
[2019-09-15] MEDS ORDERED: ceFAZolin INJECTION 1,000 MG VIAL IV ONE (11:00)
[2019-09-15] MEDS ORDERED: MEPERIDINE (DEMEROL) INJ 50 MG/ML ONE (11:07)
[2019-09-15] MEDS ORDERED: morphine INJ 10 MG/ML 1ML (SYR OR VIAL) ONE (11:07)
[2019-09-15] MEDS ORDERED: PROMETHAZINE INJ 25 MG/ML (PHENERGAN) AMP ONE (11:08)
[2019-09-15] MEDS ORDERED: LIDOCAINE PF 2% 5 ML (XYLOCAINE) VIAL ONE (11:33)
[2019-09-15] MEDS ORDERED: NEOSTIGMINE 3 MG/3 ML VIAL ONE (11:33)
[2019-09-15] MEDS ORDERED: proPOfol 200 MG/20 ML (DIPRIVAN) VIAL IV ONE (11:33)
[2019-09-15] MEDS ORDERED: GLYCOPYRROLATE 0.2 MG/ML (ROBINUL) 2 ML VIAL ONE (11:33)
[2019-09-15] MEDS ORDERED: SEVOFLURANE (ULTANE) 15 ML INHAL SOLN ONE ×4 (11:33→12:06)
[2019-09-15] MEDS ORDERED: ONDANSETRON 4 MG/2 ML (SDV) Z0FRAN ONE (11:33)
[2019-09-15] MEDS ORDERED: DEXAMETHASONE 10 MG/ML (DECADRON) 1 ML VIAL ONE (11:33)
[2019-09-15] MEDS ORDERED: HYDROmorphone 2 MG/ML VIAL (DILAUDID) ONE (11:34)
[2019-09-15] MEDS ORDERED: ROCURONIUM 10 MG/ML 5 ML SYRINGE IV ONE (11:57)
--- NOTE | 2019-09-15 12:05 | Progress Note-Post Operative ---
Post-Operative Progess Note Surgeon (s)/Practice Lead (s) Surgeon TRICIA MON MD Practice Lead: elin barboza ORGANIC CHEMIST Pre-Operative Diagnosis acute calculous cholecystitis Post-Operative Diagnosis same Procedure & Operative Findings Date of Procedure 09/15/19 Procedure Performed/Findings laparoscopic cholecystectomy Anesthesia Type get Estimated Blood Loss Estimated blood loss (mL): minimal Specimens/Packing Specimens Removed gallbladder TRICIA MON MD September 15, 2019 12:05
[2019-09-15] MEDS ORDERED: HYDR-83 PO (12:09)
[2019-09-15] MEDS ORDERED: AMOX-358 PO (12:10)
--- NOTE | 2019-09-15 12:11 | Discharge Inst-Surgical ---
D/C Lap Instructions-YAA New, Converted, or Re-Newed RX: RX on Chart Follow Up Appt in 2 weeks Activity as tolerated No driving for 24 hours No [address] while on pain medications Incentive Spirometry use every 2 hours while awake Regular Diet Symptoms to Report: Fever over 101 degree F, Nausea/Vomiting Infection Signs and Symptoms to report: Increased redness, Foul odor of wound, Increased drainage Bathing instructions: May shower Operative Area Clean/Dry; Keep incision clean/dry If any problems/questions: Contact your physician or go to Emergency Room TRICIA MON MD September 15, 2019 12:11
--- NOTE | 2019-09-15 13:20 | NUR ---
Patient back from surgery at this time. Report from Griselda WESTBROOK. Patient laying in bed resting, eyes open. Significant other at bedside. Patient denies any pain or discomfort at this time. Will continue to monitor.
--- NOTE | 2019-09-15 14:25 | OPERATIVE REPORT ---
DATE OF SERVICE: 09/15/2019 ATTENDING PRIMARY CARE PHYSICIAN: Dr. Ramos. PREOPERATIVE DIAGNOSIS: Acute cholecystitis. POSTOPERATIVE DIAGNOSIS: Acute cholecystitis with hydrops of the gallbladder. PROCEDURE: Laparoscopic cholecystectomy. SURGEON: Tricia Mon MD. STITCHER AROUND: Jose Rafael Bonilla APRN. ANESTHESIA: General endotracheal. ESTIMATED BLOOD LOSS: Minimal. FINDINGS: Inflamed gallbladder with gallbladder wall thickening as well as hydrops of the gallbladder. DISPOSITION: The patient tolerated the procedure well. INDICATIONS: The patient is a 44-year-old female who presented with epigastric and right upper abdominal quadrant pain after eating nachos as well as having a few beers. She also reported nausea and vomiting. A CT scan was performed, which showed a distended gallbladder as well as gallbladder wall thickening consistent with acute cholecystitis. She was also found to have an elevated white count of 14.8. DESCRIPTION OF PROCEDURE: The patient was brought to the operating room, laid supine on the table. After adequate IV pain and sedative medications and general endotracheal intubation, the abdomen was prepped and draped in standard surgical fashion. A 0.5% Marcaine with epinephrine was then used to anesthetize the overlying skin in the left upper abdominal quadrant and a transverse skin incision made using a 15 blade. A 0 silk suture was applied to the medial aspect of incision for retraction and a Veress needle inserted with a low opening pressure of 0 mmHg. The abdomen was then insufflated to 15 mmHg pressure. The Veress needle removed and a 5 mm XL trocar placed followed by a 5 mm 45-degree angle laparoscope visualizing the peritoneal cavity. A 4-quadrant abdominal exploration was performed. There was a distended gallbladder with gallbladder wall thickening consistent with acute cholecystitis. Under direct visualization, we then proceeded to place a supraumbilical 10 mm port after the skin and peritoneal lining were anesthetized using 0.5% Marcaine with epinephrine and a transverse skin incision made using a 15 blade. In a similar fashion, a right upper abdominal quadrant 5 mm port was placed. The patient was then placed in a reverse Trendelenburg position as well as plane right side up, left side down. The gallbladder was then decompressed using a laparoscopic needle as well as suction with clear fluid consistent with hydrops of the gallbladder. The fundus of the gallbladder was retracted anteriorly and superiorly. The hepatoduodenal ligament was then opened using electrocautery as well as blunt dissection and hook instrument. The entire critical view of safety was identified including the cystic duct and artery including the triangle of Calot as well as the cystic duct and artery as the only two structures going to the gallbladder as well as the cystic plate behind the proximal gallbladder. A timeout was then taken. The cystic duct and artery were then clipped proximally, distally and cut with EndoShears. The gallbladder was then dissected off the liver bed using cautery on hook instrument with visualization of good hemostasis as well as no leaking ducts of Luschka. The gallbladder was removed through the 10 mm port site using an EndoCatch bag. The 10 mm port site fascia and peritoneum were then closed under direct visualization using a Tomas-Whit device and 0 Vicryl suture. The abdomen was desufflated and remaining ports removed. All skin incisions were closed using 4-0 Monocryl running subcuticular sutures. Wounds were then cleaned and covered with Dermabond. The patient tolerated the procedure well. We will start IV normal pain medication as well as a clear liquid diet and advance. She was found to have positive blood cultures and we will continue with IV antibiotics for another three doses. Job ID: [id number] DocumentID: [id number] Dictated Date: 09/15/2019 12:21:16 Steam Pipe Fitter Date: 09/15/2019 14:24:00 Dictated By: TRICIA MON MD
--- NOTE | 2019-09-16 10:40 | Anesthesia-General Post-Op ---
General Patient Condition Mental Status/LOC: Same as Preop Cardiovascular: Satisfactory Nausea/Vomiting: Absent Respiratory: Satisfactory Pain: Controlled Complications: Absent Post Op Complications Complications None Follow Up Care/Instructions Patient Instructions None needed. Anesthesia/Patient Condition Patient Condition Patient is doing well, no complaints, stable vital signs, no apparent adverse anesthesia problems. No complications reported per nursing. D/C home per [facility] Criteria: Yes DINO SANCHEZ CRNA Sep 16, 2019 10:40
== END 2019-09-15 19:02 | disposition home or self-care (01) | DRG 418 ==
LOC: EDUNIT# 05:20 → ER 05:23 → 4TH 08:15
PROVIDERS: ADMIT Surgery; ATTEND Surgery
PROC: 0FT44ZZ Resection of Gallbladder, Percutaneous Endoscopic Approach (ICD-10-PCS; principal; 2019-09-15 10:57)
DX: K81.0 Acute cholecystitis (principal); K82.1 Hydrops of gallbladder; K21.9 Gastro-esophageal reflux disease without esophagitis; F41.9 Anxiety disorder, unspecified; E05.00 Thyrotoxicosis with diffuse goiter without thyrotoxic crisis or storm; F17.210 Nicotine dependence, cigarettes, uncomplicated
CPT/HCPCS: 36415; 74177; 80053; 80306; 81000; 83605; 83690; 84443; 84703; 85007; 85025; 85027; 86141; 87040; 87081; 96361; 96365; 96375

== ENCOUNTER 2020-07-20 09:48 | Emergency (ER) | payer OTHER ==
[~2020-07-20] VITALS: Ht 170.2 cm; Wt 68.0 kg
[~2020-07-20 09:48] MED LIST changes: +ACHD5005 PO; +AMOX-358 PO
[2020-07-20] MEDS ORDERED: LACTATED RINGERS 1,000 ML IV ONE (09:53)
[2020-07-20] MEDS ORDERED: LACTATED RINGERS 1,000 ML IV STA ×2 (09:59→10:46)
[2020-07-20 10:05] LABS: BASOPHILS # (AUTO) 0.1 10^3/uL (0.0-0.1); BASOPHILS % (AUTO) 0 % (0-10); EOSINOPHILS % (AUTO) 0 % (0-10); HEMATOCRIT 40 % (35-52); HEMOGLOBIN 13.9 g/dL (11.5-16.0); LYMPHOCYTES # (AUTO) 1.3 10^3/uL (1.0-4.0); LYMPHOCYTES % (AUTO) 10 % (12-44); MEAN CORPUSCULAR HEMOGLOBIN 34 pg (25-34); MEAN CORPUSCULAR HGB CONC 35 g/dL (32-36); MEAN CORPUSCULAR VOLUME 99 fL (80-99); MEAN PLATELET VOLUME 8.9 fL (9.0-12.2); MONOCYTES # (AUTO) 0.6 10^3/uL (0.0-1.0); MONOCYTES % (AUTO) 4 % (0-12); NEUTROPHILS # (AUTO) 11.5 10^3/uL (1.8-7.8); NEUTROPHILS % (AUTO) 85 % (42-75); PLATELET COUNT 324 10^3/uL (130-400); WHITE BLOOD COUNT 13.5 10^3/uL (4.3-11.0)
--- NOTE | 2020-07-20 10:07 | ED General ---
General Stated Complaint: MYXEDEMA COMA Source of Information: Patient Exam Limitations: No Limitations History of Present Illness Date Seen by Provider: Jul 20, 2020 Time Seen by Provider: 09:53 Initial Comments Here with report of feeling ill. States that she has not been feeling well for the last 3 to 4 days but markedly worse over the last 24 hours including weakness and cold. Reports that she has had a little bit of diarrhea and has had some occasional episodes of vomiting that she says is just phlegm. Her son had something similar and was diagnosed with the GI bug. He is actually doing better. Has not had Covid vaccine but denies any contact with Covid currently. Denies breathing problems or significant cough. 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 She states that she has been taking her meds some but has missed doses and did do a double dose of her levothyroxine this morning. She does follow with Dr. Herzog. Timing/Duration: 3-4 Days, Getting Worse Severity: Moderate Associated Systoms: No Chest Pain, No Cough, No Diaphoresis; Fever/Chills; No Headaches; Loss of Appetite, Malaise, Nausea/Vomiting; No Shortness of Air; Weakness Allergies and Home Medications Allergies Coded Allergies: No Known Drug Allergies (Verified , 06/30/09) Home Medications Alprazolam 2 Mg Tablet, 2 MG PO DAILY, (Reported) Amoxicillin/Potassium Clav 1 Each Tablet, 1 EACH PO BID Prescribed by: TRICIA MON on 09/15/19 1210 Hydrocodone/Acetaminophen 1 Each Tablet, 1 EACH PO Q4H Prescribed by: TRICIA MON on 09/15/19 1209 Levothyroxine Sodium 175 Mcg Tablet, 175 MCG PO DAILY LAST FILLED #90 04-04-17 Prescribed by: KHOI ATWOOD on 01/04/18 1009 Omeprazole 20 Mg Capsule., 20 MG PO DAILY, (Reported) Patient Home Medication List Home Medication List Reviewed: Yes Review of Systems Review of Systems Constitutional: see HPI; No chills, No fever EENTM: No nose congestion, No throat pain Respiratory: No cough, No short of breath Cardiovascular: no symptoms reported Gastrointestinal: see HPI Genitourinary: decreased output; No pain : No Musculoskeletal: no symptoms reported Skin: no symptoms reported All Other Systems Reviewed Negative Unless Noted: Yes Past Jhhusxe-Jwfevf-Xlluzp Hx Past Med/Social Hx: Reviewed Nursing Past Med/Soc Hx Patient Social History Alcohol Use: Occasionally Uses Alcohol Beverage of Choice: Vodka Drug of Choice: MARIJUANA Smoking Status: Current Everyday Smoker Type Used: Cigarettes Recent Hopitalizations: No Seasonal Allergies Seasonal Allergies: Yes Past Medical History Surgeries: Yes Appendectomy Respiratory: Yes Chronic Bronchitis Currently Using CPAP: No Currently Using BIPAP: No Cardiac: No Neurological: No Reproductive Disorders: No Sexually Transmitted Disease: No HIV/AIDS: No Genitourinary: Yes UTI-Chronic Gastrointestinal: Yes Liver Disease/Jaundice, Ulcer Musculoskeletal: No Endocrine: Yes (GRAVES DISEASE) Hypothyroidsim HEENT: No Cancer: No Psychosocial: Yes Anxiety Integumentary: No Blood Disorders: No Adverse Reaction/Blood Tranf: No Family Medical History Reviewed Nursing Family Hx No Pertinent Family Hx Physical Exam-Suspected Sepsis Physical Exam Vital Signs Vital Signs - First Documented 07/20/20 09:54 Temp 35.7 Pulse 102 Resp 20 B/P (MAP) 94/67 (76) Pulse Ox 98 O2 Delivery Room Air Capillary Refill : Height, Weight, BMI Height: 5'7.00" Weight: 158lbs. 0.0oz. [id number]; 25.57 BMI Method:Stated General Appearance: No Apparent Distress, WD/WN HEENT: PERRL/EOMI, Pharyngeal Erythema, Other (Dry mucous membranes) Neck: Full Range of Motion, Non Tender, Supple Respiratory: Lungs Clear, Normal Breath Sounds Cardiovascular: No Murmur, Tachycardia Gastrointestinal: Non Tender, Soft Back: Normal Inspection, No CVA Tenderness, No Vertebral Tenderness Extremity: Normal Range of Motion, Non Tender Neurologic/Psychiatric: Alert, Oriented x3 Skin: normal color, warm/dry Focused Exam Lactate Level 07/20/20 09:57: Lactic Acid Level 3.22*H 07/20/20 11:48: Lactic Acid Level 2.67*H Lactic Acid Level Laboratory Tests Test 07/20/20 09:57 07/20/20 11:48 Lactic Acid Level 3.22 MMOL/L (0.50-2.00) *H 2.67 MMOL/L (0.50-2.00) *H Procedures/Interventions Date of ETT Placement: Dec 31, 2017 Time of ETT Placement: 1358 Progress/Results/Core Measures Suspected Sepsis SIRS Temperature: Pulse: Respiratory Rate: Laboratory Tests 07/20/20 09:47: White Blood Count 13.5H Blood Pressure / Mean: 07/20/20 09:57: Lactic Acid Level 3.22*H 07/20/20 11:48: Lactic Acid Level 2.67*H Laboratory Tests 07/20/20 09:47: Creatinine 0.70, INR Comment 0.9, Platelet Count 324, Total Bilirubin 1.3H Results/Orders Lab Results Laboratory Tests Test 07/20/20 09:47 07/20/20 09:57 07/20/20 10:08 07/20/20 11:48 Range/Units White Blood Count 13.5 H 4.3-11.0 10^3/uL Red Blood Count 4.08 3.80-5.11 10^6/uL Hemoglobin 13.9 11.5-16.0 g/dL Hematocrit 40 35-52 % Mean Corpuscular Volume 99 80-99 fL Mean Corpuscular Hemoglobin 34 25-34 pg Mean Corpuscular Hemoglobin Concent 35 32-36 g/dL Red Cell Distribution Width 13.6 10.0-14.5 % Platelet Count 324 130-400 10^3/uL Mean Platelet Volume 8.9 L 9.0-12.2 fL Immature Granulocyte % (Auto) 1 % Neutrophils (%) (Auto) 85 H 42-75 % Lymphocytes (%) (Auto) 10 L 12-44 % Monocytes (%) (Auto) 4 0-12 % Eosinophils (%) (Auto) 0 0-10 % Basophils (%) (Auto) 0 0-10 % Neutrophils # (Auto) 11.5 H 1.8-7.8 10^3/uL Lymphocytes # (Auto) 1.3 1.0-4.0 10^3/uL Monocytes # (Auto) 0.6 0.0-1.0 10^3/uL Eosinophils # (Auto) 0.0 0.0-0.3 10^3/uL Basophils # (Auto) 0.1 0.0-0.1 10^3/uL Immature Granulocyte # (Auto) 0.1 0.0-0.1 10^3/uL Prothrombin Time 12.7 12.2-14.7 SEC INR Comment 0.9 0.8-1.4 Activated Partial Thromboplast Time 31 24-35 SEC D-Dimer < 0.27 0.00-0.49 UG/ML Sodium Level 136 135-145 MMOL/L Potassium Level 3.3 L 3.6-5.0 MMOL/L Chloride Level 98 98-107 MMOL/L Carbon Dioxide Level 19 L 21-32 MMOL/L Anion Gap 19 H 5-14 MMOL/L Blood Urea Nitrogen 13 7-18 MG/DL Creatinine 0.70 0.60-1.30 MG/DL Estimat Glomerular Filtration Rate > 60 BUN/Creatinine Ratio 19 Glucose Level 99 70-105 MG/DL Calcium Level 8.6 8.5-10.1 MG/DL Corrected Calcium 8.4 L 8.5-10.1 MG/DL Total Bilirubin 1.3 H 0.1-1.0 MG/DL Aspartate Amino Transf (AST/SGOT) 46 H 5-34 U/L Alanine Aminotransferase (ALT/SGPT) 19 0-55 U/L Alkaline Phosphatase 109 40-136 U/L C-Reactive Protein High Sensitivity 0.07 0.00-0.50 MG/DL Total Protein 7.7 6.4-8.2 GM/DL Albumin 4.3 3.2-4.5 GM/DL Procalcitonin 0.05 <0.10 NG/ML Free Thyroxine 0.71 0.70-1.48 NG/DL TSH [place] Testing 7.59 H 0.35-4.94 UIU/ML Lactic Acid Level 3.22 *H 2.67 *H 0.50-2.00 MMOL/L Urine Color YELLOW Urine Clarity CLEAR Urine pH 6.0 5-9 Urine Specific [place] >=1.030 1.016-1.022 Urine Protein 1+ H NEGATIVE Urine Glucose (UA) NEGATIVE NEGATIVE Urine Ketones 3+ H NEGATIVE Urine Nitrite NEGATIVE NEGATIVE Urine Bilirubin NEGATIVE NEGATIVE Urine Urobilinogen 1.0 < = 1.0 MG/DL Urine Leukocyte Esterase 1+ H NEGATIVE Urine RBC (Auto) 2+ H NEGATIVE Urine RBC 2-5 H /HPF Urine WBC 5-10 H /HPF Urine Squamous Epithelial Cells 10-25 H /HPF Urine Crystals NONE /LPF Urine Bacteria MODERATE H /HPF Urine Casts NONE /LPF Urine Mucus SMALL H /LPF Urine Culture Indicated YES Coronavirus 2019 (LOS) Negative Negative Micro Results Microbiology 07/20/20 Influenza Types A,B Antigen (GABRIELLA) - Final, Complete My Orders Orders - DUGLAS MEDELLIN MD Lactated Ringers (Lr 1000 Ml Iv Solution (07/20/20 09:59) Cbc With Automated Diff (07/20/20 09:59) Comprehensive Metabolic Panel (07/20/20 09:59) Blood Culture (07/20/20 09:59) Sputum Culture (07/20/20 09:59) Urinalysis (07/20/20 09:59) Urine Culture (07/20/20 09:59) Protime With Inr (07/20/20 09:59) Partial Thromboplastin Time (07/20/20 09:59) Chest 1 View, Ap/Pa Only (07/20/20 09:59) Ed Iv/Invasive Line Start (07/20/20 09:59) Vital Signs Adult Sepsis Patie Q15M (07/20/20 09:59) O2 (07/20/20 09:59) Remove Rings In Anticipation O (07/20/20 09:59) Lactic Acid Analyzer (07/20/20 09:59) Influenza A And B Antigens (07/20/20 09:59) Hs C Reactive Protein (07/20/20 09:59) Fibrin Degradation Products (07/20/20 09:59) Procalcitonin (Pct) (07/20/20 09:59) Thyroid Analyzer (07/20/20 09:59) Lactated Ringers (Lr 1000 Ml Iv Solution (07/20/20 09:53) Covid 19 Inhouse Test (07/20/20 10:09) Lactated Ringers (Lr 1000 Ml Iv Solution (07/20/20 10:46) Free T4 (Free Thyroxine) (07/20/20 09:47) Vital Signs/I&O 07/20/20 09:54 Temp 35.7 Pulse 102 Resp 20 B/P (MAP) 94/67 (76) Pulse Ox 98 O2 Delivery Room Air Capillary Refill : Progress Note : Progress Note Seen and evaluated. Sepsis protocol initiated. We will add influenza screen. We will go ahead and evaluate for Covid via rapid testing. LR 1 L bolus ordered. Thyroid analyzer initiated. Monitor patient. 1030: Repeat LR has been ordered. Monitor patient. 1114: Chest x-ray and UA are negative although UA has a fair amount of contamination. Pending free T4 as TSH is slightly high. Monitor patient. 1247: I have discussed the case with patient's doctor, Dr. Herzog. Her lactic acid has improved and overall she is doing much better. She has received 2 L of LR. T4 is in normal range. Lactic acid likely related to diarrhea and starvation. There is question of urinary tract infection although it appears to be more contaminated. Given her history and her fragile thyroid condition, we will go ahead and treat with 3 days of Keflex. Patient and her PCP agree. Discharged home with return precautions. Patient verbalized understanding of instructions and agreement with plan. Diagnostic Imaging Diagonstic Imaging: Xray Plain Films/CT/US/NM/MRI: chest Comments [facility]. [place], [place] NAME: SUNSHINE CRUZ [facility] REC#: [id number] PT STATUS: REG ER : 1975 PHYSICIAN: DUGLAS MEDELLIN MD ADMIT DATE: 07/20/20/ER Draft Date of Exam:07/20/20 CHEST 1 VIEW, AP/PA ONLY INDICATION: Myxedema coma with body aches. TECHNIQUE/COMPARISON: An AP view of the chest was obtained with comparison made to the study of 01/02/2018. FINDINGS: The overall heart size and pulmonary vascularity are within normal limits. There is a densely calcified granuloma in the right midlung. No pneumothorax or consolidation is identified. IMPRESSION: No acute abnormality or adverse change. Dictated on workstation # [id number] Dict: 07/20/20 1046 Trans: 07/20/20 1050 [id number] Interpreted by: ALBER ECHEVERRIA MD Electronically signed by: Departure Impression Primary Impression: Urinary tract infection Qualified Codes: N30.00 - Acute cystitis without hematuria Additional Impressions: Dehydration Diarrhea Qualified Codes: R19.7 - Diarrhea, unspecified Disposition: 01 HOME, SELF-CARE Condition: Improved Departure-Patient Inst. Decision time for Depature: 12:48 Referrals: DIAZ HERZOG MD (PCP/Family) Primary Care Physician Patient Instructions: Diarrhea, Adult ED, Dehydration, Adult ED, Urinary Tract Infection, Adult (DC) Add. Discharge Instructions: Take medications as directed. You may take [id number] Imodium AD or generic for the diarrhea. Eat a light diet and drink plenty of fluids but avoid milk, meat and fatty foods. Follow-up with Dr. Herzog this week on . Call his office for appointment time. Return for worse pain, fever, vomiting, weakness, breathing problems or other concerns as needed. Continue to take your prescribed medication including your thyroid medicine as directed. Scripts Cephalexin (Cephalexin) 500 Mg Tablet 500 MG PO BID, #6 TAB 0 Refills Prov: DUGLAS MEDELLIN MD 07/20/20 Copy Copies To 1: DIAZ HERZOG MD, TIMOTHY D MD Jul 20, 2020 10:07
[2020-07-20 10:20] LABS: BILIRUBIN,URINE NEGATIVE (NEGATIVE); CLARITY,URINE CLEAR; COLOR,URINE YELLOW; GLUCOSE, URINE (UA) NEGATIVE (NEGATIVE); KETONES,URINE 3+ (NEGATIVE); LEUKOCYTE ESTERASE ,URINE 1+ (NEGATIVE); NITRITE,URINE NEGATIVE (NEGATIVE); PROTEIN,URINE 1+ (NEGATIVE)
[2020-07-20 10:28] LABS: ALANINE AMINOTRANSFERASE 19 U/L (0-55); ALBUMIN 4.3 GM/DL (3.2-4.5); ALKALINE PHOSPHATASE 109 U/L (40-136); BILIRUBIN,TOTAL 1.3 MG/DL (0.1-1.0); BUN/CREATININE RATIO 19; CALCIUM 8.6 MG/DL (8.5-10.1); CARBON DIOXIDE 19 MMOL/L (21-32); CHLORIDE 98 MMOL/L (98-107); GFR ESTIMATED > 60; GLUCOSE 99 MG/DL (70-105); POTASSIUM 3.3 MMOL/L (3.6-5.0); SODIUM 136 MMOL/L (135-145); TOTAL PROTEIN 7.7 GM/DL (6.4-8.2)
[2020-07-20 10:29] LABS: BACTERIA,URINE MODERATE /HPF
[2020-07-20 10:31] LABS: PROTHROMBIN TIME PATIENT 12.7 SEC (12.2-14.7)
[2020-07-20 10:32] LABS: FIBRIN DEGRADATION PRODUCTS < 0.27 UG/ML (0.00-0.49); INR 0.9 (0.8-1.4); PARTIAL THROMBOPLASTIN TIME 31 SEC (24-35)
[2020-07-20 10:49] LABS: TSH (THYROID ANALYZER) 7.59 UIU/ML (0.35-4.94)
--- NOTE | 2020-07-20 10:51 | Diagnostic Imaging Report ---
INDICATION: Myxedema coma with body aches. TECHNIQUE/COMPARISON: An AP view of the chest was obtained with comparison made to the study of 01/02/2018. FINDINGS: The overall heart size and pulmonary vascularity are within normal limits. There is a densely calcified granuloma in the right midlung. No pneumothorax or consolidation is identified. IMPRESSION: No acute abnormality or adverse change. Dictated by: Dictated on workstation # [id number]
[2020-07-20 11:24] LABS: FREE T4 (FREE THYROXINE) 0.71 NG/DL (0.70-1.48)
[2020-07-20] MEDS ORDERED: CEPH500T PO (12:49)
[2020-07-20 13:05] VITALS: BP 118/87
== END 2020-07-20 13:05 | disposition home or self-care (01) ==
LOC: EDUNIT# 09:48 → ER 09:51
DX: N30.00 Acute cystitis without hematuria (principal); R19.7 Diarrhea, unspecified; E86.0 Dehydration; E03.9 Hypothyroidism, unspecified; F41.9 Anxiety disorder, unspecified; F17.210 Nicotine dependence, cigarettes, uncomplicated; Z20.822 Contact with and (suspected) exposure to COVID-19; Z79.890 Hormone replacement therapy
CPT/HCPCS: 71045; 80053; 81000; 83605; 84145; 84439; 84443; 85025; 85379; 85610; 85730; 86141; 87040; 87077; 87088; 87804; 99284; U0002; 36415; 87635

== ENCOUNTER → 2020-12-29 | Outpatient (CLI) | payer BC, OTHER ==
[~2020-12-29] MED LIST changes: +CEPH500T PO
--- NOTE | 2020-12-29 16:09 | Diagnostic Imaging Report ---
INDICATION: Cough, chest discomfort COMPARISON: 07/20/2020 TECHNIQUE: 2 radiographs of the chest dated 12/29/2020 FINDINGS: The cardiac silhouette is within normal limits in size. No significant pulmonary vascular congestion. Calcified granuloma within the right midlung is again noted. Bilateral interstitial and groundglass opacities are identified throughout the lungs, left greater than right. These are new from the prior examination. No significant pleural effusion. No pneumothorax. Surgical clips in the right upper quadrant in the abdomen. No acute osseous abnormality. IMPRESSION: New mild bilateral interstitial and groundglass opacities, concerning for an infectious infiltrate. Radiographic follow-up is recommended. Stable calcified granuloma within the right midlung. Dictated by: Dictated on workstation # [id number]
== END ==
LOC: RAD 15:46
PROVIDERS: ATTEND Family Medicine
DX: J84.10 Pulmonary fibrosis, unspecified (principal); R91.8 Other nonspecific abnormal finding of lung field
CPT/HCPCS: 71046

== ENCOUNTER → 2021-02-24 | Outpatient (CLI) | payer BC ==
--- NOTE | 2021-02-24 13:18 | Diagnostic Imaging Report ---
INDICATION: Shortness of breath, history of Covid infection. PA and lateral chest obtained at 12:07 p.m. and compared 12/29/2020 FINDINGS: Heart and mediastinal silhouette are normal in appearance. The lungs show no focal infiltrate. There is no pneumothorax or pleural fluid. There is a calcified granuloma over the right lung which is stable. IMPRESSION: No acute process in the chest. Stable calcified granuloma in right base. No focal infiltrate. Dictated by: Dictated on workstation # [id number]
--- NOTE | 2021-02-24 14:19 | Diagnostic Imaging Report ---
INDICATION: Routine screening. COMPARISON: No prior mammograms are available for comparison. This is a baseline study. TECHNIQUE: 2D and 3D bilateral screening mammography was performed with CAD. FINDINGS: Both breasts are heterogeneously dense, limiting the sensitivity of mammography. No mass or malignant-appearing microcalcifications are seen. The axillae are unremarkable. IMPRESSION: No mammographic features suspicious for malignancy are identified. ACR BI-RADS Category 1: Negative. Result letter will be mailed to the patient. Note: At least 10% of breast cancer is not imaged by mammography. Dictated by: Dictated on workstation # [id number]
== END ==
LOC: RAD 11:41
PROVIDERS: ATTEND Family Medicine
DX: Z12.31 Encounter for screening mammogram for malignant neoplasm of breast (principal); R05.9 Cough, unspecified; R91.8 Other nonspecific abnormal finding of lung field; R06.02 Shortness of breath; Z86.16 Personal history of COVID-19
CPT/HCPCS: 71046; 77063; 77067

== ENCOUNTER 2021-11-17 06:02 | Outpatient (RCR) | payer BC ==
[~2021-11-17] VITALS: Ht 170.2 cm; Wt 72.1 kg
[2021-11-24] MEDS ORDERED: LEVO175C2 PO (13:12)
== END 2021-11-24 13:15 | disposition home or self-care (01) ==
LOC: PREOP 06:02 → EDSTATUS 10:45 → PREOP 11-24 13:15
PROVIDERS: ATTEND Surgery
DX: Z01.818 Encounter for other preprocedural examination (principal)

== ENCOUNTER 2021-12-01 08:19 | Day surgery (SDC) | payer BC ==
[~2021-12-01] VITALS: Ht 170.2 cm; Wt 72.1 kg
[~2021-12-01 08:19] MED LIST changes: +LEVO175C2 PO
[2021-12-01] MEDS ORDERED: LACTATED RINGERS 1,000 ML IV STA (08:23)
[2021-12-01] MEDS ORDERED: HURRICAINE EXT TUBE (BENZOCAINE) XX PRN (08:30)
[2021-12-01 08:37] VITALS: BP 120/79
[2021-12-01] MEDS ORDERED: PROPOFOL INJECTION 50 ML IV ONE ×2 (08:37→10:32)
[2021-12-01] MEDS ORDERED: MIDAZOLAM 2 MG/2 ML (VERSED) VIAL ONE (08:37)
[2021-12-01] MEDS ORDERED: proPOfol 200 MG/20 ML (DIPRIVAN) VIAL IV ONE ×2 (10:06→10:16)
[2021-12-01] MEDS ORDERED: LACTATED RINGERS 1,000 ML IV ONE (10:33)
[2021-12-01 11:10] VITALS: BP 113/59
[2021-12-01 11:15] VITALS: BP 121/73
[2021-12-01 11:20] VITALS: BP 120/76
--- NOTE | 2021-12-01 11:22 | Progress Note-Post Operative ---
Post-Operative Progess Note Surgeon (s)/Barrel Cooper (s) Surgeon JEANETH ANTHONY DO Barrel Cooper: na Pre-Operative Diagnosis change in bowel habits, diarrhea, abdominal pain Post-Operative Diagnosis normal egd, colon polyps Procedure & Operative Findings Date of Procedure 12/01/21 Procedure Performed/Findings egd c biopsies colonoscopy c cold bx ascending colon hot bx polypectomy x 4 snare polypectomy x 9 kayleigh inking of hepatic flexure Anesthesia Type per keeper helper Estimated Blood Loss Estimated blood loss (mL): scant Specimens/Packing Specimens Removed colon polyps, antrum, ge JEANETH ANTHONY DO Dec 01, 2021 11:22
--- NOTE | 2021-12-01 11:23 | Discharge Inst-Simple/Standard ---
Discharge Inst-Standard Patient Instructions/Follow Up Plan of Care/Instructions/FU: 2 weeks Tasha Activity as Tolerated: Yes Discharge Diet: Regular Diet JEANETH ANTHONY DO Dec 01, 2021 11:23
--- NOTE | 2021-12-01 11:23 | Anesthesia-General Post-Op ---
MAC Patient Condition Mental Status/LOC: Same as Preop Cardiovascular: Satisfactory Nausea/Vomiting: Absent Respiratory: Satisfactory Pain: Controlled Complications: Absent Post Op Complications Complications None Follow Up Care/Instructions Patient Instructions None needed. Anesthesiology Discharge Order Discharge Order Patient is doing well, no complaints, stable vital signs, no apparent adverse anesthesia problems. No complications reported per nursing. CELENA CUEVAS CRNA Dec 01, 2021 11:23
[2021-12-01 11:55] VITALS: BP 104/71
[2021-12-01 12:05] VITALS: BP 104/71
[2021-12-01] MEDS ORDERED: D5 LR IV SOLUTION 1,000 ML IV SCH (15:00)
[2021-12-01] MEDS ORDERED: LACTATED RINGERS 1,000 ML IV SCH (15:15)
--- NOTE | 2021-12-01 18:39 | OPERATIVE REPORT ---
DATE OF SERVICE: 12/01/2021 PREOPERATIVE DIAGNOSIS: Change in bowel habits, diarrhea, abdominal pain. POSTOPERATIVE DIAGNOSIS: Normal esophagogastroduodenoscopy, colon polyps. PROCEDURE: EGD with biopsies, colonoscopy with cold biopsy of the ascending colon, mucosal change, hot biopsy polypectomy x4, snare polypectomy x9, Leonor inking of hepatic flexure, distal to the larger polyps. SURGEON: Jeaneth Cordova DO ANESTHESIA: Per COLLATING MACHINE OPERATOR. ESTIMATED BLOOD LOSS: Scant. COMPLICATIONS: None. INDICATIONS: The patient is a 46-year-old female who has had change in bowel habits and diarrhea and abdominal pain. She understands risks and benefits of procedure and wishes to proceed. Consent was signed in the chart. DESCRIPTION OF PROCEDURE: The patient was taken to the endoscopy suite, placed in left lateral recumbent position. Timeout was performed. Scope was inserted in mouth, down the esophagus, stomach and into the duodenum without difficulty. No polyps, masses or ulcerations within the duodenum. Scope was slowly retracted back into the stomach where it was further insufflated. No polyps, masses or ulcerations within the stomach. Biopsy of the antrum was obtained. Scope was retroflexed noting no other pathology. Scope was returned to its normal position, slowly withdrawn to distal esophagus. Biopsy of GE junction was obtained. No polyps, masses or ulcerations. Scope was slowly retracted back until completely removed. Digital rectal exam was performed demonstrating a slight prolapse of the mucosa. No polyps, masses or ulcerations. Scope was inserted in the rectum, advanced all the way to cecum. The patient will be repositioned multiple times. Scope was then slowly retracted back. Within cecum hot biopsy polypectomy was performed on a small polyp. The terminal ileum was intubated, no pathology of the terminal ileum. Scope was retracted back into the ascending colon. In the ascending colon right near the ileocecal valve, a large polyp was present, which snare polypectomy was performed. Right near this was some mucosal change, which cold biopsy was obtained. Scope was then continuously retracted back. Four polyps were present within the ascending colon, which snare polypectomies were performed. At the hepatic flexure, 2 large polyps and one small polyp was present, which snare polypectomy was performed on these. These had to be continued to be snared in order to break them up to obtain for specimen, so they came out in piecemeal. Just distal to this area, 1 mL of Leonor ink was injected for noting where the location was. Scope was then continued slowly retracted back. In the transverse colon, another polyp was present, which snare polypectomy was performed. This was obtained for specimen. Scope was then continuously retracted back into the descending. In the descending colon, there were two small polyps, which hot biopsy polypectomy was performed. Scope was then continuously retracted back into the sigmoid colon where another small polyp was present, which hot biopsy polypectomy was performed. Scope was continuously retracted back into the rectum where no other polyps, masses or ulcerations. Multiple insertions and retractions were made noting no other pathology. The patient tolerated the procedure well without any complications, will follow up in 2 weeks to discuss pathology results. Recommend repeat colonoscopy in 3 to 6 months for reevaluation due to the size and number of polyps. Job ID: [id number] DocumentID: [id number] Dictated Date: 12/01/2021 11:29:25 Forest Fire Control Officer Date: 12/01/2021 18:37:59 Dictated By: JEANETH CORDOVA DO
== END 2021-12-01 12:05 | disposition home or self-care (01) ==
LOC: ENDO 08:19
PROVIDERS: ATTEND Surgery
DX: D12.0 Benign neoplasm of cecum (principal); D12.2 Benign neoplasm of ascending colon; D12.3 Benign neoplasm of transverse colon; D12.5 Benign neoplasm of sigmoid colon; D12.4 Benign neoplasm of descending colon; K63.5 Polyp of colon; K29.50 Unspecified chronic gastritis without bleeding
CPT/HCPCS: 84703

== ENCOUNTER 2022-07-06 05:37 | Outpatient (CLI) | payer BC ==
[~2022-07-06] VITALS: Ht 170.2 cm; Wt 72.0 kg
[2022-07-06] MEDS ORDERED: VALA10007 PO (10:13)
[2022-07-06] MEDS ORDERED: ALPR1TAB7 PO (10:13)
[2022-07-06] MEDS ORDERED: ZOLP5TAB7 PO (10:13)
[2022-07-06] MEDS ORDERED: ALPR0.5T7 PO (10:13)
[2022-07-06] MEDS ORDERED: TRZ50T PO (10:13)
[2022-07-06] MEDS ORDERED: QUET100T33 PO (10:13)
== END 2022-07-06 10:21 | disposition home or self-care (01) ==
LOC: PREOP 05:37
PROVIDERS: ATTEND Surgery
DX: Z01.818 Encounter for other preprocedural examination (principal)

== ENCOUNTER 2022-07-19 09:11 | Day surgery (SDC) | payer BC ==
[~2022-07-19] VITALS: Ht 170.2 cm; Wt 72.0 kg
[~2022-07-19 09:11] MED LIST changes: +ALPR0.5T7 PO; +ALPR1TAB7 PO; +QUET100T33 PO; +TRZ50T PO; +VALA10007 PO; +ZOLP5TAB7 PO
[2022-07-19] MEDS ORDERED: LACTATED RINGERS 1,000 ML IV STA (09:19)
[2022-07-19 09:44] VITALS: BP 84/67
[2022-07-19] MEDS ORDERED: PROPOFOL INJECTION 50 ML IV ONE ×2 (10:30→10:46)
--- NOTE | 2022-07-19 11:11 | Progress Note-Post Operative ---
Post-Operative Progess Note Surgeon (s)/Payroll Technician (s) Surgeon JEANETH ANTHONY DO Payroll Technician: n/a Pre-Operative Diagnosis history colon polyps, family history colon cancer Post-Operative Diagnosis colon polyps Procedure & Operative Findings Date of Procedure 07/19/22 Procedure Performed/Findings colonoscopy with hot biopsy polypectomy x2 Anesthesia Type per budget specialist Estimated Blood Loss Estimated blood loss (mL): none Specimens/Packing Specimens Removed colon polyps JEANETH ANTHONY DO Jul 19, 2022 11:11
--- NOTE | 2022-07-19 11:13 | Discharge Inst-Simple/Standard ---
Discharge Inst-Standard Reconcile Patient Problems Problems Reviewed?: Yes Patient Instructions/Follow Up Plan of Care/Instructions/FU: Follow up with Dr. Cordova in 2 weeks Activity as Tolerated: Yes Discharge Diet: No Restrictions, Regular Diet JEANETH CORDOVA DO Jul 19, 2022 11:13
--- NOTE | 2022-07-19 11:13 | Anesthesia-General Post-Op ---
MAC Patient Condition Mental Status/LOC: Same as Preop Cardiovascular: Satisfactory Nausea/Vomiting: Absent Respiratory: Satisfactory Pain: Controlled Complications: Absent Post Op Complications Complications None Follow Up Care/Instructions Patient Instructions None needed. Anesthesiology Discharge Order Discharge Order Patient is doing well, no complaints, stable vital signs, no apparent adverse anesthesia problems. No complications reported per nursing. SELMA SEVILLA CRNA Jul 19, 2022 11:13
[2022-07-19 11:15] VITALS: BP 72/48
[2022-07-19 11:20] VITALS: BP 75/47
[2022-07-19 11:25] VITALS: BP 97/62
[2022-07-19 11:30] VITALS: BP 100/65
[2022-07-19 11:45] VITALS: BP 100/65
--- NOTE | 2022-07-19 18:29 | OPERATIVE REPORT ---
DATE OF SERVICE: 07/19/2022 PREOPERATIVE DIAGNOSIS: History of polyps, family history of colon cancer. POSTOPERATIVE DIAGNOSIS: Colon polyps. PROCEDURE: Colonoscopy with hot biopsy polypectomy x2. SURGEON: Jeaneth Cordova DO ANESTHESIA: Per FORECLOSURE FIELD INSPECTOR. ESTIMATED BLOOD LOSS: None. COMPLICATIONS: None. INDICATIONS: The patient is a 46-year-old female with a history of polyps and family history of colon cancer. She understands risks and benefits of procedure and wishes to proceed. Consent was signed in chart. DESCRIPTION OF PROCEDURE: The patient was taken to the endoscopy suite, placed in left lateral recumbent position. Timeout was performed. Digital rectal exam was performed. No palpable polyps, masses or ulcerations. Scope was inserted in the rectum and advanced all the way to the cecum with minimal difficulty. Prep was adequate with irrigation and suction. Scope was then slowly retracted back. No polyps, masses or ulcerations in the cecum. In the ascending colon, polyp was present, which hot biopsy polypectomy was performed. Scope was then continuously retracted back into the transverse colon where another polyp was present, which hot biopsy polypectomy was performed. Scope was then continuously retracted back. No other polyps, masses or ulcerations in the remainder of the transverse, descending and sigmoid colon. Once in the rectum, scope was retroflexed noting no other pathology. Scope was returned to its normal position, slowly withdrawn until completely removed. The patient tolerated the procedure well without complications, taken to recovery room in stable condition. RECOMMENDATIONS: Recommend repeat colonoscopy in 3-5 years depending on pathology. Any issues before that, be seen at that time. The patient will follow up in 2 weeks to discuss pathology results. Job ID: [id number] DocumentID: [id number] Dictated Date: 07/19/2022 11:12:42 Neighborhood Aide Date: 07/19/2022 18:26:00 Dictated By: JEANETH CORDOVA DO
== END 2022-07-19 11:58 | disposition home or self-care (01) ==
LOC: ENDO 09:11
PROVIDERS: ATTEND Surgery
DX: Z09 Encounter for follow-up examination after completed treatment for conditions other than malignant neoplasm (principal); D12.2 Benign neoplasm of ascending colon; D12.3 Benign neoplasm of transverse colon; Z80.0 Family history of malignant neoplasm of digestive organs; F17.210 Nicotine dependence, cigarettes, uncomplicated; Z28.310 Unvaccinated for COVID-19

== ENCOUNTER 2023-01-22 16:21 | Inpatient (IN) | payer BC ==
[~2023-01-22] VITALS: Ht 170.2 cm; Wt 62.4 kg
[2023-01-22] MEDS ORDERED: LACTATED RINGERS 1,000 ML 1,000 ML IV STA ×2 (17:04→17:46)
--- NOTE | 2023-01-22 17:12 | ED GI ---
General Chief Complaint: Abdominal/GI Problems Stated Complaint: VOMITING/FEVER Nursing Triage Note: PT AMB TO RM 6 WITH CC OF NAUSEA, FEVER, VOMITING, DIARRHEA, AND LH X5-6DAYS. PT STATES WAS SEEN AT [facility] TRAFFIC ASSISTANT AND SENT D/T "LOW BP." PT STATES SHE "JUST FEELS OFF." PT REPORTS WAS SEEN AT [facility] YESTERDAY FOR SAME CONCERN PT A&OX4 Source of Information: Patient Exam Limitations: No Limitations (ALMA CULVER MD) History of Present Illness Date Seen by Provider: Jan 22, 2023 Time Seen by Provider: 16:58 Initial Comments Patient 47-year-old female who presents to the emergency room chief complaint generalized weakness, diarrhea. She states she has had diarrhea for 5 or 6 days . She has not taken anything for it. History of thyroid disorder. She states she is not very compliant with her medication but has taken over the last couple of days. She had bronchitis/pneumonia a couple of months ago and took a round of antibiotics. She also has been camping and to music festival's in the last few weeks. She states she is not having abdominal cramping. No blood in her stools that she has noticed. She is nauseated but has not vomited. Does not have menstrual cycles for the last 10 years. Denies dysuria, urgency or frequency. No abnormal vaginal discharge. She does smoke cigarettes, does not drink alcohol. Uses marijuana occasionally. Denies any known sick contacts. Significant other is at the bedside and states that she is not speaking like she normally does, more slowly and almost slurred. Timing/Duration: 5-6 Days Severity/Quality: Severe Location: Generalized Abdomen Activities at Onset: None Associated Symptoms: Other (diarrhea) (ALMA CULVER MD) Allergies and Home Medications Allergies Coded Allergies: No Known Drug Allergies (Verified , 06/30/09) Patient Home Medication List Home Medication List Reviewed: Yes (ALMA CULVER MD) Alprazolam (Alprazolam) 0.5 Mg Tablet, 0.5 MG PO TID, (Reported) Entered as Reported by: TARI MANZO on 07/06/22 1013 Alprazolam (Alprazolam) 1 Mg Tablet, 1 MG PO HS, (Reported) Entered as Reported by: TARI MANZO on 07/06/22 1013 Levothyroxine Sodium (Levothyroxine) 175 Mcg Capsule, 175 MCG PO DAILY, (Reported) Entered as Reported by: ANDI SERRATO on 11/24/21 1312 Omeprazole (Omeprazole) 20 Mg Capsule.dr, 20 MG PO DAILY PRN for HEARTBURN, (Reported) Entered as Reported by: AVIS ALEJANDRE on 01/01/18 0902 Quetiapine Fumarate (Quetiapine Fumarate) 100 Mg Tablet, 100 MG PO HS, (Reported) Entered as Reported by: TARI MANZO on 07/06/22 1013 Trazodone HCl (Trazodone HCl) 50 Mg Tablet, 50 MG PO HS, (Reported) Entered as Reported by: TARI MANZO on 07/06/22 1013 Valacyclovir HCl (Valacyclovir) 1,000 Mg Tablet, 1,000 MG PO DAILY, (Reported) Entered as Reported by: TARI MANZO on 07/06/22 1013 Zolpidem Tartrate (Zolpidem Tartrate) 5 Mg Tablet, 5 MG PO HS, (Reported) Entered as Reported by: TARI MANZO on 07/06/22 1013 Review of Systems Review of Systems Constitutional: see HPI EENTM: Other (dry mouth) Respiratory: Cough (dry) Cardiovascular: No Symptoms Reported Gastrointestinal: Diarrhea Genitourinary: No Symptoms Reported Musculoskeletal: no symptoms reported Skin: no symptoms reported Psychiatric/Neurological: No Symptoms Reported (ALMA CULVER MD) All Other Systems Reviewed Negative Unless Noted: Yes (ALMA CULVER MD) Past Dwqfchj-Sdnkpm-Wvijbn Hx Immunizations Up To Date Tetanus Booster (TDap): Unknown PED Vaccines UTD: Yes First/Initial COVID19 Vaccinat: NO Second COVID19 Vaccination Willi: NO Third COVID19 Vaccination Date: NO (ALMA CULVER MD) Seasonal Allergies Seasonal Allergies: Yes (ALMA CULVER MD) Past Medical History Surgeries: Yes Appendectomy, Gallbladder Respiratory: Yes Chronic Bronchitis Currently Using CPAP: No Currently Using BIPAP: No Cardiac: No Neurological: No Reproductive Disorders: No Sexually Transmitted Disease: No HIV/AIDS: No Genitourinary: Yes UTI-Chronic Gastrointestinal: Yes (abd pain) Gastroesophageal Reflux, Liver Disease/Jaundice, Chronic Diarrhea, Ulcer Musculoskeletal: No Endocrine: Yes (GRAVES DISEASE, HX MYXEDEMA COMA) Hypothyroidsim HEENT: No Cancer: No Psychosocial: Yes Anxiety Integumentary: No Blood Disorders: No Adverse Reaction/Blood Tranf: No (ALMA CULVER MD) Family Medical History No Pertinent Family Hx (ALMA CULVER MD) Physical Exam Vital Signs Vital Signs - First Documented 01/22/23 16:47 Temp 37.4 Pulse 73 Resp 16 B/P (MAP) 75/52 (60) Pulse Ox 94 O2 Delivery Room Air (DUGLAS MEDELLIN MD) Vital Signs Capillary Refill : Less Than 3 Seconds (ALMA CULVER MD) Height/Weight/BMI Height: 5'7.00" Weight: 158lbs. 0.0oz. [id number]; 20.00 BMI Method:Stated General Appearance: thin HEENT: PERRL/EOMI, other (very dry oral mucosa) Neck: supple, normal inspection Respiratory: lungs clear, normal breath sounds, no respiratory distress, no accessory muscle use Cardiovascular: regular rate, rhythm Gastrointestinal: non tender, soft, abnormal bowel sounds (hypoactive) Extremities: normal range of motion, normal inspection Neurologic/Psychiatric: alert, normal mood/affect, oriented x 3, other (flat affect) Skin: normal color, warm/dry, other (dry skin; poor turgor) (ALMA CULVER MD) Focused Exam Lactate Level 01/22/23 18:20: Lactic Acid Level 0.86 (DUGLAS MEDELLIN MD) Lactic Acid Level Laboratory Tests Test 01/22/23 18:20 Lactic Acid Level 0.86 MMOL/L (0.50-2.00) (DUGLAS MEDELLIN MD) Procedures/Interventions Lumen: triple Central Line Procedure: betadine prep, sterile drapes applied, sterile dressing applied Position: internal jugular (R) Anesthesia: Lidocaine Volume Anesthetic (ccs): 5 Complications: none Post Position: sutured, good blood return, position confirmed w/ CXR Tolerated procedure well with no complications. Placed via ultrasound guidance using Seldinger technique. Post chest x-ray shows central line in good position. No pneumothorax. (DUGLAS MEDELLIN MD) Date of ETT Placement: Dec 31, 2017 Time of ETT Placement: 0303 (ALMA CULVER MD) Progress/Results/Core Measures Results/Orders Lab Results Laboratory Tests Test 01/22/23 16:55 01/22/23 18:12 01/22/23 18:20 01/22/23 19:08 Range/Units White Blood Count 7.5 4.3-11.0 10^3/uL Red Blood Count 3.21 L 3.80-5.11 10^6/uL Hemoglobin 10.7 L 11.5-16.0 g/dL Hematocrit 32 L 35-52 % Mean Corpuscular Volume 100 H 80-99 fL Mean Corpuscular Hemoglobin 33 25-34 pg Mean Corpuscular Hemoglobin Concent 33 32-36 g/dL Red Cell Distribution Width 18.6 H 10.0-14.5 % Platelet Count 259 130-400 10^3/uL Mean Platelet Volume 9.4 9.0-12.2 fL Immature Granulocyte % (Auto) 0 % Neutrophils (%) (Auto) 82 H 42-75 % Lymphocytes (%) (Auto) 12 12-44 % Monocytes (%) (Auto) 5 0-12 % Eosinophils (%) (Auto) 0 0-10 % Basophils (%) (Auto) 0 0-10 % Neutrophils # (Auto) 6.2 1.8-7.8 10^3/uL Lymphocytes # (Auto) 0.9 L 1.0-4.0 10^3/uL Monocytes # (Auto) 0.3 0.0-1.0 10^3/uL Eosinophils # (Auto) 0.0 0.0-0.3 10^3/uL Basophils # (Auto) 0.0 0.0-0.1 10^3/uL Immature Granulocyte # (Auto) 0.0 0.0-0.1 10^3/uL Sodium Level 136 135-145 MMOL/L Potassium Level 3.3 L 3.6-5.0 MMOL/L Chloride Level 102 98-107 MMOL/L Carbon Dioxide Level 23 21-32 MMOL/L Anion Gap 11 5-14 MMOL/L Blood Urea Nitrogen 10 7-18 MG/DL Creatinine 0.83 0.60-1.30 MG/DL Estimat Glomerular Filtration Rate 89 BUN/Creatinine Ratio 12 Glucose Level 85 70-105 MG/DL Calcium Level 8.9 8.5-10.1 MG/DL Corrected Calcium 9.0 8.5-10.1 MG/DL Total Bilirubin 0.5 0.1-1.0 MG/DL Aspartate Amino Transf (AST/SGOT) 126 H 5-34 U/L Alanine Aminotransferase (ALT/SGPT) 202 H 0-55 U/L Alkaline Phosphatase 190 H 40-136 U/L Total Protein 6.8 6.4-8.2 GM/DL Albumin 3.9 3.2-4.5 GM/DL Thyroid Stimulating Hormone (TSH) 2.22 0.35-4.94 UIU/ML Free Thyroxine 1.09 0.70-1.48 NG/DL Lactic Acid Level 0.86 0.50-2.00 MMOL/L Urine Color YELLOW Urine Clarity CLEAR Urine pH 6.0 5-9 Urine Specific [place] 1.025 H 1.016-1.022 Urine Protein 2+ H NEGATIVE Urine Glucose (UA) NEGATIVE NEGATIVE Urine Ketones TRACE H NEGATIVE Urine Nitrite NEGATIVE NEGATIVE Urine Bilirubin 2+ H NEGATIVE Urine Urobilinogen 2.0 < = 1.0 MG/DL Urine Leukocyte Esterase TRACE H NEGATIVE Urine RBC (Auto) NEGATIVE NEGATIVE Urine RBC 2-5 H /HPF Urine WBC 0-2 /HPF Urine Squamous Epithelial Cells 0-2 /HPF Urine Crystals NONE /LPF Urine Bacteria TRACE /HPF Urine Casts NONE /LPF Urine Mucus LARGE H /LPF Urine Culture Indicated NO (DUGLAS MEDELLIN MD) My Orders Orders - DUGLAS MEDELLIN MD Free T4 (Free Thyroxine) (01/22/23 18:10) Lactated Ringers 1,000 Ml (Lactated Ring (01/22/23 18:45) Ct Abdomen/Pelvis W (01/22/23 20:14) Chest 1 View, Ap/Pa Only (01/22/23 20:15) Iohexol Injection (Omnipaque 350 Mg/Ml 1 (01/22/23 20:30) Received Contrast (Hold Metformin- Contr (01/22/23 20:30) Ns (Ivpb) 100 Ml (Sodium Chloride 0.9% 1 (01/22/23 20:30) Norepinephrine 8 Mg/250 Ml (Norepinephri (01/22/23 21:30) Nicotine Patch (Nicotine Patch) (01/22/23 22:15) Ekg Tracing (01/22/23 22:25) Bnp [place] (01/22/23 22:56) Troponin I [place] (01/22/23 22:56) Code/Resuscitation (01/22/23 22:56) Ed Admission (Communication) (01/22/23 22:56) (DUGLAS MEDELLIN MD) Medications Given in ED Current Medications Medications Dose Ordered Sig/[place] Route Start Time Stop Time Status Last Admin Dose Admin Iohexol 100 ml ONCE ONCE IV 01/22/23 20:30 01/22/23 20:31 DC 01/22/23 21:23 67 ML Lactated Ringer's 1,000 ml @ 0 mls/hr Q0M ONCE IV 01/22/23 18:45 01/22/23 18:46 DC 01/22/23 18:49 1,000 MLS/HR Nicotine 21 mg ONCE ONCE TD 01/22/23 22:15 01/22/23 22:16 DC 01/22/23 22:29 21 MG Sodium Chloride 100 ml ONCE ONCE IV 01/22/23 20:30 01/22/23 20:31 DC 01/22/23 21:23 100 ML (DUGLAS MEDELLIN MD) Vital Signs/I&O 01/22/23 01/22/23 01/22/23 01/22/23 16:47 21:44 22:44 22:46 Temp 37.4 Pulse 73 68 56 56 Resp 16 B/P (MAP) 75/52 (60) 83/48 101/54 101/69 Pulse Ox 94 O2 Delivery Room Air 01/22/23 01/22/23 22:48 22:50 Pulse 56 53 B/P (MAP) 109/74 109/74 (DUGLAS MEDELLIN MD) Blood Pressure Mean: 60 Progress Progress Note : Time: 18:13 Progress Note Patient re-evaluated at this time, Cuff exchanged for smaller and BP remains 74 systolic. HR in the 60-70 range. She is alert and asking for something to eat. 2nd liter of LR started. Dr Medellin introduced to patient, to assume care at shift change. I have added a CXR and culture/lactic. (ALMA CULVER MD) Progress Note : Progress Note 1853: I did evaluate the patient at bedside with Dr. Culver earlier. We did initiate second liter of LR for blood pressure that was remaining 70 systolic. This continues and I have added third liter of LR. She is still not given urine. Labs reviewed based on orders noted above CBC shows normal white count but slightly low hemoglobin which will worsen as we rehydrate her. CMP reviewed and shows grossly normal electrolytes and renal function with elevated LFTs which may be secondary to the diarrhea. TSH is normal and I did add and evaluate free T4 which is also normal. Lactic acid is normal. We will see how she does with this fluid and try to obtain UA. Patient may be incredibly dehydrated. Chest x-ray reviewed by me and shows persistent calcified granuloma to the right mid lung that appears to be unchanged and no obvious infiltrate on my interpretation. Pending radiology report. Monitor patient. 2130: Patient's blood pressure continued to remain in the 80s. Ultimately we discussed placement of central line and initiation of norepinephrine. After long discussion with patient and family, patient agreed after discussion of risk and benefits. Central line was placed and post line placement chest x-ray shows line in good position without pneumothorax. We will get CT abdomen and pelvis as patient has had fairly persistent abdominal pain. During the procedure for central line placement, patient does admit to using Xanax and states she has been on that for 20 or more years. She reports taking that as directed. We will initiate norepinephrine to keep systolic blood pressure greater than 90 and MAP greater than 65 with admission to the ICU. She has received 3 L of LR. We will continue maintenance infusion. Pending CT and patient will be admitted. Free T4 was noted to be normal. 2135: Pending radiology report for CT scan. There are multiple fluid-filled loops of bowel but I do not see any obvious abscess, free air or mass on my interpretation. Pending radiology report. 2215: CT report noted. She does have some mild perinephric stranding and fluid filled bowel as discussed above. Also noted was some pericardial effusion as well as some lower pulmonary. 2220: I did discuss the case with Dr Silva, on- call for cardiology and he is not concerned about pericardial tamponade. Heart rate 60s with blood pressure much improved on norepinephrine drip currently. He states nor epi okay with fluids as needed with echo in the morning and he will see patient in consult. I did discuss the case with the medicine resident on- call, Dr. Chen. She accepts patient for admission to the ICU. I will contact eICU team. Patient will go to the ICU. Patient agrees with plan. We will initiate nicotine patch and clear liquid diet given her diarrhea. 2299: Case discussed with the eICU doctor on-call. We will add BUN and troponin and he will follow. Admit, inpatient status. Blood pressure currently 119/76 with heart rate of 59 and O2 sat 95% on 2 L. (DUGLAS MEDELLIN MD) Initial ECG Impression Date: Jan 22, 2023 Initial ECG Impression Time: 22:35 Initial ECG Rate: 57 Initial ECG Rhythm: Normal Sinus, S.Suresh Initial ECG Impression: Sinus Bradycardia Comment Sinus rhythm with normal axis and bradycardic rate. No evidence of ST elevation NV. Interpreted by me. (DUGLAS MEDELLIN MD) Diagnostic Imaging Diagonstic Imaging: Xray Plain Films/CT/US/NM/MRI: chest Comments [facility] [place], [place] NAME: SUNSHINE CRUZ [employer] REC#: [id number] PT STATUS: REG ER : 1975 PHYSICIAN: ALMA CULVER MD ADMIT DATE: 01/22/23/ER Signed Date of Exam:01/22/23 CHEST 1 VIEW, AP/PA ONLY CLINICAL INDICATION: Patient with hypotension. EXAM: Portable chest x-ray, upright view. COMPARISON: Chest x-ray dated 07/20/2020. FINDINGS: Lungs/pleura: Stable calcified granuloma overlying the right lower lung field region. There is mild right basilar atelectasis; otherwise, the lungs are clear. There is no pneumothorax. There is no pleural effusion. Mediastinum: Unremarkable. Pulmonary vasculature: Unremarkable. Heart: Unremarkable. Bones/extrathoracic soft tissue: There are small degenerative spurs involving the lower thoracic spine. IMPRESSION: There is mild right basilar atelectasis. There is no radiographic evidence of acute cardiopulmonary process. Dictated by: Dictated on workstation # [id number] Dict: 01/22/231852 Trans: 01/22/231952 [id number] Interpreted by: JEFFERY ALLISON MD Electronically signed by: JEFFERY ALLISON MD 01/22/231952 Diagonstic Imaging: Xray Plain Films/CT/US/NM/MRI: chest Comments [facility] [place] [place] NAME: SUNSHINE CRUZ [employer] REC#: [id number] PT STATUS: REG ER : 1975 PHYSICIAN: DUGLAS MEDELLIN MD ADMIT DATE: 01/22/23/ER Draft Date of Exam:01/22/23 CHEST 1 VIEW, AP/PA ONLY CLINICAL INDICATION: Patient with central line placement. EXAM: Portable chest x-ray, upright view. COMPARISON: Chest x-ray dated 01/22/2023. FINDINGS: Interval placement of a right IJ central line with the tip overlying the expected region of the distal superior vena cava. Lungs/pleura: Stable calcified granuloma involving the right lower lung field region. There is interval progression of mild bibasilar atelectasis versus infiltrate. There is no pneumothorax. There is no pleural effusion. Mediastinum: Unremarkable. Pulmonary vasculature: Unremarkable. Heart: Unremarkable. Bones/extrathoracic soft tissue: Unremarkable. IMPRESSION: 1: There is interval progression of mild bibasilar atelectasis versus infiltrates. 2: Interval placement of right IJ central line with the tip in the expected region of the distal superior vena cava. There is no pneumothorax. Dictated on workstation # [id number] Dict: 01/22/232125 Trans: 01/22/232141 [id number] Interpreted by: JEFFERY ALLISON MD Electronically signed by: Diagonstic Imaging: CT Plain Films/CT/US/NM/MRI: abdomen, pelvis Comments [facility]. [place], [place] NAME: SUNSHINE CRUZ [employer] REC#: [id number] PT STATUS: REG ER : 1975 PHYSICIAN: DUGLAS MEDELLIN MD ADMIT DATE: 01/22/23/ER Draft Date of Exam:01/22/23 CT ABDOMEN/PELVIS W CLINICAL INDICATION: Patient with nausea, fever, vomiting, and diarrhea x 5 to 6 days. Patient has history of cholecystectomy and appendectomy. EXAM: Axial CT scan of the abdomen and pelvis performed with 67 cc of Omnipaque 350 IV contrast. Sagittal and coronal reformatted images were created. COMPARISON: CT scan of the abdomen and pelvis with contrast dated 09/14/2019. FINDINGS: There is interval development of patchy airspace opacities and curvilinear opacities involving both lung bases posteriorly which may be related to lung infiltrates. There is interval development of a moderate amount of pericardial effusion. There are small degenerative spurs involving the lower lumbar spine. There is interval cholecystectomy. There are no significantly dilated intrahepatic or extrahepatic ducts. The liver, spleen, pancreas, and adrenal glands are unremarkable. There is interval development of mild fat stranding adjacent to both kidneys. Both kidneys are otherwise unremarkable with no hydronephrosis, stone, or mass. The bladder is fluid-filled and unremarkable. The uterus is surgically absent. There is very minimal pelvic free fluid which may be physiologic. There is no intraabdominal free air. There is no intestinal obstruction. There are mildly distended fluid-filled loops of small bowel involving the duodenum and jejunum which measure 2.5 cm or less in width. There is no transition point seen. There are air-fluid levels within nondistended transverse and right colon which may be related to the patient's history of diarrhea. There is no significant colonic wall thickening. There is no significant small bowel thickening. The stomach is unremarkable. There is no significant lymphadenopathy. The extraabdominal and extrapelvic soft tissue structures are unremarkable. IMPRESSION: 1: There is interval development of mild fat stranding adjacent to both kidneys; otherwise, the kidneys are unremarkable. Etiology such as pyelonephritis should be excluded. Urinalysis may help better evaluate. The bladder is unremarkable as visualized. 2: There are fluid distended loops of small bowel in the upper abdomen which are nonspecific. There is no evidence of intestinal obstruction. 3: There is interval cholecystectomy. 4: There is interval development of a moderate amount of pericardial effusion. 5: There is interval development of infiltrates involving the posterior aspects of both lungs. Dictated on workstation # [id number] Dict: 01/22/232136 Trans: 01/22/23 215 [id number] Interpreted by: JEFFERY ALLISON MD Electronically signed by: (DUGLAS MEDELLIN MD) Critical Care Note Critical Care Start Time: 18:00 Stop Time: 23:00 Total Time (minutes) 30 minutes excluding separately billable procedures to evaluate and treat life- threatening condition. See progress note for details. (DUGLAS MEDELLIN MD) Departure Communication (Admissions) Time/Spoke to Admitting Phy: 22:20 Time/Spoke to Consulting Phy: 22:11 (DUGLAS MEDELLIN MD) Impression Primary Impression: Hypotension Qualified Codes: I95.9 - Hypotension, unspecified Additional Impressions: Pericardial effusion Diarrhea Qualified Codes: R19.7 - Diarrhea, unspecified Disposition: ADMITTED INPATIENT Condition: Stable Admissions Decision to Admit Reason: Admit from ER (General) Decision to Admit/Date: Jan 22, 2023 Time/Decision to Admit Time: 22:11 (DUGLAS MEDELLIN MD) Departure-Patient Inst. Referrals: DIAZ HERZOG MD (PCP/Family) Primary Care Physician ALMA CULVER MD Jan 22, 2023 17:12 DUGLAS MEDELLIN MD Jan 22, 2023 18:57
[2023-01-22 17:14] LABS: BASOPHILS % (AUTO) 0 % (0-10); EOSINOPHILS % (AUTO) 0 % (0-10); HEMATOCRIT 32 % (35-52); HEMOGLOBIN 10.7 g/dL (11.5-16.0); LYMPHOCYTES # (AUTO) 0.9 10^3/uL (1.0-4.0); LYMPHOCYTES % (AUTO) 12 % (12-44); MEAN CORPUSCULAR HEMOGLOBIN 33 pg (25-34); MEAN CORPUSCULAR HGB CONC 33 g/dL (32-36); MEAN CORPUSCULAR VOLUME 100 fL (80-99); MEAN PLATELET VOLUME 9.4 fL (9.0-12.2); MONOCYTES # (AUTO) 0.3 10^3/uL (0.0-1.0); MONOCYTES % (AUTO) 5 % (0-12); NEUTROPHILS # (AUTO) 6.2 10^3/uL (1.8-7.8); NEUTROPHILS % (AUTO) 82 % (42-75); PLATELET COUNT 259 10^3/uL (130-400); WHITE BLOOD COUNT 7.5 10^3/uL (4.3-11.0)
[2023-01-22 17:23] LABS: ALBUMIN 3.9 GM/DL (3.2-4.5); POTASSIUM 3.3 MMOL/L (3.6-5.0)
[2023-01-22 17:25] LABS: CALCIUM 8.9 MG/DL (8.5-10.1)
[2023-01-22 17:26] LABS: TOTAL PROTEIN 6.8 GM/DL (6.4-8.2)
[2023-01-22 17:28] LABS: BILIRUBIN,TOTAL 0.5 MG/DL (0.1-1.0)
[2023-01-22 17:29] LABS: CREATININE SERUM 0.83 MG/DL (0.60-1.30)
[2023-01-22] MEDS ORDERED: LACTATED RINGERS 1,000 ML 1,000 ML IV ONE (18:45)
--- NOTE | 2023-01-22 18:57 | Diagnostic Imaging Report ---
CLINICAL INDICATION: Patient with hypotension. EXAM: Portable chest x-ray, upright view. COMPARISON: Chest x-ray dated 07/20/2020. FINDINGS: Lungs/pleura: Stable calcified granuloma overlying the right lower lung field region. There is mild right basilar atelectasis; otherwise, the lungs are clear. There is no pneumothorax. There is no pleural effusion. Mediastinum: Unremarkable. Pulmonary vasculature: Unremarkable. Heart: Unremarkable. Bones/extrathoracic soft tissue: There are small degenerative spurs involving the lower thoracic spine. IMPRESSION: There is mild right basilar atelectasis. There is no radiographic evidence of acute cardiopulmonary process. Dictated by: Dictated on workstation # [id number]
[2023-01-22 19:32] LABS: BACTERIA,URINE TRACE /HPF; BILIRUBIN,URINE 2+ (NEGATIVE); CLARITY,URINE CLEAR; COLOR,URINE YELLOW; GLUCOSE, URINE (UA) NEGATIVE (NEGATIVE); KETONES,URINE TRACE (NEGATIVE); LEUKOCYTE ESTERASE ,URINE TRACE (NEGATIVE); NITRITE,URINE NEGATIVE (NEGATIVE); PROTEIN,URINE 2+ (NEGATIVE); SQUAMOUS EPITHELIAL CELL,UR 0-2 /HPF; WBC,URINE 0-2 /HPF
[2023-01-22] MEDS ORDERED: IOHEXOL 350 MG/ML 100 ML (OMNIPAQUE 350) VIAL IV ONE (20:30)
[2023-01-22] MEDS ORDERED: HOLD METFORMIN - RECEIVED CONTRAST 20 ML VIAL IV SCH (20:30)
[2023-01-22] MEDS ORDERED: NS 100 ML (IVPB) BAG IV ONE (20:30)
--- NOTE | 2023-01-22 21:42 | Diagnostic Imaging Report ---
CLINICAL INDICATION: Patient with central line placement. EXAM: Portable chest x-ray, upright view. COMPARISON: Chest x-ray dated 01/22/2023. FINDINGS: Interval placement of a right IJ central line with the tip overlying the expected region of the distal superior vena cava. Lungs/pleura: Stable calcified granuloma involving the right lower lung field region. There is interval progression of mild bibasilar atelectasis versus infiltrate. There is no pneumothorax. There is no pleural effusion. Mediastinum: Unremarkable. Pulmonary vasculature: Unremarkable. Heart: Unremarkable. Bones/extrathoracic soft tissue: Unremarkable. IMPRESSION: 1: There is interval progression of mild bibasilar atelectasis versus infiltrates. 2: Interval placement of right IJ central line with the tip in the expected region of the distal superior vena cava. There is no pneumothorax. Dictated by: Dictated on workstation # [id number]
[2023-01-22] MEDS: NOREPINEPHRINE 8 MG/250 ML 250 ML IV SCH (21:44)
--- NOTE | 2023-01-22 21:55 | Diagnostic Imaging Report ---
CLINICAL INDICATION: Patient with nausea, fever, vomiting, and diarrhea x 5 to 6 days. Patient has history of cholecystectomy and appendectomy. EXAM: Axial CT scan of the abdomen and pelvis performed with 67 cc of Omnipaque 350 IV contrast. Sagittal and coronal reformatted images were created. COMPARISON: CT scan of the abdomen and pelvis with contrast dated 09/14/2019. FINDINGS: There is interval development of patchy airspace opacities and curvilinear opacities involving both lung bases posteriorly which may be related to lung infiltrates. There is interval development of a moderate amount of pericardial effusion. There are small degenerative spurs involving the lower lumbar spine. There is interval cholecystectomy. There are no significantly dilated intrahepatic or extrahepatic ducts. The liver, spleen, pancreas, and adrenal glands are unremarkable. There is interval development of mild fat stranding adjacent to both kidneys. Both kidneys are otherwise unremarkable with no hydronephrosis, stone, or mass. The bladder is fluid-filled and unremarkable. The uterus is surgically absent. There is very minimal pelvic free fluid which may be physiologic. There is no intraabdominal free air. There is no intestinal obstruction. There are mildly distended fluid-filled loops of small bowel involving the duodenum and jejunum which measure 2.5 cm or less in width. There is no transition point seen. There are air-fluid levels within nondistended transverse and right colon which may be related to the patient's history of diarrhea. There is no significant colonic wall thickening. There is no significant small bowel thickening. The stomach is unremarkable. There is no significant lymphadenopathy. The extraabdominal and extrapelvic soft tissue structures are unremarkable. IMPRESSION: 1: There is interval development of mild fat stranding adjacent to both kidneys; otherwise, the kidneys are unremarkable. Etiology such as pyelonephritis should be excluded. Urinalysis may help better evaluate. The bladder is unremarkable as visualized. 2: There are fluid distended loops of small bowel in the upper abdomen which are nonspecific. There is no evidence of intestinal obstruction. 3: There is interval cholecystectomy. 4: There is interval development of a moderate amount of pericardial effusion. 5: There is interval development of infiltrates involving the posterior aspects of both lungs. Dictated by: Dictated on workstation # [id number]
[2023-01-22] MEDS ORDERED: NICOTINE 21 MG PATCH TD ONE (22:15)
[2023-01-23] MEDS ORDERED: ANTACID SUSPENSION 30 ML UDC PO PRN
[2023-01-23] MEDS ORDERED: ACETAMINOPHEN 325 MG TABLET PO PRN
[2023-01-23] MEDS ORDERED: NS IV 500 ML 500 ML IV PRN
[2023-01-23] MEDS ORDERED: ONDANSETRON 4 MG ORAL DISSOLVE TABLET PO PRN
[2023-01-23] MEDS ORDERED: CALCIUM CARBONATE 500 MG CHEW TABLET PO PRN
[2023-01-23] MEDS ORDERED: ONDANSETRON INJECTION 4 MG/2 ML (SDV) IV PRN
[2023-01-23] MEDS ORDERED: BISACODYL 10 MG SUPPOSITORY PR PRN
[2023-01-23 00:22] LABS: AMPHETAMINE SCREEN, URINE NEGATIVE (NEGATIVE); CANNABINOID SCREEN, URINE POSITIVE (NEGATIVE); COCAINE SCREEN URINE NEGATIVE (NEGATIVE); TRICYCLIC ANTIDEPRESSANTS SCRE POSITIVE (NEGATIVE)
[2023-01-23 00:23] LABS: BARBITURATE SCREEN URINE NEGATIVE (NEGATIVE); METHADONE STAT NEGATIVE (NEGATIVE); OPIATE SCREEN URINE NEGATIVE (NEGATIVE); OXYCODONE STAT NEGATIVE (NEGATIVE); PROPOXYPHENE STAT NEGATIVE (NEGATIVE)
[2023-01-23] MEDS: ENOXAPARIN 40 MG/0.4 ML SYRINGE SC SCH (00:38)
[2023-01-23] MEDS: IBUPROFEN 200 MG TABLET PO SCH ×2 (00:38→07:01)
[2023-01-23 04:19] LABS: HEMATOCRIT 30 % (35-52); HEMOGLOBIN 10.4 g/dL (11.5-16.0); MEAN CORPUSCULAR HEMOGLOBIN 33 pg (25-34); MEAN CORPUSCULAR HGB CONC 34 g/dL (32-36); MEAN CORPUSCULAR VOLUME 97 fL (80-99); MEAN PLATELET VOLUME 9.2 fL (9.0-12.2); PLATELET COUNT 239 10^3/uL (130-400); WHITE BLOOD COUNT 9.3 10^3/uL (4.3-11.0)
[2023-01-23 05:41] LABS: ALBUMIN 3.5 GM/DL (3.2-4.5)
[2023-01-23 05:43] LABS: CALCIUM 8.6 MG/DL (8.5-10.1)
[2023-01-23 05:44] LABS: TOTAL PROTEIN 6.1 GM/DL (6.4-8.2)
[2023-01-23 05:46] LABS: BILIRUBIN,TOTAL 0.4 MG/DL (0.1-1.0)
[2023-01-23 05:48] LABS: CREATININE SERUM 0.7 MG/DL (0.60-1.30)
[2023-01-23 05:50] LABS: MAGNESIUM 1.4 MG/DL (1.6-2.4)
[2023-01-23] MEDS: POTASSIUM CHLORIDE 20 MEQ TABLET PO SCH (06:55)
[2023-01-23] MEDS: MAGNESIUM 1 GM/100 ML IVPB 100 ML IV SCH ×7 (06:55→13:46)
[2023-01-23] MEDS: POTASSIUM CL 10MEQ/50ML IVPB 50 ML IV SCH ×8 (06:55→12:58)
[2023-01-23] MEDS ORDERED: MAGNESIUM 1 GM/100 ML IVPB 600 ML IV ONE (06:57)
[2023-01-23] MEDS ORDERED: POTASSIUM CL 10 MEQ/50 ML IV ONE (06:58)
[2023-01-23] MEDS ORDERED: MAGNESIUM 1 GM/100 ML IVPB 100 ML IV SCH (07:30)
--- NOTE | 2023-01-23 08:32 | History & Physical ---
JULIANA DOLAN MD,RESIDENT 01/23/23 0832: HPI History of Present Illness: CC: generalized weakness, diarrhea HPI: Pt is a 47 yo female with a medical history significant for hypothyroidism 2/2 radiation treatment of Grave's disease, who presents to the ED for generalized weakness and diarrhea. She states she has had diarrhea for 5 or 6 days. She has not taken anything for it. She states she is not very compliant with her medication but has taken over the last month. She had bronchitis/pneumonia a couple of months ago and was treated with antibiotics at that time. She also has been camping and to music festival's in the last few weeks. No blood in her stools that she has noticed. Denies dysuria, urgency or frequency, N/V, abdominal tenderness, abnormal vaginal discharge. She reports a very severe headache, she says her entire head feels like theres a lot of pressure inside. She smokes cigarettes, does not drink alcohol, but uses marijuana occasionally. Denies any known sick contacts. 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 She is admitted to ICU for further management. Source: patient, family Time Seen by Provider: 08:00 Attending Physician [facility] PCP Admitting Physician: Shantal Henao DO Attending Physician: Mirian Edwards MD Consult Date of Admission Jan 22, 2023 at 23:35 Home Medications Home Medications Reviewed patient Home Medication Reconciliation performed by pharmacy medication reconciliations trailer technician and/or nursing. Patients Allergies have been reviewed. Allergies Coded Allergies: No Known Drug Allergies (Verified , 06/30/09) QWW-Emkqfn-Hmkoyu Hx Patient Social History Drug of Choice: MARIJUANA Smoking Status: Current Everyday Smoker 2nd Hand Smoke Exposure: Yes Recent Hopitalizations: No Alcohol Use?: No Substance type: Marijuana Tobacco type used: Cigarettes Immunizations Up To Date Tetanus Booster (TDap): Unknown Influenza Vaccine Up-to-Date: No; Not Current First/Initial COVID19 Vaccinat: NO Second COVID19 Vaccination Willi: NO Third COVID19 Vaccination Date: NO Family Medical History Significant Family History: No Pertinent Family Hx Review of Systems ([facility]) Constitutional: malaise, weakness EENTM: see HPI Respiratory: see HPI Cardiovascular: see HPI Gastrointestinal: no symptoms reported Genitourinary: no symptoms reported Skin: see HPI Psychiatric/Neurological: Anxiety Physical Exam-([facility]) Physical Exam Vital Signs VS - Last 72 Hours, by Label 01/22/23 01/22/23 01/22/23 01/22/23 16:47 21:44 22:44 22:46 Temp 37.4 Pulse 73 68 56 56 Resp 16 B/P (MAP) 75/52 (60) 83/48 101/54 101/69 Pulse Ox 94 O2 Delivery Room Air 01/22/23 01/22/23 01/22/23 01/22/23 22:48 22:50 23:41 23:49 Pulse 56 53 84 50 Resp 16 B/P (MAP) 109/74 109/74 119/90 124/74 (97) Pulse Ox 95 O2 Delivery Room Air Room Air 01/22/23 01/22/23 01/23/23 01/23/23 23:50 23:52 00:00 00:00 Temp 37.1 Pulse 58 53 84 Resp 14 B/P (MAP) 120/75 (95) 119/90 O2 Delivery Room Air 01/23/23 01/23/23 01/23/23 01/23/23 00:00 00:00 00:15 00:22 Pulse 66 65 56 B/P (MAP) 116/85 (98) 132/87 (98) Pulse Ox 93 O2 Delivery Room Air Room Air Room Air 01/23/23 01/23/23 01/23/23 01/23/23 00:30 00:49 01:00 01:00 Pulse 49 75 52 52 Resp 15 25 12 B/P (MAP) 119/77 (96) 109/66 (73) 97/54 (65) Pulse Ox 93 92 O2 Delivery Room Air Room Air Room Air 01/23/23 01/23/23 01/23/23 01/23/23 01:08 01:08 02:00 02:15 Temp 36.9 36.9 Pulse 56 56 Resp 21 20 B/P (MAP) 99/61 (76) 109/70 (89) Pulse Ox 90 90 O2 Delivery Room Air Nasal Cannula O2 Flow Rate 2.00 01/23/23 01/23/23 01/23/23 01/23/23 03:00 03:59 04:00 04:00 Temp 36.9 Pulse 49 52 Resp 17 B/P (MAP) 107/71 (83) 126/77 (93) Pulse Ox 96 94 96 O2 Delivery Nasal Cannula Nasal Cannula Nasal Cannula O2 Flow Rate 2.00 2.00 2.00 01/23/23 01/23/23 01/23/23 01/23/23 05:00 06:00 07:00 07:15 Temp 36.5 Pulse 50 87 59 Resp 14 35 B/P (MAP) 114/74 (87) 114/75 (88) 138/82 (100) Pulse Ox 97 97 95 O2 Delivery Nasal Cannula Nasal Cannula Nasal Cannula O2 Flow Rate 2.00 2.00 2.00 01/23/23 01/23/23 01/23/23 01/23/23 07:15 08:00 08:00 09:00 Pulse 56 61 68 Resp 41 35 B/P (MAP) 127/83 (98) 130/85 (100) Pulse Ox 96 97 100 O2 Delivery Room Air Nasal Cannula Nasal Cannula O2 Flow Rate 2.00 2.00 01/23/23 01/23/23 01/23/23 01/23/23 10:00 11:00 12:00 12:00 Pulse 60 60 66 Resp 18 11 14 B/P (MAP) 85/62 (70) 86/55 (65) 80/56 (64) Pulse Ox 95 98 95 97 O2 Delivery Nasal Cannula Nasal Cannula Nasal Cannula Room Air O2 Flow Rate 2.00 2.00 2.00 01/23/23 01/23/23 01/23/23 01/23/23 12:10 12:22 12:59 13:00 Temp 36.2 Pulse 61 55 56 Resp 17 B/P (MAP) 77/50 77/51 (60) Pulse Ox 93 O2 Delivery Nasal Cannula O2 Flow Rate 2.00 01/23/23 01/23/23 14:00 14:29 Pulse 62 Resp 15 B/P (MAP) 100/75 (83) Pulse Ox 90 O2 Delivery Nasal Cannula Nasal Cannula O2 Flow Rate 2.00 2.00 Capillary Refill : Less Than 3 Seconds General Appearance: mild distress Eyes: Bilateral Eye EOMI HEENT: normal ENT inspection Neck: non-tender Respiratory: chest non-tender, lungs clear, no respiratory distress, no accessory muscle use Cardiovascular: no edema, no murmur, bradycardia Gastrointestinal: non tender, soft Extremities: non-tender, no pedal edema, no calf tenderness Neurologic/Psychiatric: alert, normal mood/affect, oriented x 3 Skin: warm/dry Lymphatic: no adenopathy Assessment/Plan Assessment/Plan Admission Status: Inpatient Order (span 2 midnights) Reason for Inpatient Admission: Generalized weakness, excessive diarrhea (1) Diarrhea Status: Acute Assessment & Plan: PLAN: Stool ova/parasite studies Stool cx C Diff - NEG imodium Qualifiers: Qualified Codes: R19.7 - Diarrhea, unspecified (2) Hypotension Status: Resolved Assessment & Plan: PLAN: Cardiology consult Telemetry Echo Troponin >0.[address] ABD/PEL IVF Pressor support, wean as able Qualifiers: Qualified Codes: I95.9 - Hypotension, unspecified (3) Bradycardia Status: Resolved Assessment & Plan: PLAN: EKG - sinus gema Telemetry (4) Hypothyroidism Assessment & Plan: PLAN: TSH, T4 WNL 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 (5) Dehydration Status: Resolved Assessment & Plan: PLAN: IVF Encourage PO intake (6) Elevated LFTs Assessment & Plan: PLAN: Hepatitis panel MIRIAN DEWARDS MD 01/23/232121: Home Medications Allergies Coded Allergies: No Known Drug Allergies (Verified , 06/30/09) Physical Exam-([facility]) Physical Exam General Appearance: no apparent distress Eyes: Bilateral Eye PERRL, Bilateral Eye EOMI HEENT: pharynx normal Respiratory: lungs clear, normal breath sounds Cardiovascular: regular rate, rhythm, no murmur Gastrointestinal: non tender, soft Extremities: no pedal edema Neurologic/Psychiatric: licensed clinician II-XII nml as tested, alert, normal mood/affect, oriented x 3; No motor weakness Skin: warm/dry Supervisory-Addendum Brief Supervisory Addendum I personally performed the taylor portions of the visit, discussed case with resident and concur with resident documentation of history, physical exam, asse ssment and treatment plan unless otherwise noted. Of note, resident note states troponin > 0.028, but it is less than. Appreciate Cardiology recommendations for pericardial effusion. CT head obtained due to complaint of headache with vague vision concerns- harder to focus as well as concern of slowed mentation for some time. JULIANA DOLAN MD,RESIDENT Jan 23, 2023 08:32 MIRIAN EDWARDS MD Jan 23, 2023 21:22
--- NOTE | 2023-01-23 09:14 | Consultation-Cardiology ---
HPI-Cardiology Cardiology Consultation: Date of Consultation 01/23/23 Time Seen by a Provider: 08:15 Date of Admission 01-22-23 Attending Physician [facility] Admitting Physician Admitting Physician: Shantal Henao DO Attending Physician: Miladis Fair MD Consulting Physician Karen Silva MD HPI: Chief Complaint: Hypotension Gen weakness Ms. Cruz is a 47 yr old female admitted to ICU 1 from the ED with gen weakness, fatigue, near syncope, dizziness and diarrhea which started approx 5-6 days ago. She reports abdominal cramping radiating into her back. She reports she has mod SOB which started approx 3 months ago. She was seen for SOB by her PCP and tx with abx which she states did not result any any improvement. She reports freq cough. She states she does use marijuana, last usage a few days ago when traveling through [place]. She smokes cigs. No c/o CP or palpitations. No c/o LE swelling. She reports she has had an approx 20 lb weight loss a few months ago which was not intentional. 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 She states she does have a h/o Grave's dz. She states she is feeling somewhat better this morning. Review of Systems-Cardiology Review of Systems Constitutional: No chills, No fever; lightheadedness, malaise, weight loss Eyes: No tunnel vision Ears/Nose/Throat: No epistaxis, No recent hearing loss Respiratory: As described under HPI Cardiovascular: As described under HPI Gastrointestinal: As described under HPI Genitourinary: No dysuria, No hematuria Musculoskeletal: no symptoms reported Skin: No rash on exposed areas, No ulcerations on exposed areas Psychiatric/Neurological: anxiety; No seizure, No focal weakness, No syncope Hematologic: No bleeding abnormalities All Other Systems Reviewed Negative Unless Noted: Yes KFA-Mizziv-Cpvpof Hx Patient Social History Smoking Status: Current Everyday Smoker 2nd Hand Smoke Exposure: Yes Alcohol Use?: No Substance type: Marijuana Pt feels they are or have been: No Tobacco type used: Cigarettes Immunizations Up To Date Tetanus Booster (TDap): Unknown Past Medical History PMH As described under Assessment. Family Medical History Family Medical History: She denies any family h/o CAD or SCD. Allergies and Home Medications Allergies Coded Allergies: No Known Drug Allergies (Verified , 06/30/09) Patient Home Medication List Alprazolam (Alprazolam) 1 Mg Tablet, 0.5-1 MG PO TID PRN for ANXIETY, (Reported) Entered as Reported by: TARI MANZO on 07/06/22 101 Last Action: Continued Cyanocobalamin (Vitamin B-12) (Vitamin B-12) 500 Mcg Tablet, 500 MCG PO DAILY, (Reported) Entered as Reported by: JAROCHO MARINO on 01/23/23956 Last Action: Converted Ferrous Sulfate (Iron) 325 Mg (65 Mg Iron) Tablet, 325 MG PO DAILY, (Reported) Entered as Reported by: JAROCHO MARINO on 01/23/23956 Last Action: Continued Levothyroxine Sodium (Levothyroxine Sodium) 175 Mcg Tablet, 175 MCG PO DAILY, (Reported) Entered as Reported by: JAROCHO MARINO on 01/23/23956 Last Action: Converted Melatonin (Melatonin) 5 Mg Tablet, 5 MG PO HS PRN for SLEEP, (Reported) Entered as Reported by: JAROCHO MARINO on 01/23/23956 Last Action: Held Multivitamin (Multivitamin) 1 Each Tablet, 1 EACH PO DAILY, (Reported) Entered as Reported by: JAROCHO MARINO on 01/23/23956 Last Action: Converted Omeprazole (Omeprazole) 20 Mg Capsule.dr, 20 MG PO DAILY PRN for HEARTBURN, (Reported) Entered as Reported by: AVIS ALEJANDRE on 01/01/18 09 Last Action: Continued Quetiapine Fumarate (Quetiapine Fumarate) 100 Mg Tablet, 50-100 MG PO HS PRN for SLEEP, (Reported) Entered as Reported by: TARI MANZO on 07/06/221012 Last Action: Held Discontinued Medications Alprazolam (Alprazolam) 0.5 Mg Tablet, 0.5 MG PO TID, (Reported) Discontinued Reason: No Longer Taking Entered as Reported by: TARI MANZO on 07/06/22 101 Last Action: Discontinued Levothyroxine Sodium (Levothyroxine) 175 Mcg Capsule, 175 MCG PO DAILY, (Reported) Discontinued Reason: No Longer Taking Entered as Reported by: ANDI SERRATO on 11/24/21 1312 Last Action: Discontinued Trazodone HCl (Trazodone HCl) 50 Mg Tablet, 50 MG PO HS, (Reported) Discontinued Reason: No Longer Taking Entered as Reported by: TARI MANZO on 07/06/22 1013 Last Action: Discontinued Valacyclovir HCl (Valacyclovir) 1,000 Mg Tablet, 1,000 MG PO DAILY, (Reported) Discontinued Reason: No Longer Taking Entered as Reported by: TARI MANZO on 07/06/22 1013 Last Action: Discontinued Zolpidem Tartrate (Zolpidem Tartrate) 5 Mg Tablet, 5 MG PO HS, (Reported) Discontinued Reason: No Longer Taking Entered as Reported by: TARI MANZO on 07/06/22 1013 Last Action: Discontinued Physical Exam-Cardiology Physical Exam Vital Signs/I&O 01/23/23 01/23/23 01/23/23 01/23/23 19:57 20:00 20:00 21:00 Temp 36.5 Pulse 53 66 46 Resp 19 22 8 B/P (MAP) 118/79 (92) 111/70 (83) 123/87 (99) Pulse Ox 98 95 98 O2 Delivery Room Air Room Air Room Air Room Air 01/23/23 01/23/23 01/23/23 01/24/23 22:35 22:45 23:00 00:00 Pulse 64 50 48 Resp 20 13 20 B/P (MAP) 131/93 (104) 131/83 (94) 138/89 (105) Pulse Ox 98 96 97 96 O2 Delivery Room Air Room Air Room Air Room Air 01/24/23 01/24/23 01/24/23 01/24/23 00:00 01:00 01:30 02:00 Pulse 56 47 53 62 Resp 26 11 B/P (MAP) 128/86 (100) 132/82 (99) 138/87 (104) Pulse Ox 94 O2 Delivery Room Air Room Air Room Air 01/24/23 01/24/23 01/24/23 01/24/23 03:00 03:57 04:00 04:10 Temp 36.4 Pulse 57 56 Resp 17 B/P (MAP) 123/65 (84) 100/73 (82) Pulse Ox 97 O2 Delivery Room Air Room Air Room Air 01/24/23 01/24/23 01/24/23 01/24/23 05:00 05:15 06:00 06:15 Pulse 58 39 66 61 Resp 21 11 28 B/P (MAP) 104/75 (85) 98/69 (79) 101/68 (79) Pulse Ox 94 90 O2 Delivery Room Air Room Air Room Air 01/24/23 07:09 Pulse 57 01/23/23 23:59 Intake Total 4389 ml Output Total 2300 ml Balance 2089 ml Capillary Refill : Less Than 3 Seconds Constitutional: AAO x 3, other (thin) HEENT: PERRL, hearing is well preserved, oral hygience is good Neck: No carotid bruit; carotid pulses are 2 + bilaterally Respiratory: No accessory muscle use, No respiratory distress; chest expansion is symmetric, chest is bilaterally symmetric, other (diminished bases bilat) Cardiovascular: regular rate-rhythm; No JVD; bradycardia, S1 and S2 Gastrointestinal: soft; No guarding; audible bowel sounds, other (epigastric discomfort with palpation) Extremities: no lower extremity edema bilateral Neurologic/Psychiatric: oriented x 3, other (moves all extremities) Skin: No rash on exposed areas, No ulcerations on exposed areas; other (dry skin) Data Review Labs Laboratory Tests 01/24/23 05:00: White Blood Count 4.6, Red Blood Count 2.91L, Hemoglobin 9.6L, Hematocrit 28L, Mean Corpuscular Volume 97, Mean Corpuscular Hemoglobin 33, Mean Corpuscular Hemoglobin Concent 34, Red Cell Distribution Width 18.0H, Platelet Count 207, Mean Platelet Volume 9.8 01/24/23 05:20: Sodium Level 138, Potassium Level 3.6, Chloride Level 108H, Carbon Dioxide Level 23, Anion Gap 7, Blood Urea Nitrogen 7, Creatinine 0.62, Estimat Glomerular Filtration Rate 112, BUN/Creatinine Ratio 11, Glucose Level 68L, Calcium Level 8.2L, Corrected Calcium 8.6, Magnesium Level 1.6, Total Bilirubin 0.4, Aspartate Amino Transf (AST/SGOT) 42H, Alanine Aminotransferase (ALT/SGPT) 102H, Alkaline Phosphatase 126, Total Protein 6.0L, Albumin 3.5 Microbiology 01/23/23 C. difficile GDH Antigen & Toxins - Final, Complete 01/22/23 MRSA Screen - Final, Complete MRSA not isolated 01/22/23 Blood Culture - Preliminary, Resulted Radiology NAME: SUNSHINE CRUZ [facility] REC#: [id number] PT STATUS: REG ER : 1975 PHYSICIAN: DUGLAS MEDELLIN MD ADMIT DATE: 01/22/23/ER Signed Date of Exam:01/22/23 CHEST 1 VIEW, AP/PA ONLY CLINICAL INDICATION: Patient with central line placement. EXAM: Portable chest x-ray, upright view. COMPARISON: Chest x-ray dated 01/22/2023. FINDINGS: Interval placement of a right IJ central line with the tip overlying the expected region of the distal superior vena cava. Lungs/pleura: Stable calcified granuloma involving the right lower lung field region. There is interval progression of mild bibasilar atelectasis versus infiltrate. There is no pneumothorax. There is no pleural effusion. Mediastinum: Unremarkable. Pulmonary vasculature: Unremarkable. Heart: Unremarkable. Bones/extrathoracic soft tissue: Unremarkable. IMPRESSION: 1: There is interval progression of mild bibasilar atelectasis versus infiltrates. 2: Interval placement of right IJ central line with the tip in the expected region of the distal superior vena cava. There is no pneumothorax. Dictated by: Dictated on workstation # [id number] Dict: 01/22/232125 Trans: 01/22/232215 [id number] Interpreted by: JEFFERY ALLISON MD Electronically signed by: JEFFERY ALLISON MD 01/22/232215 NAME: SUNSHINE CRUZ [facility] REC#: [id number] PT STATUS: REG ER : 1975 PHYSICIAN: DUGLAS MEDELLIN MD ADMIT DATE: 01/22/23/ER Signed Date of Exam:01/22/23 CT ABDOMEN/PELVIS W CLINICAL INDICATION: Patient with nausea, fever, vomiting, and diarrhea x 5 to 6 days. Patient has history of cholecystectomy and appendectomy. EXAM: Axial CT scan of the abdomen and pelvis performed with 67 cc of Omnipaque 350 IV contrast. Sagittal and coronal reformatted images were created. COMPARISON: CT scan of the abdomen and pelvis with contrast dated 09/14/2019. FINDINGS: There is interval development of patchy airspace opacities and curvilinear opacities involving both lung bases posteriorly which may be related to lung infiltrates. There is interval development of a moderate amount of pericardial effusion. There are small degenerative spurs involving the lower lumbar spine. There is interval cholecystectomy. There are no significantly dilated intrahepatic or extrahepatic ducts. The liver, spleen, pancreas, and adrenal glands are unremarkable. There is interval development of mild fat stranding adjacent to both kidneys. Both kidneys are otherwise unremarkable with no hydronephrosis, stone, or mass. The bladder is fluid-filled and unremarkable. The uterus is surgically absent. There is very minimal pelvic free fluid which may be physiologic. There is no intraabdominal free air. There is no intestinal obstruction. There are mildly distended fluid-filled loops of small bowel involving the duodenum and jejunum which measure 2.5 cm or less in width. There is no transition point seen. There are air-fluid levels within nondistended transverse and right colon which may be related to the patient's history of diarrhea. There is no significant colonic wall thickening. There is no significant small bowel thickening. The stomach is unremarkable. There is no significant lymphadenopathy. The extraabdominal and extrapelvic soft tissue structures are unremarkable. IMPRESSION: 1: There is interval development of mild fat stranding adjacent to both kidneys; otherwise, the kidneys are unremarkable. Etiology such as pyelonephritis should be excluded. Urinalysis may help better evaluate. The bladder is unremarkable as visualized. 2: There are fluid distended loops of small bowel in the upper abdomen which are nonspecific. There is no evidence of intestinal obstruction. 3: There is interval cholecystectomy. 4: There is interval development of a moderate amount of pericardial effusion. 5: There is interval development of infiltrates involving the posterior aspects of both lungs. Dictated by: Dictated on workstation # [id number] Dict: 01/22/232136 Trans: 01/22/232215 [id number] Interpreted by: JEFFERY ALLISON MD Electronically signed by: JEFFERY ALLISON MD 01/22/232215 ECG Impression ECG Initial ECG Impression: Sinus Bradycardia A/P-Cardiology Assessment/Admission Diagnosis Hypotension - requiring pressor support - likely in some part d/t volume depletion Liver enzyme elevation - undetermined etiology Diarrhea - undetermined etiology - medical services managing Abdominal discomfort - undetermined etiology - medical services managing Recent weight loss - management per medical services Grave's dz Anxiety Marijuana usage - last usage reported as a few days ago Tobaccoism - cessation advise Discussion and Recomendations Hypotension - requiring pressor support likely in some part d/t vol depletion d/t freq diarrhea and poor intake Pericardiac effusion seen on CT - Echocardiogram today Electrolyte abnormalities - replace - likely d/t vol depletion d/t freq diarrhea Anxiety - management per medical services Monitor lab Further recs will be based on her hospital course Keep on tele We would like to thank medical services for this consult KIRSTIN OROSCO Jan 23, 2023 09:14
[2023-01-23] MEDS ORDERED: MULT-1136 PO (09:57)
[2023-01-23] MEDS ORDERED: LEVO175T5 PO (09:57)
[2023-01-23] MEDS ORDERED: CYAN500T8 PO (09:57)
[2023-01-23] MEDS ORDERED: FERR-84 PO (09:57)
[2023-01-23] MEDS ORDERED: MELA5TAB14 PO (09:57)
--- NOTE | 2023-01-23 11:16 | Diagnostic Imaging Report ---
PROCEDURE: CT head without contrast. TECHNIQUE: Multiple contiguous axial images were obtained through the brain without the use of intravenous contrast. Auto Exposure Controls were utilized during the CT exam to meet ALARA standards for radiation dose reduction. INDICATION: Headache, vision change COMPARISON: None. Findings: The brain parenchyma is normal in attenuation. No intra- or extra-axial mass or fluid collection. No acute hemorrhage. The ventricles are normal in size, shape, and morphology. The maravilla-white matter junction is normal. The subarachnoid cisterns are patent. The visualized paranasal sinuses are normal. The visualized portions of the orbits and globes are normal. The mastoid air cells are clear. The manager configuration topogram shows no lytic lesion or fracture. Impression: No acute intracranial process. Dictated by: Dictated on workstation # [id number]
[2023-01-23] MEDS: LACTATED RINGERS 1,000 ML 1,000 ML IV SCH ×3 (11:40→21:37)
[2023-01-23] MEDS: ALPRAZolam 0.5 MG TABLET PO PRN (11:41)
[2023-01-23] MEDS: NICOTINE 21 MG PATCH TD SCH (11:41)
[2023-01-23] MEDS: NOREPINEPHRINE 8 MG/250 ML 250 ML IV SCH ×3 (12:59→22:39)
[2023-01-23] MEDS ORDERED: LACTATED RINGERS 1,000 ML 1,000 ML IV SCH (13:30)
--- NOTE | 2023-01-23 13:51 | Tele-ICU Consult ---
History of Present Illness History of Present Illness Date Seen by Provider: Jan 23, 2023 Time Seen by Provider: 13:49 Date of Admission 01/22/23 History of Present Illness (Tele-ICU Physician , Progress Note ) Service provided via interactive audio and video telecommunications E-CARE system to a patient admitted to ICU bed in [facility]. Patient is seen today due to persistent need of ICU care Available chart/ vitals / labs / Images reviewed Video assessment done using teleICU camera, rest of exam as per RN She is a 47-year-old female who is very skinny has a history of tobacco abuse, marijuana abuse presented to the emergency room with a complaint of generalized weakness, fatigue and diarrhea which started about 6 days ago which is very watery. She is also complaining of abdominal cramping. She was evaluated with a CT of the abdomen and pelvis which showed minimal pericardial effusion and there are fluid distended loops of small bowel in the upper abdomen which are nonspecific. Stool C. difficile was done which is negative. She is also hypotensive requiring Levophed. She is started on IV antibiotics. Despite the above efforts she continued to have a lose diarrhea. Impression 1. Severe diarrhea leading her to the dehydration and hypotension 2. Abdominal cramping probably due to diarrhea 3. Small pericardial effusion which is nonspecific 4. History of marijuana abuse and tobacco abuse disorder. 5. Abnormalities 4. We will get hepatitis profile abnormalities 6. Elevated liver enzymes etiology not clear but will check hepatitis profile. Recommendations 1. We will continue IV fluid bolus followed by increase in the LR 2. Continue antibiotic therapy 3. Correct electrolyte abnormalities 4. We will check hepatitis profile. 5. Cardiology consultation has been requested regarding her pericardial effusion which appears to be nonspecific Collaboration of care with primary care physician and bedside consultants I am remotely monitoring this patient from Tele icu station in [place]. I am unable to do the bedside exam, and history/physical and pertinent information is taken from other notes in the computer and bedside staff. Reviewed with MACHINE MOVER and in MDR Certain portions of this document may have been dictated utilizing voice recognition technology such as [employer]. Inherent to this technology, typo graphical and grammatical errors may exist. As much as I am diligent to identify and correct to these mistakes, some errors may remain in the document. Critical care time devoted to this patient today is approximately is-30 minutes- Allergies and Home Medications Allergies Coded Allergies: No Known Drug Allergies (Verified , 06/30/09) Home Medications Alprazolam 1 Mg Tablet, 0.5-1 MG PO TID PRN for ANXIETY, (Reported) TAKES TO 1 (1MG) TAB Cyanocobalamin (Vitamin B-12) 500 Mcg Tablet, 500 MCG PO DAILY, (Reported) Ferrous Sulfate 325 Mg (65 Mg Iron) Tablet, 325 MG PO DAILY, (Reported) Levothyroxine Sodium 175 Mcg Tablet, 175 MCG PO DAILY, (Reported) Melatonin 5 Mg Tablet, 5 MG PO HS PRN for SLEEP, (Reported) Multivitamin 1 Each Tablet, 1 EACH PO DAILY, (Reported) Omeprazole 20 Mg Capsule.dr, 20 MG PO DAILY PRN for HEARTBURN, (Reported) Quetiapine Fumarate 100 Mg Tablet, 50-100 MG PO HS PRN for SLEEP, (Reported) TAKES TO 1 (100MG) TAB Past Medical/Social/Family Hx Patient Social History Tobacco Use?: Yes Tobacco type used: Cigarettes Smoking Status: Current Everyday Smoker Smokeless Tobacco Frequency: Never a User Use of E-Cig and/or Vaping dev: No Substance use?: Yes Substance type: Marijuana Substance frequency: Once in a while Alcohol Use?: No Pt stated abuse/neglect: No Immunizations Up To Date Influenza Vaccine Up-to-Date: No; Not Current First/Initial COVID19 Vaccinat: NO Second COVID19 Vaccination Willi: NO Tetanus Booster (TDap): Less Than 5 Years Current Status status: No Advance Directives: No Communicates: Verbally Primary Language: Bulgarian Preferred Spoken Language: Bulgarian Is interpretation needed?: No Implanted or Applied Medical D: None Review of Systems Constitutional: see HPI, weakness, weight loss, other (fatigue) Focused Exam Lactate Level 01/22/23 18:20: Lactic Acid Level 0.86 Height, Weight, BMI Height: 5'7.00" Weight: 158lbs. 0.0oz. 71.025735fr; 21.09 BMI Method:Stated Exam Exam Patient acknowledged, consented, and participated in this virtual visit which was conducted using real time audio/video Vital Signs Date Time Temp Pulse Resp B/P (MAP) Pulse Ox O2 Delivery O2 Flow Rate FiO2 01/23/23 13:00 56 17 77/51 (60) 93 Nasal Cannula 2.00 01/23/23 12:59 55 77/50 01/23/23 12:22 36.2 01/23/23 12:10 61 01/23/23 12:00 97 Room Air 01/23/23 12:00 66 14 80/56 (64) 95 Nasal Cannula 2.00 01/23/23 11:00 60 11 86/55 (65) 98 Nasal Cannula 2.00 01/23/23 10:00 60 18 85/62 (70) 95 Nasal Cannula 2.00 01/23/23 09:00 68 35 130/85 (100) 100 Nasal Cannula 2.00 01/23/23 08:00 61 41 127/83 (98) 97 Nasal Cannula 2.00 01/23/23 08:00 96 Room Air 01/23/23 07:15 56 01/23/23 07:15 36.5 01/23/23 07:00 59 35 138/82 (100) 95 Nasal Cannula 2.00 01/23/23 06:00 87 114/75 (88) 97 Nasal Cannula 2.00 01/23/23 05:00 50 14 114/74 (87) 97 Nasal Cannula 2.00 01/23/23 04:00 52 126/77 (93) 96 Nasal Cannula 2.00 01/23/23 04:00 36.9 01/23/23 03:59 94 Nasal Cannula 2.00 01/23/23 03:00 49 17 107/71 (83) 96 Nasal Cannula 2.00 01/23/23 02:15 56 20 109/70 (89) 90 Nasal Cannula 2.00 01/23/23 02:00 56 21 99/61 (76) 90 Room Air 01/23/23 01:08 36.9 01/23/23 01:08 36.9 01/23/23 01:00 52 01/23/23 01:00 52 12 97/54 (65) 92 Room Air 01/23/23 00:49 75 25 109/66 (73) 93 Room Air 01/23/23 00:30 49 15 119/77 (96) Room Air 01/23/23 00:22 56 01/23/23 00:15 65 132/87 (98) Room Air 01/23/23 00:00 66 116/85 (98) Room Air 01/23/23 00:00 93 Room Air 01/23/23 00:00 37.1 01/23/23 00:00 84 119/90 01/22/23 23:52 53 14 120/75 (95) Room Air 01/22/23 23:50 58 01/22/23 23:49 50 124/74 (97) Room Air 01/22/23 23:41 84 16 119/90 95 Room Air 01/22/23 22:50 53 109/74 01/22/23 22:48 56 109/74 01/22/23 22:46 56 101/69 01/22/23 22:44 56 101/54 01/22/23 21:44 68 83/48 01/22/23 16:47 37.4 73 16 75/52 (60) 94 Room Air I & O 01/23/23 07:00 Intake Total 3200 ml Output Total 1100 ml Balance 2100 ml Height & Weight Height: 5'7.00" Weight: 158lbs. 0.0oz. 71.909500py; 21.09 BMI Method:Stated General Appearance: Anxious, Chronically ill Capillary Refill: Less Than 3 Seconds Gastrointestinal: non tender, soft, abnormal bowel sounds (hypoactive) Results Lab Laboratory Tests 01/22/23 16:55 01/23/23 04:11 Assessment/Plan Assessment/Plan as above Critical Care: Critically Ill Patient Time spent with patient (mins): 30 CARLITOS SIDDIQUI MD Jan 23, 2023 13:50
[2023-01-23] MEDS ORDERED: PIPERACILLIN/Tazobactam 4.5 GM in NS (IVPB) 100 ML 100 ML IV NR (14:00)
[2023-01-23] MEDS ORDERED: LOPERAMIDE 2 MG CAPSULE PO PRN (15:15)
[2023-01-23] MEDS: LOPERAMIDE 2 MG CAPSULE PO PRN ×2 (16:04→21:02)
--- NOTE | 2023-01-23 17:24 | Consultation-Cardiology ---
HPI-Cardiology Cardiology Consultation: Date of Consultation 01/23/23 Time Seen by a Provider: 13:10 Date of Admission Attending Physician [facility] Admitting Physician Admitting Physician: Shantal Henao DO Attending Physician: Miladis Fair MD Consulting Physician BISI GAYTAN MD, MA, FACP, FACC, [facility], CCDS Physician requesting consult: Dr Fair HPI: Chief Complaint: Reason for Card consult: Pericardial fluid Ms. Tsang is a 47 yr old female admitted to ICU 1 from the ED with gen weakness, fatigue, near syncope, dizziness and diarrhea which started approx 5-6 days ago. She reports abdominal cramping radiating into her back. She reports she has mod SOB which started approx 3 months ago. She was seen for SOB by her PCP and tx with abx which she states did not result any any improvement. She reports freq cough. She states she does use marijuana, last usage a few days ago when traveling through [place]. She smokes cigs. No c/o CP or palpitations. No c/o LE swelling. She reports she has had an approx 20 lb weight loss a few months ago which was not intentional. 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 She states she does have a h/o Grave's dz. She states she is feeling somewhat better this morning. Review of Systems-Cardiology Review of Systems Constitutional: No chills, No fever; lightheadedness, malaise, weight loss Eyes: No tunnel vision Ears/Nose/Throat: No epistaxis, No recent hearing loss Respiratory: As described under HPI Cardiovascular: As described under HPI Gastrointestinal: As described under HPI Genitourinary: No dysuria, No hematuria Musculoskeletal: no symptoms reported Skin: No rash on exposed areas, No ulcerations on exposed areas Psychiatric/Neurological: anxiety; No seizure, No focal weakness, No syncope Hematologic: No bleeding abnormalities All Other Systems Reviewed Negative Unless Noted: Yes [id number] Hx Patient Social History Smoking Status: Current Everyday Smoker 2nd Hand Smoke Exposure: Yes Alcohol Use?: No Substance type: Marijuana Pt feels they are or have been: No Tobacco type used: Cigarettes Immunizations Up To Date Tetanus Booster (TDap): Unknown Past Medical History PMH As described under Assessment. Family Medical History Family Medical History: She denies any family h/o CAD or SCD. Allergies and Home Medications Allergies Coded Allergies: No Known Drug Allergies (Verified , 06/30/09) Patient Home Medication List Home Medication List Reviewed: Yes Alprazolam (Alprazolam) 1 Mg Tablet, 0.5-1 MG PO TID PRN for ANXIETY, (Reported) Entered as Reported by: TARI MANZO on 07/06/22 1013 Last Action: Continued Cyanocobalamin (Vitamin B-12) (Vitamin B-12) 500 Mcg Tablet, 500 MCG PO DAILY, (Reported) Entered as Reported by: JAROCHO MARINO on 01/23/23956 Last Action: Reviewed Ferrous Sulfate (Iron) 325 Mg (65 Mg Iron) Tablet, 325 MG PO DAILY, (Reported) Entered as Reported by: JAROCHO MARINO on 01/23/23956 Last Action: Reviewed Levothyroxine Sodium (Levothyroxine Sodium) 175 Mcg Tablet, 175 MCG PO DAILY, (Reported) Entered as Reported by: JAROCHO MARINO on 01/23/23956 Last Action: Converted Melatonin (Melatonin) 5 Mg Tablet, 5 MG PO HS PRN for SLEEP, (Reported) Entered as Reported by: JAROCHO MARINO on 01/23/23956 Last Action: Reviewed Multivitamin (Multivitamin) 1 Each Tablet, 1 EACH PO DAILY, (Reported) Entered as Reported by: JAROCHO MARINO on 01/23/23956 Last Action: Reviewed Omeprazole (Omeprazole) 20 Mg Capsule.dr, 20 MG PO DAILY PRN for HEARTBURN, (Reported) Entered as Reported by: AVIS ALEJANDRE on 01/01/18 09 Last Action: Reviewed Quetiapine Fumarate (Quetiapine Fumarate) 100 Mg Tablet, 50-100 MG PO HS PRN for SLEEP, (Reported) Entered as Reported by: TARI MANZO on 07/06/22 101 Last Action: Reviewed Discontinued Medications Alprazolam (Alprazolam) 0.5 Mg Tablet, 0.5 MG PO TID, (Reported) Discontinued Reason: No Longer Taking Entered as Reported by: TARI MANZO on 07/06/22 1013 Last Action: Discontinued Levothyroxine Sodium (Levothyroxine) 175 Mcg Capsule, 175 MCG PO DAILY, (Reported) Discontinued Reason: No Longer Taking Entered as Reported by: ANDI SERRATO on 11/24/21 1312 Last Action: Discontinued Trazodone HCl (Trazodone HCl) 50 Mg Tablet, 50 MG PO HS, (Reported) Discontinued Reason: No Longer Taking Entered as Reported by: TARI MANZO on 07/06/22 1013 Last Action: Discontinued Valacyclovir HCl (Valacyclovir) 1,000 Mg Tablet, 1,000 MG PO DAILY, (Reported) Discontinued Reason: No Longer Taking Entered as Reported by: TARI MANZO on 07/06/22 1013 Last Action: Discontinued Zolpidem Tartrate (Zolpidem Tartrate) 5 Mg Tablet, 5 MG PO HS, (Reported) Discontinued Reason: No Longer Taking Entered as Reported by: TARI MANZO on 07/06/22 1013 Last Action: Discontinued Physical Exam-Cardiology Physical Exam Vital Signs/I&O 01/23/23 01/23/23 01/23/23 01/23/23 06:00 07:00 07:15 07:15 Temp 36.5 Pulse 87 59 56 Resp 35 B/P (MAP) 114/75 (88) 138/82 (100) Pulse Ox 97 95 O2 Delivery Nasal Cannula Nasal Cannula O2 Flow Rate 2.00 2.00 01/23/23 01/23/23 01/23/23 01/23/23 08:00 08:00 09:00 10:00 Pulse 61 68 60 Resp 41 35 18 B/P (MAP) 127/83 (98) 130/85 (100) 85/62 (70) Pulse Ox 96 97 100 95 O2 Delivery Room Air Nasal Cannula Nasal Cannula Nasal Cannula O2 Flow Rate 2.00 2.00 2.00 01/23/23 01/23/23 01/23/23 01/23/23 11:00 12:00 12:00 12:10 Pulse 60 66 61 Resp 11 14 B/P (MAP) 86/55 (65) 80/56 (64) Pulse Ox 98 95 97 O2 Delivery Nasal Cannula Nasal Cannula Room Air O2 Flow Rate 2.00 2.00 01/23/23 01/23/23 01/23/23 01/23/23 12:22 12:59 13:00 14:00 Temp 36.2 Pulse 55 56 62 Resp 17 15 B/P (MAP) 77/50 77/51 (60) 100/75 (83) Pulse Ox 93 90 O2 Delivery Nasal Cannula Nasal Cannula O2 Flow Rate 2.00 2.00 01/23/23 01/23/23 01/23/23 01/23/23 14:29 15:00 16:00 16:00 Pulse 73 57 Resp 18 12 B/P (MAP) 105/71 (82) 101/77 (85) Pulse Ox 98 97 99 O2 Delivery Nasal Cannula Nasal Cannula Room Air Nasal Cannula O2 Flow Rate 2.00 2.00 2.00 01/23/23 16:23 Temp 36.4 B/P (MAP) 01/23/23 00:00 Intake Total 3000 ml Balance 3000 ml Capillary Refill : Less Than 3 Seconds Constitutional: AAO x 3, other (thin) HEENT: PERRL, hearing is well preserved, oral hygience is good Neck: No carotid bruit; carotid pulses are 2 + bilaterally Respiratory: No accessory muscle use, No respiratory distress; chest expansion is symmetric, chest is bilaterally symmetric, other (diminished bases bilat) Cardiovascular: regular rate-rhythm; No JVD; bradycardia, S1 and S2 Gastrointestinal: soft; No guarding; audible bowel sounds, other (epigastric discomfort with palpation) Extremities: no lower extremity edema bilateral Neurologic/Psychiatric: oriented x 3, other (moves all extremities) Skin: No rash on exposed areas, No ulcerations on exposed areas; other (dry skin) Lymphatic: no adenopathy Data Review Labs Laboratory Tests 01/22/23 18:12: Free Thyroxine 1.09 01/22/23 18:20: Lactic Acid Level 0.86 01/22/23 19:08: Urine Color YELLOW, Urine Clarity CLEAR, Urine pH 6.0, Urine Specific [place] 1.025H, Urine Protein 2+H, Urine Glucose (UA) NEGATIVE, Urine Ketones TRACEH, Urine Nitrite NEGATIVE, Urine Bilirubin 2+H, Urine Urobilinogen 2.0, Urine Leukocyte Esterase TRACEH, Urine RBC (Auto) NEGATIVE, Urine RBC 2-5H, Urine WBC 0-2, Urine Squamous Epithelial Cells 0-2, Urine Crystals NONE, Urine Bacteria TRACE, Urine Casts NONE, Urine Mucus LARGEH, Urine Culture Indicated NO, Urine Opiates Screen NEGATIVE, Urine Oxycodone Screen NEGATIVE, Urine Methadone Screen NEGATIVE, Urine Propoxyphene Screen NEGATIVE, Urine Barbiturates Screen NEGATIVE, Ur Tricyclic Antidepressants Screen POSITIVEH, Urine Phencyclidine Screen NEGATIVE, Urine Amphetamines Screen NEGATIVE, Urine Methamphetamines Screen NEGATIVE, Urine Benzodiazepines Screen POSITIVEH, Urine Cocaine Screen NEGATIVE, Urine Cannabinoids Screen POSITIVEH 01/23/23 04:11: White Blood Count 9.3, Red Blood Count 3.13L, Hemoglobin 10.4L, Hematocrit 30L, Mean Corpuscular Volume 97, Mean Corpuscular Hemoglobin 33, Mean Corpuscular Hemoglobin Concent 34, Red Cell Distribution Width 18.3H, Platelet Count 239, Mean Platelet Volume 9.2, Sodium Level 137, Potassium Level 3.0L, Chloride Level 104, Carbon Dioxide Level 22, Anion Gap 11, Blood Urea Nitrogen 8, Creatinine 0.70, Estimat Glomerular Filtration Rate 109, BUN/Creatinine Ratio 11, Glucose Level 126H, Calcium Level 8.6, Corrected Calcium 9.0, Phosphorus Level 2.8, Magnesium Level 1.4L, Total Bilirubin 0.4, Aspartate Amino Transf (AST/SGOT) 87H , Alanine Aminotransferase (ALT/SGPT) 144H, Alkaline Phosphatase 159H, Total Protein 6.1L, Albumin 3.5 Microbiology 01/23/23 C. difficile GDH Antigen & Toxins - Final, Complete 01/22/23 Blood Culture - Preliminary, Resulted A/P-Cardiology Assessment/Admission Diagnosis Hypotension - requiring pressor support - likely in some part d/t volume depletion Small pericard eff w/o any evidence of hemodynamic significance - Echo on 01/23/23: LVEF 65-70%, tiny PFO, mod TR, PASP 40-45 mmHg, small amount of pericardial fluid that does not have any evidence of hemodynamic significance Liver enzyme elevation - undetermined etiology Diarrhea - undetermined etiology - medical services managing Abdominal discomfort - undetermined etiology - medical services managing Recent weight loss - management per medical services Grave's dz Anxiety Marijuana usage - last usage reported as a few days ago Tobaccoism - cessation advise Discussion and Recomendations * iv fluids * Pressor support as needed * Evaluate GI symptoms and treat * Monitor labs and replenish electrolytes * Med svces doing all of the above * Discussed with Dr Fair * Will continue to monitor cardiac status BISI GAY[facility]AN [facility] Jan 23, 2023 17:24
[2023-01-23 20:14] LABS: HEPATITIS C ANTIBODY C Non-Reactive (Non-Reactive)
[2023-01-23] MEDS: PIPERACILLIN/Tazobactam 4.5 GM in NS (IVPB) 100 ML 100 ML IV SCH (21:01)
[2023-01-23] MEDS ORDERED: PANTOPRAZOLE 20 MG TABLET PO PRN (21:45)
[2023-01-24] MEDS: ALPRAZolam 0.5 MG TABLET PO PRN ×3 (00:04→23:57)
[2023-01-24] MEDS: IBUPROFEN 200 MG TABLET PO PRN ×3 (00:05→21:11)
[2023-01-24] MEDS: ENOXAPARIN 40 MG/0.4 ML SYRINGE SC SCH ×2 (00:06→23:57)
[2023-01-24] MEDS: LACTATED RINGERS 1,000 ML 1,000 ML IV SCH ×2 (05:20→11:39)
[2023-01-24] MEDS: PIPERACILLIN/Tazobactam 4.5 GM in NS (IVPB) 100 ML 100 ML IV SCH ×3 (05:21→20:39)
[2023-01-24 05:57] LABS: HEMATOCRIT 28 % (35-52); HEMOGLOBIN 9.6 g/dL (11.5-16.0); MEAN CORPUSCULAR HEMOGLOBIN 33 pg (25-34); MEAN CORPUSCULAR HGB CONC 34 g/dL (32-36); MEAN CORPUSCULAR VOLUME 97 fL (80-99); MEAN PLATELET VOLUME 9.8 fL (9.0-12.2); PLATELET COUNT 207 10^3/uL (130-400); WHITE BLOOD COUNT 4.6 10^3/uL (4.3-11.0)
[2023-01-24 06:19] LABS: ALBUMIN 3.5 GM/DL (3.2-4.5)
[2023-01-24 06:20] LABS: POTASSIUM 3.6 MMOL/L (3.6-5.0)
[2023-01-24 06:21] LABS: CALCIUM 8.2 MG/DL (8.5-10.1)
[2023-01-24 06:24] LABS: BILIRUBIN,TOTAL 0.4 MG/DL (0.1-1.0)
[2023-01-24 06:26] LABS: CREATININE SERUM 0.62 MG/DL (0.60-1.30)
[2023-01-24] MEDS: LEVOTHYROXINE 25 MCG TABLET PO SCH (06:27)
[2023-01-24] MEDS: LEVOTHYROXINE 150 MCG TABLET PO SCH (06:27)
[2023-01-24 06:29] LABS: MAGNESIUM 1.6 MG/DL (1.6-2.4)
[2023-01-24] MEDS ORDERED: MAGNESIUM 1 GM/100 ML IVPB 400 ML IV ONE (06:49)
[2023-01-24] MEDS: MAGNESIUM 1 GM/100 ML IVPB 100 ML IV SCH ×5 (06:53→09:15)
[2023-01-24] MEDS: POTASSIUM CHLORIDE 20 MEQ TABLET PO SCH (06:58)
[2023-01-24] MEDS: POTASSIUM CL 10MEQ/50ML IVPB 50 ML IV SCH (06:58)
--- NOTE | 2023-01-24 07:27 | Progress Note ---
JULIANA DOLAN MD,RESIDENT 01/24/23 0727: Subjective Subjective/Events-last exam No acute events overnight. Pt was taken off pressor support this AM, and had a solid bm, tolerating PO. In the afternoon however her BP trended down. It was decided to keep her inpatient one more evening to ensure stable BP. Focused Exam Lactate Level 01/22/23 18:20: Lactic Acid Level 0.86 Objective Exam Last Set of Vital Signs Vital Signs Date Time Temp Pulse Resp B/P (MAP) Pulse Ox O2 Delivery O2 Flow Rate FiO2 01/24/23 07:09 57 01/24/23 06:15 28 101/68 (79) 90 Room Air 01/24/23 04:10 36.4 01/23/23 19:45 2.00 Capillary Refill : Less Than 3 Seconds I&O Intake and Output 01/24/23 00:00 Intake Total 5189 ml Output Total 4600 ml Balance 589 ml Intake Oral 2839 ml IV Total 2350 ml Output Urine Total 2300 ml Urine/Stool Mix 2300 ml # Bowel Movements 12 General: Alert, Oriented X3, No Acute Distress Lungs: Clear to Auscultation Heart: Regular Rate Abdomen: Normal Bowel Sounds, Soft Results/Procedures Lab Laboratory Tests 01/24/23 05:00: White Blood Count 4.6, Red Blood Count 2.91L, Hemoglobin 9.6L, Hematocrit 28L, Mean Corpuscular Volume 97, Mean Corpuscular Hemoglobin 33, Mean Corpuscular Hemoglobin Concent 34, Red Cell Distribution Width 18.0H, Platelet Count 207, Mean Platelet Volume 9.8 01/24/23 05:20: Sodium Level 138, Potassium Level 3.6, Chloride Level 108H, Carbon Dioxide Level 23, Anion Gap 7, Blood Urea Nitrogen 7, Creatinine 0.62, Estimat Glomerular Filtration Rate 112, BUN/Creatinine Ratio 11, Glucose Level 68L, Calcium Level 8.2L, Corrected Calcium 8.6, Magnesium Level 1.6, Total Bilirubin 0.4, Aspartate Amino Transf (AST/SGOT) 42H, Alanine Aminotransferase (ALT/SGPT) 102H, Alkaline Phosphatase 126, Total Protein 6.0L, Albumin 3.5 Microbiology 01/23/23 C. difficile GDH Antigen & Toxins - Final, Complete 01/22/23 MRSA Screen - Final, Complete MRSA not isolated 01/22/23 Blood Culture - Preliminary, Resulted Radiology NAME: SUNSHINE CRUZ [facility] REC#: [id number] PT STATUS: REG ER : 1975 PHYSICIAN: DUGLAS MEDELLIN MD ADMIT DATE: 01/22/23/ER Signed Date of Exam:01/22/23 CHEST 1 VIEW, AP/PA ONLY CLINICAL INDICATION: Patient with central line placement. EXAM: Portable chest x-ray, upright view. COMPARISON: Chest x-ray dated 01/22/2023. FINDINGS: Interval placement of a right IJ central line with the tip overlying the expected region of the distal superior vena cava. Lungs/pleura: Stable calcified granuloma involving the right lower lung field region. There is interval progression of mild bibasilar atelectasis versus infiltrate. There is no pneumothorax. There is no pleural effusion. Mediastinum: Unremarkable. Pulmonary vasculature: Unremarkable. Heart: Unremarkable. Bones/extrathoracic soft tissue: Unremarkable. IMPRESSION: 1: There is interval progression of mild bibasilar atelectasis versus infiltrates. 2: Interval placement of right IJ central line with the tip in the expected region of the distal superior vena cava. There is no pneumothorax. Dictated by: Dictated on workstation # [id number] Dict: 01/22/232125 Trans: 01/22/232215 [id number] Interpreted by: JEFFERY ALLISON MD Electronically signed by: JEFFERY ALLISON MD 01/22/232215 NAME: SUNSHINE CRUZ [facility] REC#: [id number] PT STATUS: REG ER : 1975 PHYSICIAN: DUGLAS MEDELLIN MD ADMIT DATE: 01/22/23/ER Signed Date of Exam:01/22/23 CT ABDOMEN/PELVIS W CLINICAL INDICATION: Patient with nausea, fever, vomiting, and diarrhea x 5 to 6 days. Patient has history of cholecystectomy and appendectomy. EXAM: Axial CT scan of the abdomen and pelvis performed with 67 cc of Omnipaque 350 IV contrast. Sagittal and coronal reformatted images were created. COMPARISON: CT scan of the abdomen and pelvis with contrast dated 09/14/2019. FINDINGS: There is interval development of patchy airspace opacities and curvilinear opacities involving both lung bases posteriorly which may be related to lung infiltrates. There is interval development of a moderate amount of pericardial effusion. There are small degenerative spurs involving the lower lumbar spine. There is interval cholecystectomy. There are no significantly dilated intrahepatic or extrahepatic ducts. The liver, spleen, pancreas, and adrenal glands are unremarkable. There is interval development of mild fat stranding adjacent to both kidneys. Both kidneys are otherwise unremarkable with no hydronephrosis, stone, or mass. The bladder is fluid-filled and unremarkable. The uterus is surgically absent. There is very minimal pelvic free fluid which may be physiologic. There is no intraabdominal free air. There is no intestinal obstruction. There are mildly distended fluid-filled loops of small bowel involving the duodenum and jejunum which measure 2.5 cm or less in width. There is no transition point seen. There are air-fluid levels within nondistended transverse and right colon which may be related to the patient's history of diarrhea. There is no significant colonic wall thickening. There is no significant small bowel thickening. The stomach is unremarkable. There is no significant lymphadenopathy. The extraabdominal and extrapelvic soft tissue structures are unremarkable. IMPRESSION: 1: There is interval development of mild fat stranding adjacent to both kidneys; otherwise, the kidneys are unremarkable. Etiology such as pyelonephritis should be excluded. Urinalysis may help better evaluate. The bladder is unremarkable as visualized. 2: There are fluid distended loops of small bowel in the upper abdomen which are nonspecific. There is no evidence of intestinal obstruction. 3: There is interval cholecystectomy. 4: There is interval development of a moderate amount of pericardial effusion. 5: There is interval development of infiltrates involving the posterior aspects of both lungs. Dictated by: Dictated on workstation # [id number] Dict: 01/22/232136 Trans: 01/22/232215 [id number] Interpreted by: JEFFREY ALLISON MD Electronically signed by: JEFFERY ALLISON MD 01/22/232215 Assessment/Plan Assessment/Plan Admission Status: Inpatient Order (span 2 midnights) Reason for Inpatient Admission: Diarrhea, generalized weakness, hypotension (1) Diarrhea Status: Acute Assessment & Plan: PLAN: Stool ova/parasite studies Stool cx C Diff - NEG imodium Qualifiers: Qualified Codes: R19.7 - Diarrhea, unspecified (2) Hypotension Status: Resolved Assessment & Plan: PLAN: Cardiology consult Telemetry Echo Troponin >0.[address] ABD/PEL IVF Pressor support, wean as able Qualifiers: Qualified Codes: I95.9 - Hypotension, unspecified (3) Bradycardia Status: Resolved Assessment & Plan: PLAN: EKG - sinus gema Telemetry (4) Hypothyroidism Assessment & Plan: PLAN: TSH, T4 WNL Continue [employer] levothyroxine (5) Dehydration Status: Resolved Assessment & Plan: PLAN: IVF Encourage PO intake (6) Elevated LFTs Assessment & Plan: PLAN: Hepatitis panel MIRIAN EDWARDS MD 01/24/232048: Supervisory-Addendum Brief Supervisory Addendum I personally performed the taylor portions of the visit, discussed case with resident and concur with resident documentation of history, physical exam, assessment and treatment plan unless otherwise noted. Patient feeling much better today, had formed stool this morning. Hepatitis panel was negative. Echo with small effusion, Cardiology does not believe this is significant. Weaned off of norepinephrine this morning, will hold IVF and monitor BP. JULIANA DOLAN MD,RESIDENT Jan 24, 2023 07:27 MIRIAN EDWARDS MD Jan 24, 2023 20:49
--- NOTE | 2023-01-24 07:46 | Tele-ICU Progress Note ---
Subjective Date Seen by a Provider: Jan 24, 2023 Time Seen by a Provider: 07:39 Subjective/Events-last exam (Tele-ICU Physician , Progress Note ) Service provided via interactive audio and video telecommunications E-CARE system to a patient admitted to ICU bed in [facility]. Patient is seen today due to persistent need of ICU care Available chart/ vitals / labs / Images reviewed Video assessment done using teleICU camera, rest of exam as per RN Admitted for dehydration after 6 day Hx of watery diarrhea, Cdiff toxin and antigen negative, Started on IV Zosyn was having diarrhea, now resolved Today HCO3 23, Cr 0.62, WBC 4.6, Hb 9.6 AST 42, ALT 102, T Bili 0.4, Has been on IV levophed, turned off at 4:30am, Now BP 104/78 CT abd from 01/22 showed fat stranding of sarah-nephric areas suggesting pyelonephritis, some dilated loops of harriett but no obstruction seen. UA has not shown any WBC's, blood cultures are negative Sepsis Event Evaluation Height, Weight, BMI Height: 5'7.00" Weight: 158lbs. 0.0oz. 71.859591ag; 21.05 BMI Method:Stated Focused Exam Lactate Level 01/22/23 18:20: Lactic Acid Level 0.86 Exam Exam Patient acknowledged, consented, and participated in this virtual visit which was conducted using real time audio/video Vital Signs Date Time Temp Pulse Resp B/P (MAP) Pulse Ox O2 Delivery O2 Flow Rate FiO2 01/24/23 07:09 57 01/24/23 06:15 61 28 101/68 (79) 90 Room Air 01/24/23 06:00 66 11 98/69 (79) 94 Room Air 01/24/23 05:15 39 01/24/23 05:00 58 21 104/75 (85) Room Air 01/24/23 04:10 36.4 01/24/23 04:00 56 17 100/73 (82) Room Air 01/24/23 03:57 97 Room Air 01/24/23 03:00 57 123/65 (84) Room Air 01/24/23 02:00 62 11 138/87 (104) Room Air 01/24/23 01:30 53 26 132/82 (99) Room Air 01/24/23 01:00 47 10/10/23 00:00 56 128/86 (100) 94 Room Air 01/24/23 00:00 96 Room Air 01/23/23 23:00 48 20 138/89 (105) 97 Room Air 01/23/23 22:45 50 13 131/83 (94) 96 Room Air 01/23/23 22:35 64 20 131/93 (104) 98 Room Air 01/23/23 21:00 46 8 123/87 (99) 98 Room Air 01/23/23 20:00 66 22 111/70 (83) 95 Room Air 01/23/23 20:00 98 Room Air 01/23/23 19:57 36.5 53 19 118/79 (92) Room Air 01/23/23 19:45 59 23 107/77 (87) 97 Nasal Cannula 2.00 01/23/23 19:30 65 25 114/82 (93) 97 Nasal Cannula 2.00 01/23/23 19:15 59 36 109/73 (84) 99 Nasal Cannula 2.00 01/23/23 19:00 52 01/23/23 19:00 57 19 103/101 (101) 100 Nasal Cannula 2.00 01/23/23 18:00 50 8 119/78 (92) 97 Nasal Cannula 2.00 01/23/23 17:00 62 28 106/74 (85) 97 Nasal Cannula 2.00 01/23/23 16:23 36.4 01/23/23 16:00 57 12 101/77 (85) 99 Nasal Cannula 2.00 01/23/23 16:00 97 Room Air 01/23/23 15:00 73 18 105/71 (82) 98 Nasal Cannula 2.00 01/23/23 14:29 Nasal Cannula 2.00 01/23/23 14:00 62 15 100/75 (83) 90 Nasal Cannula 2.00 01/23/23 13:00 56 17 77/51 (60) 93 Nasal Cannula 2.00 01/23/23 12:59 55 77/50 01/23/23 12:22 36.2 01/23/23 12:10 61 01/23/23 12:00 97 Room Air 01/23/23 12:00 66 14 80/56 (64) 95 Nasal Cannula 2.00 01/23/23 11:00 60 11 86/55 (65) 98 Nasal Cannula 2.00 01/23/23 10:00 60 18 85/62 (70) 95 Nasal Cannula 2.00 01/23/23 09:00 68 35 130/85 (100) 100 Nasal Cannula 2.00 01/23/23 08:00 61 41 127/83 (98) 97 Nasal Cannula 2.00 01/23/23 08:00 96 Room Air I & O 01/24/23 07:00 Intake Total 7289 ml Output Total 4800 ml Balance 2489 ml Height & Weight Height: 5'7.00" Weight: 158lbs. 0.0oz. 71.950479wf; 21.05 BMI Method:Stated General Appearance: Anxious, Chronically ill Respiratory: Lungs Clear Cardiovascular: Regular Rate, Rhythm Capillary Refill: Less Than 3 Seconds Gastrointestinal: normal bowel sounds, non tender, soft Extremity: No Pedal Edema, Other (no nausea, diarrhea, no abd distension) Neurologic/Psychiatric: Alert, Oriented x3 Results Lab Laboratory Tests 01/22/23 16:55 01/23/23 04:11 01/24/23 05:00 01/24/23 05:20 Assessment/Plan Assessment/Plan Pt appears septic, I am concerned about pyelonephritis even though UA not showing many WBC's, will continue on IV Zosyn. Also CXR from 01/22 suggests RLL PNA-no cough or SOB will repeat CXR can go to gen medical floor Critical Care: Critically Ill Patient Time spent with patient (mins): 25 ADAM BLAKE MD Jan 24, 2023 07:46
[2023-01-24] MEDS ORDERED: POTASSIUM CHLORIDE 20 MEQ TABLET PO ONE (08:00)
[2023-01-24] MEDS: FERROUS SULFATE 325 MG (IRON) TABLET PO SCH (08:07)
[2023-01-24] MEDS: THERAPEUTIC MULTIVITAMIN W/MINERALS TABLET PO SCH (08:07)
[2023-01-24] MEDS: CYANOCOBALAMIN 1,000 MCG TABLET PO SCH (08:08)
[2023-01-24] MEDS: NICOTINE 21 MG PATCH TD SCH (08:09)
[2023-01-24] MEDS: NICOTINE PATCH REMOVAL TP SCH (08:09)
[2023-01-24] MEDS ORDERED: NON-FORMULARY MEDICATION 1 EA EA (Levothyroxine Sodium 175 MCG) PO SCH (09:00)
--- NOTE | 2023-01-24 10:21 | Diagnostic Imaging Report ---
INDICATION: Pulmonary infiltrates Frontal chest obtained at 10:11 a.m. and compared to 01/22/2023. Heart is borderline in size. Mild infiltrate in the lung bases appears stable compared to the prior study. There is no pneumothorax or pleural fluid. No change in calcified granuloma in right base. Right IJ catheter is also stable. IMPRESSION: Unchanged mild bibasilar infiltrates with no new abnormality. Dictated by: Dictated on workstation # [id number]
--- NOTE | 2023-01-24 10:49 | Progress Note - Cardiology ---
Cardiology SOAP Progress Note Objective: I&O/Vital Signs 01/24/23 01/24/23 01/24/23 01/25/23 21:00 22:00 23:00 00:00 Pulse 57 55 52 Resp 10 10 10 B/P (MAP) 92/68 (76) 85/57 (66) 98/64 (75) Pulse Ox 97 97 97 95 O2 Delivery Room Air Room Air Room Air Room Air 01/25/23 01/25/23 01/25/23 01/25/23 00:00 01:00 01:00 02:00 Pulse 64 53 56 49 Resp 16 18 15 B/P (MAP) 111/72 (85) 95/64 (74) 91/66 (74) Pulse Ox 99 96 94 O2 Delivery Room Air Room Air Room Air 01/25/23 01/25/23 01/25/23 01/25/23 03:00 04:00 04:00 05:00 Pulse 55 53 60 Resp 23 23 13 B/P (MAP) 90/64 (73) Pulse Ox 94 94 94 94 O2 Delivery Room Air Room Air Room Air Room Air 01/25/23 01/25/23 01/25/23 06:00 07:27 07:37 Temp 36.3 Pulse 51 60 B/P (MAP) Pulse Ox 92 O2 Delivery Room Air 01/25/23 00:00 Intake Total 3170 ml Output Total 5850 ml Balance -2680 ml Weight (Pounds): 158 Weight (Ounces): 0.0 Weight (Calculated Kilograms): 71.847462 Constitutional: AAO x 3, other (thin) Respiratory: No accessory muscle use, No respiratory distress; chest expansion is symmetric, chest is bilaterally symmetric, other (diminished bases bilat) Cardiovascular: regular rate-rhythm; No JVD; bradycardia, S1 and S2 Gastrointestional: soft; No guarding; audible bowel sounds, other (epigastric discomfort with palpation) Extremities: no lower extremity edema bilateral Neurologic/Psychiatric: oriented x 3, other (moves all extremities) Skin: No rash on exposed areas, No ulcerations on exposed areas; other (dry skin) Results/Procedures: Labs Laboratory Tests 01/25/23 04:41: White Blood Count 4.7, Red Blood Count 2.97L, Hemoglobin 9.7L, Hematocrit 29L, Mean Corpuscular Volume 97, Mean Corpuscular Hemoglobin 33, Mean Corpuscular Hemoglobin Concent 34, Red Cell Distribution Width 18.1H, Platelet Count 205, Mean Platelet Volume 9.6, Sodium Level 141, Potassium Level 3.8, Chloride Level 111H, Carbon Dioxide Level 23, Anion Gap 7, Blood Urea Nitrogen 6L, Creatinine 0.68, Estimat Glomerular Filtration Rate 109, BUN/Creatinine Ratio 9, Glucose Level 91, Calcium Level 8.7, Corrected Calcium 9.3, Magnesium Level 1.8, Total Bilirubin 0.5, Aspartate Amino Transf (AST/SGOT) 30, Alanine Aminotransferase (ALT/SGPT) 73H, Alkaline Phosphatase 112, Total Protein 5.6L, Albumin 3.2 Microbiology 01/23/23 C. difficile GDH Antigen & Toxins - Final, Complete 01/23/23 Blood Culture - Preliminary, Resulted 01/22/23 MRSA Screen - Final, Complete MRSA not isolated Procedures NAME: SUNSHINE CRUZ [facility] REC#: [id number] PT STATUS: ADM IN : 1975 PHYSICIAN: ADAM BLAKE MD ADMIT DATE: 01/22/23/ICU Draft Date of Exam:01/24/23 CHEST 1 VIEW, AP/PA ONLY INDICATION: Pulmonary infiltrates Frontal chest obtained at 10:11 a.m. and compared to 01/22/2023. Heart is borderline in size. Mild infiltrate in the lung bases appears stable compared to the prior study. There is no pneumothorax or pleural fluid. No change in calcified granuloma in right base. Right IJ catheter is also stable. IMPRESSION: Unchanged mild bibasilar infiltrates with no new abnormality. Dictated on workstation # [id number] Dict: 01/24/23 1018 Trans: 01/24/23 1021 CV [id number] Interpreted by: GASTON NULL MD Electronically signed by: A/P: Assessment: Hypotension - requiring pressor support - likely in some part d/t volume depletion - improved - IV pressors off on 01-24-23 Small pericard eff w/o any evidence of hemodynamic significance - Echo on 01/23/23: LVEF 65-70%, tiny PFO, mod TR, PASP 40-45 mmHg, small amount of pericardial fluid that does not have any evidence of hemodynamic significance Liver enzyme elevation - undetermined etiology Diarrhea - undetermined etiology - medical services managing Abdominal discomfort - undetermined etiology - medical services managing Recent weight loss - management per medical services Grave's dz Anxiety Marijuana usage - last usage reported as a few days ago Tobaccoism - cessation advise Plan: * iv fluids * Evaluate GI symptoms and treat * Monitor labs and replenish electrolytes * Med svces doing all of the above * Will continue to monitor cardiac status KIRSTIN OROSCO Jan 24, 2023 10:49
--- NOTE | 2023-01-24 17:40 | Progress Note - Cardiology ---
Cardiology SOAP Progress Note Subjective: Nausea, diarrhea, and appetite have improved No cp or palp or syncope No shortness of breath Gen weakness and malaise No focal weakness Objective: I&O/Vital Signs 01/24/23 01/24/23 01/24/23 01/24/23 06:00 06:15 07:00 07:09 Pulse 66 61 59 57 Resp 11 28 23 B/P (MAP) 98/69 (79) 101/68 (79) 99/69 (79) Pulse Ox 94 90 93 O2 Delivery Room Air Room Air Room Air 01/24/23 01/24/23 01/24/23 01/24/23 07:51 08:00 08:00 09:00 Temp 36.3 Pulse 57 55 Resp 23 10 B/P (MAP) 91/67 (75) Pulse Ox 96 93 93 O2 Delivery Room Air Room Air Room Air 01/24/23 01/24/23 01/24/23 01/24/23 09:30 10:00 11:00 12:00 Pulse 57 57 59 Resp 13 21 28 B/P (MAP) 104/78 (87) 101/78 (86) 90/63 (72) Pulse Ox 97 96 95 97 O2 Delivery Room Air Room Air Room Air Room Air 01/24/23 01/24/23 01/24/23 01/24/23 12:00 12:00 12:17 13:00 Temp 36.5 Pulse 47 52 51 Resp 18 19 B/P (MAP) 83/61 (68) 94/67 (76) Pulse Ox 95 96 O2 Delivery Room Air Room Air 01/24/23 01/24/23 01/24/23 01/24/23 14:00 15:00 16:02 16:07 Temp 36.4 Pulse 73 62 Resp 21 29 B/P (MAP) 102/78 (86) 96/76 (83) Pulse Ox 96 95 96 O2 Delivery Room Air Room Air Room Air 01/24/23 00:00 Intake Total 4389 ml Output Total 2300 ml Balance 2089 ml Weight (Pounds): 158 Weight (Ounces): 0.0 Weight (Calculated Kilograms): 71.191082 Constitutional: AAO x 3, other (thin) Respiratory: No accessory muscle use, No respiratory distress; chest expansion is symmetric, chest is bilaterally symmetric, other (diminished bases bilat) Cardiovascular: regular rate-rhythm; No JVD; bradycardia, S1 and S2 Gastrointestional: soft; No guarding; audible bowel sounds, other (epigastric discomfort with palpation) Extremities: no lower extremity edema bilateral Neurologic/Psychiatric: oriented x 3, other (moves all extremities) Skin: No rash on exposed areas, No ulcerations on exposed areas; other (dry skin) Results/Procedures: Labs Laboratory Tests 01/24/23 05:00: White Blood Count 4.6, Red Blood Count 2.91L, Hemoglobin 9.6L, Hematocrit 28L, Mean Corpuscular Volume 97, Mean Corpuscular Hemoglobin 33, Mean Corpuscular Hemoglobin Concent 34, Red Cell Distribution Width 18.0H, Platelet Count 207, Mean Platelet Volume 9.8 01/24/23 05:20: Sodium Level 138, Potassium Level 3.6, Chloride Level 108H, Carbon Dioxide Level 23, Anion Gap 7, Blood Urea Nitrogen 7, Creatinine 0.62, Estimat Glomerular Filtration Rate 112, BUN/Creatinine Ratio 11, Glucose Level 68L, Calcium Level 8.2L, Corrected Calcium 8.6, Magnesium Level 1.6, Total Bilirubin 0.4, Aspartate Amino Transf (AST/SGOT) 42H, Alanine Aminotransferase (ALT/SGPT) 102H, Alkaline Phosphatase 126, Total Protein 6.0L, Albumin 3.5 Microbiology 01/23/23 C. difficile GDH Antigen & Toxins - Final, Complete 01/23/23 Blood Culture - Preliminary, Resulted 01/22/23 MRSA Screen - Final, Complete MRSA not isolated A/P: Assessment: Probable viral syndrome leading to n/v/d and low oral intake and hypotension - improved -> IV pressors off on 01-24-23 Small pericard eff w/o any evidence of hemodynamic significance - Echo on 01/23/23: LVEF 65-70%, tiny PFO, mod TR, PASP 40-45 mmHg, small amount of pericardial fluid that does not have any evidence of hemodynamic significance Liver enzyme elevation - undetermined etiology Abdominal discomfort - undetermined etiology - medical services managing Recent weight loss - management per medical services Grave's dz Anxiety Marijuana usage - last usage reported as a few days ago Tobaccoism - cessation advised Plan: * iv fluids * Evaluate GI symptoms and treat * Monitor labs and replenish electrolytes * Med svces doing all of the above * Will continue to monitor cardiac status BISI GAYTAN MD FACP FAC CCDS Jan 24, 2023 17:40
[2023-01-24] MEDS: NOREPINEPHRINE 8 MG/250 ML 250 ML IV SCH (18:24)
[2023-01-25] MEDS: NOREPINEPHRINE 8 MG/250 ML 250 ML IV SCH (02:02)
[2023-01-25] MEDS: PIPERACILLIN/Tazobactam 4.5 GM in NS (IVPB) 100 ML 100 ML IV SCH ×2 (04:40→12:10)
[2023-01-25 04:47] LABS: HEMATOCRIT 29 % (35-52); HEMOGLOBIN 9.7 g/dL (11.5-16.0); MEAN CORPUSCULAR HEMOGLOBIN 33 pg (25-34); MEAN CORPUSCULAR HGB CONC 34 g/dL (32-36); MEAN CORPUSCULAR VOLUME 97 fL (80-99); MEAN PLATELET VOLUME 9.6 fL (9.0-12.2); PLATELET COUNT 205 10^3/uL (130-400); WHITE BLOOD COUNT 4.7 10^3/uL (4.3-11.0)
[2023-01-25 04:57] LABS: ALBUMIN 3.2 GM/DL (3.2-4.5)
[2023-01-25 04:58] LABS: POTASSIUM 3.8 MMOL/L (3.6-5.0)
[2023-01-25 04:59] LABS: CALCIUM 8.7 MG/DL (8.5-10.1)
[2023-01-25 05:00] LABS: TOTAL PROTEIN 5.6 GM/DL (6.4-8.2)
[2023-01-25 05:02] LABS: BILIRUBIN,TOTAL 0.5 MG/DL (0.1-1.0)
[2023-01-25 05:04] LABS: CREATININE SERUM 0.68 MG/DL (0.60-1.30)
[2023-01-25 05:06] LABS: MAGNESIUM 1.8 MG/DL (1.6-2.4)
[2023-01-25] MEDS: POTASSIUM CHLORIDE 20 MEQ TABLET PO SCH (05:24)
[2023-01-25] MEDS: MAGNESIUM 1 GM/100 ML IVPB 100 ML IV SCH ×3 (05:24→06:50)
[2023-01-25] MEDS: POTASSIUM CL 10MEQ/50ML IVPB 50 ML IV SCH (05:24)
[2023-01-25] MEDS ORDERED: POTASSIUM CHLORIDE 20 MEQ TABLET PO ONE ×2 (05:30→08:00)
[2023-01-25] MEDS ORDERED: MAGNESIUM 1 GM/100 ML IVPB 200 ML IV ONE (06:02)
[2023-01-25] MEDS: LEVOTHYROXINE 150 MCG TABLET PO SCH (06:41)
[2023-01-25] MEDS: LEVOTHYROXINE 25 MCG TABLET PO SCH (06:41)
[2023-01-25] MEDS: CYANOCOBALAMIN 1,000 MCG TABLET PO SCH (06:41)
[2023-01-25] MEDS: THERAPEUTIC MULTIVITAMIN W/MINERALS TABLET PO SCH (06:41)
--- NOTE | 2023-01-25 07:43 | Progress Note ---
Focused Exam Lactate Level 01/22/23 18:20: Lactic Acid Level 0.86 Objective Exam Last Set of Vital Signs Vital Signs Date Time Temp Pulse Resp B/P (MAP) Pulse Ox O2 Delivery O2 Flow Rate FiO2 01/25/23 07:37 36.3 01/25/23 07:27 60 01/25/23 06:00 92 Room Air 01/25/23 05:00 13 01/23/23 19:45 2.00 Capillary Refill : Less Than 3 Seconds I&O Intake and Output 01/25/23 00:00 Intake Total 7170 ml Output Total 8050 ml Balance -880 ml Intake Oral 3870 ml IV Total 3300 ml Output Urine Total 7550 ml Urine/Stool Mix 500 ml # Bowel Movements 1 Results/Procedures Lab Laboratory Tests 01/25/23 04:41: White Blood Count 4.7, Red Blood Count 2.97L, Hemoglobin 9.7L, Hematocrit 29L, Mean Corpuscular Volume 97, Mean Corpuscular Hemoglobin 33, Mean Corpuscular Hemoglobin Concent 34, Red Cell Distribution Width 18.1H, Platelet Count 205, Mean Platelet Volume 9.6, Sodium Level 141, Potassium Level 3.8, Chloride Level 111H, Carbon Dioxide Level 23, Anion Gap 7, Blood Urea Nitrogen 6L, Creatinine 0.68, Estimat Glomerular Filtration Rate 109, BUN/Creatinine Ratio 9, Glucose Level 91, Calcium Level 8.7, Corrected Calcium 9.3, Magnesium Level 1.8, Total Bilirubin 0.5, Aspartate Amino Transf (AST/SGOT) 30, Alanine Aminotransferase (ALT/SGPT) 73H, Alkaline Phosphatase 112, Total Protein 5.6L, Albumin 3.2 Microbiology 01/23/23 C. difficile GDH Antigen & Toxins - Final, Complete 01/23/23 Blood Culture - Preliminary, Resulted 01/22/23 MRSA Screen - Final, Complete MRSA not isolated Radiology NAME: SUNSHINE CRUZ [facility] [employer] REC#: [id number] PT STATUS: REG ER : 1975 PHYSICIAN: DUGLAS MEDELLIN MD ADMIT DATE: 01/22/23/ER Signed Date of Exam:01/22/23 CHEST 1 VIEW, AP/PA ONLY CLINICAL INDICATION: Patient with central line placement. EXAM: Portable chest x-ray, upright view. COMPARISON: Chest x-ray dated 01/22/2023. FINDINGS: Interval placement of a right IJ central line with the tip overlying the expected region of the distal superior vena cava. Lungs/pleura: Stable calcified granuloma involving the right lower lung field region. There is interval progression of mild bibasilar atelectasis versus infiltrate. There is no pneumothorax. There is no pleural effusion. Mediastinum: Unremarkable. Pulmonary vasculature: Unremarkable. Heart: Unremarkable. Bones/extrathoracic soft tissue: Unremarkable. IMPRESSION: 1: There is interval progression of mild bibasilar atelectasis versus infiltrates. 2: Interval placement of right IJ central line with the tip in the expected region of the distal superior vena cava. There is no pneumothorax. Dictated by: Dictated on workstation # [id number] Dict: 01/22/232125 Trans: 01/22/232215 [id number] Interpreted by: JEFFERY ALLISON MD Electronically signed by: JEFFERY ALLISON MD 01/22/232215 NAME: SUNSHINE CRUZ [facility] REC#: [id number] PT STATUS: REG ER : 1975 PHYSICIAN: DUGLAS MEDELLIN MD ADMIT DATE: 01/22/23/ER Signed Date of Exam:01/22/23 CT ABDOMEN/PELVIS W CLINICAL INDICATION: Patient with nausea, fever, vomiting, and diarrhea x 5 to 6 days. Patient has history of cholecystectomy and appendectomy. EXAM: Axial CT scan of the abdomen and pelvis performed with 67 cc of Omnipaque 350 IV contrast. Sagittal and coronal reformatted images were created. COMPARISON: CT scan of the abdomen and pelvis with contrast dated 09/14/2019. FINDINGS: There is interval development of patchy airspace opacities and curvilinear opacities involving both lung bases posteriorly which may be related to lung infiltrates. There is interval development of a moderate amount of pericardial effusion. There are small degenerative spurs involving the lower lumbar spine. There is interval cholecystectomy. There are no significantly dilated intrahepatic or extrahepatic ducts. The liver, spleen, pancreas, and adrenal glands are unremarkable. There is interval development of mild fat stranding adjacent to both kidneys. Both kidneys are otherwise unremarkable with no hydronephrosis, stone, or mass. The bladder is fluid-filled and unremarkable. The uterus is surgically absent. There is very minimal pelvic free fluid which may be physiologic. There is no intraabdominal free air. There is no intestinal obstruction. There are mildly distended fluid-filled loops of small bowel involving the duodenum and jejunum which measure 2.5 cm or less in width. There is no transition point seen. There are air-fluid levels within nondistended transverse and right colon which may be related to the patient's history of diarrhea. There is no significant colonic wall thickening. There is no significant small bowel thickening. The stomach is unremarkable. There is no significant lymphadenopathy. The extraabdominal and extrapelvic soft tissue structures are unremarkable. IMPRESSION: 1: There is interval development of mild fat stranding adjacent to both kidneys; otherwise, the kidneys are unremarkable. Etiology such as pyelonephritis should be excluded. Urinalysis may help better evaluate. The bladder is unremarkable as visualized. 2: There are fluid distended loops of small bowel in the upper abdomen which are nonspecific. There is no evidence of intestinal obstruction. 3: There is interval cholecystectomy. 4: There is interval development of a moderate amount of pericardial effusion. 5: There is interval development of infiltrates involving the posterior aspects of both lungs. Dictated by: Dictated on workstation # [id number] Dict: 01/22/232136 Trans: 01/22/232215 [id number] Interpreted by: JEFFERY ALLISON MD Electronically signed by: JEFFERY ALLISON MD 01/22/232215 Assessment/Plan Assessment/Plan (1) Diarrhea Status: Acute Assessment & Plan: PLAN: Stool ova/parasite studies Stool cx C Diff - NEG imodium Qualifiers: Qualified Codes: R19.7 - Diarrhea, unspecified (2) Hypotension Status: Resolved Assessment & Plan: PLAN: Cardiology consult Telemetry Echo Troponin >0.[address] ABD/PEL IVF Pressor support, wean as able Qualifiers: Qualified Codes: I95.9 - Hypotension, unspecified (3) Bradycardia Status: Resolved Assessment & Plan: PLAN: EKG - sinus gema Telemetry (4) Hypothyroidism Assessment & Plan: PLAN: TSH, T4 WNL 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
[2023-01-25] MEDS: NICOTINE 21 MG PATCH TD SCH (08:31)
[2023-01-25] MEDS: FERROUS SULFATE 325 MG (IRON) TABLET PO SCH (08:31)
--- NOTE | 2023-01-25 08:35 | Progress Note - Cardiology ---
Cardiology SOAP Progress Note Objective: I&O/Vital Signs Weight (Pounds): 158 Weight (Ounces): 0.0 Weight (Calculated Kilograms): 71.117129 Constitutional: AAO x 3, other (thin) Respiratory: No accessory muscle use, No respiratory distress; chest expansion is symmetric, chest is bilaterally symmetric, other (diminished bases bilat) Cardiovascular: regular rate-rhythm; No JVD; bradycardia, S1 and S2 Gastrointestional: soft; No guarding; audible bowel sounds, other (epigastric discomfort with palpation) Extremities: no lower extremity edema bilateral Neurologic/Psychiatric: oriented x 3, other (moves all extremities) Skin: No rash on exposed areas, No ulcerations on exposed areas; other (dry skin) Results/Procedures: Labs Microbiology 01/23/23 C. difficile GDH Antigen & Toxins - Final, Complete 01/23/23 Blood Culture - Final, Complete 01/22/23 MRSA Screen - Final, Complete MRSA not isolated A/P: Assessment: Probable viral syndrome leading to n/v/d and low oral intake and hypotension - improved -> IV pressors off on 01-24-23 Small pericard eff w/o any evidence of hemodynamic significance - Echo on 01/23/23: LVEF 65-70%, tiny PFO, mod TR, PASP 40-45 mmHg, small amount of pericardial fluid that does not have any evidence of hemodynamic significance Liver enzyme elevation - undetermined etiology Abdominal discomfort - undetermined etiology - medical services managing Recent weight loss - management per medical services Grave's dz Anxiety Marijuana usage - last usage reported as a few days ago Tobaccoism - cessation advised Plan: * Management and treatment of GI symptoms per medical services * Liver enzymes improving * Monitor labs and replenish electrolytes * Med svces doing all of the above * Will continue to monitor cardiac status KIRSTIN OROSCO Jan 25, 2023 08:35
--- NOTE | 2023-01-25 08:53 | Tele-ICU Progress Note ---
Subjective Date Seen by a Provider: Jan 25, 2023 Time Seen by a Provider: 08:52 Subjective/Events-last exam Tele-ICU Physician , Progress Note ) Service provided via interactive audio and video telecommunications E-CARE s yste to a patient admitted to ICU bed in [facility]. Patient is seen today due to persistent need of ICU care Available chart/ vitals / labs / Images reviewed Video assessment done using teleICU camera, rest of exam as per RN She is a 47-year-old female who is very skinny has a history of tobacco abuse, marijuana abuse presented to the emergency room with a complaint of generalized weakness, fatigue and diarrhea which started about 6 days ago which is very watery. She is also complaining of abdominal cramping. She was evaluated with a CT of the abdomen and pelvis which showed minimal pericardial effusion and there are fluid distended loops of small bowel in the upper abdomen which are nonspecific. Stool C. difficile was done which is negative. She is also hypotensive requiring Levophed. She is started on IV antibiotics. Despite the above efforts she continued to have a lose diarrhea. 01/25/23 Impression 1. Severe diarrhea leading her to the dehydration and hypotension 2. Abdominal cramping probably due to diarrhea 3. Small pericardial effusion which is nonspecific 4. History of marijuana abuse and tobacco abuse disorder. 5. Abnormalities 4. We will get hepatitis profile abnormalities 6. Elevated liver enzymes etiology not clear but will check hepatitis profile. Recommendations 1. We will continue IV fluid bolus followed by increase in the LR 2. Continue antibiotic therapy 3. Correct electrolyte abnormalities 4. We will check hepatitis profile. 5. Cardiology consultation has been requested regarding her pericardial e ffusion which appears to be nonspecific Collaboration of care with primary care physician and bedside consultants I am remotely monitoring this patient from Tele icu station in [place]. I am unable to do the bedside exam, and history/physical and pertinent information is taken from other notes in the computer and bedside staff. Reviewed with SWITCHBOARD OPERATOR HELPER and in MDR Certain portions of this document may have been dictated utilizing voice recognition technology such as [employer]. Inherent to this technology, typographical and grammatical errors may exist. As much as I am diligent to identify and correct to these mistakes, some errors may remain in the document. Critical care time devoted to this patient today is approximately is-15 minutes- Sepsis Event Evaluation Height, Weight, BMI Height: 5'7.00" Weight: 158lbs. 0.0oz. 71.498133sv; 21.54 BMI Method:Stated Focused Exam Lactate Level 01/22/23 18:20: Lactic Acid Level 0.86 Exam Exam Patient acknowledged, consented, and participated in this virtual visit which was conducted using real time audio/video Vital Signs Date Time Temp Pulse Resp B/P (MAP) Pulse Ox O2 Delivery O2 Flow Rate FiO2 01/25/23 08:00 55 94/71 (79) 94 Room Air 01/25/23 07:37 36.3 01/25/23 07:27 60 01/25/23 07:00 60 107/69 (82) 97 Room Air 01/25/23 06:00 51 92 Room Air 01/25/23 05:00 60 13 94 Room Air 01/25/23 04:00 94 Room Air 01/25/23 04:00 53 23 94 Room Air 01/25/23 03:00 55 23 90/64 (73) 94 Room Air 01/25/23 02:00 49 15 91/66 (74) 94 Room Air 01/25/23 01:00 56 01/25/23 01:00 53 18 95/64 (74) 96 Room Air 01/25/23 00:00 64 16 111/72 (85) 99 Room Air 01/25/23 00:00 95 Room Air 01/24/23 23:00 52 10 98/64 (75) 97 Room Air 01/24/23 22:00 55 10 85/57 (66) 97 Room Air 01/24/23 21:00 57 10 92/68 (76) 97 Room Air 01/24/23 20:00 97 Room Air 01/24/23 20:00 51 12 93/71 (78) 94 Room Air 01/24/23 19:21 36.2 01/24/23 19:00 61 01/24/23 19:00 58 12 105/74 (84) 94 Room Air 01/24/23 18:00 51 10 98/67 (77) 94 Room Air 01/24/23 17:00 52 22 96/69 (78) 97 Room Air 01/24/23 16:07 96 Room Air 01/24/23 16:02 36.4 01/24/23 16:00 63 25 110/56 (74) 97 Room Air 01/24/23 15:00 62 29 96/76 (83) 95 Room Air 01/24/23 14:00 73 21 102/78 (86) 96 Room Air 01/24/23 13:00 51 19 94/67 (76) 96 Room Air 01/24/23 12:17 52 01/24/23 12:00 47 18 83/61 (68) 95 Room Air 01/24/23 12:00 36.5 01/24/23 12:00 97 Room Air 01/24/23 11:00 59 28 90/63 (72) 95 Room Air 01/24/23 10:00 57 21 101/78 (86) 96 Room Air 01/24/23 09:30 57 13 104/78 (87) 97 Room Air 01/24/23 09:00 55 10 93 Room Air I & O 01/25/23 07:00 Intake Total 5945 ml Output Total 8150 ml Balance -2205 ml Height & Weight Height: 5'7.00" Weight: 158lbs. 0.0oz. 71.885535wk; 21.54 BMI Method:Stated General Appearance: Anxious, Chronically ill Respiratory: Lungs Clear Cardiovascular: Regular Rate, Rhythm Capillary Refill: Less Than 3 Seconds Gastrointestinal: normal bowel sounds, non tender, soft Extremity: No Pedal Edema, Other (no nausea, diarrhea, no abd distension) Neurologic/Psychiatric: Alert, Oriented x3 Results Lab Laboratory Tests 01/24/23 05:00 01/24/23 05:20 01/25/23 04:41 CARLITOS SIDDIQUI MD Jan 25, 2023 08:53
[2023-01-25] MEDS: NICOTINE PATCH REMOVAL TP SCH (08:59)
--- NOTE | 2023-01-25 11:18 | Discharge Summary ---
JULIANA DOLAN MD,RESIDENT 01/25/23 1116: Discharge Summary Hospital Course Problems/Diagnosis: (1) Diarrhea Status: Acute Assessment & Plan: PLAN: Stool ova/parasite studies Stool cx C Diff - NEG imodium Qualifiers: Qualified Codes: R19.7 - Diarrhea, unspecified (2) Hypotension Status: Resolved Resolution Date/Time: 01/08/18 @ 09:02 Assessment & Plan: PLAN: Cardiology consult Telemetry Echo Troponin >0.[address] ABD/PEL IVF Pressor support, wean as able Qualifiers: Qualified Codes: I95.9 - Hypotension, unspecified (3) Bradycardia Status: Resolved Resolution Date/Time: 01/08/18 @ 09:02 Assessment & Plan: PLAN: EKG - sinus gema Telemetry (4) Hypothyroidism Assessment & Plan: PLAN: TSH, T4 WNL Continue GOLF CLUB WEIGHER levothyroxine (5) Dehydration Status: Resolved Resolution Date/Time: 01/08/18 @ 09:02 Assessment & Plan: PLAN: IVF Encourage PO intake (6) Elevated LFTs Assessment & Plan: PLAN: Hepatitis panel Hospital Course Date of Admission: Jan 22, 2023 at 23:35 Admission Diagnosis : Family Physician/Provider: [facility] Date of Discharge: 01/25/23 Discharge Diagnosis: Diarrhea, dehydration, hypotension Hospital Course: Pt admitted to ICU for multiple episodes of diarrhea, weakness, and dehydration. Due to hypotension, Pt was placed on vasopressors and IVF. C diff stool Ag was negative. Stool Cx, parasites, BCx were negative. Her home medications were started. Abdominal CT demonstrated mild fat stranding around bilateral kidneys, fluid distended loops of small bowel, moderate pericardial effusion. LFTs remained elevated throughout her stay, decreasing towards discharge. Head CT negative for any acute process. The diarrhea became formed stool on 01/24 and she was not needing vasopressor support, tolerating PO. Her blood pressure decreased later that afternoon and it was decided to remain inpatient for 1 more night to ensure adequate treatment and BP monitoring. On the morning of 01/25, she was tolerating PO, had been of vasopressors for 24hrs and BP was sustained. She was stable for DC. Labs and Pending Lab Test: Laboratory Tests 01/25/23 04:41: White Blood Count 4.7, Red Blood Count 2.97L, Hemoglobin 9.7L, Hematocrit 29L, Mean Corpuscular Volume 97, Mean Corpuscular Hemoglobin 33, Mean Corpuscular Hemoglobin Concent 34, Red Cell Distribution Width 18.1H, Platelet Count 205, Mean Platelet Volume 9.6, Sodium Level 141, Potassium Level 3.8, Chloride Level 111H, Carbon Dioxide Level 23, Anion Gap 7, Blood Urea Nitrogen 6L, Creatinine 0.68, Estimat Glomerular Filtration Rate 109, BUN/Creatinine Ratio 9, Glucose Level 91, Calcium Level 8.7, Corrected Calcium 9.3, Magnesium Level 1.8, Total Bilirubin 0.5, Aspartate Amino Transf (AST/SGOT) 30, Alanine Aminotransferase (ALT/SGPT) 73H, Alkaline Phosphatase 112, Total Protein 5.6L, Albumin 3.2 Microbiology 01/23/23 C. difficile GDH Antigen & Toxins - Final, Complete 01/23/23 Blood Culture - Preliminary, Resulted 01/22/23 MRSA Screen - Final, Complete MRSA not isolated Home Meds Active Reported Melatonin 5 Mg Tablet 5 Mg PO HS PRN Iron (Ferrous Sulfate) 325 Mg (65 Mg Iron) Tablet 325 Mg PO DAILY Vitamin B-12 (Cyanocobalamin (Vitamin B-12)) 500 Mcg Tablet 500 Mcg PO DAILY Multivitamin 1 Each Tablet 1 Each PO DAILY Levothyroxine Sodium 175 Mcg Tablet 175 Mcg PO DAILY Quetiapine Fumarate 100 Mg Tablet 50-100 Mg PO HS PRN TAKES TO 1 (100MG) TAB Alprazolam 1 Mg Tablet 0.5-1 Mg PO TID PRN MDD 1.5MG TAKES TO 1 (1MG) TAB Omeprazole 20 Mg Capsule.dr 20 Mg PO DAILY PRN Assessment/Pt DC Instructions Diarrhea, dehydration, hypotension Follow-up with [facility]/primary care provider within 7-14 days after discharge. Discharge Diet: No Restrictions Activity as Tolerated: Yes Discharge Physical Examination Allergies: Coded Allergies: No Known Drug Allergies (Verified , 06/30/09) General Appearance: No Apparent Distress Respiratory: Lungs Clear, Normal Breath Sounds, No Accessory Muscle Use, No Respiratory Distress Cardiovascular: Regular Rate, Rhythm Gastrointestinal: Non Tender, Soft Extremity: No Pedal Edema Skin: Warm/Dry Neurologic/Psychiatric: Alert, Oriented x3, Normal Mood/Affect MIRIAN EDWARDS MD 01/25/23 1541: Discharge Summary Discharge Physical Examination Allergies: Coded Allergies: No Known Drug Allergies (Verified , 06/30/09) Supervisory-Addendum Brief Supervisory Addendum I personally performed the taylor portions of the visit, discussed case with resident and concur with resident documentation of history, physical exam, assessment and treatment plan unless otherwise noted. JULIANA DOLAN MD,RESIDENT Jan 25, 2023 11:16 MIRIAN EDWARDS MD Jan 25, 2023 15:41
[2023-01-25 14:10] VITALS: BP 94/67
--- NOTE | 2023-01-25 17:15 | Progress Note - Cardiology ---
Cardiology SOAP Progress Note Subjective: Gen weakness and malaise is improving No shortness of breath at rest No n/v/d No focal weakness No cp or palp Objective: I&O/Vital Signs 01/25/23 01/25/23 01/25/23 01/25/23 06:00 07:00 07:27 07:37 Temp 36.3 Pulse 51 60 60 B/P (MAP) 107/69 (82) Pulse Ox 92 97 O2 Delivery Room Air Room Air 01/25/23 01/25/23 01/25/23 01/25/23 08:00 08:00 09:00 11:00 Pulse 55 53 67 Resp 25 18 B/P (MAP) 94/71 (79) 99/80 (86) 100/78 (85) Pulse Ox 96 94 96 O2 Delivery Room Air Room Air Room Air Room Air 01/25/23 01/25/23 01/25/23 01/25/23 11:41 12:00 12:00 13:00 Temp 37.0 Pulse 66 58 Resp 29 19 B/P (MAP) 94/67 (76) Pulse Ox 96 O2 Delivery Room Air Room Air Room Air 01/25/23 01/25/23 13:04 14:10 Temp 37.0 Pulse 51 51 Resp 19 B/P (MAP) 94/67 Pulse Ox 96 O2 Delivery Room Air 01/25/23 00:00 Intake Total 3170 ml Output Total 5850 ml Balance -2680 ml Weight (Pounds): 158 Weight (Ounces): 0.0 Weight (Calculated Kilograms): 71.054212 Constitutional: AAO x 3, other (thin) Respiratory: No accessory muscle use, No respiratory distress; chest expansion is symmetric, chest is bilaterally symmetric, other (diminished bases bilat) Cardiovascular: regular rate-rhythm; No JVD; bradycardia, S1 and S2 Gastrointestional: soft; No guarding; audible bowel sounds, other (epigastric discomfort with palpation) Extremities: no lower extremity edema bilateral Neurologic/Psychiatric: oriented x 3, other (moves all extremities) Skin: normal color, warm/dry; No cyanosis, No cool, No diaphoresis, No rash on exposed areas, No ulcerations on exposed areas Results/Procedures: Labs Laboratory Tests 01/25/23 04:41: White Blood Count 4.7, Red Blood Count 2.97L, Hemoglobin 9.7L, Hematocrit 29L, Mean Corpuscular Volume 97, Mean Corpuscular Hemoglobin 33, Mean Corpuscular Hemoglobin Concent 34, Red Cell Distribution Width 18.1H, Platelet Count 205, Mean Platelet Volume 9.6, Sodium Level 141, Potassium Level 3.8, Chloride Level 111H, Carbon Dioxide Level 23, Anion Gap 7, Blood Urea Nitrogen 6L, Creatinine 0.68, Estimat Glomerular Filtration Rate 109, BUN/Creatinine Ratio 9, Glucose Level 91, Calcium Level 8.7, Corrected Calcium 9.3, Magnesium Level 1.8, Total Bilirubin 0.5, Aspartate Amino Transf (AST/SGOT) 30, Alanine Aminotransferase (ALT/SGPT) 73H, Alkaline Phosphatase 112, Total Protein 5.6L, Albumin 3.2 Microbiology 01/23/23 C. difficile GDH Antigen & Toxins - Final, Complete 01/23/23 Blood Culture - Preliminary, Resulted 01/22/23 MRSA Screen - Final, Complete MRSA not isolated Laboratory Tests 01/24/23 05:00 01/24/23 05:20 01/25/23 04:41 A/P: Assessment: Probable viral syndrome leading to n/v/d and low oral intake and hypotension - improved -> IV pressors off on 01-24-23 Small pericard eff w/o any evidence of hemodynamic significance - Echo on 01/23/23: LVEF 65-70%, tiny PFO, mod TR, PASP 40-45 mmHg, small amount of pericardial fluid that does not have any evidence of hemodynamic significance Liver enzyme elevation - undetermined etiology Abdominal discomfort - undetermined etiology - medical services managing Recent weight loss - management per medical services Grave's dz Anxiety Marijuana usage - last usage reported as a few days ago Tobaccoism - cessation advised Plan: * Management and treatment of GI symptoms per medical services * Liver enzymes improving * Monitor labs and replenish electrolytes * Med svces doing all of the above * Will continue to monitor cardiac status BISI GAYTAN MD [facility] Jan 25, 2023 17:15
--- NOTE | 2023-01-25 18:17 | Physician Query-Final Dx ---
ANJELICA CUEVAS 01/25/23 1817: Final Diagnosis Give Final Diagnosis Please give Final Diagnosis The medical record reflects the following clinical evidence: Clinical Indicators: BP on admission 75/52, BP continued to run in the 70-80 systolic after fluids given and Norepi gtt started, elevated liver enzymes on admission that trended down during admission, Risk Factor(s): admitted with Diarrhea, Dehydration and Hypotension Treatment: ER: Lactated Ringer's 3 L, then started nor epi Gtt, that continued for approximately 3 days Hypovolemic shock, present on admission, resolved Other explanation of clinical findings Unable to determine (no explanation for clinical findings) Please clarify and document your clinical opinion in the progress notes and discharge summary including the definitive and/or presumptive diagnosis, (suspected or probable), related to the above clinical findings. Please include clinical findings supporting your diagnosis. Anjelica Cuevas, MSN, RN Clinical Sound Engineer [phone] [email or web address] MIRIAN EDWARDS MD 01/26/23 1721: Final Diagnosis Give Final Diagnosis Hypovolemic shock secondary to diarrhea ANJELICA CUEVAS Jan 25, 2023 18:17 MIRIAN EDWARDS MD Jan 26, 2023 17:21
== END 2023-01-25 14:10 | disposition home or self-care (01) | DRG 391 ==
LOC: EDUNIT# 16:21 → ER 16:23 → ICU 23:35
PROVIDERS: ADMIT Internal Medicine; ATTEND Family Medicine
PROC: 02HV33Z Insertion of Infusion Device into Superior Vena Cava, Percutaneous Approach (ICD-10-PCS; principal; 2023-01-22)
DX: A08.4 Viral intestinal infection, unspecified (principal); R57.1 Hypovolemic shock; I31.39 Other pericardial effusion (noninflammatory); K21.9 Gastro-esophageal reflux disease without esophagitis; F41.9 Anxiety disorder, unspecified; E05.00 Thyrotoxicosis with diffuse goiter without thyrotoxic crisis or storm; F17.210 Nicotine dependence, cigarettes, uncomplicated; R00.1 Bradycardia, unspecified; E86.0 Dehydration; E89.0 Postprocedural hypothyroidism; T50.995A Adverse effect of other drugs, medicaments and biological substances, initial encounter; R74.8 Abnormal levels of other serum enzymes; F12.10 Cannabis abuse, uncomplicated; Z79.899 Other long term (current) drug therapy
CPT/HCPCS: 36415; 36556; 70450; 71045; 74177; 80053; 80074; 80306; 81000; 82274; 82533; 83605; 83735; 83880; 84100; 84439; 84443; 84484; 85025; 85027; 87015; 87040; 87045; 87046; 87081; 87324; 87328; 87329; 87449; 87899; 93005; 93306; 96365; 96366